=== PATIENT | female | born 1950 | race Caucasian/White ===

== ENCOUNTER 2018-12-07 14:44 | Emergency (ER) | payer OTHER ==
[2018-12-07 15:04] VITALS: BP 106/50; PULSE 74; TEMP 98.4; BMI 28.3
--- NOTE | 2018-12-07 16:08 | PDOC ---
History of Present Illness - General Chief Complaint: Cold Symptoms Stated Complaint: COUGHING Time Seen by Provider: 12/07/18 15:57 - History of Present Illness Initial Comments: 12/07/18 16:04 68-year-old female with past medical history significant for hypertension and diabetes presents for evaluation of cough and fever with associated body aches 5 days. Past History - Past Medical History Allergies/Adverse Reactions: Allergies Allergy/AdvReac Type Severity Reaction Status Date / Time No Known Allergies Allergy Verified 12/07/18 15:02 Home Medications: Ambulatory Orders Guaifenesin Dm [Mucinex Dm -] 1 tab PO BID #14 tab.er.12h 12/07/18 Losartan Potassium [Cozaar -] 50 mg PO DAILY 12/07/18 Metformin HCl [Glucophage] 500 mg PO BID 12/07/18 COPD: No Diabetes: Yes HTN: Yes - Suicide/Smoking/Psychosocial Hx Smoking History: Never smoked Review of Systems - Review of Systems Constitutional: Yes: Chills, Fever, Malaise, Night Sweats Respiratory: Yes: Cough *Physical Exam - Vital Signs Last Vital Signs Temp Pulse Resp BP Pulse Ox 98.4 F 74 18 106/50 L 98 12/07/18 15:03 12/07/18 15:03 12/07/18 15:03 12/07/18 15:03 12/07/18 15:03 - Physical Exam Comments: 12/07/18 16:05 HEAD: NC/AT EYES: Conjuntiva clear Ears: Canals and TM's normal NOSE: No d/c THROAT: Moist mucous membrances, oral pharanx clear, uvula midline NECK: Supple without adenopathy CARDIAC: S1 S2 LUNGS: CTA Full and Equal breath sounds ABDOMEN: Soft NT ND MS: Full ROM in all joints without edema NEUROLOGIC: No gross sensory or motor deficits, NVID SKIN: Normal color and temperature no lesions or rashes Moderate Sedation - Procedure Monitoring Vital Signs: Procedure Monitoring Vital Signs Temperature 98.4 F 12/07/18 15:03 Pulse Rate 74 12/07/18 15:03 Respiratory Rate 18 12/07/18 15:03 Blood Pressure 106/50 L 12/07/18 15:03 O2 Sat by Pulse Oximetry (%) 98 12/07/18 15:03 Medical Decision Making - Medical Decision Making 12/07/18 16:08 benign exam, pt out of range for tamiflu treatment *DC/Admit/Observation/Transfer Diagnosis at time of Disposition: URI, acute - Discharge Dispostion Disposition: HOME Condition at time of disposition: Stable Decision to Admit order: No - Prescriptions Prescriptions: Guaifenesin Dm [Mucinex Dm -] 1 tab PO BID #14 tab.er.12h - Referrals Referrals: Derek Dove MD [Primary Care Provider] - - Patient Instructions Printed Discharge Instructions: DI for Viral Upper Respiratory Infection -- Adult Additional Instructions: Please use the Mucinex as needed for cough and as directed twice a day. Return to the emergency room should symptoms worsen or go unresolved. Please follow-up with your primary care physician in one to 2 days for further evaluation and treatment options. - Post Discharge Activity
== END 2018-12-07 16:18 | disposition home or self-care (01) ==
LOC: JERFT 14:44
DX: J06.9 Acute upper respiratory infection, unspecified (principal); I10 Essential (primary) hypertension; E11.9 Type 2 diabetes mellitus without complications; Z79.84 Long term (current) use of oral hypoglycemic drugs
CPT/HCPCS: 99281-25

== ENCOUNTER 2020-05-16 15:59 | Inpatient (IN) | payer OTHER ==
--- NOTE | 2020-05-16 16:07 | PDOC ---
Rapid Medical Evaluation Chief Complaint: Pain, Acute Time Seen by Provider: 05/16/20 16:04 Medical Evaluation: Allergies Allergy/AdvReac Type Severity Reaction Status Date / Time No Known Allergies Allergy Verified 12/07/18 15:02 Vital Signs Temp Pulse Resp BP Pulse Ox 98.2 F 69 16 102/64 99 05/16/20 16:01 05/16/20 16:01 05/16/20 16:01 05/16/20 16:01 05/16/20 16:01 05/16/20 16:05 CC: abd distention x 1 week, + hepatitis and elevated creatine level, decreased bm, + fatigue and sob with exertion Exam: vss, abd distention and firmness noted Plan: labs, urine and ct Discharge Disposition - Diagnosis Abdominal distention - Discharge Dispostion Condition at time of disposition: Stable - Referrals - Patient Instructions - Post Discharge Activity
[2020-05-16 16:55] LABS: BASO % 0.5 % (0-2.0); EOS % 1.4 % (0-4.5); HEMATOCRIT 36.3 % (32.4-45.2); HEMOGLOBIN 12.3 GM/dL (10.7-15.3); MCH 34.1 pg (25.7-33.7); MCHC 33.9 g/dl (32.0-36.0); MEAN CELL VOLUME 100.6 fl (80-96); MEAN PLT VOLUME 7.7 fl (7.5-11.1); MONO % 22.2 % (3.8-10.2); NEUT % 53.9 % (42.8-82.8); PLATELET COUNT 197 K/MM3 (134-434); RBC 3.61 M/mm3 (3.60-5.2); WHITE BLOOD COUNT 6.8 K/mm3 (4.0-10.0)
--- NOTE | 2020-05-16 17:00 | PDOC ---
History of Present Illness - General Chief Complaint: Pain, Acute Stated Complaint: ABD PAIN Time Seen by Provider: 05/16/20 16:04 History Source: Patient Exam Limitations: No Limitations - History of Present Illness Initial Comments: 05/16/20 17:00 69yF w PMHx HTN DM cirrhosis presenting w 10d worsening ABD distension. Was being worked up with Dr Escalona, last month diagnosed w cirrhosis, elevated creatinine, hepatitis neg, originally planned for CT A/P tmrw. Associated BLE swelling, subjective fevers, SOB and pain around abd distension contours. Denies alcohol use. Denies fever, n/v, cough, chest pain, dysuria, bowel mvmt changes. Past History - Medical History Allergies/Adverse Reactions: Allergies Allergy/AdvReac Type Severity Reaction Status Date / Time No Known Allergies Allergy Verified 05/16/20 17:50 Home Medications: Ambulatory Orders Losartan Potassium [Cozaar -] 50 mg PO DAILY 12/07/18 Glimepiride 2 mg PO BID 05/16/20 Hydrochlorothiazide 12.5 mg PO DAILY 05/16/20 Levothyroxine [Synthroid -] 50 mcg PO DAILY 05/16/20 Omeprazole 40 mg PO DAILY 05/16/20 Propranolol HCl 10 mg PO DAILY 05/16/20 COPD: No Diabetes: Yes HTN: Yes - Surgical History Lung Surgery: No - Immunization History Immunization Up to Date: No - Psycho-Social/Smoking History Smoking History: Never smoked Have you smoked in the past 12 months: No Information on smoking cessation initiated: No - Substance Abuse Hx (Audit-C & DAST Scrn) How often the patient has a drink containing alcohol: Never Score: In Men: 4 or > Positive; In Women: 3 or > Positive: 0 Screen Result (Pos requires Nsg. Audit-10AR): Negative In the last yr the pt used illegal drug/Rx for NonMed reason: No Score: Yes response is considered Positive: 0 Screen Result (Positive result requires Nsg. DAST-10): Negative Review of Systems - Review of Systems Constitutional: No: Chills *Physical Exam - Vital Signs Last Vital Signs Temp Pulse Resp BP Pulse Ox 98.2 F 69 16 102/64 99 05/16/20 16:01 05/16/20 16:01 05/16/20 16:01 05/16/20 16:01 05/16/20 16:01 - Physical Exam General Appearance: Yes: Nourished, Appropriately Dressed, Mild Distress HEENT: positive: EOMI, WILL, Normal Voice, Hearing Grossly Normal. negative: Scleral Icterus (R), Scleral Icterus (L) Respiratory/Chest: positive: Lungs Clear, Normal Breath Sounds. negative: Chest Tender, Respiratory Distress, Crackles, Rales, Rhonchi, Stridor, Wheezing Cardiovascular: positive: Regular Rhythm, Regular Rate, S1, S2. negative: Edema, Murmur Gastrointestinal/Abdominal: positive: Normal Bowel Sounds, Soft, Distended. negative: Tender Musculoskeletal: negative: CVA Tenderness (R), CVA Tenderness (L) Extremity: positive: Pedal Edema (2+ pitting to knees leanna) Integumentary: positive: Normal Color, Warm Neurologic: positive: Fully Oriented, Alert, Normal Response ED Treatment Course - LABORATORY CBC & Chemistry Diagram: 05/16/20 16:24 05/16/20 16:24 Medical Decision Making - Medical Decision Making 05/16/20 17:40 EKG CXR - no acute pathology CT A/P --- 69yF w PMHx HTN DM cirrhosis presenting w 10d worsening ABD distension. Ascites 2/2 liver/kidney. Has SIDNEY Cr 2.2, no evidence of UTI. Mildly elevated ALP, plt wnl. Low concern for SBP (afebrile, not toxic appearing) Diagnostic paracentesis withdrew 20cc yellow fluid, sent to lab for analysis (cell count, protein, culture, LDH) Anticipate admit m/s for ascites - pending CXR, CT A/P, body fluid results Signed out to night team Discharge - Discharge Information Problems reviewed: Yes Clinical Impression/Diagnosis: Ascites Qualifiers: Ascites type: other type Qualified Code(s): R18.8 - Other ascites Condition: Stable - Follow up/Referral Referrals: Derek Dove MD [Primary Care Provider] - - Patient Discharge Instructions - Post Discharge Activity
[2020-05-16 17:11] LABS: ALBUMIN 2.2 g/dl (3.4-5.0); ALK PHOS 139 U/L (45-117); ANION GAP 9 MMOL/L (8-16); BILIRUBIN,TOTAL 1.5 mg/dL (0.2-1); BLOOD UREA NITROGEN 42.4 mg/dL (7-18); CALCIUM 8.3 mg/dL (8.5-10.1); CHLORIDE 104 mmol/L (98-107); CO2 25 mmol/L (21-32); CREATININE 2.2 mg/dL (0.55-1.3); GLUCOSE,RANDOM 204 mg/dL (74-106); LIPASE 194 U/L (73-393); POTASSIUM 4.1 mmol/L (3.5-5.1); SGOT/AST 21 U/L (15-37); SGPT/ALT 16 U/L (13-61); SODIUM 138 mmol/L (136-145); TOT PROT 6.8 g/dl (6.4-8.2)
--- NOTE | 2020-05-16 17:22 | PDOC ---
Attending Attestation - Resident Resident Name: Akshat Jordan - ED Attending Attestation I have performed the following: I have examined & evaluated the patient, The case was reviewed & discussed with the resident, I agree w/resident's findings & plan, Exceptions are as noted - HPI HPI: 05/16/20 18:17 69-year-old female history of hypertension, diabetes presenting with increasing abdominal distention and discomfort. Patient states she She has been followed for evaluation and by GI, thinks she had a negative screening test for hepatitis in the past, she was given referral to GI for further evaluation she had a CT of the abdomen pending for tomorrow however as her creatinine was elevated it was canceled.. And also notes approximately 5 months of increasing lower extremity edema there has been no significant change there is no pain in her calves or hemoptysis. Patient Does endorse feeling subjective fevers she denies any nausea or vomiting, cough, chest pain, Ann, BPR. Patient denies any EtOH abuse, denies any history of blood transfusions or IV drug use - Physicial Exam PE: 05/16/20 18:18 GENERAL: The patient is awake, alert, and fully oriented, Nontoxic - in no acute distress. HEAD: Normocephalic, atraumatic. EYES: extraocular movements intact, sclera anicteric, conjunctiva clear. ENT: Normal voice, Moist mucous membranes. NECK: Normal range of motion, supple LUNGS: Breath sounds equal, clear to auscultation bilaterally. No wheezes, no rhonchi, no rales. HEART: Regular rate and rhythm, normal S1 and S2 without murmur, rub or gallop. ABDOMEN: Distended abdomen, mildly diffusely tender, no rebound or guarding, no CVA tenderness EXTREMITIES: Normal range of motion, Trace edema. NEUROLOGICAL: No facial assymetry, Normal speech, PSYCH: Normal mood, normal affect. SKIN: Warm, Dry, normal turgor, - Medical Decision Making 05/16/20 18:18 Unclear cause of patient's abdominal distention suspect ascites, differential includes possible malignancy, hepatitis, sbp (in light of complaint of chills/subjective fever) - will do diagnostic tap will obtain CT to eval for cause of her acites anticipate amdission as she also has a katie 05/16/20 18:30 diagnostic paracentesis performed under US guidance by Dr. Jordan under my direct supervision. Area was prepped, cleaned throughly with betadine. 18g syringe was inserted and 20cc of yellowish translucent fluid was withdrawn without any complications. sent to lab for analysis Heart Score/ECG Review - ECG Impressions Comment:: 05/16/20 18:33 Twelve-lead EKG was performed and reviewed by me. There is normal sinus rhythm with a normal rate. Rate of 67 The axis is normal. The intervals are normal. There is normal R wave progression There are no ST or T wave abnormalities. Impression: Normal twelve-lead EKG Discharge - Discharge Information Problems reviewed: Yes Clinical Impression/Diagnosis: Ascites Qualifiers: Ascites type: other type Qualified Code(s): R18.8 - Other ascites Condition: Stable - Follow up/Referral - Patient Discharge Instructions - Post Discharge Activity
[2020-05-16 17:51] LABS: URINE APPEARANCE CLEAR; URINE BILIRUBIN 1+ (NEGATIVE); URINE COLOR DK YELLOW; URINE GLUCOSE (UA) NEGATIVE (NEGATIVE); URINE KETONE TRACE (NEGATIVE); URINE LEUK ESTERASE NEGATIVE (NEGATIVE); URINE NITRITE NEGATIVE (NEGATIVE); URINE PROTEIN NEGATIVE (NEGATIVE)
[2020-05-16 17:54] LABS: N-TERMINAL BNP 151.6 pg/ml (5-125)
[2020-05-16 19:36] LABS: BF WBC & OTHER NUCLEATED CELLS 622 /mm3
[2020-05-16 19:39] LABS: ANISOCYTOSIS 0; MACROCYTOSIS 0; PLATELET ESTIMATE NORMAL
[2020-05-16 20:41] LABS: BODY FLUID MACROPHAGES 41 %; BODY FLUID MESOTHELIAL 15 %
--- NOTE | 2020-05-16 22:43 | PN ---
Teaching Attending Note Name of Resident: Shayy Montenegro ATTENDING PHYSICIAN STATEMENT I saw and evaluated the patient. I reviewed the resident's note and discussed the case with the resident. I agree with the resident's findings and plan as documented. SUBJECTIVE: Patient is a 69 year old woman with a PMH of Hypertension, NIDDM and Cirrhosis presenting with increasing abdominal distention and discomfort for ten days. Patient states she has been followed for evaluation and by GI - thinks she had a negative screening test for hepatitis. Scheduled CT of the abdomen for tomorrow was cancelled due to azotemia. Also notes approximately 5 months of increasing lower extremity edema but no calf pain or hemoptysis. Has associated subjective fevers. Denies nausea, vomiting, cough, chest pain, diarrhea, hematochezia, melena, blood transfusions or IV drug use. Denies alcohol, tobacco or illicit drug use. No sick contacts or recent travels. Family history is unremarkable. OBJECTIVE: Alert Vital Signs Period Temp Pulse Resp BP Sys/Ramos Pulse Ox Last 24 Hr 98.2 F 61-69 16-22 98-102/59-64 98-99 HEENT: No Jaundice, eye redness or discharge, PERRLA, EOMI. Normocephalic, atraumatic. External ears are normal and hearing is grossly intact. No nasal discharge. Neck: Supple, nontender. No palpable adenopathy or thyromegaly. No JVD Chest: Good effort. Clear to auscultation and percussion. Heart: Regular. No S3, rub or murmur Abdomen: Aistended, ascites; soft, diffuse tenderness most marked in the RUQ and no HSM. No rebound or guarding. Normal bowel sounds. Ext: Peripheral pulses intact. Leg edema. Skin: Warm and dry. No petechiae, rash or ecchymosis. Neuro: Alert. Oriented x3. CN 2-12 grossly intact. Sensation grossly intact in all four extremities and DTR are symmetric. Psych: Appropriate mood and affect. Good insight. Home Medications Medication Instructions Recorded Losartan Potassium [Cozaar -] 50 mg PO DAILY 12/07/18 Glimepiride 2 mg PO BID 05/16/20 Hydrochlorothiazide 12.5 mg PO DAILY 05/16/20 Levothyroxine [Synthroid -] 50 mcg PO DAILY 05/16/20 Omeprazole 40 mg PO DAILY 05/16/20 Propranolol HCl 10 mg PO DAILY 05/16/20 Abnormal Lab Results 05/16/20 05/16/20 05/16/20 16:24 16:24 17:25 MCV 100.6 H MCH 34.1 H Monocytes % 22.2 H D Monocytes % (Manual) 19 H Basophils % (Manual) 3.1 H BUN 42.4 H Creatinine 2.2 H Random Glucose 204 H Calcium 8.3 L Total Bilirubin 1.5 H Alkaline Phosphatase 139 H B-Natriuretic Peptide 151.6 H Albumin 2.2 L Urine Ketones Trace H Urine Bilirubin 1+ H Current Medications Generic Name Dose Route Start Last Admin Trade Name Freq PRN Reason Stop Dose Admin Acetaminophen 650 mg 05/17/20 00:48 Tylenol - PO Q4H PRN PAIN LEVEL 7 - 10 Ceftriaxone Sodium 1 gm/ 50 mls @ 200 mls/hr 05/18/20 01:00 Dextrose IVPB DAILY CHRIS Protocol Ceftriaxone Sodium 1 gm/ 50 mls @ 200 mls/hr 05/17/20 00:55 05/17/20 01:40 Dextrose IVPB 05/17/20 01:09 200 mls/hr ONCE ONE Administration Protocol Insulin Aspart 0 vial 05/17/20 07:00 Novolog Vial Sliding Scale - SQ ACHS [facility] Protocol ASSESSMENT AND PLAN: 1. Ascites/Rule out SBP - Etiology unclear. CT scan of abdomen/pelvis without contrast shows ascites, ill defined peritoneal densities, possible mesenteric edema, large periaortic lymphnodes and multilevel degenerative disc disease. Diagnostic paracentesis done and analysis fluid pending. Macrocytosis is unexplained. Viral testing for COVID-19 ordered and patient placed on airborne, droplet and contact isolation. EKG shows NSR at 67/minute and QTc [address]-T wave changes. Initial troponin is negative. Will get PT/INR, treat patient empirically with IV Ceftriaxone pending ascitic fluid analysis. If SBP is confirmed, will treat with IV albumin. Consult IR for therapeutic paracentesis, ID and GI. Will continue comprehensive care for all of patients comorbid conditions. 2. Hypoalbuminemia - Possibly due to combined effects of malnutrition and inflammation associated with comorbid conditions. Will ensure adequate dietary protein intake and also consult promotions director. 3. DM For now, we will hold the home diabetes drugs and implement sliding scale insulin regimen. Provide comprehensive diabetes care with patient teaching and counseling about the importance of adherence to prescribed diabetes regimen, euglycemia, eye care and foot care. 4. CKD with SIDNEY Cause unclear. Will hold HCTZ and Lisinopril. Will get kidney sonogram, phosphate, PTH, urine protein/creatinine ratio, hydrate gently, monitor urine output and consult Nephrology. Avoid nephrotoxic agents such as NSAIDS, aminoglycosides, contrast dyes and certain Alternative medicine products. 5. Hypertension Hold antihypertensive drugs. Will restart suitable outpatient antihypertensive drugs when clinically appropriate. Subsequently, will revise regimen to ensure [id number] excellent BP control. Patient counseled on the injurious effects of uncontrolled hypertension. Nonpharmacologic measures to control hypertension like weight loss, salt restriction and exercise stressed. Importance of adherence to treatment regimen and attainment of normotension emphasized. 6. DVT prophylaxis - Heparin 5000u sq tid. 7. Advance directives - Full code
[2020-05-17] MEDS ORDERED: ACETAMINOPHEN 325 MG TABLET (FP) PO PRN (00:48)
[2020-05-17] MEDS ORDERED: CEFTRIAXONE 1 GM in DEXTROSE 5%-WATER - 50 ML IVPB ONE (00:55)
[2020-05-17] MEDS ORDERED: CEFTRIAXONE 1 GM/50 ML BAG ONE ×2 (01:43→09:41)
--- NOTE | 2020-05-17 02:22 | HP ---
CHIEF COMPLAINT: Abdominal distension and pain PCP: Dr. Derek Dove HISTORY OF PRESENT ILLNESS: Pt is a 69 yo F with PMHx of cirrhosis, DM complaining of abdominal distension and pain for the last 4 days. She states this pain is present throughout the abdomen, but is most pronouned in the R subcostal region. Pt states nothing has seemed to make it better or worse. Pt also complains of progressive lower extremity edema for the last 4-5 months, but denies any calf pain, hemoptysis or SOB symptoms. States she has been following outpatient with GI (Dr. Escalona) and was diagnosed with cirrhosis in October. Sstarted on medication which she cannot recall the name of. Pt states she had colonoscopy in October which was unremarkable. Also had EGD which showed ulcers which she's being treated for. Admits to subjective fevers (did not record temps) at home and chills and urinary issues with decreased urine output. Denies nausea, vomiting, CP, SOB, bowel issues, melena, hematochezia. ER course was notable for: (1) Diagnostic paracentesis (2) EKG NSR, no acute changes Recent Travel: [facility] in November PAST MEDICAL HISTORY: Cirrhosis DM HTN PAST SURGICAL HISTORY: Hernia repair Hysterectomy Social History: Smoking: Denies Alcohol: Denies Drugs: Denies Allergies No Known Allergies Allergy (Verified 05/16/20 17:50) HOME MEDICATIONS: Home Medications Medication Instructions Recorded Losartan Potassium [Cozaar -] 50 mg PO DAILY 12/07/18 Glimepiride 2 mg PO BID 05/16/20 Hydrochlorothiazide 12.5 mg PO DAILY 05/16/20 Levothyroxine [Synthroid -] 50 mcg PO DAILY 05/16/20 Omeprazole 40 mg PO DAILY 05/16/20 Propranolol HCl 10 mg PO DAILY 05/16/20 REVIEW OF SYSTEMS CONSTITUTIONAL: Admits to fever, chills Denies diaphoresis, generalized weakness, malaise, loss of appetite, weight change HEENT: Absent: rhinorrhea, nasal congestion, throat pain, throat swelling, difficulty swallowing, mouth swelling, ear pain, eye pain, visual changes CARDIOVASCULAR: Absent: chest pain, syncope, palpitations, irregular heart rate, lightheadedness, peripheral edema RESPIRATORY: Absent: cough, shortness of breath, dyspnea with exertion, orthopnea, wheezing, stridor, hemoptysis GASTROINTESTINAL: Admits to diffuse pain, pronounced in R subcostal region Absent: abdominal pain, abdominal distension, nausea, vomiting, diarrhea, constipation, melena, hematochezia GENITOURINARY: Absent: dysuria, frequency, urgency, hesitancy, hematuria, flank pain, genital pain MUSCULOSKELETAL: Admits to LE edema Absent: myalgia, arthralgia, back pain, neck pain SKIN: Absent: rash, itching, pallor HEMATOLOGIC/IMMUNOLOGIC: Absent: easy bleeding, easy bruising, lymphadenopathy, frequent infections ENDOCRINE: Absent: unexplained weight gain, unexplained weight loss, heat intolerance, cold intolerance NEUROLOGIC: Absent: headache, focal weakness or paresthesias, dizziness, unsteady gait, seizure, mental status changes, bladder or bowel incontinence PSYCHIATRIC: Absent: anxiety, depression, suicidal or homicidal ideation, hallucinations. PHYSICAL EXAMINATION Vital Signs - 24 hr 05/16/20 05/16/20 05/16/20 16:01 17:41 20:44 Temperature 98.2 F Pulse Rate 69 Pulse Rate [ 61 Radial] Respiratory 16 22 H Rate Blood Pressure 102/64 Blood Pressure 98/59 L [Left Arm] O2 Sat by Pulse 99 98 98 Oximetry (%) 05/17/20 02:04 Temperature 97.9 F Pulse Rate Pulse Rate [ 64 Radial] Respiratory 18 Rate Blood Pressure Blood Pressure 103/65 [Left Arm] O2 Sat by Pulse 98 Oximetry (%) GENERAL: Awake, alert, and fully oriented, in no acute distress. HEAD: Normal with no signs of trauma. EYES: Pupils equal, round and reactive to light, extraocular movements intact, sclera anicteric, conjunctiva clear. No lid lag. EARS, NOSE, THROAT: Ears normal, nares patent, oropharynx clear without exudates. Moist mucous membranes. NECK: Normal range of motion, supple without lymphadenopathy, JVD, or masses. LUNGS: Breath sounds equal, clear to auscultation bilaterally. No wheezes, and no crackles. No accessory muscle use. HEART: Regular rate and rhythm, normal S1 and S2 without murmur, rub or gallop. ABDOMEN: Ascitic/distended abdomen. Positive fluid wave. Hepatomegaly present. Tender to palpation. Normoactive bowel sounds, no guarding, no rebound, no masses. No splenomegaly MUSCULOSKELETAL: Normal range of motion at all joints. No bony deformities or tenderness. No CVA tenderness. UPPER EXTREMITIES: 2+ pulses, warm, well-perfused. No cyanosis. No clubbing. No peripheral edema. LOWER EXTREMITIES: 2+ pulses, warm, well-perfused. No calf tenderness. Trace edema bilaterally. NEUROLOGICAL: Cranial nerves II-XII intact. Normal speech. Normal gait. PSYCHIATRIC: Cooperative. Good eye contact. Appropriate mood and affect. SKIN: Warm, dry, normal turgor, no rashes or lesions noted, normal capillary refill. Laboratory Results - last 24 hr 05/16/20 05/16/20 05/16/20 16:24 16:24 17:25 WBC 6.8 RBC 3.61 Hgb 12.3 Hct 36.3 MCV 100.6 H MCH 34.1 H MCHC 33.9 RDW 13.0 Plt Count 197 D MPV 7.7 Absolute Neuts (auto) 3.7 Neutrophils % 53.9 Neutrophils % (Manual) 43.7 Band Neutrophils % 2.1 Lymphocytes % 22.0 Lymphocytes % (Manual) 28.1 Monocytes % 22.2 H D Monocytes % (Manual) 19 H Eosinophils % 1.4 Eosinophils % (Manual) 2.1 Basophils % 0.5 Basophils % (Manual) 3.1 H Myelocytes % (Man) 0 Promyelocytes % (Man) 0 Blast Cells % (Manual) 0 Nucleated RBC % 0 Metamyelocytes 0 Hypochromia 0 Platelet Estimate Normal Polychromasia 0 Poikilocytosis 0 Anisocytosis 0 Microcytosis 0 Macrocytosis 0 Sodium 138 Potassium 4.1 Chloride 104 Carbon Dioxide 25 Anion Gap 9 BUN 42.4 H Creatinine 2.2 H Est GFR (CKD-EPI)AfAm 25.30 Est GFR (CKD-EPI)NonAf 21.83 Random Glucose 204 H Calcium 8.3 L Magnesium 2.0 Total Bilirubin 1.5 H AST 21 ALT 16 Alkaline Phosphatase 139 H Creatine Kinase 77 Troponin I < 0.02 B-Natriuretic Peptide 151.6 H Total Protein 6.8 Albumin 2.2 L Lipase 194 Urine Color Dk yellow Urine Appearance Clear Urine pH 5.0 Ur Specific [place] 1.017 Urine Protein Negative Urine Glucose (UA) Negative Urine Ketones Trace H Urine Blood Negative Urine Nitrite Negative Urine Bilirubin 1+ H Urine Urobilinogen 1.0 Ur Leukocyte Esterase Negative Fluid Source Fluid WBC Fluid RBC Fluid Neutrophils Fluid Lymphocytes Pleural Macrophages Pleural Mesothelial 05/16/20 18:25 WBC RBC Hgb Hct MCV MCH MCHC RDW Plt Count MPV Absolute Neuts (auto) Neutrophils % Neutrophils % (Manual) Band Neutrophils % Lymphocytes % Lymphocytes % (Manual) Monocytes % Monocytes % (Manual) Eosinophils % Eosinophils % (Manual) Basophils % Basophils % (Manual) Myelocytes % (Man) Promyelocytes % (Man) Blast Cells % (Manual) Nucleated RBC % Metamyelocytes Hypochromia Platelet Estimate Polychromasia Poikilocytosis Anisocytosis Microcytosis Macrocytosis Sodium Potassium Chloride Carbon Dioxide Anion Gap BUN Creatinine Est GFR (CKD-EPI)AfAm Est GFR (CKD-EPI)NonAf Random Glucose Calcium Magnesium Total Bilirubin AST ALT Alkaline Phosphatase Creatine Kinase Troponin I B-Natriuretic Peptide Total Protein Albumin Lipase Urine Color Urine Appearance Urine pH Ur Specific [place] Urine Protein Urine Glucose (UA) Urine Ketones Urine Blood Urine Nitrite Urine Bilirubin Urine Urobilinogen Ur Leukocyte Esterase Fluid Source Abdominal Fluid WBC 622 Fluid RBC 2916 Fluid Neutrophils 7 Fluid Lymphocytes 37 Pleural Macrophages 41 Pleural Mesothelial 15 ASSESSMENT/PLAN: Pt is a 69 yo F with PMHx of cirrhosis, DM and HTN presenting with 4 days of abdominal distension of pain. Abdomen/pelvis CT showscirrhotic liver, GB not seen, significant ascites and mildly enlarged para-aortic lymph nodes. No elevated WBC, but BUN and Cr elevated (42, 2.2) from baseline. Admitted for ascites secondary to cirrhosis. #Ascites - Secondary to cirrhosis - Cirrhosis possibly secondary - Hep panel negative 1 month ago at GI outpatient (Dr. Escalona), f/u on obtaining records - Diagnostic paracentesis done in ED - Serum LDH ordered to determine if SBP criteria met - Therapeutic paracentesis; consulted IR - CT abdomen/pelvis scheduled in AM cancelled due to renal issues - Rocephin for SBP prophylaxis - Coags ordered - Consulted GI, IR, ID #DM -Hyperglycemic with blood glucose 204 in ED -Hold home insulin medication -Sliding scale insulin ordered with blood glucose monitoring #HTN -Hold home HCTZ and lisinopril due to BP 103/65 -Restart when clinically appropriate #CKD with SIDNEY -GFR 21.82, Cr 2.2 (baseline 0.6) -Possibly secondary to hepatorenal syndrome -Avoid nephrotoxic agents -Monitor urine output as pt has had decreased output subjectively -Follow up on AM labs -Renal ultrasound ordered -Ordered PTH, PO4 -Consulted nephrology FEN: -NPO -Monitor electrolytes in AM labs DVT prophylaxis: Heparin 5000u SQ TID Dispo: Pt admitted to med/surg. Will receive therapeutic tap from IR, follow up. Follow up on AM labs to determine kidney status. Family Medical History Family History: Unremarkable (unremarkable) Problem List - Problem (1) Portal vein thrombosis Code(s): I81 - PORTAL VEIN THROMBOSIS (2) Lymphadenopathy, abdominal Code(s): R59.0 - LOCALIZED ENLARGED LYMPH NODES (3) HTN (hypertension) Code(s): I10 - ESSENTIAL (PRIMARY) HYPERTENSION (4) Diabetes mellitus Code(s): E11.9 - TYPE 2 DIABETES MELLITUS WITHOUT COMPLICATIONS (5) SIDNEY (acute kidney injury) Code(s): N17.9 - ACUTE KIDNEY FAILURE, UNSPECIFIED (6) Ascites Code(s): R18.8 - OTHER ASCITES Qualifiers: Ascites type: other type Qualified Code(s): R18.8 - Other ascites (7) Cirrhosis Code(s): K74.60 - UNSPECIFIED CIRRHOSIS OF LIVER Visit type - Emergency Visit Emergency Visit: Yes ED Registration Date: 05/16/20 Care time: The patient presented to the Emergency Department on the above date and was hospitalized for further evaluation of their emergent condition. - New Patient This patient is new to me today: Yes Date on this admission: 05/16/20 - Critical Care Critical Care patient: No ATTENDING PHYSICIAN STATEMENT I saw and evaluated the patient. I reviewed the resident's note and discussed the case with the resident. I agree with the resident's findings and plan as documented. SUBJECTIVE: OBJECTIVE: ASSESSMENT AND PLAN:
[2020-05-17] MEDS ORDERED: HEPARIN NA (PORCINE) 5,000 UNITS/ML 1ML VIAL ONE ×2 (06:17→14:55)
[2020-05-17] MEDS: INSULIN SLIDING SCALE (NOVOLOG) 1 VIAL SQ SCH ×4 (06:26→21:55)
[2020-05-17] MEDS: HEPARIN NA (PORCINE) 5,000 UNITS/ML 1ML VIAL SQ SCH ×2 (06:26→14:57)
[2020-05-17 08:04] LABS: HEMATOCRIT 33.6 % (32.4-45.2); HEMOGLOBIN 11.3 GM/dL (10.7-15.3); MCH 33.5 pg (25.7-33.7); MCHC 33.8 g/dl (32.0-36.0); MEAN CELL VOLUME 99.1 fl (80-96); MEAN PLT VOLUME 7.5 fl (7.5-11.1); PLATELET COUNT 173 K/MM3 (134-434); RBC 3.39 M/mm3 (3.60-5.2); RDW 12.6 % (11.6-15.6); WHITE BLOOD COUNT 6.8 K/mm3 (4.0-10.0)
[2020-05-17 08:17] LABS: INR 1.48 (0.83-1.09); PROTHROMBIN TIME (PATIENT) 17.5 SEC (9.7-13.0)
[2020-05-17 08:19] LABS: ACTIVATED PTT 29.1 SECONDS (25.2-36.5)
[2020-05-17 08:36] LABS: BILIRUBIN,DIRECT 0.7 mg/dL (0.0-0.2); BILIRUBIN,TOTAL 1.4 mg/dL (0.2-1); BLOOD UREA NITROGEN 41.4 mg/dL (7-18); CALCIUM 8.3 mg/dL (8.5-10.1); CREATININE 1.7 mg/dL (0.55-1.3); MAGNESIUM 1.9 mg/dL (1.8-2.4); PHOSPHOROUS 3.2 mg/dL (2.5-4.9); POTASSIUM 3.8 mmol/L (3.5-5.1); TOT PROT 6.3 g/dl (6.4-8.2)
[2020-05-17] MEDS: CEFTRIAXONE 1 GM in DEXTROSE 5%-WATER - 50 ML IVPB SCH (09:48)
--- NOTE | 2020-05-17 10:41 | EKG ---
Test Reason : Blood Pressure : / mmHG Vent. Rate : 067 BPM Atrial Rate : 067 BPM P-R Int : 162 ms QRS Dur : 084 ms QT Int : 416 ms P-R-T Axes : 013 013 044 degrees QTc Int : 439 ms NORMAL SINUS RHYTHM NORMAL ECG NO PREVIOUS ECGS AVAILABLE Confirmed by MD Tam, Maikel ([id number]) on 05/17/2020 10:40:56 AM Referred By: Confirmed By:Maikel Turcios MD
[2020-05-17] MEDS ORDERED: ALBUMIN HUMAN 25% 12.5 GM/50 ML VIAL IVPB ONE ×3 (10:51→18:15)
--- NOTE | 2020-05-17 12:55 | CON.ID ---
Consult Consult Specialty:: infectious diseases Referred by:: hospitalist Reason for Consultation:: abd pain,r/o sbp - History of Present Illness Chief Complaint: abd pain History of Present Illness: Scottish speaking 69 yo F with PMHx of cirrhosis, DM complaining of abdominal distension and pain for the last 4 days. She states this pain is present throughout the abdomen, but is most pronouned in the R subcostal region. Pt states nothing has seemed to make it better or worse. Pt also complains of progressive lower extremity edema for the last 4-5 months, but denies any calf pain, hemoptysis or SOB symptoms. patient was recently diagnosed with cirrhosis ,does not know what she is taking Pt states she had colonoscopy in October which was unremarkable. Also had EGD which showed ulcers which she's being treated for. Admits to subjective fevers and chills and urinary issues with decreased urine output. Denies nausea, vomiting, CP, SOB, bowel issues, melena, hematochezia. - History Source History Provided By: Patient, Medical Record Limitations to Obtaining History: Language Barrier - Smoking History Smoking history: Never smoked Have you smoked in the past 12 months: No Home Medications - Allergies Allergies/Adverse Reactions: Allergies Allergy/AdvReac Type Severity Reaction Status Date / Time No Known Allergies Allergy Verified 05/16/20 17:50 - Home Medications Home Medications: Ambulatory Orders Losartan Potassium [Cozaar -] 50 mg PO DAILY 12/07/18 Levothyroxine [Synthroid -] 50 mcg PO DAILY 05/16/20 RX: Glimepiride 2 mg PO BID 05/16/20 RX: Hydrochlorothiazide 12.5 mg PO DAILY 05/16/20 RX: Omeprazole 40 mg PO DAILY 05/16/20 RX: Propranolol HCl 10 mg PO DAILY 05/16/20 Review of Systems - Review of Systems Constitutional: reports: No Symptoms, Other Eyes: reports: No Symptoms HENT: reports: No Symptoms Neck: reports: No Symptoms Cardiovascular: reports: No Symptoms Respiratory: reports: No Symptoms Gastrointestinal: reports: Abdominal Pain, Bloating, Other Genitourinary: reports: No Symptoms Musculoskeletal: reports: No Symptoms Integumentary: reports: No Symptoms Neurological: reports: No Symptoms Endocrine: reports: No Symptoms Hematology/Lymphatic: reports: No Symptoms Psychiatric: reports: No Symptoms Physical Exam Vital Signs: Vital Signs Temperature 98.0 F 05/17/20 07:05 Pulse Rate 64 05/17/20 07:05 Respiratory Rate 16 05/17/20 07:05 Blood Pressure 105/46 L 05/17/20 07:05 O2 Sat by Pulse Oximetry (%) 98 05/17/20 02:04 Constitutional: Yes: Calm, Mild Distress Eyes: Yes: Conjunctiva Clear HENT: Yes: Atraumatic, Normocephalic Neck: Yes: Supple, Trachea Midline Cardiovascular: Yes: Regular Rate and Rhythm Respiratory: Yes: Regular, CTA Bilaterally Gastrointestinal: Yes: Soft, Ascites, Tenderness Musculoskeletal: Yes: WNL Extremities: Yes: WNL Neurological: Yes: Alert, Oriented Psychiatric: Yes: Alert, Oriented Labs: CBC, BMP 05/17/20 07:05 05/17/20 07:05 Imaging - Results Chest X-ray: Report Reviewed, Image Reviewed Cat Scan: Report Reviewed, Image Reviewed Assessment/Plan 69yF w PMHx HTN DM cirrhosis presenting w 10d worsening ABD distension. Ascites 2/2 liver/kidney. SIDNEY . also patient has suspected portal thrombosis all cx still pending patient on anticoagulant plan patient tapped awaiting for results continue current mgmt rest as per the tem
--- NOTE | 2020-05-17 13:15 | CONSULT ---
Consult Consult Specialty:: Nephrology Reason for Consultation:: KATIE - History of Present Illness Chief Complaint: abdominal distension History of Present Illness: Pt is a 69 year old female with pmhx of cirrhosis, htn and dm who presents to the ER with increased abdominal distension. She says that she has felt it for the last 5 days. She denies shortness of breath. She complains of lower ext edema. She denies chest pain. She denies dysuria or hematuria. I was called to evaluate her for KATIE. Her renal function is improving. She She denies history of CKD. She does take diuretics at home. She denies chills but feels warm. - History Source History Provided By: Patient, Medical Record - Past Medical History Cardio/Vascular: Yes: HTN Hepatobiliary: Yes: Cirrhosis Endocrine: Yes: Diabetes Mellitus - Smoking History Smoking history: Never smoked Have you smoked in the past 12 months: No Home Medications - Allergies Allergies/Adverse Reactions: Allergies Allergy/AdvReac Type Severity Reaction Status Date / Time No Known Allergies Allergy Verified 05/16/20 17:50 - Home Medications Home Medications: Ambulatory Orders Losartan Potassium [Cozaar -] 50 mg PO DAILY 12/07/18 Glimepiride 2 mg PO BID 05/16/20 Hydrochlorothiazide 12.5 mg PO DAILY 05/16/20 Levothyroxine [Synthroid -] 50 mcg PO DAILY 05/16/20 Omeprazole 40 mg PO DAILY 05/16/20 Propranolol HCl 10 mg PO DAILY 05/16/20 Family Medical History Family History: Denies Review of Systems - Review of Systems Constitutional: reports: Fever. denies: Chills Eyes: reports: No Symptoms HENT: reports: No Symptoms Neck: reports: No Symptoms Cardiovascular: reports: No Symptoms Respiratory: reports: No Symptoms Gastrointestinal: reports: Other (ascites) Genitourinary: reports: No Symptoms Musculoskeletal: reports: No Symptoms Neurological: reports: No Symptoms Endocrine: reports: No Symptoms Hematology/Lymphatic: reports: No Symptoms Psychiatric: reports: No Symptoms Physical Exam Vital Signs: Vital Signs Temperature 98.0 F 05/17/20 07:05 Pulse Rate 64 05/17/20 07:05 Respiratory Rate 16 05/17/20 07:05 Blood Pressure 105/46 L 05/17/20 07:05 O2 Sat by Pulse Oximetry (%) 98 05/17/20 02:04 Constitutional: Yes: Calm HENT: Yes: Atraumatic Cardiovascular: Yes: S1, S2 Respiratory: Yes: CTA Bilaterally Gastrointestinal: Yes: Ascites Renal/: Yes: WNL Musculoskeletal: Yes: WNL Edema: Yes Edema: LLE: 2+, RLE: 2+ Neurological: Yes: Oriented Psychiatric: Yes: Oriented Labs: CBC, BMP 05/17/20 07:05 05/17/20 07:05 Laboratory Tests 05/16/20 05/16/20 05/16/20 16:24 17:25 17:40 Sodium 138 Potassium 4.1 Creatinine 2.2 H Urine Protein Negative Urine Blood Negative COVID-19 (JARRETT) Pending 05/17/20 07:05 Sodium 141 Potassium 3.8 Creatinine 1.7 H Urine Protein Urine Blood COVID-19 (JARRETT) Imaging - Results Cat Scan: Report Reviewed Problem List - Problems (1) KATIE (acute kidney injury) Code(s): N17.9 - ACUTE KIDNEY FAILURE, UNSPECIFIED (2) Ascites Code(s): R18.8 - OTHER ASCITES Qualifiers: Ascites type: other type Qualified Code(s): R18.8 - Other ascites Assessment/Plan Current Medications Generic Name Dose Route Start Last Admin Trade Name Freq PRN Reason Stop Dose Admin Acetaminophen 650 mg 05/17/20 00:48 Tylenol - PO Q4H PRN PAIN LEVEL 7 - 10 Heparin Sodium (Porcine) 5,000 unit 05/17/20 06:00 05/17/20 06:26 Heparin - SQ 5,000 unit TID CHRIS Administration Ceftriaxone Sodium 1 gm/ 50 mls @ 200 mls/hr 05/17/20 10:00 05/17/20 09:48 Dextrose IVPB 200 mls/hr DAILY CHRIS Administration Protocol Insulin Aspart 1 vial 05/17/20 07:00 05/17/20 06:26 Novolog Vial Sliding Scale - SQ Not Given ACHS CHRIS Protocol Impression 1. katie 2. liver cirrhosis 3. ascites 4. htn 5. dm 6. hypothyroidism Plan - pt for paracentesis today - likley hrs with improving renal function - recommend albumin with paracentesis - resume diuretics tomorrow - pt is grossly fluid overloaded - wound not restart hctz nor losartan (bp is low) - start spironolactone - will need to monitor renal function closely - agree with abx (subjective fevers) - follow cultures - discussed with medical team
--- NOTE | 2020-05-17 13:28 | PN ---
Teaching Attending Note Name of Resident: Jean-Claude Connor ATTENDING PHYSICIAN STATEMENT I saw and evaluated the patient. I reviewed the resident's note and discussed the case with the resident. I agree with the resident's findings and plan as documented. SUBJECTIVE: [employer] phone was used. [phone] She reports abd distention and painin RUQ radiating to her R flank. No diarrhea. reports decreased UOP in past few dayas but then improved this am when she urinated a lot. No N/V. HAs SOB. reports taking a diuretic pill daily . she has no fever but subjective chills at home she denies upper GI bleed before, but reports black stool , and once she saw bright red blood. she takes iron pills. OBJECTIVE: NAD, awake, alert, cooperative MMM, no facial droop CV: RRR, 2/6 Sm at base and LLSB. no radiation Lungs: CTAB Abd: distended, TTP in RUQ, and epigastric area. No guarding. liver and spleen could not be palpated. + fluid wave. no lesion onfabd skin . surgical scar in RUQ. Ext: 2+ edema on legs . no fungal infection among toes. DP 2+ b/l MS: TTP over the muscles in b/ flanks ASSESSMENT AND PLAN: 69 y/o lady with h/o DM , cirrhosis, hypothyroidism, and HTN who presented with increasing abd distention and LE edema. 1- Ascitis: due to liver cirrhosis. not sure if she is compliant with her diuretics or undertreated. ? salt intake. ? portal vein thrombosis - No evidence of SBP per ascitis fluid analysis. ANC 37. - follow fluid cx. ID Recs pending. - will arrange for therapeutic paracentesis. - give Albumin before and after paracentesis as a large volume is expected to be removed - hold of diuretics for now , pending renal function after the procedure - obtain US with doppler to evaluate for portal vein thrombosis. 2- SIDNEY: likely hepatorenal syndrome. BL cr 0.8. - hold losartan and HCTZ. - give albumin - d/w Dr. Kimani Ramírez or Octeriotide gtt. deferred for now - will decide on diuretics tomorrow - give albumin after paracentesis 3- Liver Cirrhosis. follows with GI as out pt . - Not sure of w/u done for that . - not sure if + varices or previous GI bleed. ? propranolol. will confirm meds - GI consult pending 4- Lymphadenopathy in Abd: f/u as out pt 5- calcification in pelvis. ? ovaries. pelvic US as out pt 6- H/o HTN: hold losartana dn HCTZ> 8- Dm : A1c noted. SSI for now 9- Macrocytosis. r/o B12, folate def. ? liver disease. obtain labs HLOC
[2020-05-17 14:47] LABS: BF WBC & OTHER NUCLEATED CELLS 543 /mm3
[2020-05-17 14:48] LABS: BODY FLUID BASOPHIL 1 %; BODY FLUID MACROPHAGES 47 %; BODY FLUID MESOTHELIAL 2 %
--- NOTE | 2020-05-17 16:18 | CON.GI ---
Consult - History of Present Illness History of Present Illness: The patient is a 69 yo female who presented today for increased abdominal pain and size. The patient has a known history of cirrhosis which was diagnosed in [facility] approximately 2 years ago from unknown cause. Last week she was referred to Dr. Coley who saw her in his office and the patient was ordered for an outpatient CT scan. Her abd pain increased and she came to the ER for evaluation. She denies any nausea or emesis and had a regular BM yesterday. Overall appetite hasn't changed. She has had an upper endoscopy in September 2018 and her last colonoscopy was 8 years ago and revealed hemorrhoids. s/p paracentesis today with IR, as per sign out 6 liters of fluid removed. No report available for review. - History Source History Provided By: Family Member - Past Medical History Cardio/Vascular: Yes: HTN Pulmonary: No: Asthma, Bronchitis Hepatobiliary: Yes: Cirrhosis Renal/: No: Hematuria, Renal Calculi, UTI Endocrine: Yes: Diabetes Mellitus - Smoking History Smoking history: Never smoked Have you smoked in the past 12 months: No <Penelope Burt - Last Filed: 05/17/20 18:10> Home Medications <Penelope Burt - Last Filed: 05/17/20 18:10> <Jessica Sanchez - Last Filed: 05/17/20 21:02> - Allergies Allergies/Adverse Reactions: Allergies Allergy/AdvReac Type Severity Reaction Status Date / Time No Known Allergies Allergy Verified 05/16/20 17:50 - Home Medications Home Medications: Ambulatory Orders Losartan Potassium [Cozaar -] 50 mg PO DAILY 12/07/18 Glimepiride 2 mg PO BID 05/16/20 Hydrochlorothiazide 12.5 mg PO DAILY 05/16/20 Levothyroxine [Synthroid -] 50 mcg PO DAILY 05/16/20 Omeprazole 40 mg PO DAILY 05/16/20 Propranolol HCl 10 mg PO DAILY 05/16/20 Review of Systems - Review of Systems Constitutional: reports: Chills, Other (felt chills x 1 several days ago, didn't take her temperature) Cardiovascular: denies: Chest Pain, Palpitations Respiratory: denies: SOB Gastrointestinal: reports: Abdominal Pain. denies: Melena, Vomiting Genitourinary: denies: Burning, Dysuria Integumentary: denies: Blister, Bruising Neurological: denies: Dizziness, Headache Hematology/Lymphatic: denies: Easily Bruised, Excessive Bleeding <Penelope Burt - Last Filed: 05/17/20 18:10> Physical Exam-GI Vital Signs: Vital Signs Temperature 97.9 F 05/17/20 13:52 Pulse Rate 78 05/17/20 13:52 Respiratory Rate 20 05/17/20 13:52 Blood Pressure 103/49 L 05/17/20 13:52 O2 Sat by Pulse Oximetry (%) 99 05/17/20 13:52 Constitutional: Yes: Well Nourished, Calm HENT: Yes: Atraumatic, Normocephalic Cardiovascular: Yes: WNL, Regular Rate and Rhythm Respiratory: Yes: WNL, Regular, CTA Bilaterally Gastrointestinal Inspection: Yes: Ascites ...Palpate: No: Guarding ...Percussion: Yes: Fluid Wave, Other (dry dressing in place RUQ) Edema: No Edema: LLE: 2+, RLE: 2+ Neurological: Yes: WNL, Alert, Oriented Psychiatric: Yes: Alert, Oriented Labs: CBC, [facility] 05/17/20 07:05 05/17/20 07:05 INR, PTT INR 1.48 (0.83-1.09) H 05/17/20 07:05 <Penelope Burt - Last Filed: 05/17/20 18:10> Vital Signs: Vital Signs Temperature 97.6 F 05/17/20 17:45 Pulse Rate 68 05/17/20 17:45 Respiratory Rate 20 05/17/20 17:45 Blood Pressure 106/66 05/17/20 17:45 O2 Sat by Pulse Oximetry (%) 96 05/17/20 18:00 Labs: CBC, [facility] 05/17/20 07:05 05/17/20 07:05 INR, PTT INR 1.48 (0.83-1.09) H 05/17/20 07:05 <Jessica Sanchez - Last Filed: 05/17/20 21:02> Imaging - Results Cat Scan: Other (large amount of free fluid/ascites. small liver) Ultrasound: Report Reviewed (renal ultraound: unremarkable Bladder: no thickening) <Penelope Burt - Last Filed: 05/17/20 18:10> Problem List - Problems (1) Ascites Assessment/Plan: pt with cirrhosis and ascites. s/p paracentesis f/u cultures. R/o SBP. Case D/w Dr. Sanchez and need to r/o hepatorenal syndrome. Urine sodium at this time may not be accurate, she has been taking a diuretic as an outpatient basis and recommend to hold any further diuretics until volume status stabilized and BUN/CRET numbers show improvement. Her values have improved since yesterday. Renal consult noted and agree to monitor kidney function and BP. s/p paracentesis of 6 liters, now receiving albumin. Fevers subjective and no elevations in temperature recorded so far in her hospital admission. No elevation in WBC. Awaiting ID consult for use of antibiotics. Cultures pending to r/o SBP Recommend to send hepatic serologies Pt without no evidence of hepatic encephalopathy but with obvious liver failure. Recommending to start xifaxan 550mg BID Avoid all hepatotoxic agents D/w Dr. Sanchez and the medical team. Problems reviewed: Yes Code(s): R18.8 - OTHER ASCITES Qualifiers: Ascites type: other type Qualified Code(s): R18.8 - Other ascites <Penelope Burt - Last Filed: 05/17/20 18:10> Assessment/Plan PATIENT WAS SEEN AND EXAMINED AGREE WITH ASSESSMENT AND PLAN OUTLINED ABOVE F/U ASCITES FLUID CHEMISTRY AND CULTURE R/O SBP HOLD DIURETICS FOR NOW CONSIDERING 6 LITERS WERE REMOVED AND APPEARS TO HAVE SIDNEY VS. HEPATORENAL SYNDROME. REASSESS VOLUME STATUS AND CREATININE IN THE MORNING PRIOR TO STARTING ANY DIURETICS. ULTRASOUND REVIEWED SUSPECTED PORTAL VEIN THROMBUS - THESE FINDINGS SHOULD BE DISCUSSED WITH RADIOLOGY IN THE MORNING. IF INFACT THERE IS A THROMBUS PT WILL NEED ANTICOAGULATION BUT SHOULD HAVE AN EGD PRIOR TO A/C TO ASSESS FOR VARICES AND RISK OF BLEED. RIFAXIMIN 550 MG PO BID AVOID NSAID / SEDATIVES TWO GRAM SODIUM DIET <Jessica Sanchez - Last Filed: 05/17/20 21:02>
[2020-05-17] MEDS ORDERED: HEPARIN NA (PORCINE) 5,000 UNITS/ML 1ML VIAL IVPUSH PRN ×2 (17:14)
[2020-05-17] MEDS ORDERED: HEPARIN NA (PORCINE) 5,000 UNITS/ML 1ML VIAL IVPUSH ONE ×2 (17:14→20:00)
[2020-05-17] MEDS ORDERED: HEPARIN INFUSION - 25,000 UNITS/500 ML INFUS.BAG IVPB SCH ×2 (17:15→20:18)
--- NOTE | 2020-05-17 17:45 | PN ---
Physical Exam: SUBJECTIVE: Patient seen and examined in the ED. Complaining of mild RUQ abdominal pain and of her acites. 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 Normal bowel sounds, mild tenderness to palpation un RUQ Extremities: no edema, warm and well profused Vital Signs Vital Signs - 8 hr 05/17/20 13:52 Temperature 97.9 F Pulse Rate [ 78 Left Radial] Respiratory 20 Rate Blood Pressure 103/49 L [Left Arm] O2 Sat by Pulse 99 Oximetry (%) Laboratory Results - last 24 hr 05/16/20 05/16/20 05/16/20 16:24 16:24 17:25 WBC RBC Hgb Hct MCV MCH MCHC RDW Plt Count MPV Neutrophils % (Manual) 43.7 Band Neutrophils % 2.1 Lymphocytes % (Manual) 28.1 Monocytes % (Manual) 19 H Eosinophils % (Manual) 2.1 Basophils % (Manual) 3.1 H Myelocytes % (Man) 0 Promyelocytes % (Man) 0 Blast Cells % (Manual) 0 Nucleated RBC % 0 Metamyelocytes 0 Hypochromia 0 Platelet Estimate Normal Polychromasia 0 Poikilocytosis 0 Anisocytosis 0 Microcytosis 0 Macrocytosis 0 PT with INR INR PTT (Actin FS) Sodium 138 Potassium 4.1 Chloride 104 Carbon Dioxide 25 Anion Gap 9 BUN 42.4 H Creatinine 2.2 H Est GFR (CKD-EPI)AfAm 25.30 Est GFR (CKD-EPI)NonAf 21.83 POC Glucometer Random Glucose 204 H Calcium 8.3 L Phosphorus Magnesium 2.0 Total Bilirubin 1.5 H Direct Bilirubin AST 21 ALT 16 Alkaline Phosphatase 139 H LD Total Creatine Kinase 77 Troponin I < 0.02 B-Natriuretic Peptide 151.6 H Total Protein 6.8 Albumin 2.2 L Lipase 194 Vitamin B12 Serum Folate Urine Color Dk yellow Urine Appearance Clear Urine pH 5.0 Ur Specific [place]rell 1.017 Urine Protein Negative Urine Glucose (UA) Negative Urine Ketones Trace H Urine Blood Negative Urine Nitrite Negative Urine Bilirubin 1+ H Urine Urobilinogen 1.0 Ur Leukocyte Esterase Negative Fluid Source Fluid WBC Fluid RBC Fluid Neutrophils Fluid Lymphocytes Pleural Basophils Pleural Macrophages Pleural Mesothelial 05/16/20 05/17/20 05/17/20 18:25 06:22 07:05 WBC 6.8 RBC 3.39 L Hgb 11.3 Hct 33.6 MCV 99.1 H MCH 33.5 MCHC 33.8 RDW 12.6 Plt Count 173 MPV 7.5 Neutrophils % (Manual) Band Neutrophils % Lymphocytes % (Manual) Monocytes % (Manual) Eosinophils % (Manual) Basophils % (Manual) Myelocytes % (Man) Promyelocytes % (Man) Blast Cells % (Manual) Nucleated RBC % Metamyelocytes Hypochromia Platelet Estimate Polychromasia Poikilocytosis Anisocytosis Microcytosis Macrocytosis PT with INR INR PTT (Actin FS) Sodium Potassium Chloride Carbon Dioxide Anion Gap BUN Creatinine Est GFR (CKD-EPI)AfAm Est GFR (CKD-EPI)NonAf POC Glucometer 82 Random Glucose Calcium Phosphorus Magnesium Total Bilirubin Direct Bilirubin AST ALT Alkaline Phosphatase LD Total Creatine Kinase Troponin I B-Natriuretic Peptide Total Protein Albumin Lipase Vitamin B12 Serum Folate Urine Color Urine Appearance Urine pH Ur Specific Pickrell Urine Protein Urine Glucose (UA) Urine Ketones Urine Blood Urine Nitrite Urine Bilirubin Urine Urobilinogen Ur Leukocyte Esterase Fluid Source Abdominal Fluid WBC 622 Fluid RBC 2916 Fluid Neutrophils 7 Fluid Lymphocytes 37 Pleural Basophils Pleural Macrophages 41 Pleural Mesothelial 15 05/17/20 05/17/20 05/17/20 07:05 07:05 12:40 WBC RBC Hgb Hct MCV MCH MCHC RDW Plt Count MPV Neutrophils % (Manual) Band Neutrophils % Lymphocytes % (Manual) Monocytes % (Manual) Eosinophils % (Manual) Basophils % (Manual) Myelocytes % (Man) Promyelocytes % (Man) Blast Cells % (Manual) Nucleated RBC % Metamyelocytes Hypochromia Platelet Estimate Polychromasia Poikilocytosis Anisocytosis Microcytosis Macrocytosis PT with INR 17.50 H INR 1.48 H PTT (Actin FS) 29.1 Sodium 141 Potassium 3.8 Chloride 108 H Carbon Dioxide 26 Anion Gap 7 L BUN 41.4 H Creatinine 1.7 H Est GFR (CKD-EPI)AfAm 34.56 Est GFR (CKD-EPI)NonAf 29.82 POC Glucometer Random Glucose 80 Calcium 8.3 L Phosphorus 3.2 Magnesium 1.9 Total Bilirubin 1.4 H Direct Bilirubin 0.7 H AST 17 ALT 14 Alkaline Phosphatase 121 H LD Total 185 Creatine Kinase Troponin I B-Natriuretic Peptide Total Protein 6.3 L Albumin 2.0 L Lipase Vitamin B12 1152 H Serum Folate 5 Urine Color Urine Appearance Urine pH Ur Specific Pickrell Urine Protein Urine Glucose (UA) Urine Ketones Urine Blood Urine Nitrite Urine Bilirubin Urine Urobilinogen Ur Leukocyte Esterase Fluid Source Peritoneal Fluid WBC 543 Fluid RBC 2311 Fluid Neutrophils 7 Fluid Lymphocytes 43 Pleural Basophils 1 Pleural Macrophages 47 Pleural Mesothelial 2 05/17/20 14:41 WBC RBC Hgb Hct MCV MCH MCHC RDW Plt Count MPV Neutrophils % (Manual) Band Neutrophils % Lymphocytes % (Manual) Monocytes % (Manual) Eosinophils % (Manual) Basophils % (Manual) Myelocytes % (Man) Promyelocytes % (Man) Blast Cells % (Manual) Nucleated RBC % Metamyelocytes Hypochromia Platelet Estimate Polychromasia Poikilocytosis Anisocytosis Microcytosis Macrocytosis PT with INR INR PTT (Actin FS) Sodium Potassium Chloride Carbon Dioxide Anion Gap BUN Creatinine Est GFR (CKD-EPI)AfAm Est GFR (CKD-EPI)NonAf POC Glucometer 90 Random Glucose Calcium Phosphorus Magnesium Total Bilirubin Direct Bilirubin AST ALT Alkaline Phosphatase LD Total Creatine Kinase Troponin I B-Natriuretic Peptide Total Protein Albumin Lipase Vitamin B12 Serum Folate Urine Color Urine Appearance Urine pH Ur Specific Pickrell Urine Protein Urine Glucose (UA) Urine Ketones Urine Blood Urine Nitrite Urine Bilirubin Urine Urobilinogen Ur Leukocyte Esterase Fluid Source Fluid WBC Fluid RBC Fluid Neutrophils Fluid Lymphocytes Pleural Basophils Pleural Macrophages Pleural Mesothelial Active Medications Generic Name Dose Route Start Last Admin Trade Name Freq PRN Reason Stop Dose Admin Acetaminophen 650 mg 05/17/20 00:48 Tylenol - PO Q4H PRN PAIN LEVEL 7 - 10 Heparin Sodium (Porcine) 5,000 unit 05/17/20 06:00 05/17/20 14:57 Heparin - SQ 5,000 unit TID [facility]IS Administration Heparin Sodium (Porcine) 5,000 unit 05/17/20 17:14 Heparin - IVPUSH 05/17/20 17:15 ONCE ONE Heparin Sodium (Porcine) 1,000 unit 05/17/20 17:14 Heparin - IVPUSH PRN PRN Heparin Heparin Sodium (Porcine) 5,000 unit 05/17/20 17:14 Heparin - IVPUSH PRN PRN Heparin Ceftriaxone Sodium 1 gm/ 50 mls @ 200 mls/hr 05/17/20 10:00 05/17/20 09:48 Dextrose IVPB 200 mls/hr DAILY CH[facility]IS Administration Protocol Heparin Sodium/Dextrose 500 mls @ 20 mls/hr 05/17/20 17:15 Heparin Infusion - IV TITR [facility] Protocol 1,000 UNITS/HR Insulin Aspart 1 vial 05/17/20 07:00 05/17/20 14:42 Novolog Vial Sliding Scale - SQ Not Given ACHS [facility] Protocol Rifaximin 550 mg 05/17/20 22:00 Xifaxan - PO BID [facility] ASSESSMENT/PLAN:] PT is a 69 yo F with PMHx of cirrhosis, DM and HTN presenting with 4 days of abdominal distension of pain. Abdomen/pelvis CT shows cirrhotic liver, GB not seen, significant ascites and mildly enlarged para-aortic lymph nodes. No elevated WBC, but BUN and Cr elevated (42, 2.2) from baseline. Admitted for ascites and workup for hepatorenal syndrome PVT: Abdominal doppler showed suspected PVT with minimal flow heparin drip started Ascites - due to PVT v cirrhosis involvement because of rapid onset and severity of ascites - more likely due to PVT also history of cirrhosis Diagnostic paracentesis done in ED - no SBP Therapeutic paracentesis; IR performed and [id number] removed, patient albumin repleated before and after paracentesis follow up cultures Cirrhosis GI consulted (Dr. Sanchez) Recommending to start xifaxan 550mg BID Sees DiGbittinger outpatient, he was given an update via microblog CKD with SIDNEY Cr now 1.7 >> continue to monitor but improving Possibly secondary to hepatorenal syndrome Avoid nephrotoxic agents Patient now urinating without difficulty Follow up on AM labs Consulted nephrology d/c diurects and HTN medicatoin for now, reassess in AM Reassess for possible DM Hyperglycemic with blood glucose 204 in ED Hold home insulin medication Sliding scale insulin ordered with blood glucose monitoring HTN continue to hold home HCTZ and lisinopril due FEN: -NPO -Monitor electrolytes in AM labs DVT prophylaxis: started therapeutic dose heparin for PVT Visit type - Emergency Visit Emergency Visit: Yes ED Registration Date: 05/16/20 Care time: The patient presented to the Emergency Department on the above date and was hospitalized for further evaluation of their emergent condition. - New Patient This patient is new to me today: Yes Date on this admission: 05/18/20 - Critical Care Critical Care patient: No - Discharge Referral Referred to [facility] No ATTENDING PHYSICIAN STATEMENT I saw and evaluated the patient. I reviewed the resident's note and discussed the case with the resident. I agree with the resident's findings and plan as documented. SUBJECTIVE: OBJECTIVE: ASSESSMENT AND PLAN:
[2020-05-17] MEDS ORDERED: HEPARIN NA (PORCINE) 5,000 UNITS/ML 1ML VIAL SQ ONE (19:21)
[2020-05-17] MEDS: RIFAXIMIN 550 MG TABLET (UD) PO SCH (21:56)
[2020-05-18] MEDS: INSULIN SLIDING SCALE (NOVOLOG) 1 VIAL SQ SCH ×4 (06:15→21:47)
[2020-05-18 07:00] LABS: BASO % 0.8 % (0-2.0); HEMATOCRIT 35.6 % (32.4-45.2); LYMPH % 32.2 % (8-40); MCH 33.6 pg (25.7-33.7); MCHC 33.8 g/dl (32.0-36.0); MEAN CELL VOLUME 99.6 fl (80-96); MEAN PLT VOLUME 7.4 fl (7.5-11.1); MONO % 19.6 % (3.8-10.2); NEUT % 43.4 % (42.8-82.8); PLATELET COUNT 179 K/MM3 (134-434); RBC 3.58 M/mm3 (3.60-5.2); RDW 13.1 % (11.6-15.6); WHITE BLOOD COUNT 6.3 K/mm3 (4.0-10.0)
[2020-05-18 07:06] LABS: INR 1.73 (0.83-1.09)
[2020-05-18 07:32] LABS: BILIRUBIN,TOTAL 1.9 mg/dL (0.2-1); BLOOD UREA NITROGEN 30.8 mg/dL (7-18); CALCIUM 8.6 mg/dL (8.5-10.1); CREATININE 1.3 mg/dL (0.55-1.3); MAGNESIUM 1.9 mg/dL (1.8-2.4); PHOSPHOROUS 3.5 mg/dL (2.5-4.9); POTASSIUM 3.5 mmol/L (3.5-5.1); TOT PROT 6.5 g/dl (6.4-8.2)
[2020-05-18 07:45] LABS: ACTIVATED PTT > 400.0 SECONDS (25.2-36.5)
[2020-05-18] MEDS ORDERED: DEXTROSE 5%-WATER - 50 ML IVPB ONE (09:31)
[2020-05-18] MEDS ORDERED: cefTRIAXone SODIUM 1 GM VIAL ONE (09:31)
[2020-05-18] MEDS: RIFAXIMIN 550 MG TABLET (UD) PO SCH ×2 (09:43→21:47)
[2020-05-18] MEDS: CEFTRIAXONE 1 GM in DEXTROSE 5%-WATER - 50 ML IVPB SCH (09:43)
[2020-05-18] MEDS: SPIRONOLACTONE 25 MG TABLET PO SCH ×3 (09:44→22:13)
--- NOTE | 2020-05-18 12:02 | PN ---
Progress Note, Physician History of Present Illness: still c/o of abd pain going to back abd distension - Current Medication List Current Medications: Active Medications Acetaminophen (Tylenol -) 650 mg PO Q4H PRN PRN Reason: PAIN LEVEL 7 - 10 Heparin Sodium (Porcine) (Heparin -) 1,000 unit IVPUSH PRN PRN PRN Reason: Heparin Heparin Sodium (Porcine) (Heparin -) 5,000 unit IVPUSH PRN PRN PRN Reason: Heparin Ceftriaxone Sodium 1 gm/ (Dextrose) 50 mls @ 200 mls/hr IVPB DAILY [facility]; Protocol Last Admin: 05/18/20 09:43 Dose: 200 mls/hr Documented by: Heparin Sodium/Dextrose (Heparin Infusion -) 25,000 units in 500 mls @ 24 mls/hr IVPB TITR [facility]; Protocol Last Admin: 05/17/20 21:41 Dose: 1,200 units/hr, 24 mls/hr Documented by: Insulin Aspart (Novolog Vial Sliding Scale -) 1 vial SQ ACHS [facility]; Protocol Last Admin: 05/18/20 06:15 Dose: Not Given Documented by: Rifaximin (Xifaxan -) 550 mg PO BID [facility] Last Admin: 05/18/20 09:43 Dose: 550 mg Documented by: Spironolactone (Aldactone -) 50 mg PO BID [facility] Last Admin: 05/18/20 09:44 Dose: Not Given Documented by: - Objective Vital Signs: Vital Signs Temperature 98 F 05/18/20 09:30 Pulse Rate 75 05/18/20 09:37 Respiratory Rate 20 05/18/20 09:37 Blood Pressure 103/62 05/18/20 09:37 O2 Sat by Pulse Oximetry (%) 98 05/17/20 21:00 Constitutional: Yes: Calm, Mild Distress Eyes: Yes: Sclera Icterus HENT: Yes: Atraumatic Cardiovascular: Yes: Regular Rate and Rhythm Respiratory: Yes: Poor Air Entry (bases) Gastrointestinal: Yes: Ascites, Tenderness, Other Musculoskeletal: Yes: WNL Extremities: Yes: WNL Neurological: Yes: Alert, Oriented Psychiatric: Yes: Alert, Oriented Labs: CBC, BMP 05/18/20 06:30 05/18/20 06:30 INR, PTT INR 1.73 (0.83-1.09) H 05/18/20 06:30 Assessment/Plan 69yF w PMHx HTN DM cirrhosis presenting w 10d worsening ABD distension. Ascites 2/2 liver/kidney. SIDNEY . also patient has suspected portal thrombosis all cx still pending patient on anticoagulant plan continue current mgmt will d/w the team await for results
[2020-05-18 12:08] LABS: BODY FLUID ALBUMIN 0.6 g/dL (Not Estab.)
--- NOTE | 2020-05-18 14:56 | PN ---
Progress Note, Physician History of Present Illness: Pt seen and examined at bedside. She is awake and alert. She complains of discomfort from the ascites. - Current Medication List Current Medications: Active Medications Acetaminophen (Tylenol -) 650 mg PO Q4H PRN PRN Reason: PAIN LEVEL 7 - 10 Heparin Sodium (Porcine) (Heparin -) 1,000 unit IVPUSH PRN PRN PRN Reason: Heparin Heparin Sodium (Porcine) (Heparin -) 5,000 unit IVPUSH PRN PRN PRN Reason: Heparin Ceftriaxone Sodium 1 gm/ (Dextrose) 50 mls @ 200 mls/hr IVPB DAILY [facility]; Protocol Last Admin: 05/18/20 09:43 Dose: 200 mls/hr Documented by: Heparin Sodium/Dextrose (Heparin Infusion -) 25,000 units in 500 mls @ 24 mls/hr IVPB TITR [facility]; Protocol Last Admin: 05/17/20 21:41 Dose: 1,200 units/hr, 24 mls/hr Documented by: Insulin Aspart (Novolog Vial Sliding Scale -) 1 vial SQ ACHS [facility]; Protocol Last Admin: 05/18/20 12:16 Dose: 4 units Documented by: Rifaximin (Xifaxan -) 550 mg PO BID [facility] Last Admin: 05/18/20 09:43 Dose: 550 mg Documented by: Spironolactone (Aldactone -) 50 mg PO BID [facility] Last Admin: 05/18/20 14:13 Dose: 50 mg Documented by: - Objective Vital Signs: Vital Signs Temperature 97.9 F 05/18/20 13:00 Pulse Rate 78 05/18/20 13:05 Respiratory Rate 20 05/18/20 13:05 Blood Pressure 121/67 05/18/20 13:05 O2 Sat by Pulse Oximetry (%) 98 05/17/20 21:00 Constitutional: Yes: Calm Eyes: Yes: Conjunctiva Clear HENT: Yes: Atraumatic Neck: Yes: Supple Cardiovascular: Yes: S1, S2 Respiratory: Yes: CTA Bilaterally Gastrointestinal: Yes: Soft, Abdomen, Obese, Ascites Genitourinary: Yes: WNL Edema: Yes Edema: LLE: 1+, RLE: 1+ Neurological: Yes: Oriented Psychiatric: Yes: Oriented Labs: CBC, BMP 05/18/20 06:30 05/18/20 06:30 INR, PTT INR 1.73 (0.83-1.09) H 05/18/20 06:30 Problem List - Problems (1) SIDNEY (acute kidney injury) Code(s): N17.9 - ACUTE KIDNEY FAILURE, UNSPECIFIED (2) Ascites Code(s): R18.8 - OTHER ASCITES Qualifiers: Ascites type: other type Qualified Code(s): R18.8 - Other ascites Assessment/Plan Current Medications Generic Name Dose Route Start Last Admin Trade Name Freq PRN Reason Stop Dose Admin Acetaminophen 650 mg 05/17/20 00:48 Tylenol - PO Q4H PRN PAIN LEVEL 7 - 10 Heparin Sodium (Porcine) 5,000 unit 05/17/20 06:00 05/17/20 06:26 Heparin - SQ 5,000 unit TID [facility]RIS Administration Ceftriaxone Sodium 1 gm/ 50 mls @ 200 mls/hr 05/17/20 10:00 05/17/20 09:48 Dextrose IVPB 200 mls/hr DAILY [facility]IS Administration Protocol Insulin Aspart 1 vial 05/17/20 07:00 05/17/20 06:26 Novolog Vial Sliding Scale - SQ Not Given ACHS [facility] Protocol Impression 1. sidney 2. liver cirrhosis 3. ascites 4. htn 5. dm 6. hypothyroidism 7. portal vein thrombosis Plan - pt had 7 liters removed - start aldactone today - monitor lytes - will likely introduce lasix tomorrow - monitor volume status - pt still with ascites - renal function is improving with diuresis
--- NOTE | 2020-05-18 16:26 | PN ---
Progress Note (short form) - Note Progress Note: Vascular surgery Ultrasound reviewed. Pt with portal vein thrombosis . Anticoagulation for life. No need for any intervention. Brandon Barney DO
[2020-05-18] MEDS ORDERED: ACETAMINOPHEN 325 MG TABLET (FP) PO ONE (17:23)
--- NOTE | 2020-05-18 17:38 | PN ---
Teaching Attending Note Name of Resident: Margarita Shipley ATTENDING PHYSICIAN STATEMENT I saw and evaluated the patient. I reviewed the resident's note and discussed the case with the resident. I agree with the resident's findings and plan as documented. 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 she still has pain in upper abd area. No fever or chills. nO N/V. has n no fever or chills. no diarrhea. OBJECTIVE: NAD, awake, alert, cooperative MMM CV: RRR, 2/6 Sm at base and LLSB. no radiation Lungs: CTAB Abd: less distended compared to yesterday, TTP in RUQ, and epigastric area. No guarding. surgical scar in RUQ. Ext: 1+ edema on legs . no fungal infection among toes. DP 2+ b/l MS: TTP over the muscles in b/ l flanks ASSESSMENT AND PLAN: 69 y/o lady with h/o DM , cirrhosis, hypothyroidism, and HTN who presented with increasing abd distention and LE edema. 1- Ascitis: - s/p removal of almost 7 L . s/p Albumin x 2 yesterday - appreciate renal help. start aldactone tomorrow - will d/w IR/GI tomorrow repeat pracentesis Vs a drain catheter. 2- Portal vein thrombosis: case d/w radiologist by team and with Dr. goodwin. thrombus is there. AC is recommended - can't reach GI , Dr. Tafoya to discuss safety of AC before EGD . unknown if she has varices. message left . - AC with heparin was started yesterday, but hold off for now pending GI Recs. - it to resume AC, will discuss Eliquis VS heparin to coumadin . 3- SIDNEY: cr improved . - start diuretics tomorrow and monitor renal function 5- Liver Cirrhosis. follows with GI as out pt . - Not sure of w/u done for that . - not sure if + varices or previous GI bleed. ? propranolol. - hepatitis serology pending 6- Lymphadenopathy in Abd: f/u as out pt 7- calcification in pelvis. ? ovaries. pelvic US as out pt 8- H/o HTN: Bp on lower side. cont to hold losartan and will not resume HCTZ after dc 9- DM: SSI for now HLOC
--- NOTE | 2020-05-18 18:35 | PN.GI ---
GI Progress Note Subjective: s/p paracentesis, doppler ultrasound noted to have portal vein thrombosis, patient mild luq pain - Objective Vital Signs: Vital Signs Temperature 97.9 F 05/18/20 13:00 Pulse Rate 78 05/18/20 13:05 Respiratory Rate 20 05/18/20 13:05 Blood Pressure 121/67 05/18/20 13:05 O2 Sat by Pulse Oximetry (%) 98 05/17/20 21:00 Constitutional: No Distress Eyes: Yes: Conjunctiva Clear HENT: Yes: Atraumatic Neck: Yes: Supple Cardiovascular: Yes: Regular Rate and Rhythm Respiratory: Yes: CTA Bilaterally ...Palpate: Yes: Soft, Tenderness (mild). 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
--- NOTE | 2020-05-18 19:24 | PN ---
Physical Exam: SUBJECTIVE: Patient seen and examined bedside. Complaining still of upper abdominal pain. In no acute distres, no events overnight. OBJECTIVE: Vital Signs Period Temp Pulse Resp BP Sys/Ramos Pulse Ox Last 24 Hr 97.9 F-98.7 F 68-89 18-20 87-121/44-67 98 OBJECTIVE: General: Patient awake and alert, [place] speaking ENT: moist mucous membranes, conjunctiva clear Heart: RRR Lungs: CTA BL Abdomen: very large distended abdomen slightly decreased since yesterday, + fluid wave, hepatosplenomegaly not appreciated. Normal bowel sounds, tender to palpation over gastric region Extremities: no edema, warm and well profused Laboratory Results - last 24 hr 05/16/20 05/16/20 05/17/20 17:40 18:25 07:05 WBC RBC Hgb Hct MCV MCH MCHC RDW Plt Count MPV Absolute Neuts (auto) Neutrophils % Lymphocytes % Monocytes % Eosinophils % Basophils % Nucleated RBC % PT with INR INR PTT (Actin FS) Sodium Potassium Chloride Carbon Dioxide Anion Gap BUN Creatinine Est GFR (CKD-EPI)AfAm Est GFR (CKD-EPI)NonAf POC Glucometer Random Glucose Calcium Phosphorus Magnesium Total Bilirubin AST ALT Alkaline Phosphatase Total Protein Albumin PTH Intact 37 Ur Random Sodium Ur Random Potassium Ur Random Chloride POC Fluid pH 7.8 Fluid Glucose 179 Fluid Total Protein 1.4 Fluid Albumin 0.6 Body Fluid LDH Source 144 Fluid Amylase 13 Fluid Triglycerides 87 Fluid Uric Acid 9.0 COVID-19 (JARRETT) Not detected 05/17/20 05/17/20 05/17/20 12:40 18:40 18:40 WBC RBC Hgb Hct MCV MCH MCHC RDW Plt Count MPV Absolute Neuts (auto) Neutrophils % Lymphocytes % Monocytes % Eosinophils % Basophils % Nucleated RBC % PT with INR INR PTT (Actin FS) Sodium Potassium Chloride Carbon Dioxide Anion Gap BUN Creatinine Est GFR (CKD-EPI)AfAm Est GFR (CKD-EPI)NonAf POC Glucometer Random Glucose Calcium Phosphorus Magnesium Total Bilirubin AST ALT Alkaline Phosphatase Total Protein Albumin PTH Intact Ur Random Sodium Cancelled 27 L Ur Random Potassium 15.0 L Ur Random Chloride 16 L POC Fluid pH 7.8 Fluid Glucose Fluid Total Protein Fluid Albumin Body Fluid LDH Source Fluid Amylase Fluid Triglycerides Fluid Uric Acid COVID-19 (JARRETT) 05/17/20 05/18/20 05/18/20 21:19 05:58 06:30 WBC 6.3 RBC 3.58 L Hgb 12.0 Hct 35.6 MCV 99.6 H MCH 33.6 MCHC 33.8 RDW 13.1 Plt Count 179 MPV 7.4 L Absolute Neuts (auto) 2.7 Neutrophils % 43.4 Lymphocytes % 32.2 D Monocytes % 19.6 H Eosinophils % 4.0 D Basophils % 0.8 Nucleated RBC % 0 PT with INR INR PTT (Actin FS) Sodium Potassium Chloride Carbon Dioxide Anion Gap BUN Creatinine Est GFR (CKD-EPI)AfAm Est GFR (CKD-EPI)NonAf POC Glucometer 72 65 Random Glucose Calcium Phosphorus Magnesium Total Bilirubin AST ALT Alkaline Phosphatase Total Protein Albumin PTH Intact Ur Random Sodium Ur Random Potassium Ur Random Chloride POC Fluid pH Fluid Glucose Fluid Total Protein Fluid Albumin Body Fluid LDH Source Fluid Amylase Fluid Triglycerides Fluid Uric Acid COVID-19 (JARRETT) 05/18/20 05/18/20 05/18/20 06:30 06:30 06:51 WBC RBC Hgb Hct MCV MCH MCHC RDW Plt Count MPV Absolute Neuts (auto) Neutrophils % Lymphocytes % Monocytes % Eosinophils % Basophils % Nucleated RBC % PT with INR 20.50 H INR 1.73 H PTT (Actin FS) > 400.0 H Sodium 143 Potassium 3.5 Chloride 109 H Carbon Dioxide 26 Anion Gap 8 BUN 30.8 H Creatinine 1.3 Est GFR (CKD-EPI)AfAm 47.80 Est GFR (CKD-EPI)NonAf 41.24 POC Glucometer 82 Random Glucose 69 L Calcium 8.6 Phosphorus 3.5 Magnesium 1.9 Total Bilirubin 1.9 H AST 20 ALT 14 Alkaline Phosphatase 109 Total Protein 6.5 Albumin 3.0 L PTH Intact Ur Random Sodium Ur Random Potassium Ur Random Chloride POC Fluid pH Fluid Glucose Fluid Total Protein Fluid Albumin Body Fluid LDH Source Fluid Amylase Fluid Triglycerides Fluid Uric Acid COVID-19 (JARRETT) 05/18/20 05/18/20 05/18/20 12:15 14:50 17:08 WBC RBC Hgb Hct MCV MCH MCHC RDW Plt Count MPV Absolute Neuts (auto) Neutrophils % Lymphocytes % Monocytes % Eosinophils % Basophils % Nucleated RBC % PT with INR INR PTT (Actin FS) 34.1 Sodium Potassium Chloride Carbon Dioxide Anion Gap BUN Creatinine Est GFR (CKD-EPI)AfAm Est GFR (CKD-EPI)NonAf POC Glucometer 212 197 Random Glucose Calcium Phosphorus Magnesium Total Bilirubin AST ALT Alkaline Phosphatase Total Protein Albumin PTH Intact Ur Random Sodium Ur Random Potassium Ur Random Chloride POC Fluid pH Fluid Glucose Fluid Total Protein Fluid Albumin Body Fluid LDH Source Fluid Amylase Fluid Triglycerides Fluid Uric Acid COVID-19 (JARRETT) Active Medications Generic Name Dose Route Start Last Admin Trade Name Freq PRN Reason Stop Dose Admin Acetaminophen 650 mg 05/17/20 00:48 Tylenol - PO Q4H PRN PAIN LEVEL 7 - 10 Heparin Sodium (Porcine) 5,000 unit 05/18/20 22:00 Heparin - SQ TID CHRIS Ceftriaxone Sodium 1 gm/ 50 mls @ 200 mls/hr 05/17/20 10:00 05/18/20 09:43 Dextrose IVPB 200 mls/hr DAILY CHRIS Administration Protocol Insulin Aspart 1 vial 05/17/20 07:00 05/18/20 17:10 Novolog Vial Sliding Scale - SQ 2 units ACHS CHRIS Administration Protocol Rifaximin 550 mg 05/17/20 22:00 05/18/20 09:43 Xifaxan - PO 550 mg BID CHRIS Administration Spironolactone 50 mg 05/18/20 10:00 05/18/20 14:13 Aldactone - PO 50 mg BID CHRIS Administration ASSESSMENT/PLAN: PT is a 69 yo F with PMHx of cirrhosis, DM and HTN presenting with 4 days of abdominal distension of pain. Abdomen/pelvis CT shows cirrhotic liver, GB not seen, significant ascites and mildly enlarged para-aortic lymph nodes. No elevated WBC, but BUN and Cr elevated (42, 2.2) from baseline. Admitted for ascites and workup for hepatorenal syndrome PVT: Abdominal doppler showed suspected PVT with minimal flow heparin drip started - PTT > 400 drip stopped. Not restarted on therapeutic dose due to possible EGD tomorrow. Kept on prophylaxis dose for now. Final radiology report read (Dr. Feliz) is positive for PVT Dr. Galindo consulted for GI - hold heparin drip for possible EGD, not convinced PVT is acute, could be chronic. Prefers to rule out varices before continuing therapeutic heparin drip Ascites - due to PVT v cirrhosis involvement Diagnostic paracentesis done in ED - no SBP Therapeutic paracentesis; IR performed and 6900cc removed, patient albumin repleated before and after paracentesis follow up cultures Nephro (Dr. Harman) consulted started aldactone today, if tolerates lasix tomorrow If BP drops too much start midodrine Further therapeutic paracentesis most likely needed Cirrhosis GI consulted (Dr. Sanchez) Recommending to start xifaxan 550mg BID Sees [facility] outpatient, he was given an update via microblog SIDNEY Cr now 1.7 >> today 1.3 (resolved) Possibly secondary to hepatorenal syndrome Avoid nephrotoxic agents Patient now urinating without difficulty Follow up on AM labs Consulted nephrology d/c diurects and HTN medicatoin for now, reassess in AM Reassess for possible DM Hyperglycemic with blood glucose 204 in ED Hold home insulin medication Sliding scale insulin ordered with blood glucose monitoring HTN continue to hold home HCTZ and lisinopril FEN: -NPO -Monitor electrolytes in AM labs Visit type - Emergency Visit Emergency Visit: Yes ED Registration Date: 05/16/20 Care time: The patient presented to the Emergency Department on the above date and was hospitalized for further evaluation of their emergent condition. - New Patient This patient is new to me today: No - Critical Care Critical Care patient: No - Discharge Referral Referred to [facility] Med P.C.: Yes ATTENDING PHYSICIAN STATEMENT I saw and evaluated the patient. I reviewed the resident's note and discussed the case with the resident. I agree with the resident's findings and plan as documented. SUBJECTIVE: OBJECTIVE: ASSESSMENT AND PLAN:
[2020-05-18] MEDS: HEPARIN NA (PORCINE) 5,000 UNITS/ML 1ML VIAL SQ SCH (21:46)
[2020-05-19] MEDS: HEPARIN NA (PORCINE) 5,000 UNITS/ML 1ML VIAL SQ SCH (06:37)
[2020-05-19] MEDS: INSULIN SLIDING SCALE (NOVOLOG) 1 VIAL SQ SCH ×4 (06:38→21:31)
[2020-05-19 09:31] LABS: BASO % 0.4 % (0-2.0); EOS % 2.5 % (0-4.5); HEMATOCRIT 37.9 % (32.4-45.2); HEMOGLOBIN 12.8 GM/dL (10.7-15.3); LYMPH % 33.7 % (8-40); MCH 34.2 pg (25.7-33.7); MCHC 33.9 g/dl (32.0-36.0); MEAN CELL VOLUME 100.8 fl (80-96); MEAN PLT VOLUME 7.8 fl (7.5-11.1); NEUT % 44.4 % (42.8-82.8); PLATELET COUNT 192 K/MM3 (134-434); RBC 3.76 M/mm3 (3.60-5.2); RDW 13.3 % (11.6-15.6)
[2020-05-19 09:40] LABS: ACTIVATED PTT 54.1 SECONDS (25.2-36.5)
[2020-05-19 10:09] LABS: POTASSIUM 4.1 mmol/L (3.5-5.1)
[2020-05-19 10:14] LABS: BILIRUBIN,TOTAL 1.7 mg/dL (0.2-1); BLOOD UREA NITROGEN 22.2 mg/dL (7-18); CREATININE 1.2 mg/dL (0.55-1.3); INR 1.6 (0.83-1.09); MAGNESIUM 1.9 mg/dL (1.8-2.4); PHOSPHOROUS 2.7 mg/dL (2.5-4.9)
[2020-05-19] MEDS ORDERED: cefTRIAXone SODIUM 1 GM VIAL ONE (11:03)
[2020-05-19] MEDS ORDERED: DEXTROSE 5%-WATER - 50 ML IVPB ONE (11:03)
[2020-05-19] MEDS: CEFTRIAXONE 1 GM in DEXTROSE 5%-WATER - 50 ML IVPB SCH (11:04)
[2020-05-19] MEDS: RIFAXIMIN 550 MG TABLET (UD) PO SCH ×2 (11:04→21:32)
[2020-05-19] MEDS: SPIRONOLACTONE 25 MG TABLET PO SCH ×2 (11:04→21:32)
[2020-05-19] MEDS: POLYETHYLENE GLYCOL 3350 119 GM BTL PO SCH (11:08)
--- NOTE | 2020-05-19 11:09 | PATH ---
Cytology Non-Gynecological Report Patient Name: ISABELLE FORTE Med. Rec. #: [id number] /Age/Gender: 1950 (Age: 69) / F Account: [id number] Location: [address] [place] [address]/[facility] Taken: 05/17/2020 Received: 05/17/2020 Reported: 05/19/2020 Physicians: Greg Lindquist M.D. Specimen(s) Received A: PERITONEAL FLUID RECEIVED IN 50% ALCOHOL B: PERITONEAL FLUID RECEIVED FRESH Clinical History Ascites Final Diagnosis A & B: ABDOMINAL FLUID, PARACENTESIS: SATISFACTORY FOR EVALUATION. NEGATIVE FOR MALIGNANT CELLS. MESOTHELIAL CELLS, MACROPHAGES AND RARE LYMPHOCYTES PRESENT. Electronically Signed Minnie Huynh M.D. Gross Description A. Approximately 50cc of yellow fluid received fixed in 50% alcohol. One cytospin and one cellblock prepared. B. Approximately 5700cc of yellow fluid received fresh. One cytospin and one cellblock prepared.
--- NOTE | 2020-05-19 11:45 | CONSULT ---
Consultation: REQUESTING PROVIDER: Dr. Smith CONSULT REQUEST: We have been asked to medically evaluate this patient for anticoagulation. HISTORY OF PRESENT ILLNESS: Pt. is a 69 y.o. [place]ene[place] speaking F w/ PMHx. of HTN, DMs, cirrhosis (told b/c has no gallbladder, diagnosed 2 years ago), Asthma, GERD, Hypothyroidism and Arthritis presented to the hospital for increased abdominal distention. We were called to assess for the indication of anticoagulation in this Pt. who has newly diagnosed Portal Vein Thrombosis. Per chart review Pt. had EGD in 2018 and colonoscopy 8 years ago significant for hemorrhoids. Per discussion with Pt. She has had 2 EGDs in the past year and on her last in [facility] she was noted to have varices with "punctate" bleeding. She was started on Propanolol at this time. Pt. denies ever having Hepatitis. Pt.'s son is a physician in [place] and referred her to a GI specialist. Pt. denies any cancer, or coagulapothy history in herself or her family. Pt. denies currently taking Iron pills but did take them in the past. Pt. denies ever having blood in the stool or vomiting blood. Noted in the chart that Pt. reported having bright red blood in stool once. Pt. endorses weight gain from 154 lbs. to 185 lbs. over several months. Pt. reports abdominal fullness. Pt. reports decreasing appetite over the last few weeks. Pt. denies any nausea or vomiting. Hospital Course reviewed. Images reviewed. Labs reviewed. Pt. noted to have Large amount of ascites and underwent Paracentesis. Used [employer] #[id number] REVIEW OF SYSTEMS: As above PHYSICAL EXAMINATION Vital Signs - 24 hr 05/18/20 05/18/20 05/18/20 13:00 13:05 18:00 Temperature 97.9 F 98.7 F Pulse Rate 79 78 89 Respiratory 20 20 20 Rate Blood Pressure 101/59 L 121/67 113/63 O2 Sat by Pulse Oximetry (%) 05/18/20 05/18/20 05/19/20 21:00 22:10 02:00 Temperature 99.0 F 98.6 F Pulse Rate 88 86 Respiratory 18 18 Rate Blood Pressure 96/48 L 104/62 O2 Sat by Pulse 97 Oximetry (%) 05/19/20 06:00 Temperature 98.1 F Pulse Rate 82 Respiratory 18 Rate Blood Pressure 111/49 L O2 Sat by Pulse Oximetry (%) GENERAL: Awake, alert, and fully oriented, in no acute distress. HEAD: Normal with no signs of trauma. EYES: Pupils equal, round and reactive to light, extraocular movements intact, sclera anicteric, conjunctiva clear. No lid lag. EARS, NOSE, THROAT: Ears normal, nares patent, oropharynx clear without exudates. Moist mucous membranes. NECK: Normal range of motion, supple without lymphadenopathy, JVD, or masses. LUNGS: Breath sounds equal, clear to auscultation bilaterally. No wheezes, and no crackles. No accessory muscle use. HEART: Regular rate and rhythm, normal S1 and S2 without murmur, rub or gallop. ABDOMEN: Soft, nontender, not distended, normoactive bowel sounds, no guarding, no rebound, no masses. No hepatomegaly or splenomegaly. MUSCULOSKELETAL: Normal range of motion at all joints. No bony deformities or tenderness. No CVA tenderness. UPPER EXTREMITIES: 2+ pulses, warm, well-perfused. No cyanosis. No clubbing. Cap refill <2 seconds. No peripheral edema. LOWER EXTREMITIES: 2+ pulses, warm, well-perfused. No calf tenderness. No peripheral edema. NEUROLOGICAL: Cranial nerves II-XII intact. Normal speech. Normal gait. PSYCHIATRIC: Cooperative. Good eye contact. Appropriate mood and affect. SKIN: Warm, dry, normal turgor, no rashes or lesions noted. Laboratory Results - last 24 hr 05/16/20 05/16/20 05/17/20 17:40 18:25 12:40 WBC RBC Hgb Hct MCV MCH MCHC RDW Plt Count MPV Absolute Neuts (auto) Neutrophils % Lymphocytes % Monocytes % Eosinophils % Basophils % Nucleated RBC % PT with INR INR PTT (Actin FS) Sodium Potassium Chloride Carbon Dioxide Anion Gap BUN Creatinine Est GFR (CKD-EPI)AfAm Est GFR (CKD-EPI)NonAf POC Glucometer Random Glucose Calcium Phosphorus Magnesium Total Bilirubin AST ALT Alkaline Phosphatase Total Protein Albumin POC Fluid pH 7.8 7.8 Fluid Glucose 179 Fluid Total Protein 1.4 Fluid Albumin 0.6 Body Fluid LDH Source 144 Fluid Amylase 13 Fluid Triglycerides 87 Fluid Uric Acid 9.0 COVID-19 (JARRETT) Not detected 05/18/20 05/18/20 05/18/20 12:15 14:50 17:08 WBC RBC Hgb Hct MCV MCH MCHC RDW Plt Count MPV Absolute Neuts (auto) Neutrophils % Lymphocytes % Monocytes % Eosinophils % Basophils % Nucleated RBC % PT with INR INR PTT (Actin FS) 34.1 Sodium Potassium Chloride Carbon Dioxide Anion Gap BUN Creatinine Est GFR (CKD-EPI)AfAm Est GFR (CKD-EPI)NonAf POC Glucometer 212 197 Random Glucose Calcium Phosphorus Magnesium Total Bilirubin AST ALT Alkaline Phosphatase Total Protein Albumin POC Fluid pH Fluid Glucose Fluid Total Protein Fluid Albumin Body Fluid LDH Source Fluid Amylase Fluid Triglycerides Fluid Uric Acid COVID-19 (JARRETT) 05/18/20 05/19/20 05/19/20 21:45 06:21 08:10 WBC RBC Hgb Hct MCV MCH MCHC RDW Plt Count MPV Absolute Neuts (auto) Neutrophils % Lymphocytes % Monocytes % Eosinophils % Basophils % Nucleated RBC % PT with INR 19.00 H INR 1.60 H PTT (Actin FS) 54.1 H Sodium Potassium Chloride Carbon Dioxide Anion Gap BUN Creatinine Est GFR (CKD-EPI)AfAm Est GFR (CKD-EPI)NonAf POC Glucometer 149 113 Random Glucose Calcium Phosphorus Magnesium Total Bilirubin AST ALT Alkaline Phosphatase Total Protein Albumin POC Fluid pH Fluid Glucose Fluid Total Protein Fluid Albumin Body Fluid LDH Source Fluid Amylase Fluid Triglycerides Fluid Uric Acid COVID-19 (JARRETT) 05/19/20 05/19/20 05/19/20 08:10 08:10 11:22 WBC 7.0 RBC 3.76 Hgb 12.8 Hct 37.9 MCV 100.8 H MCH 34.2 H MCHC 33.9 RDW 13.3 Plt Count 192 MPV 7.8 Absolute Neuts (auto) 3.1 Neutrophils % 44.4 Lymphocytes % 33.7 Monocytes % 19.0 H Eosinophils % 2.5 Basophils % 0.4 Nucleated RBC % 0 PT with INR INR PTT (Actin FS) Sodium 140 Potassium 4.1 Chloride 106 Carbon Dioxide 25 Anion Gap 9 BUN 22.2 H Creatinine 1.2 Est GFR (CKD-EPI)AfAm 52.66 Est GFR (CKD-EPI)NonAf 45.43 POC Glucometer 151 Random Glucose 107 H Calcium 9.0 Phosphorus 2.7 Magnesium 1.9 Total Bilirubin 1.7 H AST 19 ALT 17 Alkaline Phosphatase 135 H Total Protein 7.0 Albumin 3.0 L POC Fluid pH Fluid Glucose Fluid Total Protein Fluid Albumin Body Fluid LDH Source Fluid Amylase Fluid Triglycerides Fluid Uric Acid COVID-19 (JARRETT) Active Medications Generic Name Dose Route Start Last Admin Trade Name Haseeb PRN Reason Stop Dose Admin Acetaminophen 650 mg 05/17/20 00:48 Tylenol - PO Q4H PRN PAIN LEVEL 7 - 10 Heparin Sodium (Porcine) 5,000 unit 05/18/20 22:00 05/19/20 06:37 Heparin - SQ 5,000 unit TID CHRIS Administration Ceftriaxone Sodium 1 gm/ 50 mls @ 200 mls/hr 05/17/20 10:00 05/19/20 11:04 Dextrose IVPB 200 mls/hr DAILY CHRIS Administration Protocol Insulin Aspart 1 vial 05/17/20 07:00 05/19/20 11:23 Novolog Vial Sliding Scale - SQ 2 units ACHS CHRIS Administration Protocol Polyethylene Glycol 17 gm 05/19/20 10:00 05/19/20 11:08 Miralax (For Daily Use) - PO 17 grams DAILY CHRIS Administration Rifaximin 550 mg 05/17/20 22:00 05/19/20 11:04 Xifaxan - PO 550 mg BID CHRIS Administration Spironolactone 50 mg 05/18/20 10:00 05/19/20 11:04 Aldactone - PO 50 mg BID CHRIS Administration ASSESSMENT/PLAN: Pt. is a 69 y.o. [place]ene[place] speaking F w/ PMHx. of HTN, DMs, cirrhosis (told b/c has no gallbladder, diagnosed 2 years ago), Asthma, GERD, Hypothyroidism and Arthritis presented to the hospital for increased abdominal distention. #Portal Vein Thrombosis s/p paracentesis non-diagnostic for malignancy Pt. has significant bleeding risk with [place] score of 4 indicating high bleeding risk. It would be reasonable to perform EGD to assess severity of varices prior to consideration of starting AC. Given the high bleeding risk, if AC is started would not recommend NOAC. Pt. would need an agent that can be readily reversed, however we cannot recommend AC at this time. Pt. does not have any clinical signs of intestinal infarction, continue to monitor Recommend MRI, blood flow around thrombus indicative of chronicity. Dispo: We will continue to follow the patient. Thank you for this consultative opportunity. Visit type - Emergency Visit Emergency Visit: Yes ED Registration Date: 05/16/20 Care time: The patient presented to the Emergency Department on the above date and was hospitalized for further evaluation of their emergent condition. - New Patient This patient is new to me today: Yes Date on this admission: 05/19/20 - Critical Care Critical Care patient: No ATTENDING PHYSICIAN STATEMENT I saw and evaluated the patient. I reviewed the resident's note and discussed the case with the resident. I agree with the resident's findings and plan as documented. SUBJECTIVE: OBJECTIVE: ASSESSMENT AND PLAN:
--- NOTE | 2020-05-19 12:00 | PN ---
Progress Note, Physician History of Present Illness: continues to c/o of abd pain distension has increased - Current Medication List Current Medications: Active Medications Acetaminophen (Tylenol -) 650 mg PO Q4H PRN PRN Reason: PAIN LEVEL 7 - 10 Heparin Sodium (Porcine) (Heparin -) 5,000 unit SQ TID [facility] Last Admin: 05/19/20 06:37 Dose: 5,000 unit Documented by: Ceftriaxone Sodium 1 gm/ (Dextrose) 50 mls @ 200 mls/hr IVPB DAILY [facility]; Protocol Last Admin: 05/19/20 11:04 Dose: 200 mls/hr Documented by: Insulin Aspart (Novolog Vial Sliding Scale -) 1 vial SQ ACHS [facility]; Protocol Last Admin: 05/19/20 11:23 Dose: 2 units Documented by: Polyethylene Glycol (Miralax (For Daily Use) -) 17 gm PO DAILY [facility] Last Admin: 05/19/20 11:08 Dose: 17 grams Documented by: Rifaximin (Xifaxan -) 550 mg PO BID [facility] Last Admin: 05/19/20 11:04 Dose: 550 mg Documented by: Spironolactone (Aldactone -) 50 mg PO BID [facility] Last Admin: 05/19/20 11:04 Dose: 50 mg Documented by: - Objective Vital Signs: Vital Signs Temperature 98.1 F 05/19/20 06:00 Pulse Rate 82 05/19/20 06:00 Respiratory Rate 18 05/19/20 06:00 Blood Pressure 111/49 L 05/19/20 06:00 O2 Sat by Pulse Oximetry (%) 97 05/18/20 21:00 Constitutional: Yes: Calm, Mild Distress Neck: Yes: Supple, Trachea Midline Cardiovascular: Yes: S1, S2 Respiratory: Yes: Regular, Poor Air Entry (at the bases) Gastrointestinal: Yes: Soft, Ascites, Tenderness Musculoskeletal: Yes: WNL Extremities: Yes: WNL Neurological: Yes: Alert, Oriented Psychiatric: Yes: Alert, Oriented Labs: CBC, BMP 05/19/20 08:10 05/19/20 08:10 INR, PTT INR 1.60 (0.83-1.09) H 05/19/20 08:10 Assessment/Plan 69yF w PMHx HTN DM cirrhosis presenting w 10d worsening ABD distension. Ascites 2/2 liver/kidney. SIDNEY . also patient has suspected portal thrombosis all cx still pending patient on anticoagulant plan for tapping today continue current mgmt close monitoring rest as per the team
[2020-05-19] MEDS: FUROSEMIDE 40 MG TABLET (FP) PO SCH (13:15)
--- NOTE | 2020-05-19 13:33 | PN ---
Progress Note, Physician History of Present Illness: Pt seen and examined at bedside. She is awake and alert. She complains of abdominal discomfort. - Current Medication List Current Medications: Active Medications Acetaminophen (Tylenol -) 650 mg PO Q4H PRN PRN Reason: PAIN LEVEL 7 - 10 Furosemide (Lasix -) 40 mg PO DAILY [facility] Last Admin: 05/19/20 13:15 Dose: 40 mg Documented by: Heparin Sodium (Porcine) (Heparin -) 5,000 unit SQ TID [facility] Last Admin: 05/19/20 06:37 Dose: 5,000 unit Documented by: Ceftriaxone Sodium 1 gm/ (Dextrose) 50 mls @ 200 mls/hr IVPB DAILY [facility]; Protocol Last Admin: 05/19/20 11:04 Dose: 200 mls/hr Documented by: Insulin Aspart (Novolog Vial Sliding Scale -) 1 vial SQ ACHS [facility]; Protocol Last Admin: 05/19/20 11:23 Dose: 2 units Documented by: Polyethylene Glycol (Miralax (For Daily Use) -) 17 gm PO DAILY [facility] Last Admin: 05/19/20 11:08 Dose: 17 grams Documented by: Rifaximin (Xifaxan -) 550 mg PO BID [facility] Last Admin: 05/19/20 11:04 Dose: 550 mg Documented by: Spironolactone (Aldactone -) 50 mg PO BID [facility] Last Admin: 05/19/20 11:04 Dose: 50 mg Documented by: - Objective Vital Signs: Vital Signs Temperature 98 F 05/19/20 13:11 Pulse Rate 100 H 05/19/20 13:11 Respiratory Rate 20 05/19/20 13:11 Blood Pressure 115/75 05/19/20 13:11 O2 Sat by Pulse Oximetry (%) 97 05/18/20 21:00 Constitutional: Yes: Calm Eyes: Yes: Conjunctiva Clear HENT: Yes: Atraumatic Neck: Yes: Supple Cardiovascular: Yes: S1, S2 Respiratory: Yes: CTA Bilaterally Gastrointestinal: Yes: Normal Bowel Sounds, Abdomen, Obese, Ascites Genitourinary: Yes: WNL Musculoskeletal: Yes: WNL Edema: Yes Neurological: Yes: Oriented Psychiatric: Yes: Oriented Labs: CBC, BMP 05/19/20 08:10 05/19/20 08:10 INR, PTT INR 1.60 (0.83-1.09) H 05/19/20 08:10 Problem List - Problems (1) SIDNEY (acute kidney injury) Code(s): N17.9 - ACUTE KIDNEY FAILURE, UNSPECIFIED (2) Ascites Code(s): R18.8 - OTHER ASCITES Qualifiers: Ascites type: other type Qualified Code(s): R18.8 - Other ascites Assessment/Plan Current Medications Generic Name Dose Route Start Last Admin Trade Name Freq PRN Reason Stop Dose Admin Acetaminophen 650 mg 05/17/20 00:48 Tylenol - PO Q4H PRN PAIN LEVEL 7 - 10 Furosemide 40 mg 05/19/20 12:45 05/19/20 13:15 Lasix - PO 40 mg DAILY CHRIS Administration Heparin Sodium (Porcine) 5,000 unit 05/18/20 22:00 05/19/20 06:37 Heparin - SQ 5,000 unit TID CHRIS Administration Ceftriaxone Sodium 1 gm/ 50 mls @ 200 mls/hr 05/17/20 10:00 05/19/20 11:04 Dextrose IVPB 200 mls/hr DAILY CHRIS Administration Protocol Insulin Aspart 1 vial 05/17/20 07:00 05/19/20 11:23 Novolog Vial Sliding Scale - SQ 2 units ACHS CHRIS Administration Protocol Polyethylene Glycol 17 gm 05/19/20 10:00 05/19/20 11:08 Miralax (For Daily Use) - PO 17 grams DAILY CHRIS Administration Rifaximin 550 mg 05/17/20 22:00 05/19/20 11:04 Xifaxan - PO 550 mg BID CHRIS Administration Spironolactone 50 mg 05/18/20 10:00 05/19/20 11:04 Aldactone - PO 50 mg BID CHRIS Administration Impression 1. sidney 2. liver cirrhosis 3. ascites 4. htn 5. dm 6. hypothyroidism 7. portal vein thrombosis Plan - cont aldacone - add lasix at 40 mg daily and titrate up as tolerated - monitor lytes - animal [facility] clerk is improving - monitor volume status - pt still with ascites - renal function is improving with diuresis
--- NOTE | 2020-05-19 17:45 | PN.GI ---
GI Progress Note Subjective: GI Note ( Covering Dr Escalona); Had large volume paracentesis today and feels relief. Her son served intrepreter. Renal function much improved. - Objective Vital Signs: Vital Signs Temperature 98.7 F 05/19/20 15:44 Pulse Rate 90 05/19/20 15:44 Respiratory Rate 20 05/19/20 15:44 Blood Pressure 100/49 L 05/19/20 15:44 O2 Sat by Pulse Oximetry (%) 100 05/19/20 15:44 Laboratory Tests 05/16/20 05/18/20 05/19/20 16:24 06:30 08:10 BUN 42.4 H 30.8 H 22.2 H Creatinine 2.2 H 1.3 1.2 Laboratory Tests 05/16/20 05/18/20 05/19/20 17:40 06:30 08:10 COVID-19 (JARRETT) Not detected Hep A IgM Ab Confirm Pending Hepatitis A Ab Total Pending Hep Bs Antigen Pending Hep Bs Antibody Pending Hep B Core Total Ab Pending Hep B Core IgM Ab Pending Hepatitis Be Antibody Pending Hepatitis Be Antigen Pending Hep C Ab Diagnostic Pending Constitutional: No Distress ...Auscultate: Yes: Normoactive Bowel Sounds ...Palpate: Yes: Soft, Other (nontender) Labs: CBC, BMP 05/19/20 08:10 05/19/20 08:10 INR, PTT INR 1.60 (0.83-1.09) H 05/19/20 08:10 Assessment/Plan Impression: - Cirrhosis with ascites.NO malignant cells on initial tap Plan: - Continue Aldactone an Lasix- Will need adjustments Dr Schulz is covering this weekens Problem List - Problems (1) Cirrhosis Code(s): K74.60 - UNSPECIFIED CIRRHOSIS OF LIVER (2) SIDNEY (acute kidney injury) Code(s): N17.9 - ACUTE KIDNEY FAILURE, UNSPECIFIED (3) Ascites Code(s): R18.8 - OTHER ASCITES Qualifiers: Ascites type: other type Qualified Code(s): R18.8 - Other ascites (4) Portal vein thrombosis of transplanted liver Code(s): T86.49 - OTHER COMPLICATIONS OF LIVER TRANSPLANT; I81 - PORTAL VEIN THROMBOSIS
[2020-05-19] MEDS ORDERED: ALBUMIN HUMAN 25% 12.5 GM/50 ML VIAL IVPB SCH (18:00)
[2020-05-19] MEDS ORDERED: ALBUMIN HUMAN 25% 100 ML VIAL IVPB SCH (18:03)
[2020-05-19] MEDS ORDERED: INSULIN (NOVOLOG) ASPART 100 UNITS/ML 10ML VIAL ONE ×2 (18:07→21:12)
--- NOTE | 2020-05-19 18:13 | PN ---
Teaching Attending Note Name of Resident: Margarita Shipley ATTENDING PHYSICIAN STATEMENT I saw and evaluated the patient. I reviewed the resident's note and discussed the case with the resident. I agree with the resident's findings and plan as documented. SUBJECTIVE: No fever or chills. No MEYER, cont to have pain in L upper abd. no diarrhea , no V/D. OBJECTIVE: NAD, awake, alert, cooperative MMM CV: RRR, 2/6 SM at base and LLSB. no radiation Lungs: CTAB Abd: more distended compared to yesterday, TTP in RUQ, and epigastric area. No guarding. surgical scar in RUQ. Ext: 1+ edema on legs. ASSESSMENT AND PLAN: 69 y/o lady with h/o DM, cirrhosis, hypothyroidism, and HTN who presented with increasing abd distention and LE edema. 1- Ascitis: - s/p removal of almost 7 L 05/17/20 - arranged for paracentesis today, 5.5 liters removed. - give albumin 6g/L removed - cont aldactone and lasix 2- Portal vein thrombosis: spoke to dr. Encarnacion and discussed case. - will arrange for EGD on Friday or Friday before decision on AC - if varices are large, then will be at increased risk for bleed and AC will be contraindicated. 3- SIDNEY : improved 4- Liver Cirrhosis. follows with GI as out pt . - hepatitis serology pending - possible varices 5- Lymphadenopathy in Abd: f/u as out pt 6- calcification in pelvis. ? ovaries. pelvic US as out pt 7- H/o HTN: Bp on lower side. cont to hold losartan and will not resume HCTZ after dc 8- DM: SSI for now heparin sq HLOC
[2020-05-19] MEDS: ALBUMIN HUMAN 25% 100 ML VIAL IVPB SCH ×2 (18:30→19:50)
--- NOTE | 2020-05-19 20:20 | PN ---
Physical Exam: SUBJECTIVE: Patient seen and examined bedside. Complaining of pain pointing to epigastric region and on her right side below her belly. In no acute distress, no events overnight. OBJECTIVE: Vital Signs Period Temp Pulse Resp BP Sys/Ramos Pulse Ox Last 24 Hr 98 F-99.0 F 82-102 18-20 93-115/43-75 97-100 General: Patient awake and alert, Sami speaking ENT: moist mucous membranes, conjunctiva clear Heart: RRR Lungs: CTA BL Abdomen: very large distended abdomen slightly decreased since yesterday, + fluid wave, hepatosplenomegaly not appreciated. Tender to palpation over eoigastric region and right lower quadrant. Extremities: no edema, warm and well profused Laboratory Results - last 24 hr 05/18/20 05/19/20 05/19/20 21:45 06:21 08:10 WBC RBC Hgb Hct MCV MCH MCHC RDW Plt Count MPV Absolute Neuts (auto) Neutrophils % Lymphocytes % Monocytes % Eosinophils % Basophils % Nucleated RBC % PT with INR 19.00 H INR 1.60 H PTT (Actin FS) 54.1 H Sodium Potassium Chloride Carbon Dioxide Anion Gap BUN Creatinine Est GFR (CKD-EPI)AfAm Est GFR (CKD-EPI)NonAf POC Glucometer 149 113 Random Glucose Calcium Phosphorus Magnesium Total Bilirubin AST ALT Alkaline Phosphatase Total Protein Albumin 05/19/20 05/19/20 05/19/20 08:10 08:10 11:22 WBC 7.0 RBC 3.76 Hgb 12.8 Hct 37.9 MCV 100.8 H MCH 34.2 H MCHC 33.9 RDW 13.3 Plt Count 192 MPV 7.8 Absolute Neuts (auto) 3.1 Neutrophils % 44.4 Lymphocytes % 33.7 Monocytes % 19.0 H Eosinophils % 2.5 Basophils % 0.4 Nucleated RBC % 0 PT with INR INR PTT (Actin FS) Sodium 140 Potassium 4.1 Chloride 106 Carbon Dioxide 25 Anion Gap 9 BUN 22.2 H Creatinine 1.2 Est GFR (CKD-EPI)AfAm 52.66 Est GFR (CKD-EPI)NonAf 45.43 POC Glucometer 151 Random Glucose 107 H Calcium 9.0 Phosphorus 2.7 Magnesium 1.9 Total Bilirubin 1.7 H AST 19 ALT 17 Alkaline Phosphatase 135 H Total Protein 7.0 Albumin 3.0 L 05/19/20 17:43 WBC RBC Hgb Hct MCV MCH MCHC RDW Plt Count MPV Absolute Neuts (auto) Neutrophils % Lymphocytes % Monocytes % Eosinophils % Basophils % Nucleated RBC % PT with INR INR PTT (Actin FS) Sodium Potassium Chloride Carbon Dioxide Anion Gap BUN Creatinine Est GFR (CKD-EPI)AfAm Est GFR (CKD-EPI)NonAf POC Glucometer 189 Random Glucose Calcium Phosphorus Magnesium Total Bilirubin AST ALT Alkaline Phosphatase Total Protein Albumin Active Medications Generic Name Dose Route Start Last Admin Trade Name Freq PRN Reason Stop Dose Admin Acetaminophen 650 mg 05/17/20 00:48 Tylenol - PO Q4H PRN PAIN LEVEL 7 - 10 Furosemide 40 mg 05/19/20 12:45 05/19/20 13:15 Lasix - PO 40 mg DAILY CHRIS Administration Heparin Sodium (Porcine) 5,000 unit 05/18/20 22:00 05/19/20 06:37 Heparin - SQ 5,000 unit TID CHRIS Administration Ceftriaxone Sodium 1 gm/ 50 mls @ 200 mls/hr 05/17/20 10:00 05/19/20 11:04 Dextrose IVPB 200 mls/hr DAILY CHRIS Administration Protocol Insulin Aspart 1 vial 05/17/20 07:00 05/19/20 17:44 Novolog Vial Sliding Scale - SQ 2 units ACHS CHRIS Administration Protocol Polyethylene Glycol 17 gm 05/19/20 10:00 05/19/20 11:08 Miralax (For Daily Use) - PO 17 grams DAILY CHRIS Administration Rifaximin 550 mg 05/17/20 22:00 05/19/20 11:04 Xifaxan - PO 550 mg BID CHRIS Administration Spironolactone 50 mg 05/18/20 10:00 05/19/20 11:04 Aldactone - PO 50 mg BID CHRIS Administration ASSESSMENT/PLAN: PT is a 69 yo F with PMHx of cirrhosis, DM and HTN presenting with 4 days of abdominal distension of pain. Abdomen/pelvis CT shows cirrhotic liver, GB not seen, significant ascites and mildly enlarged para-aortic lymph nodes. No elevated WBC, but BUN and Cr elevated (42, 2.2) from baseline. Admitted for ascites and workup for hepatorenal syndrome PVT: Abdominal doppler showed suspected PVT with minimal flow. Final radiology report read (Dr. Feliz) is positive for PVT Dr. Galindo consulted for GI - not convinced PVT is acute, could be chronic. Dr. Galindo spoke to Dr. Lepe who said patient had confirmed varices from EGD in [facility]. Dr. Encarnacion is covering and saw the patient. Plan is to do EGD early next week before starting AC therapy. Ascites - due to PVT v cirrhosis involvement Diagnostic paracentesis done in ED - no SBP Therapeutic paracentesis; 6900cc removed 05/17, another 5500 cc on 05/19 - albumin replenished each time Nephro (Dr. Harman) consulted started aldactone patient is tolerating added lasix 40mg po 05/19 If BP drops too much start midodrine Cirrhosis GI consulted (Dr. Sanchez) Recommending to start xifaxan 550mg BID Sees Sherley outpatient, he was given an update via [employer] and by Dr. Galindo SIDNEY Presented with elevated Cr - Cr continues to be WNL Avoid nephrotoxic agents Patient now urinating without difficulty DM Hyperglycemic with blood glucose 204 in ED Hold home insulin medication Sliding scale insulin ordered with blood glucose monitoring HTN continue to hold home losartan hold hctz and d/c upon discharge FEN: - sodium controlled diet -Monitor electrolytes in AM labs Visit type - Emergency Visit Emergency Visit: Yes ED Registration Date: 05/16/20 Care time: The patient presented to the Emergency Department on the above date and was hospitalized for further evaluation of their emergent condition. - New Patient This patient is new to me today: No - Critical Care Critical Care patient: No - Discharge Referral Referred to [facility] Med P.C.: Yes ATTENDING PHYSICIAN STATEMENT I saw and evaluated the patient. I reviewed the resident's note and discussed the case with the resident. I agree with the resident's findings and plan as documented. SUBJECTIVE: OBJECTIVE: ASSESSMENT AND PLAN:
[2020-05-19 22:10] LABS: HEP B CORE AB, TOT Negative (Negative)
[2020-05-20 05:07] LABS: HEP B CORE AB, TOT Negative (Negative)
[2020-05-20] MEDS: INSULIN SLIDING SCALE (NOVOLOG) 1 VIAL SQ SCH ×3 (06:05→16:48)
[2020-05-20] MEDS: HEPARIN NA (PORCINE) 5,000 UNITS/ML 1ML VIAL SQ SCH ×3 (06:08→21:30)
[2020-05-20 07:58] LABS: BASO % 0.6 % (0-2.0); EOS % 2.4 % (0-4.5); HEMATOCRIT 34.3 % (32.4-45.2); HEMOGLOBIN 11.7 GM/dL (10.7-15.3); LYMPH % 30.5 % (8-40); MCH 34.2 pg (25.7-33.7); MEAN CELL VOLUME 100.5 fl (80-96); MEAN PLT VOLUME 7.8 fl (7.5-11.1); MONO % 19.2 % (3.8-10.2); NEUT % 47.3 % (42.8-82.8); PLATELET COUNT 173 K/MM3 (134-434); RBC 3.41 M/mm3 (3.60-5.2); RDW 13.3 % (11.6-15.6); RETICULOCYTES 2.28 % (0.5-1.5); WHITE BLOOD COUNT 5.8 K/mm3 (4.0-10.0)
--- NOTE | 2020-05-20 08:18 | PN ---
Teaching Attending Note Name of Resident: Alton Farah ATTENDING PHYSICIAN STATEMENT I saw and evaluated the patient. I reviewed the resident's note and discussed the case with the resident. I agree with the resident's findings and plan as documented. ASSESSMENT AND PLAN:
[2020-05-20 08:20] LABS: ALBUMIN 3.2 g/dl (3.4-5.0); BILIRUBIN,TOTAL 1.4 mg/dL (0.2-1); BLOOD UREA NITROGEN 20.6 mg/dL (7-18); CALCIUM 8.7 mg/dL (8.5-10.1); CREATININE 1.1 mg/dL (0.55-1.3); MAGNESIUM 1.7 mg/dL (1.8-2.4); PHOSPHOROUS 2.8 mg/dL (2.5-4.9); POTASSIUM 3.8 mmol/L (3.5-5.1); TOT PROT 6.3 g/dl (6.4-8.2)
[2020-05-20 08:25] LABS: INR 1.64 (0.83-1.09); PROTHROMBIN TIME (PATIENT) 19.4 SEC (9.7-13.0)
[2020-05-20 08:28] LABS: ACTIVATED PTT 41.7 SECONDS (25.2-36.5)
--- NOTE | 2020-05-20 09:15 | PN ---
Physical Exam: SUBJECTIVE: Patient seen and examined using motor vehicle parts interpreter [id number]. In no acute distress, still complaining of pain that comes and goes in her epigastric region that is worse when she lies down. However she gets pain in her right side if she sits up too long. No events overnight. OBJECTIVE: Vital Signs Period Temp Pulse Resp BP Sys/Ramos Pulse Ox Last 24 Hr 98 F-99.0 F 76-102 20-20 93-115/43-75 97-100 General: Patient awake and alert, Taiwanese speaking ENT: moist mucous membranes, conjunctiva clear Heart: RRR Lungs: CTA BL Abdomen: very large distended abdomen, + fluid wave, hepatosplenomegaly not appreciated. Tender to palpation over eoigastric region and right lower quadrant. Extremities: no edema, warm and well profused Laboratory Results - last 24 hr 05/18/20 05/19/20 05/19/20 06:30 08:10 08:10 WBC RBC Hgb Hct MCV MCH MCHC RDW Plt Count MPV Absolute Neuts (auto) Neutrophils % Lymphocytes % Monocytes % Eosinophils % Basophils % Nucleated RBC % Retic Count PT with INR 19.00 H INR 1.60 H PTT (Actin FS) 54.1 H Sodium Potassium Chloride Carbon Dioxide Anion Gap BUN Creatinine Est GFR (CKD-EPI)AfAm Est GFR (CKD-EPI)NonAf POC Glucometer Random Glucose Calcium Phosphorus Magnesium Total Bilirubin AST ALT Alkaline Phosphatase Total Protein Albumin Hep A IgM Ab Confirm Negative Hepatitis A Ab Total Positive H Hep Bs Antigen Negative Hep Bs Antibody Non reactive Hep B Core Total Ab Negative Negative Hep B Core IgM Ab Negative Negative Hepatitis Be Antibody Negative Hepatitis Be Antigen Negative Negative Hep C Ab Diagnostic 0.2 05/19/20 05/19/20 05/19/20 08:10 08:10 11:22 WBC 7.0 RBC 3.76 Hgb 12.8 Hct 37.9 MCV 100.8 H MCH 34.2 H MCHC 33.9 RDW 13.3 Plt Count 192 MPV 7.8 Absolute Neuts (auto) 3.1 Neutrophils % 44.4 Lymphocytes % 33.7 Monocytes % 19.0 H Eosinophils % 2.5 Basophils % 0.4 Nucleated RBC % 0 Retic Count PT with INR INR PTT (Actin FS) Sodium 140 Potassium 4.1 Chloride 106 Carbon Dioxide 25 Anion Gap 9 BUN 22.2 H Creatinine 1.2 Est GFR (CKD-EPI)AfAm 52.66 Est GFR (CKD-EPI)NonAf 45.43 POC Glucometer 151 Random Glucose 107 H Calcium 9.0 Phosphorus 2.7 Magnesium 1.9 Total Bilirubin 1.7 H AST 19 ALT 17 Alkaline Phosphatase 135 H Total Protein 7.0 Albumin 3.0 L Hep A IgM Ab Confirm Hepatitis A Ab Total Hep Bs Antigen Hep Bs Antibody Hep B Core Total Ab Hep B Core IgM Ab Hepatitis Be Antibody Hepatitis Be Antigen Hep C Ab Diagnostic 05/19/20 05/19/20 05/20/20 17:43 21:02 05:54 WBC RBC Hgb Hct MCV MCH MCHC RDW Plt Count MPV Absolute Neuts (auto) Neutrophils % Lymphocytes % Monocytes % Eosinophils % Basophils % Nucleated RBC % Retic Count PT with INR INR PTT (Actin FS) Sodium Potassium Chloride Carbon Dioxide Anion Gap BUN Creatinine Est GFR (CKD-EPI)AfAm Est GFR (CKD-EPI)NonAf POC Glucometer 189 226 68 Random Glucose Calcium Phosphorus Magnesium Total Bilirubin AST ALT Alkaline Phosphatase Total Protein Albumin Hep A IgM Ab Confirm Hepatitis A Ab Total Hep Bs Antigen Hep Bs Antibody Hep B Core Total Ab Hep B Core IgM Ab Hepatitis Be Antibody Hepatitis Be Antigen Hep C Ab Diagnostic 05/20/20 05/20/20 05/20/20 07:15 07:15 07:15 WBC 5.8 RBC 3.41 L Hgb 11.7 Hct 34.3 MCV 100.5 H MCH 34.2 H MCHC 34.0 RDW 13.3 Plt Count 173 MPV 7.8 Absolute Neuts (auto) 2.7 Neutrophils % 47.3 Lymphocytes % 30.5 Monocytes % 19.2 H Eosinophils % 2.4 Basophils % 0.6 Nucleated RBC % 0 Retic Count 2.28 H PT with INR 19.40 H INR 1.64 H PTT (Actin FS) 41.7 H Sodium 140 Potassium 3.8 Chloride 106 Carbon Dioxide 26 Anion Gap 8 BUN 20.6 H Creatinine 1.1 Est GFR (CKD-EPI)AfAm 58.50 Est GFR (CKD-EPI)NonAf 50.47 POC Glucometer Random Glucose 141 H Calcium 8.7 Phosphorus 2.8 Magnesium 1.7 L Total Bilirubin 1.4 H AST 17 ALT 13 Alkaline Phosphatase 110 Total Protein 6.3 L Albumin 3.2 L Hep A IgM Ab Confirm Hepatitis A Ab Total Hep Bs Antigen Hep Bs Antibody Hep B Core Total Ab Hep B Core IgM Ab Hepatitis Be Antibody Hepatitis Be Antigen Hep C Ab Diagnostic Active Medications Generic Name Dose Route Start Last Admin Trade Name Freq PRN Reason Stop Dose Admin Acetaminophen 650 mg 05/17/20 00:48 Tylenol - PO Q4H PRN PAIN LEVEL 7 - 10 Furosemide 40 mg 05/19/20 12:45 05/19/20 13:15 Lasix - PO 40 mg DAILY CHRIS Administration Heparin Sodium (Porcine) 5,000 unit 05/18/20 22:00 05/20/20 06:08 Heparin - SQ 5,000 unit TID CHRIS Administration Insulin Aspart 1 vial 05/17/20 07:00 05/20/20 06:05 Novolog Vial Sliding Scale - SQ Not Given ACHS [facility] Protocol Polyethylene Glycol 17 gm 05/19/20 10:00 05/19/20 11:08 Miralax (For Daily Use) - PO 17 grams DAILY CHRIS Administration Rifaximin 550 mg 05/17/20 22:00 05/19/20 21:32 Xifaxan - PO 550 mg BID CHRIS Administration Spironolactone 50 mg 05/18/20 10:00 05/19/20 21:32 Aldactone - PO 50 mg BID CHRIS Administration ASSESSMENT/PLAN: PT is a 69 yo F with PMHx of cirrhosis, DM and HTN presenting with 4 days of abdominal distension of pain. Abdomen/pelvis CT shows cirrhotic liver, GB not seen, significant ascites and mildly enlarged para-aortic lymph nodes. No elevated WBC, but BUN and Cr elevated (42, 2.2) from baseline. Admitted for a scites and workup for hepatorenal syndrome PVT: Abdominal doppler showed suspected PVT with minimal flow. Final radiology report read (Dr. Feliz) is positive for PVT Dr. Galindo consulted for GI - not convinced PVT is acute, could be chronic. Dr. Galindo spoke to Dr. Lepe who said patient had confirmed varices from EGD in [facility]. Dr. Encarnacion is covering and saw the patient. Plan is to do EGD early next week before starting AC therapy. Dr. Wild also consulted and after EGD believes patient should be on AC therapy. Ascites - due to PVT v cirrhosis involvement Diagnostic paracentesis done in ED - no SBP Therapeutic paracentesis; 6900cc removed 05/17, another 5500 cc on 05/19 - albumin replenished each time Nephro (Dr. Harman) consulted started aldactone patient is tolerating added lasix 40mg po 05/19 If BP drops too much start midodrine Patient BP today paged by nurse 88/55 - we help lasix this afternoon and giving 25mg albumin Ascities fluid reaccumulating quickly/will discuss with IR the possibility of a draining catheter Cirrhosis GI consulted (Dr. Sanchez) Recommending to start xifaxan 550mg BID - spoke with Dr. Schulz 05/20 said we can discontinue xifaxan Sees Sherley outpatient, he was given an update via [employer] and updated by Dr. Galindo SIDNEY Presented with elevated Cr - Cr continues to be WNL Avoid nephrotoxic agents Patient now urinating without difficulty DM Hyperglycemic with blood glucose 204 in ED Hold home insulin medication Sliding scale insulin ordered with blood glucose monitoring HTN continue to hold home losartan hold hctz and d/c upon discharge FEN: - sodium controlled diet -Monitor electrolytes in AM labs Visit type - Emergency Visit Emergency Visit: Yes ED Registration Date: 05/16/20 Care time: The patient presented to the Emergency Department on the above date and was hospitalized for further evaluation of their emergent condition. - New Patient This patient is new to me today: No - Critical Care Critical Care patient: No - Discharge Referral Referred to [facility] Med P.C.: Yes Physician Referral: Abram Escalona DO (GI) ATTENDING PHYSICIAN STATEMENT I saw and evaluated the patient. I reviewed the resident's note and discussed the case with the resident. I agree with the resident's findings and plan as documented. SUBJECTIVE: OBJECTIVE: ASSESSMENT AND PLAN:
--- NOTE | 2020-05-20 09:25 | PN ---
Teaching Attending Note Name of Resident: Alton Farah ATTENDING PHYSICIAN STATEMENT I saw and evaluated the patient. I reviewed the resident's note and discussed the case with the resident. I agree with the resident's findings and plan as documented. ASSESSMENT AND PLAN: Pt. is a 69 y.o. Belizean speaking F w/ PMHx. of HTN, DMs, cirrhosis (diagnosed 2 years ago), Asthma, GERD, Hypothyroidism and Arthritis presented to the hospital for increased abdominal distention. Diagnosed with portal vein thrombosis /ascites s/p paracentesis mild coagulopathy related to liver disease Gi evaluation for varices before considering a/c for portal vein thrombosis /. Imaging shows some flow around thrpmbus ? chronic no need for hypercoagulable w/u for portal vein thrombosis in th setting of advanced cirrhosis
[2020-05-20] MEDS: RIFAXIMIN 550 MG TABLET (UD) PO SCH (10:13)
[2020-05-20] MEDS: SPIRONOLACTONE 25 MG TABLET PO SCH (10:13)
[2020-05-20] MEDS: POLYETHYLENE GLYCOL 3350 119 GM BTL PO SCH (10:13)
--- NOTE | 2020-05-20 10:19 | PN ---
Progress Note (short form) - Note Progress Note: Pt still with large volume ascites. Creatinine has come down; she is on a minimal dose of spironolactone. Given the concern about a portal vein thrombosis, we have been asked to arrange EGD to exclude varices before consideration of anticoagulation. I have spoken with Ms Zora Palma and obtained consent for EGD for Friday.
[2020-05-20] MEDS ORDERED: MAGNESIUM OXIDE 400 MG TABLET (FP) PO ONE (10:48)
[2020-05-20] MEDS ORDERED: ALBUMIN HUMAN 25% 12.5 GM/50 ML VIAL IVPB SCH (13:45)
[2020-05-20] MEDS ORDERED: ALBUMIN HUMAN 25% 12.5 GM/50 ML VIAL IVPB ONE (13:46)
[2020-05-20] MEDS: FUROSEMIDE 40 MG TABLET (FP) PO SCH (13:51)
--- NOTE | 2020-05-20 14:21 | PN ---
Progress Note, Physician Chief Complaint: Ascities History of Present Illness: Seen and examined at the bedside awake and alert no acute complaints no sob, cp, fever, chills has abd discomfort making urine appetite is poor - Current Medication List Current Medications: Active Medications Acetaminophen (Tylenol -) 650 mg PO Q4H PRN PRN Reason: PAIN LEVEL 7 - 10 Furosemide (Lasix -) 40 mg PO DAILY [facility] Last Admin: 05/20/20 13:51 Dose: Not Given Documented by: Heparin Sodium (Porcine) (Heparin -) 5,000 unit SQ TID [facility] Last Admin: 05/20/20 06:08 Dose: 5,000 unit Documented by: Insulin Aspart (Novolog Vial Sliding Scale -) 1 vial SQ ACHS [facility]; Protocol Last Admin: 05/20/20 11:23 Dose: 4 units Documented by: Polyethylene Glycol (Miralax (For Daily Use) -) 17 gm PO DAILY [facility] Last Admin: 05/20/20 10:13 Dose: 17 grams Documented by: Spironolactone (Aldactone -) 50 mg PO BID [facility] Last Admin: 05/20/20 10:13 Dose: 50 mg Documented by: - Objective Vital Signs: Vital Signs Temperature 98 F 05/20/20 10:00 Pulse Rate 91 H 05/20/20 10:00 Respiratory Rate 18 05/20/20 10:00 Blood Pressure 101/59 L 05/20/20 10:00 O2 Sat by Pulse Oximetry (%) 100 05/20/20 09:00 Constitutional: Yes: No Distress Neck: Yes: Supple Cardiovascular: Yes: Regular Rate and Rhythm Respiratory: Yes: Regular Gastrointestinal: Yes: Ascites, Tenderness Extremities: No: Cyanosis Edema: Yes Labs: CBC, BMP 05/20/20 07:15 05/20/20 07:15 INR, PTT INR 1.64 (0.83-1.09) H 05/20/20 07:15 Assessment/Plan Impression 1. katie 2. liver cirrhosis 3. ascites 4. htn 5. dm 6. hypothyroidism 7. portal vein thrombosis Plan Renal function is stable Continue lasix and aldactone for management of ascities can consider BID Lasix if asciteis remains unchanged Trend renal function and electrolytes Irving Soriano DO
--- NOTE | 2020-05-20 15:59 | PN ---
Progress Note, Physician History of Present Illness: continues to c/o of abd pain distension has increased - Current Medication List Current Medications: Active Medications Acetaminophen (Tylenol -) 650 mg PO Q4H PRN PRN Reason: PAIN LEVEL 7 - 10 Furosemide (Lasix -) 40 mg PO DAILY [facility] Last Admin: 05/20/20 13:51 Dose: Not Given Documented by: Heparin Sodium (Porcine) (Heparin -) 5,000 unit SQ TID [facility] Last Admin: 05/20/20 14:39 Dose: 5,000 unit Documented by: Insulin Aspart (Novolog Vial Sliding Scale -) 1 vial SQ ACHS [facility]; Protocol Last Admin: 05/20/20 11:23 Dose: 4 units Documented by: Polyethylene Glycol (Miralax (For Daily Use) -) 17 gm PO DAILY [facility] Last Admin: 05/20/20 10:13 Dose: 17 grams Documented by: Spironolactone (Aldactone -) 50 mg PO BID [facility] Last Admin: 05/20/20 10:13 Dose: 50 mg Documented by: - Objective Vital Signs: Vital Signs Temperature 98.1 F 05/20/20 14:00 Pulse Rate 95 H 05/20/20 14:00 Respiratory Rate 17 05/20/20 14:00 Blood Pressure 96/58 L 05/20/20 14:00 O2 Sat by Pulse Oximetry (%) 100 05/20/20 09:00 Constitutional: Yes: Calm, Mild Distress Cardiovascular: Yes: S1, S2 Respiratory: Yes: Regular, Poor Air Entry Gastrointestinal: Yes: Soft, Ascites, Tenderness, Other (distended) Musculoskeletal: Yes: WNL Extremities: Yes: WNL Neurological: Yes: Alert, Oriented Psychiatric: Yes: Alert, Oriented Labs: CBC, BMP 05/20/20 07:15 05/20/20 07:15 INR, PTT INR 1.64 (0.83-1.09) H 05/20/20 07:15 Assessment/Plan 69yF w PMHx HTN DM cirrhosis presenting w 10d worsening ABD distension. Ascites 2/2 liver/kidney. SIDNEY . also patient has suspected portal thrombosis all cx still pending patient on anticoagulant plan plan for drainage continue current mgmt close monitoring rest as per the team
--- NOTE | 2020-05-20 17:37 | PN ---
Teaching Attending Note Name of Resident: Margarita Shipley ATTENDING PHYSICIAN STATEMENT I saw and evaluated the patient. I reviewed the resident's note and discussed the case with the resident. I agree with the resident's findings and plan as documented. SUBJECTIVE: [employer] educational interpreter phone [phone] was used . cont to have epigastric pain. no N/v . no diarrhea OBJECTIVE: NAD, awake, alert, cooperative MMM CV: RRR, 2/6 SM at base and LLSB. no radiation Lungs: CTAB Abd: distended, slightly better than yesterday, TTP in RUQ, and epigastric area. No guarding. surgical scar in RUQ. Ext: 1+ edema on legs. ASSESSMENT AND PLAN: 69 y/o lady with h/o DM, cirrhosis, hypothyroidism, and HTN who presented with increasing abd distention and LE edema. 1- Ascitis: - s/p removal of almost 13 L of fluid - fluid is re-accumulating quickly - cont lasix and spironolactone - will discuss with IR the possibility of a draining catheter 2- Portal vein thrombosis: EGD on Friday 3- SIDNEY : improved . gave albumin today due to BP in 80s 4- Liver Cirrhosis. - hepatitis serology pending - possible varices - d/w/ GI . dc rifaximine 5- Lymphadenopathy in Abd: f/u as out pt 6- calcification in pelvis. ? ovaries. pelvic US as out pt 7- H/o HTN: Bp on lower side. cont to hold losartan and will not resume HCTZ after dc 8- DM: SSI for now dc HS coverage of SSi. hypoglycemic in am heparin sq HLOC
[2020-05-20] MEDS ORDERED: PT OWN MED DRAWER 7, Y5N ONE (21:07)
[2020-05-21] MEDS: INSULIN SLIDING SCALE (NOVOLOG) 1 VIAL SQ SCH ×3 (06:32→17:22)
[2020-05-21] MEDS: HEPARIN NA (PORCINE) 5,000 UNITS/ML 1ML VIAL SQ SCH ×3 (06:32→21:29)
[2020-05-21 08:43] LABS: HEMATOCRIT 37.2 % (32.4-45.2); HEMOGLOBIN 12.5 GM/dL (10.7-15.3); MCH 33.4 pg (25.7-33.7); MCHC 33.7 g/dl (32.0-36.0); MEAN PLT VOLUME 7.3 fl (7.5-11.1); PLATELET COUNT 191 K/MM3 (134-434); RBC 3.76 M/mm3 (3.60-5.2); RDW 13.5 % (11.6-15.6)
[2020-05-21 09:12] LABS: BLOOD UREA NITROGEN 17.8 mg/dL (7-18); CALCIUM 9.1 mg/dL (8.5-10.1); CREATININE 1.1 mg/dL (0.55-1.3); MAGNESIUM 1.6 mg/dL (1.8-2.4); PHOSPHOROUS 2.5 mg/dL (2.5-4.9); POTASSIUM 3.8 mmol/L (3.5-5.1)
[2020-05-21] MEDS: FUROSEMIDE 40 MG TABLET (FP) PO SCH (09:26)
[2020-05-21] MEDS: SPIRONOLACTONE 25 MG TABLET PO SCH ×3 (09:26→21:29)
[2020-05-21] MEDS: POLYETHYLENE GLYCOL 3350 119 GM BTL PO SCH (09:27)
--- NOTE | 2020-05-21 12:25 | PN ---
Progress Note, Physician History of Present Illness: abd distension pain plan for endoscopy - Current Medication List Current Medications: Active Medications Acetaminophen (Tylenol -) 650 mg PO Q4H PRN PRN Reason: PAIN LEVEL 7 - 10 Furosemide (Lasix -) 40 mg PO DAILY [facility] Last Admin: 05/21/20 09:26 Dose: Not Given Documented by: Heparin Sodium (Porcine) (Heparin -) 5,000 unit SQ TID [facility] Last Admin: 05/21/20 06:32 Dose: 5,000 unit Documented by: Insulin Aspart (Novolog Vial Sliding Scale -) 1 vial SQ TIDAC [facility]; Protocol Last Admin: 05/21/20 11:27 Dose: 2 units Documented by: Polyethylene Glycol (Miralax (For Daily Use) -) 17 gm PO DAILY [facility] Last Admin: 05/21/20 09:27 Dose: 17 grams Documented by: Spironolactone (Aldactone -) 50 mg PO BID [facility] Last Admin: 05/21/20 11:01 Dose: 50 mg Documented by: - Objective Vital Signs: Vital Signs Temperature 98.3 F 05/21/20 09:00 Pulse Rate 85 05/21/20 11:10 Respiratory Rate 18 05/21/20 09:00 Blood Pressure 93/51 L 05/21/20 11:10 O2 Sat by Pulse Oximetry (%) 98 05/21/20 09:00 Constitutional: Yes: No Distress, Calm Cardiovascular: Yes: S1, S2 Respiratory: Yes: Regular, CTA Bilaterally Gastrointestinal: Yes: Soft, Ascites, Tenderness Musculoskeletal: Yes: WNL Extremities: Yes: WNL Neurological: Yes: Alert, Oriented Psychiatric: Yes: Alert Labs: CBC, BMP 05/21/20 08:15 05/21/20 08:15 INR, PTT INR 1.64 (0.83-1.09) H 05/20/20 07:15 Assessment/Plan 69yF w PMHx HTN DM cirrhosis presenting w 10d worsening ABD distension. Ascites 2/2 liver/kidney. SIDNEY . also patient has suspected portal thrombosis all cx still pending patient on anticoagulant plan plan for drainage continue current mgmt close monitoring rest as per the team
--- NOTE | 2020-05-21 14:56 | PN ---
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 , cont to have pain in egiastric area and RUQ. No diarrhea , no SOB. no fever or chills Vital Signs: Last Vital Signs Temp Pulse Resp BP Pulse Ox 98.6 F 93 H 18 109/62 98 05/21/20 14:16 05/21/20 14:16 05/21/20 14:16 05/21/20 14:16 05/21/20 09:00 Laboratory Results - last 24 hr 05/19/20 05/19/20 05/20/20 08:10 08:10 16:46 WBC RBC Hgb Hct MCV MCH MCHC RDW Plt Count MPV Sodium Potassium Chloride Carbon Dioxide Anion Gap BUN Creatinine Est GFR (CKD-EPI)AfAm Est GFR (CKD-EPI)NonAf POC Glucometer 244 Random Glucose Calcium Phosphorus Magnesium Tumor Marker AFP 2.1 Stool Occult Blood Hepatitis Be Antibody Negative 05/20/20 05/20/20 05/21/20 17:35 21:19 06:04 WBC RBC Hgb Hct MCV MCH MCHC RDW Plt Count MPV Sodium Potassium Chloride Carbon Dioxide Anion Gap BUN Creatinine Est GFR (CKD-EPI)AfAm Est GFR (CKD-EPI)NonAf POC Glucometer 237 121 Random Glucose Calcium Phosphorus Magnesium Tumor Marker AFP Stool Occult Blood Negative Hepatitis Be Antibody 05/21/20 05/21/20 05/21/20 08:15 08:15 11:25 WBC 7.0 RBC 3.76 Hgb 12.5 Hct 37.2 MCV 99.0 H MCH 33.4 MCHC 33.7 RDW 13.5 Plt Count 191 MPV 7.3 L Sodium 139 Potassium 3.8 Chloride 105 Carbon Dioxide 26 Anion Gap 8 BUN 17.8 Creatinine 1.1 Est GFR (CKD-EPI)AfAm 58.50 Est GFR (CKD-EPI)NonAf 50.47 POC Glucometer 185 Random Glucose 132 H Calcium 9.1 Phosphorus 2.5 Magnesium 1.6 L Tumor Marker AFP Stool Occult Blood Hepatitis Be Antibody 05/21/20 13:01 WBC RBC Hgb Hct MCV MCH MCHC RDW Plt Count MPV Sodium Potassium Chloride Carbon Dioxide Anion Gap BUN Creatinine Est GFR (CKD-EPI)AfAm Est GFR (CKD-EPI)NonAf POC Glucometer Random Glucose Calcium Phosphorus Magnesium Tumor Marker AFP Stool Occult Blood Negative Hepatitis Be Antibody OBJECTIVE: NAD, awake, alert, cooperative MMM CV: RRR, 2/6 SM at base and LLSB. no radiation Lungs: CTAB Abd: distended bigger than yesterday. TTP in epigastric area. No guarding. surgical scar in RUQ. Ext: trace edema on legs. ASSESSMENT AND PLAN: 69 y/o lady with h/o DM, cirrhosis, hypothyroidism, and HTN who presented with increasing abd distention and LE edema. 1- Ascitis: - s/p removal of almost 13 L of fluid - fluid is re-accumulating quickly - cont lasix and spironolactone - will discuss with IR the possibility of a draining catheter 2- Portal vein thrombosis: EGD on Friday to decide if AC is safe 3- SIDNEY : improved . 4- Liver Cirrhosis. - hepatitis serology pending - possible varices 5- Lymphadenopathy in Abd: f/u as out pt 6- calcification in pelvis. ? ovaries. pelvic US as out pt 7- H/o HTN: Bp on lower side. cont to hold losartan and will not resume HCTZ after dc 8- DM: SSI for now heparin sq HLOC Visit type - Emergency Visit Emergency Visit: Yes ED Registration Date: 05/16/20 Care time: The patient presented to the Emergency Department on the above date and was hospitalized for further evaluation of their emergent condition. - New Patient This patient is new to me today: No - Critical Care Critical Care patient: No
[2020-05-21] MEDS ORDERED: MAGNESIUM SULF 50% (8.12 MEQ/2 ML-1 GM VIAL) IVPB ONE (14:57)
[2020-05-22] MEDS: INSULIN SLIDING SCALE (NOVOLOG) 1 VIAL SQ SCH ×3 (06:17→17:46)
--- NOTE | 2020-05-22 07:30 | PN.GI ---
GI Progress Note Subjective: NO NEW COMPLAINTS - FAMILY AT THE BEDSIDE - Objective Vital Signs: Vital Signs Temperature 98.5 F 05/22/20 05:00 Pulse Rate 81 05/22/20 05:00 Respiratory Rate 19 05/22/20 05:00 Blood Pressure 97/47 L 05/22/20 05:00 O2 Sat by Pulse Oximetry (%) 99 05/21/20 21:00 Constitutional: Well Nourished, No Distress Eyes: Yes: WNL HENT: Yes: WNL Neck: Yes: WNL Respiratory: Yes: WNL, Regular, CTA Bilaterally Gastrointestinal Inspection: Yes: WNL ...Auscultate: Yes: Normoactive Bowel Sounds, Other (NONTENDER ; FLANK DULLNESS NML BS) Musculoskeletal: Yes: WNL Extremities: Yes: WNL Edema: No Labs: CBC, BMP 05/21/20 08:15 05/21/20 08:15 INR, PTT INR 1.64 (0.83-1.09) H 05/20/20 07:15 Assessment/Plan EGD CANCELLED FOR TODAY SECONDARY TO COVID TEST OVER 5 DAYS OLD AND OR PROTOCOL. C/W PRESENT MEDICAL THERAPY IF COVID TEST RESULTED - PLAN FOR EGD FRIDAY - TENTATIVELY NPO MIDNIGHT HOLD OFF ON A/C UNTIL VARICES ASSESSED. APPARENTLY, SHE HAD AN EGD IN SEPTEMBER IN [facility] AND WAS TOLD SHE HAD VARICES. C/W RIFAXIMIN 550 MG PO BID AVOID NSAID / SEDATIVES
[2020-05-22 08:56] LABS: INR 1.46 (0.83-1.09); PROTHROMBIN TIME (PATIENT) 17.3 SEC (9.7-13.0)
[2020-05-22 09:14] LABS: ALBUMIN 3.2 g/dl (3.4-5.0); BILIRUBIN,DIRECT 0.6 mg/dL (0.0-0.2); BILIRUBIN,TOTAL 1.6 mg/dL (0.2-1); BLOOD UREA NITROGEN 17.6 mg/dL (7-18); CALCIUM 9.2 mg/dL (8.5-10.1); CREATININE 1.1 mg/dL (0.55-1.3); POTASSIUM 4.8 mmol/L (3.5-5.1); TOT PROT 6.5 g/dl (6.4-8.2)
[2020-05-22] MEDS: POLYETHYLENE GLYCOL 3350 119 GM BTL PO SCH (10:43)
[2020-05-22] MEDS: FUROSEMIDE 40 MG TABLET (FP) PO SCH ×2 (10:44→17:48)
[2020-05-22] MEDS: SPIRONOLACTONE 25 MG TABLET PO SCH ×2 (10:44→21:22)
--- NOTE | 2020-05-22 12:31 | PN ---
Progress Note, Physician History of Present Illness: stable no new issues - Current Medication List Current Medications: Active Medications Acetaminophen (Tylenol -) 650 mg PO Q4H PRN PRN Reason: PAIN LEVEL 7 - 10 Furosemide (Lasix -) 40 mg PO DAILY [facility] Last Admin: 05/22/20 10:44 Dose: 40 mg Documented by: Heparin Sodium (Porcine) (Heparin -) 5,000 unit SQ TID [facility] Last Admin: 05/21/20 21:29 Dose: 5,000 unit Documented by: Insulin Aspart (Novolog Vial Sliding Scale -) 1 vial SQ TIDAC [facility]; Protocol Last Admin: 05/22/20 06:17 Dose: Not Given Documented by: Polyethylene Glycol (Miralax (For Daily Use) -) 17 gm PO DAILY [facility] Last Admin: 05/22/20 10:43 Dose: 17 grams Documented by: Spironolactone (Aldactone -) 50 mg PO BID [facility] Last Admin: 05/22/20 10:44 Dose: 50 mg Documented by: - Objective Vital Signs: Vital Signs Temperature 98 F 05/22/20 10:55 Pulse Rate 92 H 05/22/20 10:55 Respiratory Rate 18 05/22/20 10:55 Blood Pressure 127/88 05/22/20 10:55 O2 Sat by Pulse Oximetry (%) 99 05/21/20 21:00 Constitutional: Yes: No Distress, Calm Cardiovascular: Yes: S1, S2 Respiratory: Yes: Regular, Other Gastrointestinal: Yes: Soft, Ascites, Other (distension) Musculoskeletal: Yes: WNL Extremities: Yes: WNL Neurological: Yes: Alert, Oriented Psychiatric: Yes: Alert, Oriented Labs: CBC, BMP 05/21/20 08:15 05/22/20 08:00 INR, PTT INR 1.46 (0.83-1.09) H 05/22/20 08:00 Assessment/Plan 69yF w PMHx HTN DM cirrhosis presenting w 10d worsening ABD distension. Ascites 2/2 liver/kidney. SIDNEY . also patient has suspected portal thrombosis all cx still pending patient on anticoagulant plan for endoscopy on wed rest as per the team
--- NOTE | 2020-05-22 13:03 | PN ---
Progress Note, Physician History of Present Illness: Pt seen and examined at bedside. She is awake and alert. She feels ascites is improved. - Current Medication List Current Medications: Active Medications Acetaminophen (Tylenol -) 650 mg PO Q4H PRN PRN Reason: PAIN LEVEL 7 - 10 Furosemide (Lasix -) 40 mg PO DAILY [facility] Last Admin: 05/22/20 10:44 Dose: 40 mg Documented by: Heparin Sodium (Porcine) (Heparin -) 5,000 unit SQ TID [facility] Last Admin: 05/21/20 21:29 Dose: 5,000 unit Documented by: Insulin Aspart (Novolog Vial Sliding Scale -) 1 vial SQ TIDAC [facility]; Protocol Last Admin: 05/22/20 06:17 Dose: Not Given Documented by: Polyethylene Glycol (Miralax (For Daily Use) -) 17 gm PO DAILY [facility] Last Admin: 05/22/20 10:43 Dose: 17 grams Documented by: Spironolactone (Aldactone -) 50 mg PO BID [facility] Last Admin: 05/22/20 10:44 Dose: 50 mg Documented by: - Objective Vital Signs: Vital Signs Temperature 98 F 05/22/20 10:55 Pulse Rate 92 H 05/22/20 10:55 Respiratory Rate 18 05/22/20 10:55 Blood Pressure 127/88 05/22/20 10:55 O2 Sat by Pulse Oximetry (%) 99 05/21/20 21:00 Constitutional: Yes: Calm Eyes: Yes: Conjunctiva Clear HENT: Yes: Atraumatic Neck: Yes: Supple Cardiovascular: Yes: S1, S2 Respiratory: Yes: CTA Bilaterally Gastrointestinal: Yes: Normal Bowel Sounds, Soft, Ascites Genitourinary: Yes: WNL Extremities: Yes: WNL Edema: Yes Edema: LLE: Trace, RLE: Trace Neurological: Yes: Oriented Psychiatric: Yes: Oriented Labs: CBC, BMP 05/21/20 08:15 05/22/20 08:00 INR, PTT INR 1.46 (0.83-1.09) H 05/22/20 08:00 Problem List - Problems (1) KATIE (acute kidney injury) Code(s): N17.9 - ACUTE KIDNEY FAILURE, UNSPECIFIED (2) Ascites Code(s): R18.8 - OTHER ASCITES Qualifiers: Ascites type: other type Qualified Code(s): R18.8 - Other ascites Assessment/Plan Current Medications Generic Name Dose Route Start Last Admin Trade Name Haseeb PRN Reason Stop Dose Admin Acetaminophen 650 mg 05/17/20 00:48 Tylenol - PO Q4H PRN PAIN LEVEL 7 - 10 Furosemide 40 mg 05/19/20 12:45 05/22/20 10:44 Lasix - PO 40 mg DAILY [facility] Administration Heparin Sodium (Porcine) 5,000 unit 05/18/20 22:00 05/21/20 21:29 Heparin - SQ 5,000 unit TID [facility] Administration Insulin Aspart 1 vial 05/21/20 07:00 05/22/20 06:17 Novolog Vial Sliding Scale - SQ Not Given TIDAC [facility] Protocol Polyethylene Glycol 17 gm 05/19/20 10:00 05/22/20 10:43 Miralax (For Daily Use) - PO 17 grams DAILY [facility] Administration Spironolactone 50 mg 05/18/20 10:00 05/22/20 10:44 Aldactone - PO 50 mg BID [facility] Administration Impression 1. katie 2. liver cirrhosis 3. ascites 4. htn 5. dm 6. hypothyroidism 7. 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
[2020-05-22] MEDS ORDERED: FUROSEMIDE 40 MG TABLET (FP) PO SCH (14:00)
--- NOTE | 2020-05-22 18:43 | PN ---
Teaching Attending Note Name of Resident: Margarita Shipley ATTENDING PHYSICIAN STATEMENT I saw and evaluated the patient. I reviewed the resident's note and discussed the case with the resident. I agree with the resident's findings and plan as documented. SUBJECTIVE: no fever or chills . pain in epigastric area. No N/v. no diarrhea OBJECTIVE: NAD, awake, alert, cooperative MMM CV: RRR, 2/6 SM at base and LLSB. no radiation Lungs: CTAB Abd: distended same size as yesterday. TTP in epigastric area. No guarding. surgical scar in RUQ. Ext: trace edema on legs. ASSESSMENT AND PLAN: 69 y/o lady with h/o DM, cirrhosis, hypothyroidism, and HTN who presented with increasing abd distention and LE edema. 1- Ascitis: - s/p removal of almost 13 L of fluid - cont lasix ( dose increased ) and spironolactone - IR did not suggest a drainage catheter placement 2- Portal vein thrombosis: EGD after COVID testing . and then decide on safety of AC 3- SIDNEY : improved . 4- Liver Cirrhosis. -Not immune to Hep B. will need vaccine series ( out pt ) - possible varices 5- Lymphadenopathy in Abd: f/u as out pt 6- calcification in pelvis. ? ovaries. pelvic US as out pt 7- H/o HTN: cont to hold meds 8- DM: SSI for now heparin sq HLOC
[2020-05-22] MEDS: HEPARIN NA (PORCINE) 5,000 UNITS/ML 1ML VIAL SQ SCH ×2 (18:46→21:23)
--- NOTE | 2020-05-22 21:01 | PN ---
Physical Exam: SUBJECTIVE: Patient seen and examined bedside. In no acute distress. No events overnight. OBJECTIVE General: Patient awake and alert. ENT: moist mucous membranes, conjunctiva clear Heart: Regular rate with SM Lungs: CTA BL Abdomen: very large distended abdomen, + fluid wave, hepatosplenomegaly not appreciated. Tender to palpation over eoigastric region and right lower quadrant. Extremities: no edema, warm and well profused Vital Signs Period Temp Pulse Resp BP Sys/Ramos Pulse Ox Last 24 Hr 97.9 F-99.6 F 81-101 18-19 97-127/47-88 99-99 Laboratory Results - last 24 hr 05/16/20 05/22/20 05/22/20 18:25 06:12 08:00 PT with INR INR Sodium 139 Potassium 4.8 Chloride 104 Carbon Dioxide 26 Anion Gap 8 BUN 17.6 Creatinine 1.1 Est GFR (CKD-EPI)AfAm 58.50 Est GFR (CKD-EPI)NonAf 50.47 POC Glucometer 121 Random Glucose 128 H Calcium 9.2 Total Bilirubin 1.6 H Direct Bilirubin 0.6 H AST 26 ALT 19 Alkaline Phosphatase 130 H Total Protein 6.5 Albumin 3.2 L Fluid Osmolality 298 05/22/20 05/22/20 08:00 16:50 PT with INR 17.30 H INR 1.46 H Sodium Potassium Chloride Carbon Dioxide Anion Gap BUN Creatinine Est GFR (CKD-EPI)AfAm Est GFR (CKD-EPI)NonAf POC Glucometer 243 Random Glucose Calcium Total Bilirubin Direct Bilirubin AST ALT Alkaline Phosphatase Total Protein Albumin Fluid Osmolality Active Medications Generic Name Dose Route Start Last Admin Trade Name Freq PRN Reason Stop Dose Admin Acetaminophen 650 mg 05/17/20 00:48 Tylenol - PO Q4H PRN PAIN LEVEL 7 - 10 Furosemide 40 mg 05/22/20 18:00 05/22/20 17:48 Lasix - PO 40 mg BID@0600,1800 [facility] Administration Heparin Sodium (Porcine) 5,000 unit 05/18/20 22:00 05/22/20 18:46 Heparin - SQ Not Given TID [facility] Insulin Aspart 1 vial 05/21/20 07:00 05/22/20 17:46 Novolog Vial Sliding Scale - SQ 4 units TIDAC [facility] Administration Protocol Polyethylene Glycol 17 gm 05/19/20 10:00 05/22/20 10:43 Miralax (For Daily Use) - PO 17 grams DAILY [facility] Administration Spironolactone 50 mg 05/18/20 10:00 05/22/20 10:44 Aldactone - PO 50 mg BID [facility] Administration ASSESSMENT/PLAN: PT is a 69 yo F with PMHx of cirrhosis, DM and HTN presenting with 4 days of abdominal distension of pain. Abdomen/pelvis CT shows cirrhotic liver, GB not seen, significant ascites and mildly enlarged para-aortic lymph nodes. No elevated WBC, but BUN and Cr elevated (42, 2.2) from baseline. Admitted for ascites and workup for hepatorenal syndrome PVT: Abdominal doppler showed suspected PVT with minimal flow. Final radiology report read (Dr. Feliz) is positive for PVT Dr. Galindo consulted for GI - not convinced PVT is acute, could be chronic. Dr. Galindo spoke to Dr. 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 Dr. Wild also consulted and pending EGD results neg for varices, believes patient should be on AC therapy. Patient unable to go to EGD today because covid-19 test was not within 3 days. Repeat Covid pending, EGD planned for Friday - must be NPO after midnight Ascites - due to PVT v cirrhosis involvement Diagnostic paracentesis done in ED - no SBP Therapeutic paracentesis; 6900cc removed 05/17, another 5500 cc on 05/19 - albumin replenished each time Nephro (Dr. Harman) consulted started aldactone patient is tolerating added lasix 40mg po 05/19 >> increased to BID 05/22 If BP drops too much start midodrine Ascities fluid reaccumulating quickly/ IR recommended GOC discussion with patient including consult with transplant team and senior nurse manager before further paracentesis or placing indwelling drainage cath Cirrhosis GI consulted (Dr. Sanchez) Recommending to start xifaxan 550mg BID - spoke with Dr. Schulz 05/20 said we can discontinue xifaxan Sees [facility] outpatient, he was given an update via [facility] and updated by Dr. Galindo SIDNEY - resolved Presented with elevated Cr - Cr continues to be WNL Avoid nephrotoxic agents Patient now urinating without difficulty DM Hold home insulin medication Sliding scale insulin ordered with blood glucose monitoring HTN continue to hold home losartan hold hctz and d/c upon discharge FEN: - sodium controlled diet - Monitor electrolytes in AM labs Visit type - Emergency Visit Emergency Visit: Yes ED Registration Date: 05/16/20 Care time: The patient presented to the Emergency Department on the above date and was hospitalized for further evaluation of their emergent condition. - New Patient This patient is new to me today: No - Critical Care Critical Care patient: No - Discharge Referral Referred to [facility] Med P.C.: No ATTENDING PHYSICIAN STATEMENT I saw and evaluated the patient. I reviewed the resident's note and discussed the case with the resident. I agree with the resident's findings and plan as documented. SUBJECTIVE: OBJECTIVE: ASSESSMENT AND PLAN:
[2020-05-23] MEDS: FUROSEMIDE 40 MG TABLET (FP) PO SCH ×2 (05:43→17:47)
[2020-05-23] MEDS: HEPARIN NA (PORCINE) 5,000 UNITS/ML 1ML VIAL SQ SCH ×2 (05:43→13:11)
[2020-05-23] MEDS: INSULIN SLIDING SCALE (NOVOLOG) 1 VIAL SQ SCH ×3 (06:21→16:57)
[2020-05-23 07:41] LABS: HEMATOCRIT 39.2 % (32.4-45.2); HEMOGLOBIN 13.2 GM/dL (10.7-15.3); MCH 33.7 pg (25.7-33.7); MCHC 33.6 g/dl (32.0-36.0); MEAN CELL VOLUME 100.3 fl (80-96); MEAN PLT VOLUME 7.3 fl (7.5-11.1); PLATELET COUNT 200 K/MM3 (134-434); RBC 3.91 M/mm3 (3.60-5.2); RDW 13.8 % (11.6-15.6); WHITE BLOOD COUNT 8.7 K/mm3 (4.0-10.0)
[2020-05-23 08:01] LABS: BLOOD UREA NITROGEN 17.9 mg/dL (7-18); CALCIUM 9.6 mg/dL (8.5-10.1); CREATININE 1.2 mg/dL (0.55-1.3); MAGNESIUM 1.6 mg/dL (1.8-2.4); PHOSPHOROUS 3.3 mg/dL (2.5-4.9); POTASSIUM 4.2 mmol/L (3.5-5.1)
[2020-05-23] MEDS: LIDOCAINE 5% TOPICAL PATCH TP SCH ×2 (09:20→09:24)
[2020-05-23] MEDS: POLYETHYLENE GLYCOL 3350 119 GM BTL PO SCH (09:22)
[2020-05-23] MEDS: SPIRONOLACTONE 25 MG TABLET PO SCH ×2 (09:22→21:15)
--- NOTE | 2020-05-23 10:14 | PN ---
Teaching Attending Note Name of Resident: Margarita Shipley ATTENDING PHYSICIAN STATEMENT I saw and evaluated the patient. I reviewed the resident's note and discussed the case with the resident. I agree with the resident's findings and plan as documented. SUBJECTIVE: Patient has no pain, comfortable with no acute distress. OBJECTIVE: Vital Signs Temperature 98.0 F 05/23/20 08:51 Pulse Rate 95 H 05/23/20 08:51 Respiratory Rate 18 05/23/20 08:51 Blood Pressure 128/68 05/23/20 08:51 O2 Sat by Pulse Oximetry (%) 98 05/22/20 21:00 PE: per resident's note Abdomen: large abdomen,, distended, NT. +BS CBCD WBC 8.7 K/mm3 (4.0-10.0) 05/23/20 07:13 RBC 3.91 M/mm3 (3.60-5.2) 05/23/20 07:13 Hgb 13.2 GM/dL (10.7-15.3) 05/23/20 07:13 Hct 39.2 % (32.4-45.2) 05/23/20 07:13 MCV 100.3 fl (80-96) H 05/23/20 07:13 MCHC 33.6 g/dl (32.0-36.0) 05/23/20 07:13 RDW 13.8 % (11.6-15.6) 05/23/20 07:13 Plt Count 200 K/MM3 (134-434) 05/23/20 07:13 MPV 7.3 fl (7.5-11.1) L 05/23/20 07:13 CMP Sodium 139 mmol/L (136-145) 05/23/20 07:13 Potassium 4.2 mmol/L (3.5-5.1) 05/23/20 07:13 Chloride 103 mmol/L (98-107) 05/23/20 07:13 Carbon Dioxide 27 mmol/L (21-32) 05/23/20 07:13 Anion Gap 9 MMOL/L (8-16) 05/23/20 07:13 BUN 17.9 mg/dL (7-18) 05/23/20 07:13 Creatinine 1.2 mg/dL (0.55-1.3) 07/14/20 07:13 Random Glucose 138 mg/dL (74-106) H 05/23/20 07:13 Calcium 9.6 mg/dL (8.5-10.1) 05/23/20 07:13 Total Bilirubin 1.6 mg/dL (0.2-1) H 05/22/20 08:00 AST 26 U/L (15-37) 05/22/20 08:00 ALT 19 U/L (13-61) 05/22/20 08:00 Alkaline Phosphatase 130 U/L (45-117) H 05/22/20 08:00 Total Protein 6.5 g/dl (6.4-8.2) 05/22/20 08:00 Albumin 3.2 g/dl (3.4-5.0) L 05/22/20 08:00 CARDIAC ENZYMES Creatine Kinase 77 U/L (26-192) 05/16/20 16:24 Troponin I < 0.02 ng/ml (0.00-0.05) 05/16/20 16:24 Current Medications Generic Name Dose Route Start Last Admin Trade Name Haseeb PRN Reason Stop Dose Admin Acetaminophen 650 mg 05/17/20 00:48 Tylenol - PO Q4H PRN PAIN LEVEL 7 - 10 Furosemide 40 mg 05/22/20 18:00 05/23/20 05:43 Lasix - PO 40 mg BID@0600,1800 [facility] Administration Heparin Sodium (Porcine) 5,000 unit 05/18/20 22:00 05/23/20 05:43 Heparin - SQ 5,000 unit TID [facility] Administration Insulin Aspart 1 vial 05/21/20 07:00 05/23/20 06:21 Novolog Vial Sliding Scale - SQ Not Given TIDAC [facility] Protocol Lidocaine 1 patch 05/23/20 08:43 05/23/20 09:24 Lidoderm Patch - TP Not Given DAILY [facility] Miscellaneous 1 each 05/23/20 22:00 Lidoderm Patch Removal MC DAILY@2200 [facility] Polyethylene Glycol 17 gm 05/19/20 10:00 05/23/20 09:22 Miralax (For Daily Use) - PO 17 grams DAILY [facility] Administration Spironolactone 50 mg 05/18/20 10:00 05/23/20 09:22 Aldactone - PO 50 mg BID [facility] Administration Home Medications Medication Instructions Recorded Losartan Potassium [Cozaar -] 50 mg PO DAILY 12/07/18 Glimepiride 2 mg PO BID 05/16/20 Hydrochlorothiazide 12.5 mg PO DAILY 05/16/20 Levothyroxine [Synthroid -] 50 mcg PO DAILY 05/16/20 Omeprazole 40 mg PO DAILY 05/16/20 Propranolol HCl 10 mg PO DAILY 05/16/20 Microbiology 05/19/20 13:57 Abdomen AFB Smear Concentration - Preliminary 05/19/20 13:57 Abdomen Mycobacterial Culture - Preliminary 05/19/20 13:57 Abdomen Gram Stain - Final 05/19/20 13:57 Abdomen Body Fluid Culture - Final NO GROWTH OF AEROBIC ORGANISMS AFTER 48 HOURS INCUBATION 05/19/20 13:57 Abdomen Anaerobic Culture - Final NO ANAEROBES WERE ISOLATED 05/19/20 13:57 Abdomen DENIS Preparation - Preliminary 05/19/20 13:57 Abdomen Fungal Culture - Preliminary 05/17/20 12:40 Ascites AFB Smear Concentration - Final 05/16/20 18:25 Abdomen Gram Stain - Final 05/16/20 18:25 Abdomen Body Fluid Culture - Final NO GROWTH OF AEROBIC ORGANISMS AFTER 48 HOURS INCUBATION 05/16/20 18:25 Abdomen Anaerobic Culture - Final NO ANAEROBES WERE ISOLATED 05/17/20 12:40 Ascites Gram Stain - Final 05/17/20 12:40 Ascites Body Fluid Culture - Final NO GROWTH OF AEROBIC ORGANISMS AFTER 48 HOURS INCUBATION 05/17/20 12:40 Ascites Anaerobic Culture - Final NO ANAEROBES WERE ISOLATED 05/17/20 12:40 Ascites DENIS Preparation - Preliminary 05/16/20 17:25 Urine - Urine Clean Catch Urine Culture - Final Lactose Fermenting Neg Bacilli Non Lactose Fermenting Gnb Normal Urogenital Lupe CXR: unremarkable Abdominal US: portal vein thrombosis with minimal flow identified. CT Abdomen and pelvis: liver cirrhosis, normal size spleen, nonvisualized gallbladder,large amount of free fluid/ascites in the abdomen and pelvis. mesenteric edema in the anterior abdomen and less likely representing omental kinking. oval shaped density in the right and left pelvis, that may represent the ovaries with calcifications. multilevel DDD in the lower thoracic and lumbar spine. no lytic lesions are noted. renal and urinary bladder: kidneys appear normal. US of pelvis: amount of free fluid ascites in the pelvis, including both quadrants. right ovary are not seen. ASSESSMENT AND PLAN: This patient is a 69yof with Pmhx of T2DM, cirrhosis, hypothyroidism, and HTN who presented with increasing abdominal distention and LE edema. # Ascitis: s/p paracentesis of 13 L of fluid , on IV lasix ( dose increased ) and spironolactone - IR did not suggest a drainage catheter placement # Portal vein thrombosis: EGD after COVID testing . Oncology on the case and GI on the case for AC recommnedations # calcification in pelvis/ovaries. vaginal US to r/o Meig's syndrome or neoplasm # Acute UTI: will start IV antibiotics # SIDNEY : improved . # Liver Cirrhosis. Not immune to Hep B. will need vaccine series ( out pt ) # Lymphadenopathy in Abd: f/u as out pt # H/x of HTN: cont to hold meds # DM: SSI for now heparin sq going for EGD in am
[2020-05-23] MEDS ORDERED: INSULIN (NOVOLOG) ASPART 100 UNITS/ML 10ML VIAL ONE (10:42)
[2020-05-23 13:24] VITALS: BMI 33.0
--- NOTE | 2020-05-23 13:53 | PN ---
Progress Note, Physician - Current Medication List Current Medications: Active Medications Acetaminophen (Tylenol -) 650 mg PO Q4H PRN PRN Reason: PAIN LEVEL 7 - 10 Furosemide (Lasix -) 40 mg PO BID@0600,1800 [facility] Last Admin: 05/23/20 05:43 Dose: 40 mg Documented by: Heparin Sodium (Porcine) (Heparin -) 5,000 unit SQ TID [facility] Last Admin: 05/23/20 13:11 Dose: 5,000 unit Documented by: Insulin Aspart (Novolog Vial Sliding Scale -) 1 vial SQ TIDAC [facility]; Protocol Last Admin: 05/23/20 10:44 Dose: 2 units Documented by: Lidocaine (Lidoderm Patch -) 1 patch TP DAILY [facility] Last Admin: 05/23/20 09:24 Dose: Not Given Documented by: Miscellaneous (Lidoderm Patch Removal) 1 each MC DAILY@2200 [facility] Polyethylene Glycol (Miralax (For Daily Use) -) 17 gm PO DAILY [facility] Last Admin: 05/23/20 09:22 Dose: 17 grams Documented by: Spironolactone (Aldactone -) 50 mg PO BID [facility] Last Admin: 05/23/20 09:22 Dose: 50 mg Documented by: - Objective Vital Signs: Vital Signs Temperature 98.1 F 05/23/20 12:48 Pulse Rate 92 H 05/23/20 12:48 Respiratory Rate 18 05/23/20 12:48 Blood Pressure 112/66 05/23/20 12:48 O2 Sat by Pulse Oximetry (%) 99 05/23/20 12:48 Labs: CBC, BMP 05/23/20 07:13 05/23/20 07:13 INR, PTT INR 1.46 (0.83-1.09) H 05/22/20 08:00
--- NOTE | 2020-05-23 15:20 | PN ---
Physical Exam: SUBJECTIVE: Patient seen and examined bedside. environmental lawyer [id number]. Patient still complaining of epigastric pain and left sided back pain. OBJECTIVE: Vital Signs Period Temp Pulse Resp BP Sys/Ramos Pulse Ox Last 24 Hr 98.0 F-99.0 F 86-98 18-18 87-128/50-68 98-99 General: Patient awake and alert. ENT: moist mucous membranes, conjunctiva clear Heart: Regular rate with SM Lungs: CTA BL Abdomen: very large distended abdomen, + fluid wave, hepatosplenomegaly not a ppreciated. Tender to palpation over eoigastric region and right lower quadrant. Extremities: no edema, warm and well profused.Tender L lower back and flank. Laboratory Results - last 24 hr 05/17/20 05/22/20 05/22/20 12:40 08:00 16:50 WBC RBC Hgb Hct MCV MCH MCHC RDW Plt Count MPV Sodium Potassium Chloride Carbon Dioxide Anion Gap BUN Creatinine Est GFR (CKD-EPI)AfAm Est GFR (CKD-EPI)NonAf POC Glucometer 243 Random Glucose Calcium Phosphorus Magnesium Fluid Cholesterol 16 COVID-19 (JARRETT) Not detected 05/22/20 05/23/20 05/23/20 21:05 06:17 07:13 WBC 8.7 RBC 3.91 Hgb 13.2 Hct 39.2 MCV 100.3 H MCH 33.7 MCHC 33.6 RDW 13.8 Plt Count 200 MPV 7.3 L Sodium Potassium Chloride Carbon Dioxide Anion Gap BUN Creatinine Est GFR (CKD-EPI)AfAm Est GFR (CKD-EPI)NonAf POC Glucometer 246 132 Random Glucose Calcium Phosphorus Magnesium Fluid Cholesterol COVID-19 (JARRETT) 05/23/20 05/23/20 07:13 10:32 WBC RBC Hgb Hct MCV MCH MCHC RDW Plt Count MPV Sodium 139 Potassium 4.2 Chloride 103 Carbon Dioxide 27 Anion Gap 9 BUN 17.9 Creatinine 1.2 Est GFR (CKD-EPI)AfAm 52.66 Est GFR (CKD-EPI)NonAf 45.43 POC Glucometer 192 Random Glucose 138 H Calcium 9.6 Phosphorus 3.3 Magnesium 1.6 L Fluid Cholesterol COVID-19 (JARRETT) Active Medications Home Medication List Medication Instructions Recorded Confirmed Type Losartan Potassium [Cozaar -] 50 mg PO DAILY 12/07/18 05/17/20 History Glimepiride 2 mg PO BID 05/16/20 05/17/20 History Hydrochlorothiazide 12.5 mg PO DAILY 05/16/20 05/17/20 History Levothyroxine [Synthroid -] 50 mcg PO DAILY 05/16/20 05/17/20 History Omeprazole 40 mg PO DAILY 05/16/20 05/17/20 History Propranolol HCl 10 mg PO DAILY 05/16/20 05/17/20 History Active Medications Generic Name Dose Route Start Last Admin Trade Name Freq PRN Reason Stop Dose Admin Acetaminophen 650 mg 05/17/20 00:48 Tylenol - PO Q4H PRN PAIN LEVEL 7 - 10 Furosemide 40 mg 05/22/20 18:00 05/23/20 05:43 Lasix - PO 40 mg BID@0600,1800 [facility] Administration Heparin Sodium (Porcine) 5,000 unit 05/18/20 22:00 05/23/20 13:11 Heparin - SQ 5,000 unit TID [facility] Administration Insulin Aspart 1 vial 05/21/20 07:00 05/23/20 10:44 Novolog Vial Sliding Scale - SQ 2 units TIDAC [facility] Administration Protocol Levothyroxine Sodium 50 mcg 05/24/20 07:00 Synthroid - PO DAILY@0700 [facility] Lidocaine 1 patch 05/23/20 08:43 05/23/20 09:24 Lidoderm Patch - TP Not Given DAILY [facility] Miscellaneous 1 each 05/23/20 22:00 Lidoderm Patch Removal MC DAILY@2200 [facility] Polyethylene Glycol 17 gm 05/19/20 10:00 05/23/20 09:22 Miralax (For Daily Use) - PO 17 grams DAILY [facility] Administration Spironolactone 50 mg 05/18/20 10:00 05/23/20 09:22 Aldactone - PO 50 mg BID [facility] Administration ASSESSMENT/PLAN: PT is a 69 yo F with PMHx of cirrhosis, DM and HTN presenting with 4 days of abdominal distension of pain. Abdomen/pelvis CT shows cirrhotic liver, GB not seen, significant ascites and mildly enlarged para-aortic lymph nodes. No elevated WBC, but BUN and Cr elevated (42, 2.2) from baseline. Admitted for ascites and workup for hepatorenal syndrome PVT: Abdominal doppler showed suspected PVT with minimal flow. Final radiology report read (Dr. Feliz) is positive for PVT Dr. Galindo consulted for GI - not convinced PVT is acute, could be chronic. Dr. Galindo spoke to Dr. Lepe who said patient had confirmed varices from EGD in [facility]. Dr. Wild also consulted and pending EGD results neg for varices, believes patient should be on AC therapy. Patient unable to go to EGD because covid-19 test was not within 3 days. COVID NEGATIVE - EGD today Cirrhosis GI consulted (Dr. Sanchez) Recommending to start xifaxan 550mg BID - spoke with Dr. Schulz 05/20 said we can discontinue xifaxan Sees Sherley outpatient, he was given an update via [facility] and updated by Dr. Galindo Previous A/P CT showed L oval shaped densities in pelvis, most likely ovary with calcification - ordered Pelvic US to compare & ordered C-125 for Ovarian cancer due do association with cirrhosis. Ascites - due to PVT v cirrhosis involvement Diagnostic paracentesis done in ED - no SBP Therapeutic paracentesis; 6900cc removed 05/17, another 5500 cc on 05/19 - albumin replenished each time Nephro (Dr. Harman) consulted started aldactone patient is tolerating added lasix 40mg po 05/19 >> increased to BID 05/22 If BP drops too much start midodrine Ascities fluid reaccumulating quickly/ IR recommended GOC discussion with patient including consult with transplant team and building maintenance technician before further paracentesis or placing indwelling drainage cath Started lidocaine patch for back pain associated with pressure from her ascities SIDNEY - resolved Presented with elevated Cr - Cr continues to be WNL Avoid nephrotoxic agents Patient now urinating without difficulty DM -Hold home insulin medication -Sliding scale insulin ordered with blood glucose monitoring HTN -continue to hold home losartan -hold hctz and d/c upon discharge FEN: - sodium controlled diet - Monitor electrolytes in AM labs ATTENDING PHYSICIAN STATEMENT I saw and evaluated the patient. I reviewed the resident's note and discussed the case with the resident. I agree with the resident's findings and plan as documented. Visit type - Emergency Visit Emergency Visit: Yes ED Registration Date: 05/16/20 Care time: The patient presented to the Emergency Department on the above date and was hospitalized for further evaluation of their emergent condition. - New Patient This patient is new to me today: No - Critical Care Critical Care patient: No - Discharge Referral Referred to [facility] Med P.C[facility] Yes Physician Referral: Abram Escalona DO (GI) ATTENDING PHYSICIAN STATEMENT I saw and evaluated the patient. I reviewed the resident's note and discussed the case with the resident. I agree with the resident's findings and plan as documented. SUBJECTIVE: OBJECTIVE: ASSESSMENT AND PLAN:
--- NOTE | 2020-05-23 16:17 | PN ---
Progress Note, Physician History of Present Illness: Pt seen and examined at bedside. She feels ascites is worse. She feels edema is better. - Current Medication List Current Medications: Active Medications Acetaminophen (Tylenol -) 650 mg PO Q4H PRN PRN Reason: PAIN LEVEL 7 - 10 Furosemide (Lasix -) 40 mg PO BID@0600,1800 [facility] Last Admin: 05/23/20 05:43 Dose: 40 mg Documented by: Heparin Sodium (Porcine) (Heparin -) 5,000 unit SQ TID [facility] Last Admin: 05/23/20 13:11 Dose: 5,000 unit Documented by: Insulin Aspart (Novolog Vial Sliding Scale -) 1 vial SQ TIDAC [facility]; Protocol Last Admin: 05/23/20 10:44 Dose: 2 units Documented by: Lidocaine (Lidoderm Patch -) 1 patch TP DAILY [facility] Last Admin: 05/23/20 09:24 Dose: Not Given Documented by: Miscellaneous (Lidoderm Patch Removal) 1 each MC DAILY@2200 [facility] Polyethylene Glycol (Miralax (For Daily Use) -) 17 gm PO DAILY [facility] Last Admin: 05/23/20 09:22 Dose: 17 grams Documented by: Spironolactone (Aldactone -) 50 mg PO BID [facility] Last Admin: 05/23/20 09:22 Dose: 50 mg Documented by: - Objective Vital Signs: Vital Signs Temperature 98.1 F 05/23/20 12:48 Pulse Rate 92 H 05/23/20 12:48 Respiratory Rate 18 05/23/20 12:48 Blood Pressure 112/66 05/23/20 12:48 O2 Sat by Pulse Oximetry (%) 99 05/23/20 12:48 Constitutional: Yes: Calm Eyes: Yes: Conjunctiva Clear HENT: Yes: Atraumatic Neck: Yes: Supple Cardiovascular: Yes: S1, S2 Respiratory: Yes: CTA Bilaterally Gastrointestinal: Yes: Soft, Abdomen, Obese, Ascites Genitourinary: Yes: WNL Musculoskeletal: Yes: WNL Extremities: Yes: WNL Edema: No Neurological: Yes: Oriented Psychiatric: Yes: Oriented Labs: CBC, BMP 05/23/20 07:13 05/23/20 07:13 INR, PTT INR 1.46 (0.83-1.09) H 05/22/20 08:00 Problem List - Problems (1) SIDNEY (acute kidney injury) Code(s): N17.9 - ACUTE KIDNEY FAILURE, UNSPECIFIED (2) Ascites Code(s): R18.8 - OTHER ASCITES Qualifiers: Ascites type: other type Qualified Code(s): R18.8 - Other ascites Assessment/Plan Current Medications Generic Name Dose Route Start Last Admin Trade Name Freq PRN Reason Stop Dose Admin Acetaminophen 650 mg 05/17/20 00:48 Tylenol - PO Q4H PRN PAIN LEVEL 7 - 10 Furosemide 40 mg 05/22/20 18:00 05/23/20 05:43 Lasix - PO 40 mg BID@0600,1800 [facility] Administration Heparin Sodium (Porcine) 5,000 unit 05/18/20 22:00 05/23/20 13:11 Heparin - SQ 5,000 unit TID [facility] Administration Insulin Aspart 1 vial 05/21/20 07:00 05/23/20 10:44 Novolog Vial Sliding Scale - SQ 2 units TIDAC [facility] Administration Protocol Lidocaine 1 patch 05/23/20 08:43 05/23/20 09:24 Lidoderm Patch - TP Not Given DAILY [facility] Miscellaneous 1 each 05/23/20 22:00 Lidoderm Patch Removal MC DAILY@2200 [facility] Polyethylene Glycol 17 gm 05/19/20 10:00 05/23/20 09:22 Miralax (For Daily Use) - PO 17 grams DAILY [facility] Administration Spironolactone 50 mg 05/18/20 10:00 05/23/20 09:22 Aldactone - PO 50 mg BID [facility] Administration Impression 1. sidney 2. liver cirrhosis 3. ascites 4. htn 5. dm 6. hypothyroidism 7. portal vein thrombosis Plan - cont lasix bid - cont aldactone bid - repeat lab in am - replace mag - Gi follow up - ascites worsening
[2020-05-23] MEDS ORDERED: MAGNESIUM SULF 50% (8.12 MEQ/2 ML-1 GM VIAL) IVPB ONE (16:18)
--- NOTE | 2020-05-23 16:20 | PN ---
Teaching Attending Note Name of Resident: Alton Farah ATTENDING PHYSICIAN STATEMENT I saw and evaluated the patient. I reviewed the resident's note and discussed the case with the resident. I agree with the resident's findings and plan as documented. Pt seen and examined ASSESSMENT AND PLAN: 69 y/o lady w/ PMHx. of HTN, DMs, cirrhosis (diagnosed 2 years ago), Asthma, GERD, Hypothyroidism and Arthritis presented to the hospital for increased abdominal distention. Diagnosed with portal vein thrombosis /ascites s/p paracentesis mild coagulopathy related to liver disease Gi evaluation for varices before considering a/c for portal vein thrombosis /. Imaging shows some flow around thrombus ? chronic no need for hypercoagulable w/u for portal vein thrombosis in the setting of advanced cirrhosis Endoscopy planned
[2020-05-23] MEDS: LIDOCAINE PATCH REMOVAL MC SCH (21:20)
[2020-05-24] MEDS: FUROSEMIDE 40 MG TABLET (FP) PO SCH ×2 (06:16→17:22)
[2020-05-24] MEDS: INSULIN SLIDING SCALE (NOVOLOG) 1 VIAL SQ SCH ×3 (06:16→17:17)
[2020-05-24] MEDS: LEVOTHYROXINE NA 50 MCG TABLET (FP) PO SCH (06:17)
[2020-05-24 08:14] LABS: HEMATOCRIT 35.1 % (32.4-45.2); HEMOGLOBIN 11.9 GM/dL (10.7-15.3); MCH 33.7 pg (25.7-33.7); MCHC 33.9 g/dl (32.0-36.0); MEAN CELL VOLUME 99.6 fl (80-96); MEAN PLT VOLUME 7.4 fl (7.5-11.1); PLATELET COUNT 187 K/MM3 (134-434); RBC 3.52 M/mm3 (3.60-5.2); RDW 13.8 % (11.6-15.6); WHITE BLOOD COUNT 7.6 K/mm3 (4.0-10.0)
[2020-05-24 08:39] LABS: BILIRUBIN,TOTAL 1.9 mg/dL (0.2-1); CALCIUM 9.1 mg/dL (8.5-10.1); CREATININE 1.2 mg/dL (0.55-1.3); MAGNESIUM 1.8 mg/dL (1.8-2.4); PHOSPHOROUS 3.6 mg/dL (2.5-4.9); POTASSIUM 4.2 mmol/L (3.5-5.1); TOT PROT 6.8 g/dl (6.4-8.2)
[2020-05-24] MEDS ORDERED: CEFAZOLIN 1 GM/D5W 1 GM/50 ML BAG ONE (08:59)
--- NOTE | 2020-05-24 09:39 | PN ---
Progress Note (short form) - Note Progress Note: GI Procedure NOte( covering Dr Escalona): Please see EGD report. 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 Kefzol given IV before the banding and will continue for 48 hours as well as PPI BID. Followup for repeat EGD with Dr Escalona was explained via a wrapper caser who also assisted in procuring the consent. Problem List - Problems (1) Cirrhosis Code(s): K74.60 - UNSPECIFIED CIRRHOSIS OF LIVER (2) SIDNEY (acute kidney injury) Code(s): N17.9 - ACUTE KIDNEY FAILURE, UNSPECIFIED (3) Ascites Code(s): R18.8 - OTHER ASCITES Qualifiers: Qualified Code(s): R18.8 - Other ascites (4) Portal vein thrombosis of transplanted liver Code(s): T86.49 - OTHER COMPLICATIONS OF LIVER TRANSPLANT; I81 - PORTAL VEIN THROMBOSIS
[2020-05-24] MEDS ORDERED: CEFAZOLIN 1 GM in DEXTROSE 5%-WATER - 50 ML IVPB SCH (10:00)
--- NOTE | 2020-05-24 10:11 | PN ---
Teaching Attending Note Name of Resident: Margarita Shipley ATTENDING PHYSICIAN STATEMENT I saw and evaluated the patient. I reviewed the resident's note and discussed the case with the resident. I agree with the resident's findings and plan as documented. SUBJECTIVE: Patient is going for EGD, no new complains. OBJECTIVE: Vital Signs Temperature 98.4 F 05/24/20 09:12 Pulse Rate 83 05/24/20 09:57 Respiratory Rate 17 05/24/20 09:57 Blood Pressure 119/62 05/24/20 09:57 O2 Sat by Pulse Oximetry (%) 98 05/24/20 09:57 PE: per resident's note Distended abdomen CBCD WBC 7.6 K/mm3 (4.0-10.0) 05/24/20 07:40 RBC 3.52 M/mm3 (3.60-5.2) L 05/24/20 07:40 Hgb 11.9 GM/dL (10.7-15.3) 05/24/20 07:40 Hct 35.1 % (32.4-45.2) 05/24/20 07:40 MCV 99.6 fl (80-96) H 05/24/20 07:40 MCHC 33.9 g/dl (32.0-36.0) 05/24/20 07:40 RDW 13.8 % (11.6-15.6) 05/24/20 07:40 Plt Count 187 K/MM3 (134-434) 05/24/20 07:40 MPV 7.4 fl (7.5-11.1) L 05/24/20 07:40 CMP Sodium 135 mmol/L (136-145) L 05/24/20 07:40 Potassium 4.2 mmol/L (3.5-5.1) 05/24/20 07:40 Chloride 100 mmol/L (98-107) 05/24/20 07:40 Carbon Dioxide 29 mmol/L (21-32) 05/24/20 07:40 Anion Gap 6 MMOL/L (8-16) L 05/24/20 07:40 BUN 20.0 mg/dL (7-18) H 05/24/20 07:40 Creatinine 1.2 mg/dL (0.55-1.3) 05/24/20 07:40 Random Glucose 135 mg/dL (74-106) H 05/24/20 07:40 Calcium 9.1 mg/dL (8.5-10.1) 05/24/20 07:40 Total Bilirubin 1.9 mg/dL (0.2-1) H 05/24/20 07:40 AST 28 U/L (15-37) 05/24/20 07:40 ALT 23 U/L (13-61) 05/24/20 07:40 Alkaline Phosphatase 142 U/L (45-117) H 05/24/20 07:40 Total Protein 6.8 g/dl (6.4-8.2) 05/24/20 07:40 Albumin 3.0 g/dl (3.4-5.0) L 05/24/20 07:40 CARDIAC ENZYMES Creatine Kinase 77 U/L (26-192) 05/16/20 16:24 Troponin I < 0.02 ng/ml (0.00-0.05) 05/16/20 16:24 Current Medications Generic Name Dose Route Start Last Admin Trade Name Haseeb PRN Reason Stop Dose Admin Acetaminophen 650 mg 05/17/20 00:48 Tylenol - PO Q4H PRN PAIN LEVEL 7 - 10 Carvedilol 3.125 mg 05/24/20 10:00 Coreg - PO BID [facility] Furosemide 40 mg 05/22/20 18:00 05/24/20 06:16 Lasix - PO Not Given BID@0600,1800 [facility] Cefazolin Sodium 1 gm/ 50 mls @ 100 mls/hr 05/24/20 10:00 Dextrose IVPB 05/26/20 09:59 BID [facility] Insulin Aspart 1 vial 05/21/20 07:00 05/24/20 06:16 Novolog Vial Sliding Scale - SQ Not Given TIDAC [facility] Protocol Levothyroxine Sodium 50 mcg 05/24/20 07:00 05/24/20 06:17 Synthroid - PO Not Given DAILY@0700 [facility] Lidocaine 1 patch 05/23/20 08:43 05/23/20 09:24 Lidoderm Patch - TP Not Given DAILY [facility] Miscellaneous 1 each 05/23/20 22:00 05/23/20 21:20 Lidoderm Patch Removal MC 1 each DAILY@2200 [facility] Administration Pantoprazole Sodium 40 mg 05/24/20 10:00 Protonix - PO BID [facility] Polyethylene Glycol 17 gm 05/19/20 10:00 05/23/20 09:22 Miralax (For Daily Use) - PO 17 grams DAILY [facility] Administration Spironolactone 50 mg 05/18/20 10:00 05/23/20 21:15 Aldactone - PO 50 mg BID [facility] Administration Home Medications Medication Instructions Recorded Losartan Potassium [Cozaar -] 50 mg PO DAILY 12/07/18 Glimepiride 2 mg PO BID 05/16/20 Hydrochlorothiazide 12.5 mg PO DAILY 05/16/20 Levothyroxine [Synthroid -] 50 mcg PO DAILY 05/16/20 Omeprazole 40 mg PO DAILY 05/16/20 Propranolol HCl 10 mg PO DAILY 05/16/20 CXR: unremarkable Abdominal US: portal vein thrombosis with minimal flow identified. CT Abdomen and pelvis: liver cirrhosis, normal size spleen, nonvisualized ga llbladder,large amount of free fluid/ascites in the abdomen and pelvis. mesenteric edema in the anterior abdomen and less likely representing omental kinking. oval shaped density in the right and left pelvis, that may represent the ovaries with calcifications. multilevel DDD in the lower thoracic and lumbar spine. no lytic lesions are noted. renal and urinary bladder: kidneys appear normal. US of pelvis: amount of free fluid ascites in the pelvis, including both quadrants. right ovary are not seen. ASSESSMENT AND PLAN: This patient is a 69yof with Pmhx of T2DM, cirrhosis, hypothyroidism, and HTN who presented with increasing abdominal distention and LE edema. # Ascitis: s/p paracentesis of 13 L of fluid , on IV lasix ( dose increased ) and spironolactone , going for EGD today to r/o varicees # Portal vein thrombosis: EGD after COVID testing . Oncology on the case and GI on the case for AC recommnedations # calcification in pelvis/ovaries. ordered vaginal US to r/o Meig's syndrome or neoplasm # Acute UTI: will start IV antibiotics # SIDNEY : improved . # Liver Cirrhosis. Not immune to Hep B. will need vaccine series ( out pt ) # Lymphadenopathy in Abd: f/u as out pt # H/x of HTN: cont to hold meds # DM: SSI for now
[2020-05-24] MEDS: SPIRONOLACTONE 25 MG TABLET PO SCH ×2 (12:03→21:32)
[2020-05-24] MEDS: LIDOCAINE 5% TOPICAL PATCH TP SCH (12:03)
[2020-05-24] MEDS: PANTOPRAZOLE 40 MG TABLET PO SCH ×2 (12:03→21:32)
[2020-05-24] MEDS: CARVEDILOL 3.125 MG TABLET (FP) PO SCH ×2 (12:03→21:32)
[2020-05-24] MEDS: POLYETHYLENE GLYCOL 3350 119 GM BTL PO SCH (12:04)
--- NOTE | 2020-05-24 12:15 | PN ---
Progress Note, Physician History of Present Illness: Pt seen and examined at bedside. SHe denies dysuria or hematuria. - Current Medication List Current Medications: Active Medications Acetaminophen (Tylenol -) 650 mg PO Q4H PRN PRN Reason: PAIN LEVEL 7 - 10 Carvedilol (Coreg -) 3.125 mg PO BID [facility] Last Admin: 05/24/20 12:03 Dose: 3.125 mg Documented by: Furosemide (Lasix -) 40 mg PO BID@0600,1800 [facility] Last Admin: 05/24/20 06:16 Dose: Not Given Documented by: Cefazolin Sodium 1 gm/ (Dextrose) 50 mls @ 100 mls/hr IVPB BID [facility] Stop: 05/26/20 21:59 Insulin Aspart (Novolog Vial Sliding Scale -) 1 vial SQ TIDAC [facility]; Protocol Last Admin: 05/24/20 12:04 Dose: Not Given Documented by: Levothyroxine Sodium (Synthroid -) 50 mcg PO DAILY@0700 [facility] Last Admin: 05/24/20 06:17 Dose: Not Given Documented by: Lidocaine (Lidoderm Patch -) 1 patch TP DAILY [facility] Last Admin: 05/24/20 12:03 Dose: 1 patch Documented by: Miscellaneous (Lidoderm Patch Removal) 1 each MC DAILY@2200 [facility] Last Admin: 05/23/20 21:20 Dose: 1 each Documented by: Pantoprazole Sodium (Protonix -) 40 mg PO BID [facility] Last Admin: 05/24/20 12:03 Dose: 40 mg Documented by: Polyethylene Glycol (Miralax (For Daily Use) -) 17 gm PO DAILY [facility] Last Admin: 05/24/20 12:04 Dose: 17 grams Documented by: Spironolactone (Aldactone -) 50 mg PO BID [facility] Last Admin: 05/24/20 12:03 Dose: 50 mg Documented by: - Objective Vital Signs: Vital Signs Temperature 97.9 F 05/24/20 10:45 Pulse Rate 82 05/24/20 10:45 Respiratory Rate 18 05/24/20 10:45 Blood Pressure 108/74 05/24/20 10:45 O2 Sat by Pulse Oximetry (%) 99 05/24/20 10:45 Constitutional: Yes: Calm Eyes: Yes: Conjunctiva Clear HENT: Yes: Atraumatic Neck: Yes: Supple Cardiovascular: Yes: S1, S2 Respiratory: Yes: CTA Bilaterally Gastrointestinal: Yes: Normal Bowel Sounds, Soft, Abdomen, Obese, Ascites Genitourinary: Yes: WNL Musculoskeletal: Yes: WNL Edema: No Neurological: Yes: Oriented Psychiatric: Yes: Oriented Labs: CBC, BMP 05/24/20 07:40 05/24/20 07:40 INR, PTT INR 1.46 (0.83-1.09) H 05/22/20 08:00 Problem List - Problems (1) SIDNEY (acute kidney injury) Code(s): N17.9 - ACUTE KIDNEY FAILURE, UNSPECIFIED (2) Ascites Code(s): R18.8 - OTHER ASCITES Qualifiers: Ascites type: other type Qualified Code(s): R18.8 - Other ascites Assessment/Plan Current Medications Generic Name Dose Route Start Last Admin Trade Name Freq PRN Reason Stop Dose Admin Acetaminophen 650 mg 05/17/20 00:48 Tylenol - PO Q4H PRN PAIN LEVEL 7 - 10 Carvedilol 3.125 mg 05/24/20 10:00 05/24/20 12:03 Coreg - PO 3.125 mg BID [facility] Administration Furosemide 40 mg 05/22/20 18:00 05/24/20 06:16 Lasix - PO Not Given BID@0600,1800 [facility] Cefazolin Sodium 1 gm/ 50 mls @ 100 mls/hr 05/24/20 22:00 Dextrose IVPB 05/26/20 21:59 BID [facility] Insulin Aspart 1 vial 05/21/20 07:00 05/24/20 12:04 Novolog Vial Sliding Scale - SQ Not Given TIDAC [facility] Protocol Levothyroxine Sodium 50 mcg 05/24/20 07:00 05/24/20 06:17 Synthroid - PO Not Given DAILY@0700 [facility] Lidocaine 1 patch 05/23/20 08:43 05/24/20 12:03 Lidoderm Patch - TP 1 patch DAILY [facility] Administration Miscellaneous 1 each 05/23/20 22:00 05/23/20 21:20 Lidoderm Patch Removal MC 1 each DAILY@2200 [facility] Administration Pantoprazole Sodium 40 mg 05/24/20 10:00 05/24/20 12:03 Protonix - PO 40 mg BID [facility] Administration Polyethylene Glycol 17 gm 05/19/20 10:00 05/24/20 12:04 Miralax (For Daily Use) - PO 17 grams DAILY [facility] Administration Spironolactone 50 mg 05/18/20 10:00 05/24/20 12:03 Aldactone - PO 50 mg BID [facility] Administration Impression 1. sidney 2. liver cirrhosis 3. ascites 4. htn 5. dm 6. hypothyroidism 7. 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
--- NOTE | 2020-05-24 14:55 | PN ---
Physical Exam: SUBJECTIVE: Patient seen and examined. Pt. states she had EGD today and has some throat pain and some abdominal tenderness. Discussed at bedside with [id number] and on phone with son in [place] who is a physician that Pt. should go to [facility] to be followed and evaluated for possible Liver transplant. All parties were in agreement with the plan. OBJECTIVE: Vital Signs Period Temp Pulse Resp BP Sys/Ramos Pulse Ox Last 24 Hr 97.9 F-99 F 81-96 17-19 84-124/51-84 95-100 GENERAL: Awake, alert, and fully oriented, in no acute distress. HEAD: Normal with no signs of trauma. EYES: Pupils equal, round and reactive to light, extraocular movements intact, sclera anicteric, conjunctiva clear. EARS, NOSE, THROAT: Moist mucous membranes. NECK: Normal range of motion, supple without lymphadenopathy, JVD, or masses. LUNGS: Breath sounds equal, clear to auscultation bilaterally. No wheezes, and no crackles. No accessory muscle use. HEART: Regular rate and rhythm, normal S1 and S2 without murmur, rub or gallop. ABDOMEN: Soft, mild epigastric and portia-umbilical tenderness, distended, normoactive bowel sounds LOWER EXTREMITIES: 2+ radial pulses, warm, well-perfused NEUROLOGICAL: Normal Speech. PSYCHIATRIC: Cooperative. Good eye contact. Appropriate mood and affect. SKIN: Warm, dry, normal turgor Laboratory Results - last 24 hr 05/23/20 05/23/20 05/24/20 16:51 21:05 06:07 WBC RBC Hgb Hct MCV MCH MCHC RDW Plt Count MPV Sodium Potassium Chloride Carbon Dioxide Anion Gap BUN Creatinine Est GFR (CKD-EPI)AfAm Est GFR (CKD-EPI)NonAf POC Glucometer 190 219 130 Random Glucose Calcium Phosphorus Magnesium Total Bilirubin AST ALT Alkaline Phosphatase Total Protein Albumin 05/24/20 05/24/20 05/24/20 07:40 07:40 12:01 WBC 7.6 RBC 3.52 L Hgb 11.9 Hct 35.1 MCV 99.6 H MCH 33.7 MCHC 33.9 RDW 13.8 Plt Count 187 MPV 7.4 L Sodium 135 L Potassium 4.2 Chloride 100 Carbon Dioxide 29 Anion Gap 6 L BUN 20.0 H Creatinine 1.2 Est GFR (CKD-EPI)AfAm 52.66 Est GFR (CKD-EPI)NonAf 45.43 POC Glucometer 126 Random Glucose 135 H Calcium 9.1 Phosphorus 3.6 Magnesium 1.8 Total Bilirubin 1.9 H AST 28 ALT 23 Alkaline Phosphatase 142 H Total Protein 6.8 Albumin 3.0 L Active Medications Generic Name Dose Route Start Last Admin Trade Name Freq PRN Reason Stop Dose Admin Acetaminophen 650 mg 05/17/20 00:48 Tylenol - PO Q4H PRN PAIN LEVEL 7 - 10 Carvedilol 3.125 mg 05/24/20 10:00 05/24/20 12:03 Coreg - PO 3.125 mg BID CHRIS Administration Furosemide 40 mg 05/22/20 18:00 05/24/20 06:16 Lasix - PO Not Given BID@0600,1800 [facility] Cefazolin Sodium 1 gm/ 50 mls @ 100 mls/hr 05/24/20 22:00 Dextrose IVPB 05/26/20 21:59 BID [facility] Insulin Aspart 1 vial 05/21/20 07:00 05/24/20 12:04 Novolog Vial Sliding Scale - SQ Not Given TIDAC [facility] Protocol Levothyroxine Sodium 50 mcg 05/24/20 07:00 05/24/20 06:17 Synthroid - PO Not Given DAILY@0700 [facility] Lidocaine 1 patch 05/23/20 08:43 05/24/20 12:03 Lidoderm Patch - TP 1 patch DAILY [facility]IS Administration Miscellaneous 1 each 05/23/20 22:00 05/23/20 21:20 Lidoderm Patch Removal MC 1 each DAILY@2200 [facility] Administration Pantoprazole Sodium 40 mg 05/24/20 10:00 05/24/20 12:03 Protonix - PO 40 mg BID [facility]RIS Administration Polyethylene Glycol 17 gm 05/19/20 10:00 05/24/20 12:04 Miralax (For Daily Use) - PO 17 grams DAILY [facility]IS Administration Spironolactone 50 mg 05/18/20 10:00 05/24/20 12:03 Aldactone - PO 50 mg BID CHRIS Administration ASSESSMENT/PLAN: Pt. is a 69 y.o. Pashto speaking F w/ PMHx. of HTN, DMs, cirrhosis (told b/c has no gallbladder, diagnosed 2 years ago), Asthma, GERD, Hypothyroidism and Arthritis presented to the hospital for increased abdominal distention. #Portal Vein Thrombosis s/p paracentesis non-diagnostic for malignancy Pt. has significant bleeding risk with Palmer-Blatchford score of 4 indicating high bleeding risk. It would be reasonable to perform EGD to assess severity of varices prior to consideration of starting AC. Given the high bleeding risk, if AC is started would not recommend NOAC. Pt. would need an agent that can be readily reversed, however we cannot recommend AC at this time. Pt. does not have any clinical signs of intestinal infarction, continue to monitor Recommend MRI, blood flow around thrombus indicative of chronicity. f/u TVUS to r/o malignancy Visit type - Emergency Visit Emergency Visit: Yes ED Registration Date: 05/16/20 Care time: The patient presented to the Emergency Department on the above date and was hospitalized for further evaluation of their emergent condition. - New Patient This patient is new to me today: No - Critical Care Critical Care patient: No - Discharge Referral Referred to [facility] Med P.C.: No ATTENDING PHYSICIAN STATEMENT I saw and evaluated the patient. I reviewed the resident's note and discussed the case with the resident. I agree with the resident's findings and plan as documented. SUBJECTIVE: OBJECTIVE: ASSESSMENT AND PLAN:
--- NOTE | 2020-05-24 18:53 | PN ---
Physical Exam: SUBJECTIVE: Patient seen and examined, in no acute distress. Reports less back pain with lidocaine patch. 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 ENT: moist mucous membranes, conjunctiva clear Heart: Regular rate with SM Lungs: CTA BL Abdomen: very large distended abdomen. Extremities: no edema, warm and well profused. Laboratory Results - last 24 hr 05/23/20 05/24/20 05/24/20 21:05 06:07 07:40 WBC 7.6 RBC 3.52 L Hgb 11.9 Hct 35.1 MCV 99.6 H MCH 33.7 MCHC 33.9 RDW 13.8 Plt Count 187 MPV 7.4 L Sodium Potassium Chloride Carbon Dioxide Anion Gap BUN Creatinine Est GFR (CKD-EPI)AfAm Est GFR (CKD-EPI)NonAf POC Glucometer 219 130 Random Glucose Calcium Phosphorus Magnesium Total Bilirubin AST ALT Alkaline Phosphatase Total Protein Albumin 05/24/20 05/24/20 05/24/20 07:40 12:01 16:21 WBC RBC Hgb Hct MCV MCH MCHC RDW Plt Count MPV Sodium 135 L Potassium 4.2 Chloride 100 Carbon Dioxide 29 Anion Gap 6 L BUN 20.0 H Creatinine 1.2 Est GFR (CKD-EPI)AfAm 52.66 Est GFR (CKD-EPI)NonAf 45.43 POC Glucometer 126 221 Random Glucose 135 H Calcium 9.1 Phosphorus 3.6 Magnesium 1.8 Total Bilirubin 1.9 H AST 28 ALT 23 Alkaline Phosphatase 142 H Total Protein 6.8 Albumin 3.0 L Active Medications Generic Name Dose Route Start Last Admin Trade Name Freq PRN Reason Stop Dose Admin Acetaminophen 650 mg 05/17/20 00:48 Tylenol - PO Q4H PRN PAIN LEVEL 7 - 10 Carvedilol 3.125 mg 05/24/20 10:00 05/24/20 12:03 Coreg - PO 3.125 mg BID CHRIS Administration Furosemide 40 mg 05/22/20 18:00 05/24/20 17:22 Lasix - PO 40 mg BID@0600,1800 [facility] Administration Cefazolin Sodium 1 gm/ 50 mls @ 100 mls/hr 05/24/20 22:00 Dextrose IVPB 05/26/20 21:59 BID [facility] Insulin Aspart 1 vial 05/21/20 07:00 05/24/20 17:17 Novolog Vial Sliding Scale - SQ 4 units TIDAC [facility]IS Administration Protocol Levothyroxine Sodium 50 mcg 05/24/20 07:00 05/24/20 06:17 Synthroid - PO Not Given DAILY@0700 [facility] Lidocaine 1 patch 05/23/20 08:43 05/24/20 12:03 Lidoderm Patch - TP 1 patch DAILY [facility] Administration Miscellaneous 1 each 05/23/20 22:00 05/23/20 21:20 Lidoderm Patch Removal MC 1 each DAILY@2200 [facility] Administration Pantoprazole Sodium 40 mg 05/24/20 10:00 05/24/20 12:03 Protonix - PO 40 mg BID [facility]IS Administration Polyethylene Glycol 17 gm 05/19/20 10:00 05/24/20 12:04 Miralax (For Daily Use) - PO 17 grams DAILY [facility]IS Administration Spironolactone 50 mg 05/18/20 10:00 05/24/20 12:03 Aldactone - PO 50 mg BID CHRIS Administration ASSESSMENT/PLAN: PT is a 69 yo F with PMHx of cirrhosis, DM and HTN presenting with 4 days of abdominal distension of pain. Abdomen/pelvis CT shows cirrhotic liver, GB not seen, significant ascites and mildly enlarged para-aortic lymph nodes. No elevated WBC, but BUN and Cr elevated (42, 2.2) from baseline. Admitted for ascites and workup for hepatorenal syndrome PVT: Abdominal doppler showed suspected PVT with minimal flow. Final radiology report read (Dr. Feliz) is positive for PVT Dr. Galindo consulted for GI - not convinced PVT is acute, could be chronic. Dr. Galindo spoke to Dr. 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 Dr. Wild also consulted and pending EGD results neg for varices, believes patient should be on AC therapy. Patient unable to go to EGD today because covid-19 test was not within 3 days. 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 Sanchez) Recommending to start xifaxan 550mg BID - spoke with Dr. Schulz 05/20 said we can discontinue xifaxan Sees [facility] outpatient, he was given an update via [employer] and updated by Dr. Galindo Previous A/P CT showed L oval shaped densities in pelvis, most likely ovary with calcification Pelvic US showed normal L ovary but R ovary not appreciated C-125 for Ovarian cancer due do association with cirrhosis. Transvaginal US not able to be performed due to size of patient's abdomen. Will reassess with IR tomorrow about drainage and if US would be possible after paracentesis. Will reach out to GI about liver transplant specialist, when patient's options are reviewed IR will discuss possibility of pleurx cath depending on GOC Ascites - due to PVT v cirrhosis involvement Diagnostic paracentesis done in ED - no SBP Therapeutic paracentesis; 6900cc removed 05/17, another 5500 cc on 05/19 - albumin replenished each time Nephro (Dr. Harman) consulted started aldactone patient is tolerating added lasix 40mg po 05/19 >> increased to BID 05/22 If BP drops too much start midodrine Ascities fluid reaccumulating quickly Started lidocaine patch for back pain associated with pressure from her ascities SIDNEY - resolved Presented with elevated Cr - Cr continues to be WNL Avoid nephrotoxic agents Patient now urinating without difficulty DM -Hold home insulin medication -Sliding scale insulin ordered with blood glucose monitoring HTN -continue to hold home losartan -hold hctz and d/c upon discharge FEN: - sodium controlled diet - Monitor electrolytes in AM labs Visit type - Emergency Visit Emergency Visit: Yes ED Registration Date: 05/16/20 Care time: The patient presented to the Emergency Department on the above date and was hospitalized for further evaluation of their emergent condition. - New Patient This patient is new to me today: No - Critical Care Critical Care patient: No - Discharge Referral Referred to [facility] Med P.C.: Yes Physician Referral: Abram Escalona DO (GI) ATTENDING PHYSICIAN STATEMENT I saw and evaluated the patient. I reviewed the resident's note and discussed the case with the resident. I agree with the resident's findings and plan as documented. SUBJECTIVE: OBJECTIVE: ASSESSMENT AND PLAN:
--- NOTE | 2020-05-24 19:49 | PN ---
Progress Note, Physician History of Present Illness: Events noted. Pt with persistent abd distension. No distress at this time. EGD with esophageal varices banded, +gastric varices. - Current Medication List Current Medications: Active Medications Acetaminophen (Tylenol -) 650 mg PO Q4H PRN PRN Reason: PAIN LEVEL 7 - 10 Carvedilol (Coreg -) 3.125 mg PO BID [facility] Last Admin: 05/24/20 12:03 Dose: 3.125 mg Documented by: Furosemide (Lasix -) 40 mg PO BID@0600,1800 [facility] Last Admin: 05/24/20 17:22 Dose: 40 mg Documented by: Cefazolin Sodium 1 gm/ (Dextrose) 50 mls @ 100 mls/hr IVPB BID [facility] Stop: 05/26/20 21:59 Insulin Aspart (Novolog Vial Sliding Scale -) 1 vial SQ TIDAC [facility]; Protocol Last Admin: 05/24/20 17:17 Dose: 4 units Documented by: Levothyroxine Sodium (Synthroid -) 50 mcg PO DAILY@0700 [facility] Last Admin: 05/24/20 06:17 Dose: Not Given Documented by: Lidocaine (Lidoderm Patch -) 1 patch TP DAILY [facility] Last Admin: 05/24/20 12:03 Dose: 1 patch Documented by: Miscellaneous (Lidoderm Patch Removal) 1 each MC DAILY@2200 [facility] Last Admin: 05/23/20 21:20 Dose: 1 each Documented by: Pantoprazole Sodium (Protonix -) 40 mg PO BID [facility] Last Admin: 05/24/20 12:03 Dose: 40 mg Documented by: Polyethylene Glycol (Miralax (For Daily Use) -) 17 gm PO DAILY [facility] Last Admin: 05/24/20 12:04 Dose: 17 grams Documented by: Spironolactone (Aldactone -) 50 mg PO BID [facility] Last Admin: 05/24/20 12:03 Dose: 50 mg Documented by: - Objective Vital Signs: Vital Signs Temperature 97.6 F 05/24/20 17:00 Pulse Rate 71 05/24/20 17:00 Respiratory Rate 18 05/24/20 17:00 Blood Pressure 127/76 05/24/20 17:00 O2 Sat by Pulse Oximetry (%) 99 05/24/20 13:00 Constitutional: Yes: No Distress, Calm Cardiovascular: Yes: Regular Rate and Rhythm Gastrointestinal: Yes: Soft, Distention Genitourinary: Yes: WNL Integumentary: Yes: WNL Neurological: Yes: Alert, Oriented Labs: CBC, BMP 05/24/20 07:40 05/24/20 07:40 INR, PTT INR 1.46 (0.83-1.09) H 05/22/20 08:00 Microbiology 05/19/20 13:57 Abdomen AFB Smear Concentration - Preliminary 05/19/20 13:57 Abdomen Mycobacterial Culture - Preliminary 05/19/20 13:57 Abdomen Gram Stain - Final 05/19/20 13:57 Abdomen Body Fluid Culture - Final NO GROWTH OF AEROBIC ORGANISMS AFTER 48 HOURS INCUBATION 05/19/20 13:57 Abdomen Anaerobic Culture - Final NO ANAEROBES WERE ISOLATED 05/19/20 13:57 Abdomen DENIS Preparation - Preliminary 05/19/20 13:57 Abdomen Fungal Culture - Preliminary 05/17/20 12:40 Ascites AFB Smear Concentration - Final 05/16/20 18:25 Abdomen Gram Stain - Final 05/16/20 18:25 Abdomen Body Fluid Culture - Final NO GROWTH OF AEROBIC ORGANISMS AFTER 48 HOURS INCUBATION 05/16/20 18:25 Abdomen Anaerobic Culture - Final NO ANAEROBES WERE ISOLATED 05/17/20 12:40 Ascites Gram Stain - Final 05/17/20 12:40 Ascites Body Fluid Culture - Final NO GROWTH OF AEROBIC ORGANISMS AFTER 48 HOURS INCUBATION 05/17/20 12:40 Ascites Anaerobic Culture - Final NO ANAEROBES WERE ISOLATED 05/17/20 12:40 Ascites DENIS Preparation - Preliminary 05/16/20 17:25 Urine - Urine Clean Catch Urine Culture - Final Lactose Fermenting Neg Bacilli Non Lactose Fermenting Gnb Normal Urogenital Lupe Problem List - Problems (1) Ascites Code(s): R18.8 - OTHER ASCITES Qualifiers: Ascites type: other type Qualified Code(s): R18.8 - Other ascites (2) Cirrhosis Code(s): K74.60 - UNSPECIFIED CIRRHOSIS OF LIVER (3) Portal vein thrombosis Code(s): I81 - PORTAL VEIN THROMBOSIS (4) Diabetes mellitus Code(s): E11.9 - TYPE 2 DIABETES MELLITUS WITHOUT COMPLICATIONS (5) HTN (hypertension) Code(s): I10 - ESSENTIAL (PRIMARY) HYPERTENSION Assessment/Plan Abd remains distended Afebrile, without distress GI follow up
[2020-05-24] MEDS ORDERED: ceFAZolin SODIUM 1 GM VIAL ONE (21:01)
[2020-05-24] MEDS ORDERED: DEXTROSE 5%-WATER - 50 ML IVPB ONE (21:01)
[2020-05-24 21:19] LABS: BODY FLUID ALBUMIN 0.5
[2020-05-24] MEDS: CEFAZOLIN 1 GM in DEXTROSE 5%-WATER - 50 ML IVPB SCH (21:31)
[2020-05-24] MEDS: LIDOCAINE PATCH REMOVAL MC SCH (21:32)
[2020-05-25] MEDS: FUROSEMIDE 40 MG TABLET (FP) PO SCH ×2 (06:27→17:41)
[2020-05-25] MEDS: INSULIN SLIDING SCALE (NOVOLOG) 1 VIAL SQ SCH ×3 (06:28→17:42)
[2020-05-25] MEDS: LEVOTHYROXINE NA 50 MCG TABLET (FP) PO SCH (06:30)
[2020-05-25 08:55] LABS: BASO % 0.4 % (0-2.0); EOS % 3.9 % (0-4.5); HEMATOCRIT 32.7 % (32.4-45.2); HEMOGLOBIN 11.2 GM/dL (10.7-15.3); MCH 33.9 pg (25.7-33.7); MCHC 34.2 g/dl (32.0-36.0); MEAN CELL VOLUME 99.4 fl (80-96); MEAN PLT VOLUME 7.5 fl (7.5-11.1); MONO % 21.2 % (3.8-10.2); NEUT % 49.5 % (42.8-82.8); PLATELET COUNT 161 K/MM3 (134-434); RBC 3.29 M/mm3 (3.60-5.2); RDW 13.7 % (11.6-15.6); WHITE BLOOD COUNT 7.5 K/mm3 (4.0-10.0)
[2020-05-25 08:57] LABS: INR 1.51 (0.83-1.09); PROTHROMBIN TIME (PATIENT) 17.9 SEC (9.7-13.0)
[2020-05-25 09:28] LABS: ALBUMIN 2.5 g/dl (3.4-5.0); BILIRUBIN,TOTAL 2.1 mg/dL (0.2-1); BLOOD UREA NITROGEN 18.2 mg/dL (7-18); CALCIUM 8.6 mg/dL (8.5-10.1); CREATININE 1.1 mg/dL (0.55-1.3); MAGNESIUM 1.4 mg/dL (1.8-2.4); PHOSPHOROUS 2.8 mg/dL (2.5-4.9); POTASSIUM 4.4 mmol/L (3.5-5.1)
[2020-05-25] MEDS ORDERED: ceFAZolin SODIUM 1 GM VIAL ONE ×2 (09:44→21:29)
[2020-05-25] MEDS ORDERED: DEXTROSE 5%-WATER - 50 ML IVPB ONE ×2 (09:44→21:29)
[2020-05-25] MEDS: LIDOCAINE 5% TOPICAL PATCH TP SCH (09:47)
[2020-05-25] MEDS: PANTOPRAZOLE 40 MG TABLET PO SCH ×2 (09:47→21:38)
[2020-05-25] MEDS: SPIRONOLACTONE 25 MG TABLET PO SCH ×2 (09:47→21:37)
[2020-05-25] MEDS: CARVEDILOL 3.125 MG TABLET (FP) PO SCH ×2 (09:47→21:38)
[2020-05-25] MEDS: CEFAZOLIN 1 GM in DEXTROSE 5%-WATER - 50 ML IVPB SCH ×2 (09:47→21:38)
[2020-05-25 09:53] LABS: ANISOCYTOSIS 1+; MACROCYTOSIS 0; PLATELET ESTIMATE NORMAL
[2020-05-25] MEDS ORDERED: MAGNESIUM SULF 50% (8.12 MEQ/2 ML-1 GM VIAL) IVPB ONE (10:46)
--- NOTE | 2020-05-25 14:02 | PN ---
Progress Note, Physician History of Present Illness: Pt seen and examined at bedside. SHe feels edema is improved. She still complains of ascites. - Current Medication List Current Medications: Active Medications Acetaminophen (Tylenol -) 650 mg PO Q4H PRN PRN Reason: PAIN LEVEL 7 - 10 Carvedilol (Coreg -) 3.125 mg PO BID [facility] Last Admin: 05/25/20 09:47 Dose: 3.125 mg Documented by: Furosemide (Lasix -) 40 mg PO BID@0600,1800 [facility] Last Admin: 05/25/20 06:27 Dose: Not Given Documented by: Cefazolin Sodium 1 gm/ (Dextrose) 50 mls @ 100 mls/hr IVPB BID [facility] Stop: 05/26/20 21:59 Last Admin: 05/25/20 09:47 Dose: 100 mls/hr Documented by: Insulin Aspart (Novolog Vial Sliding Scale -) 1 vial SQ TIDAC [facility]; Protocol Last Admin: 05/25/20 11:48 Dose: Not Given Documented by: Levothyroxine Sodium (Synthroid -) 50 mcg PO DAILY@0700 [facility] Last Admin: 05/25/20 06:30 Dose: 50 mcg Documented by: Lidocaine (Lidoderm Patch -) 1 patch TP DAILY [facility] Last Admin: 05/25/20 09:47 Dose: 1 patch Documented by: Miscellaneous (Lidoderm Patch Removal) 1 each MC DAILY@2200 [facility] Last Admin: 05/24/20 21:32 Dose: 1 each Documented by: Pantoprazole Sodium (Protonix -) 40 mg PO BID [facility] Last Admin: 05/25/20 09:47 Dose: 40 mg Documented by: Polyethylene Glycol (Miralax (For Daily Use) -) 17 gm PO DAILY [facility] Last Admin: 05/24/20 12:04 Dose: 17 grams Documented by: Spironolactone (Aldactone -) 50 mg PO BID [facility] Last Admin: 05/25/20 09:47 Dose: 50 mg Documented by: - Objective Vital Signs: Vital Signs Temperature 98.4 F 05/25/20 06:00 Pulse Rate 80 05/25/20 09:00 Respiratory Rate 18 05/25/20 09:00 Blood Pressure 108/50 L 05/25/20 09:00 O2 Sat by Pulse Oximetry (%) 98 05/25/20 09:00 Constitutional: Yes: Calm Eyes: Yes: Conjunctiva Clear HENT: Yes: Atraumatic Neck: Yes: Supple Cardiovascular: Yes: S1, S2 Respiratory: Yes: CTA Bilaterally Gastrointestinal: Yes: Soft, Abdomen, Obese, Ascites Genitourinary: Yes: WNL Musculoskeletal: Yes: WNL Edema: No Neurological: Yes: Oriented Psychiatric: Yes: Oriented Labs: CBC, BMP 05/25/20 08:23 05/25/20 08:23 INR, PTT INR 1.51 (0.83-1.09) H 05/25/20 08:23 Problem List - Problems (1) SIDNEY (acute kidney injury) Code(s): N17.9 - ACUTE KIDNEY FAILURE, UNSPECIFIED (2) Ascites Code(s): R18.8 - OTHER ASCITES Qualifiers: Ascites type: other type Qualified Code(s): R18.8 - Other ascites Assessment/Plan Current Medications Generic Name Dose Route Start Last Admin Trade Name Freq PRN Reason Stop Dose Admin Acetaminophen 650 mg 05/17/20 00:48 Tylenol - PO Q4H PRN PAIN LEVEL 7 - 10 Carvedilol 3.125 mg 05/24/20 10:00 05/25/20 09:47 Coreg - PO 3.125 mg BID [facility]IS Administration Furosemide 40 mg 05/22/20 18:00 05/25/20 06:27 Lasix - PO Not Given BID@0600,1800 [facility] Cefazolin Sodium 1 gm/ 50 mls @ 100 mls/hr 05/24/20 22:00 05/25/20 09:47 Dextrose IVPB 05/26/20 21:59 100 mls/hr BID [facility] Administration Insulin Aspart 1 vial 05/21/20 07:00 05/25/20 11:48 Novolog Vial Sliding Scale - SQ Not Given TIDAC [facility] Protocol Levothyroxine Sodium 50 mcg 05/24/20 07:00 05/25/20 06:30 Synthroid - PO 50 mcg DAILY@0700 [facility] Administration Lidocaine 1 patch 05/23/20 08:43 05/25/20 09:47 Lidoderm Patch - TP 1 patch DAILY [facility] Administration Miscellaneous 1 each 05/23/20 22:00 05/24/20 21:32 Lidoderm Patch Removal MC 1 each DAILY@2200 [facility] Administration Pantoprazole Sodium 40 mg 05/24/20 10:00 05/25/20 09:47 Protonix - PO 40 mg BID [facility] Administration Polyethylene Glycol 17 gm 05/19/20 10:00 05/24/20 12:04 Miralax (For Daily Use) - PO 17 grams DAILY [facility] Administration Spironolactone 50 mg 05/18/20 10:00 05/25/20 09:47 Aldactone - PO 50 mg BID [facility]RIS Administration Impression 1. sidney 2. liver cirrhosis 3. ascites 4. htn 5. dm 6. hypothyroidism 7. 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
[2020-05-25] MEDS: POLYETHYLENE GLYCOL 3350 119 GM BTL PO SCH (14:56)
--- NOTE | 2020-05-25 15:45 | PN ---
Teaching Attending Note Name of Resident: Margarita Shipley ATTENDING PHYSICIAN STATEMENT I saw and evaluated the patient. I reviewed the resident's note and discussed the case with the resident. I agree with the resident's findings and plan as documented. SUBJECTIVE: Patient is sittong on the chair with no acute distress. no shortness of breath, no fever or chills. OBJECTIVE: Vital Signs Temperature 98.4 F 05/25/20 06:00 Pulse Rate 80 05/25/20 09:00 Respiratory Rate 18 05/25/20 09:00 Blood Pressure 108/50 L 05/25/20 09:00 O2 Sat by Pulse Oximetry (%) 98 05/25/20 09:00 PE: per resident's note abdomen: distended, soft , + ascites CBCD WBC 7.5 K/mm3 (4.0-10.0) 05/25/20 08:23 RBC 3.29 M/mm3 (3.60-5.2) L 05/25/20 08:23 Hgb 11.2 GM/dL (10.7-15.3) 05/25/20 08:23 Hct 32.7 % (32.4-45.2) 05/25/20 08:23 MCV 99.4 fl (80-96) H 05/25/20 08:23 MCHC 34.2 g/dl (32.0-36.0) 05/25/20 08:23 RDW 13.7 % (11.6-15.6) 05/25/20 08:23 Plt Count 161 K/MM3 (134-434) 05/25/20 08:23 MPV 7.5 fl (7.5-11.1) 05/25/20 08:23 CMP Sodium 136 mmol/L (136-145) 05/25/20 08:23 Potassium 4.4 mmol/L (3.5-5.1) 05/25/20 08:23 Chloride 104 mmol/L (98-107) 05/25/20 08:23 Carbon Dioxide 28 mmol/L (21-32) 05/25/20 08:23 Anion Gap 5 MMOL/L (8-16) L 05/25/20 08:23 BUN 18.2 mg/dL (7-18) H 05/25/20 08:23 Creatinine 1.1 mg/dL (0.55-1.3) 05/25/20 08:23 Random Glucose 116 mg/dL (74-106) H 05/25/20 08:23 Calcium 8.6 mg/dL (8.5-10.1) 05/25/20 08:23 Total Bilirubin 2.1 mg/dL (0.2-1) H 05/25/20 08:23 AST 26 U/L (15-37) 05/25/20 08:23 ALT 18 U/L (13-61) 05/25/20 08:23 Alkaline Phosphatase 121 U/L (45-117) H 05/25/20 08:23 Total Protein 6.0 g/dl (6.4-8.2) L 05/25/20 08:23 Albumin 2.5 g/dl (3.4-5.0) L 05/25/20 08:23 CARDIAC ENZYMES Creatine Kinase 77 U/L (26-192) 05/16/20 16:24 Troponin I < 0.02 ng/ml (0.00-0.05) 05/16/20 16:24 Current Medications Generic Name Dose Route Start Last Admin Trade Name Freq PRN Reason Stop Dose Admin Acetaminophen 650 mg 05/17/20 00:48 Tylenol - PO Q4H PRN PAIN LEVEL 7 - 10 Carvedilol 3.125 mg 05/24/20 10:00 05/25/20 09:47 Coreg - PO 3.125 mg BID CHRIS Administration Furosemide 40 mg 05/22/20 18:00 05/25/20 06:27 Lasix - PO Not Given BID@0600,1800 [facility] Cefazolin Sodium 1 gm/ 50 mls @ 100 mls/hr 05/24/20 22:00 05/25/20 09:47 Dextrose IVPB 05/26/20 21:59 100 mls/hr BID CHRIS Administration Insulin Aspart 1 vial 05/21/20 07:00 05/25/20 11:48 Novolog Vial Sliding Scale - SQ Not Given TIDAC [facility] Protocol Levothyroxine Sodium 50 mcg 05/24/20 07:00 05/25/20 06:30 Synthroid - PO 50 mcg DAILY@0700 CHRIS Administration Lidocaine 1 patch 05/23/20 08:43 05/25/20 09:47 Lidoderm Patch - TP 1 patch DAILY CHRIS Administration Miscellaneous 1 each 05/23/20 22:00 05/24/20 21:32 Lidoderm Patch Removal MC 1 each DAILY@2200 CHRIS Administration Pantoprazole Sodium 40 mg 05/24/20 10:00 05/25/20 09:47 Protonix - PO 40 mg BID CHRIS Administration Polyethylene Glycol 17 gm 05/19/20 10:00 05/25/20 14:56 Miralax (For Daily Use) - PO 17 grams DAILY CHRIS Administration Spironolactone 50 mg 05/18/20 10:00 05/25/20 09:47 Aldactone - PO 50 mg BID CHRIS Administration Home Medications Medication Instructions Recorded Levothyroxine [Synthroid -] 50 mcg PO DAILY 05/16/20 Carvedilol [Coreg -] 3.125 mg PO BID tablet 05/25/20 Cefazolin [Ancef -] 1 gm IVPB BID vial 05/25/20 Furosemide [Lasix -] 40 mg PO BID@0600,1800 tablet 05/25/20 Heparin - 5,000 unit SQ TID vial 05/25/20 Insulin Sliding Scale [Novolog 1 vial SQ TIDAC units 05/25/20 Vial Sliding Scale -] Lidocaine 5% Patch [Lidoderm -] 1 patch TP DAILY patch 05/25/20 Lidocaine Patch Removal [Lidoderm 1 each MC DAILY@0 each 05/25/20 Patch Removal] Pantoprazole Sodium [Protonix -] 40 mg PO BID tablet.ec 05/25/20 Polyethylene Glycol 3350 [Miralax 17 gm PO DAILY bottle 05/25/20 119 gm Btl -] Spironolactone [Aldactone -] 50 mg PO BID tablet 05/25/20 CXR: unremarkable Abdominal US: portal vein thrombosis with minimal flow identified. CT Abdomen and pelvis: liver cirrhosis, normal size spleen, nonvisualized gallbladder,large amount of free fluid/ascites in the abdomen and pelvis. mesenteric edema in the anterior abdomen and less likely representing omental kinking. oval shaped density in the right and left pelvis, that may represent the ovaries with calcifications. multilevel DDD in the lower thoracic and lumbar spine. no lytic lesions are noted. renal and urinary bladder: kidneys appear normal. US of pelvis: amount of free fluid ascites in the pelvis, including both quadrants. right ovary are not seen. ASSESSMENT AND PLAN: This patient is a 69yof with Pmhx of T2DM, cirrhosis, hypothyroidism, and HTN who presented with increasing abdominal distention and LE edema. # Ascitis: s/p paracentesis of 13 L of fluid , on lasix po bid, and spironolactone ,s/p EGD As per GI Procedure NOte:s/p Esophageal varices banding , patient has gastric varices, portal gastropathy and a duodenal ulcer so would avoid anticoagulants. Kefzol given IV before the banding and will continue for 48 hours as well as PPI BID. Followup for repeat EGD with Dr Escalona was explained via a hospice clinical marketer who also assisted in procuring the consent. # Portal vein thrombosis: EGD after COVID testing . Oncology on the case and GI on the case for AC recommnedations # calcification in pelvis/ovaries. ordered vaginal US to r/o Meig's syndrome or neoplasm, as per radiology unable to do vaginal Us due to increased abdominal size again, patient has intractable ascites, likely will need TIPS procedure, will transfer the patient to [facility] under Dr trevizo for further care and evaluation. discussed with the center. patient is a # Acute UTI: will start IV antibiotics # SIDNEY : improved . # Liver Cirrhosis: Not immune to Hep B. will need vaccine series ( out pt ) # Lymphadenopathy in Abd: f/u as out pt # H/x of HTN: cont to hold meds # DM: SSI for now DVT Px: SCds , as per GI and EGD not no AC at this time, high risk for bleed will the patient to [facility], accepting MD dr trevizo
--- NOTE | 2020-05-25 16:28 | DS ---
Physical Exam: SUBJECTIVE: Patient seen and examined beside. In no acute distress. OBJECTIVE: Vital Signs Period Temp Pulse Resp BP Sys/Ramos Pulse Ox Last 24 Hr 97.6 F-98.5 F 71-80 18-18 92-127/49-76 98-98 PHYSICAL EXAM General: Patient awake and alert. ENT: moist mucous membranes, conjunctiva clear Heart: Regular rate with SM Lungs: CTA BL Abdomen: very large distended abdomen, + fluid wave, hepatosplenomegaly not appreciated. Extremities: no edema, warm and well profused.Tender L lower back and flank. LABS Laboratory Tests 05/16/20 05/16/20 05/16/20 16:24 16:24 17:25 WBC 6.8 RBC 3.61 Hgb 12.3 Hct 36.3 MCV 100.6 H MCH 34.1 H MCHC 33.9 RDW 13.0 Plt Count 197 D MPV 7.7 Absolute Neuts (auto) 3.7 Neutrophils % 53.9 Neutrophils % (Manual) 43.7 Band Neutrophils % 2.1 Lymphocytes % 22.0 Lymphocytes % (Manual) 28.1 Monocytes % 22.2 H D Monocytes % (Manual) 19 H Eosinophils % 1.4 Eosinophils % (Manual) 2.1 Basophils % 0.5 Basophils % (Manual) 3.1 H Myelocytes % (Man) 0 Promyelocytes % (Man) 0 Blast Cells % (Manual) 0 Nucleated RBC % 0 Metamyelocytes 0 Hypochromia 0 Platelet Estimate Normal Polychromasia 0 Poikilocytosis 0 Anisocytosis 0 Microcytosis 0 Macrocytosis 0 Retic Count PT with INR INR PTT (Actin FS) Sodium 138 Potassium 4.1 Chloride 104 Carbon Dioxide 25 Anion Gap 9 BUN 42.4 H Creatinine 2.2 H Est GFR (CKD-EPI)AfAm 25.30 Est GFR (CKD-EPI)NonAf 21.83 POC Glucometer Random Glucose 204 H Calcium 8.3 L Phosphorus Magnesium 2.0 Total Bilirubin 1.5 H Direct Bilirubin AST 21 ALT 16 Alkaline Phosphatase 139 H LD Total Creatine Kinase 77 Troponin I < 0.02 B-Natriuretic Peptide 151.6 H Total Protein 6.8 Albumin 2.2 L Lipase 194 Tumor Marker AFP CA 125 Antigen Vitamin B12 Serum Folate PTH Intact Urine Color Dk yellow Urine Appearance Clear Urine pH 5.0 Ur Specific [place] 1.017 Urine Protein Negative Urine Glucose (UA) Negative Urine Ketones Trace H Urine Blood Negative Urine Nitrite Negative Urine Bilirubin 1+ H Urine Urobilinogen 1.0 Ur Leukocyte Esterase Negative Ur Random Sodium Ur Random Potassium Ur Random Chloride Fluid Source Fluid Osmolality POC Fluid pH Fluid WBC Fluid RBC Fluid Neutrophils Fluid Lymphocytes Fluid Glucose Fluid Total Protein Fluid Albumin Body Fluid LDH Source Fluid Amylase Fluid Cholesterol Fluid Triglycerides Fluid Uric Acid Pleural Basophils Pleural Macrophages Pleural Mesothelial Stool Occult Blood COVID-19 (JARRETT) Hep A IgM Ab Confirm Hepatitis A Ab Total Hep Bs Antigen Hep Bs Antibody Hep B Core Total Ab Hep B Core IgM Ab Hepatitis Be Antibody Hepatitis Be Antigen Hep C Ab Diagnostic 05/16/20 05/16/20 05/16/20 17:40 18:25 18:25 WBC RBC Hgb Hct MCV MCH MCHC RDW Plt Count MPV Absolute Neuts (auto) Neutrophils % Neutrophils % (Manual) Band Neutrophils % Lymphocytes % Lymphocytes % (Manual) Monocytes % Monocytes % (Manual) Eosinophils % Eosinophils % (Manual) Basophils % Basophils % (Manual) Myelocytes % (Man) Promyelocytes % (Man) Blast Cells % (Manual) Nucleated RBC % Metamyelocytes Hypochromia Platelet Estimate Polychromasia Poikilocytosis Anisocytosis Microcytosis Macrocytosis Retic Count PT with INR INR PTT (Actin FS) Sodium Potassium Chloride Carbon Dioxide Anion Gap BUN Creatinine Est GFR (CKD-EPI)AfAm Est GFR (CKD-EPI)NonAf POC Glucometer Random Glucose Calcium Phosphorus Magnesium Total Bilirubin Direct Bilirubin AST ALT Alkaline Phosphatase LD Total Creatine Kinase Troponin I B-Natriuretic Peptide Total Protein Albumin Lipase Tumor Marker AFP CA 125 Antigen Vitamin B12 Serum Folate PTH Intact Urine Color Urine Appearance Urine pH Ur Specific [place] Urine Protein Urine Glucose (UA) Urine Ketones Urine Blood Urine Nitrite Urine Bilirubin Urine Urobilinogen Ur Leukocyte Esterase Ur Random Sodium Ur Random Potassium Ur Random Chloride Fluid Source Abdominal Fluid Osmolality 298 POC Fluid pH 7.8 Fluid WBC 622 Fluid RBC 2916 Fluid Neutrophils 7 Fluid Lymphocytes 37 Fluid Glucose 179 Fluid Total Protein 1.4 Fluid Albumin 0.6 Body Fluid LDH Source 144 Fluid Amylase 13 Fluid Cholesterol Fluid Triglycerides 87 Fluid Uric Acid 9.0 Pleural Basophils Pleural Macrophages 41 Pleural Mesothelial 15 Stool Occult Blood COVID-19 (JARRETT) Not detected Hep A IgM Ab Confirm Hepatitis A Ab Total Hep Bs Antigen Hep Bs Antibody Hep B Core Total Ab Hep B Core IgM Ab Hepatitis Be Antibody Hepatitis Be Antigen Hep C Ab Diagnostic 05/17/20 05/17/20 05/17/20 06:22 07:05 07:05 WBC 6.8 RBC 3.39 L Hgb 11.3 Hct 33.6 MCV 99.1 H MCH 33.5 MCHC 33.8 RDW 12.6 Plt Count 173 MPV 7.5 Absolute Neuts (auto) Neutrophils % Neutrophils % (Manual) Band Neutrophils % Lymphocytes % Lymphocytes % (Manual) Monocytes % Monocytes % (Manual) Eosinophils % Eosinophils % (Manual) Basophils % Basophils % (Manual) Myelocytes % (Man) Promyelocytes % (Man) Blast Cells % (Manual) Nucleated RBC % Metamyelocytes Hypochromia Platelet Estimate Polychromasia Poikilocytosis Anisocytosis Microcytosis Macrocytosis Retic Count PT with INR 17.50 H INR 1.48 H PTT (Actin FS) 29.1 Sodium Potassium Chloride Carbon Dioxide Anion Gap BUN Creatinine Est GFR (CKD-EPI)AfAm Est GFR (CKD-EPI)NonAf POC Glucometer 82 Random Glucose Calcium Phosphorus Magnesium Total Bilirubin Direct Bilirubin AST ALT Alkaline Phosphatase LD Total Creatine Kinase Troponin I B-Natriuretic Peptide Total Protein Albumin Lipase Tumor Marker AFP CA 125 Antigen Vitamin B12 Serum Folate PTH Intact Urine Color Urine Appearance Urine pH Ur Specific [place] Urine Protein Urine Glucose (UA) Urine Ketones Urine Blood Urine Nitrite Urine Bilirubin Urine Urobilinogen Ur Leukocyte Esterase Ur Random Sodium Ur Random Potassium Ur Random Chloride Fluid Source Fluid Osmolality POC Fluid pH Fluid WBC Fluid RBC Fluid Neutrophils Fluid Lymphocytes Fluid Glucose Fluid Total Protein Fluid Albumin Body Fluid LDH Source Fluid Amylase Fluid Cholesterol Fluid Triglycerides Fluid Uric Acid Pleural Basophils Pleural Macrophages Pleural Mesothelial Stool Occult Blood COVID-19 (JARRETT) Hep A IgM Ab Confirm Hepatitis A Ab Total Hep Bs Antigen Hep Bs Antibody Hep B Core Total Ab Hep B Core IgM Ab Hepatitis Be Antibody Hepatitis Be Antigen Hep C Ab Diagnostic 05/17/20 05/17/20 05/17/20 07:05 07:05 12:40 WBC RBC Hgb Hct MCV MCH MCHC RDW Plt Count MPV Absolute Neuts (auto) Neutrophils % Neutrophils % (Manual) Band Neutrophils % Lymphocytes % Lymphocytes % (Manual) Monocytes % Monocytes % (Manual) Eosinophils % Eosinophils % (Manual) Basophils % Basophils % (Manual) Myelocytes % (Man) Promyelocytes % (Man) Blast Cells % (Manual) Nucleated RBC % Metamyelocytes Hypochromia Platelet Estimate Polychromasia Poikilocytosis Anisocytosis Microcytosis Macrocytosis Retic Count PT with INR INR PTT (Actin FS) Sodium 141 Potassium 3.8 Chloride 108 H Carbon Dioxide 26 Anion Gap 7 L BUN 41.4 H Creatinine 1.7 H Est GFR (CKD-EPI)AfAm 34.56 Est GFR (CKD-EPI)NonAf 29.82 POC Glucometer Random Glucose 80 Calcium 8.3 L Phosphorus 3.2 Magnesium 1.9 Total Bilirubin 1.4 H Direct Bilirubin 0.7 H AST 17 ALT 14 Alkaline Phosphatase 121 H LD Total 185 Creatine Kinase Troponin I B-Natriuretic Peptide Total Protein 6.3 L Albumin 2.0 L Lipase Tumor Marker AFP CA 125 Antigen Vitamin B12 1152 H Serum Folate 5 PTH Intact 37 Urine Color Urine Appearance Urine pH Ur Specific [place] Urine Protein Urine Glucose (UA) Urine Ketones Urine Blood Urine Nitrite Urine Bilirubin Urine Urobilinogen Ur Leukocyte Esterase Ur Random Sodium Ur Random Potassium Ur Random Chloride Fluid Source Fluid Osmolality POC Fluid pH 7.8 Fluid WBC Fluid RBC Fluid Neutrophils Fluid Lymphocytes Fluid Glucose 98 Fluid Total Protein 1.3 Fluid Albumin 0.5 Body Fluid LDH Source 130 Fluid Amylase 13 Fluid Cholesterol 16 Fluid Triglycerides 82 Fluid Uric Acid Pleural Basophils Pleural Macrophages Pleural Mesothelial Stool Occult Blood COVID-19 (JARRETT) Hep A IgM Ab Confirm Hepatitis A Ab Total Hep Bs Antigen Hep Bs Antibody Hep B Core Total Ab Hep B Core IgM Ab Hepatitis Be Antibody Hepatitis Be Antigen Hep C Ab Diagnostic 05/17/20 05/17/20 05/17/20 12:40 14:41 18:18 WBC RBC Hgb Hct MCV MCH MCHC RDW Plt Count MPV Absolute Neuts (auto) Neutrophils % Neutrophils % (Manual) Band Neutrophils % Lymphocytes % Lymphocytes % (Manual) Monocytes % Monocytes % (Manual) Eosinophils % Eosinophils % (Manual) Basophils % Basophils % (Manual) Myelocytes % (Man) Promyelocytes % (Man) Blast Cells % (Manual) Nucleated RBC % Metamyelocytes Hypochromia Platelet Estimate Polychromasia Poikilocytosis Anisocytosis Microcytosis Macrocytosis Retic Count PT with INR INR PTT (Actin FS) Sodium Potassium Chloride Carbon Dioxide Anion Gap BUN Creatinine Est GFR (CKD-EPI)AfAm Est GFR (CKD-EPI)NonAf POC Glucometer 90 71 Random Glucose Calcium Phosphorus Magnesium Total Bilirubin Direct Bilirubin AST ALT Alkaline Phosphatase LD Total Creatine Kinase Troponin I B-Natriuretic Peptide Total Protein Albumin Lipase Tumor Marker AFP CA 125 Antigen Vitamin B12 Serum Folate PTH Intact Urine Color Urine Appearance Urine pH Ur Specific [place] Urine Protein Urine Glucose (UA) Urine Ketones Urine Blood Urine Nitrite Urine Bilirubin Urine Urobilinogen Ur Leukocyte Esterase Ur Random Sodium Ur Random Potassium Ur Random Chloride Fluid Source Peritoneal Fluid Osmolality POC Fluid pH Fluid WBC 543 Fluid RBC 2311 Fluid Neutrophils 7 Fluid Lymphocytes 43 Fluid Glucose Fluid Total Protein Fluid Albumin Body Fluid LDH Source Fluid Amylase Fluid Cholesterol Fluid Triglycerides Fluid Uric Acid Pleural Basophils 1 Pleural Macrophages 47 Pleural Mesothelial 2 Stool Occult Blood COVID-19 (JARRETT) Hep A IgM Ab Confirm Hepatitis A Ab Total Hep Bs Antigen Hep Bs Antibody Hep B Core Total Ab Hep B Core IgM Ab Hepatitis Be Antibody Hepatitis Be Antigen Hep C Ab Diagnostic 05/17/20 05/17/20 05/17/20 18:40 18:40 21:19 WBC RBC Hgb Hct MCV MCH MCHC RDW Plt Count MPV Absolute Neuts (auto) Neutrophils % Neutrophils % (Manual) Band Neutrophils % Lymphocytes % Lymphocytes % (Manual) Monocytes % Monocytes % (Manual) Eosinophils % Eosinophils % (Manual) Basophils % Basophils % (Manual) Myelocytes % (Man) Promyelocytes % (Man) Blast Cells % (Manual) Nucleated RBC % Metamyelocytes Hypochromia Platelet Estimate Polychromasia Poikilocytosis Anisocytosis Microcytosis Macrocytosis Retic Count PT with INR INR PTT (Actin FS) Sodium Potassium Chloride Carbon Dioxide Anion Gap BUN Creatinine Est GFR (CKD-EPI)AfAm Est GFR (CKD-EPI)NonAf POC Glucometer 72 Random Glucose Calcium Phosphorus Magnesium Total Bilirubin Direct Bilirubin AST ALT Alkaline Phosphatase LD Total Creatine Kinase Troponin I B-Natriuretic Peptide Total Protein Albumin Lipase Tumor Marker AFP CA 125 Antigen Vitamin B12 Serum Folate PTH Intact Urine Color Urine Appearance Urine pH Ur Specific [place] Urine Protein Urine Glucose (UA) Urine Ketones Urine Blood Urine Nitrite Urine Bilirubin Urine Urobilinogen Ur Leukocyte Esterase Ur Random Sodium Cancelled 27 L Ur Random Potassium 15.0 L Ur Random Chloride 16 L Fluid Source Fluid Osmolality POC Fluid pH Fluid WBC Fluid RBC Fluid Neutrophils Fluid Lymphocytes Fluid Glucose Fluid Total Protein Fluid Albumin Body Fluid LDH Source Fluid Amylase Fluid Cholesterol Fluid Triglycerides Fluid Uric Acid Pleural Basophils Pleural Macrophages Pleural Mesothelial Stool Occult Blood COVID-19 (JARRETT) Hep A IgM Ab Confirm Hepatitis A Ab Total Hep Bs Antigen Hep Bs Antibody Hep B Core Total Ab Hep B Core IgM Ab Hepatitis Be Antibody Hepatitis Be Antigen Hep C Ab Diagnostic 05/18/20 05/18/20 05/18/20 05:58 06:30 06:30 WBC 6.3 RBC 3.58 L Hgb 12.0 Hct 35.6 MCV 99.6 H MCH 33.6 MCHC 33.8 RDW 13.1 Plt Count 179 MPV 7.4 L Absolute Neuts (auto) 2.7 Neutrophils % 43.4 Neutrophils % (Manual) Band Neutrophils % Lymphocytes % 32.2 D Lymphocytes % (Manual) Monocytes % 19.6 H Monocytes % (Manual) Eosinophils % 4.0 D Eosinophils % (Manual) Basophils % 0.8 Basophils % (Manual) Myelocytes % (Man) Promyelocytes % (Man) Blast Cells % (Manual) Nucleated RBC % 0 Metamyelocytes Hypochromia Platelet Estimate Polychromasia Poikilocytosis Anisocytosis Microcytosis Macrocytosis Retic Count PT with INR INR PTT (Actin FS) Sodium 143 Potassium 3.5 Chloride 109 H Carbon Dioxide 26 Anion Gap 8 BUN 30.8 H Creatinine 1.3 Est GFR (CKD-EPI)AfAm 47.80 Est GFR (CKD-EPI)NonAf 41.24 POC Glucometer 65 Random Glucose 69 L Calcium 8.6 Phosphorus 3.5 Magnesium 1.9 Total Bilirubin 1.9 H Direct Bilirubin AST 20 ALT 14 Alkaline Phosphatase 109 LD Total Creatine Kinase Troponin I B-Natriuretic Peptide Total Protein 6.5 Albumin 3.0 L Lipase Tumor Marker AFP CA 125 Antigen Vitamin B12 Serum Folate PTH Intact Urine Color Urine Appearance Urine pH Ur Specific [place] Urine Protein Urine Glucose (UA) Urine Ketones Urine Blood Urine Nitrite Urine Bilirubin Urine Urobilinogen Ur Leukocyte Esterase Ur Random Sodium Ur Random Potassium Ur Random Chloride Fluid Source Fluid Osmolality POC Fluid pH Fluid WBC Fluid RBC Fluid Neutrophils Fluid Lymphocytes Fluid Glucose Fluid Total Protein Fluid Albumin Body Fluid LDH Source Fluid Amylase Fluid Cholesterol Fluid Triglycerides Fluid Uric Acid Pleural Basophils Pleural Macrophages Pleural Mesothelial Stool Occult Blood COVID-19 (JARRETT) Hep A IgM Ab Confirm Hepatitis A Ab Total Hep Bs Antigen Hep Bs Antibody Hep B Core Total Ab Hep B Core IgM Ab Hepatitis Be Antibody Hepatitis Be Antigen Hep C Ab Diagnostic 05/18/20 05/18/20 05/18/20 06:30 06:30 06:51 WBC RBC Hgb Hct MCV MCH MCHC RDW Plt Count MPV Absolute Neuts (auto) Neutrophils % Neutrophils % (Manual) Band Neutrophils % Lymphocytes % Lymphocytes % (Manual) Monocytes % Monocytes % (Manual) Eosinophils % Eosinophils % (Manual) Basophils % Basophils % (Manual) Myelocytes % (Man) Promyelocytes % (Man) Blast Cells % (Manual) Nucleated RBC % Metamyelocytes Hypochromia Platelet Estimate Polychromasia Poikilocytosis Anisocytosis Microcytosis Macrocytosis Retic Count PT with INR 20.50 H INR 1.73 H PTT (Actin FS) > 400.0 H Sodium Potassium Chloride Carbon Dioxide Anion Gap BUN Creatinine Est GFR (CKD-EPI)AfAm Est GFR (CKD-EPI)NonAf POC Glucometer 82 Random Glucose Calcium Phosphorus Magnesium Total Bilirubin Direct Bilirubin AST ALT Alkaline Phosphatase LD Total Creatine Kinase Troponin I B-Natriuretic Peptide Total Protein Albumin Lipase Tumor Marker AFP CA 125 Antigen Vitamin B12 Serum Folate PTH Intact Urine Color Urine Appearance Urine pH Ur Specific [place] Urine Protein Urine Glucose (UA) Urine Ketones Urine Blood Urine Nitrite Urine Bilirubin Urine Urobilinogen Ur Leukocyte Esterase Ur Random Sodium Ur Random Potassium Ur Random Chloride Fluid Source Fluid Osmolality POC Fluid pH Fluid WBC Fluid RBC Fluid Neutrophils Fluid Lymphocytes Fluid Glucose Fluid Total Protein Fluid Albumin Body Fluid LDH Source Fluid Amylase Fluid Cholesterol Fluid Triglycerides Fluid Uric Acid Pleural Basophils Pleural Macrophages Pleural Mesothelial Stool Occult Blood COVID-19 (JARRETT) Hep A IgM Ab Confirm Negative Hepatitis A Ab Total Positive H Hep Bs Antigen Negative Hep Bs Antibody Non reactive Hep B Core Total Ab Negative Hep B Core IgM Ab Negative Hepatitis Be Antibody Negative Hepatitis Be Antigen Negative Hep C Ab Diagnostic 05/18/20 05/18/20 05/18/20 12:15 14:50 17:08 WBC RBC Hgb Hct MCV MCH MCHC RDW Plt Count MPV Absolute Neuts (auto) Neutrophils % Neutrophils % (Manual) Band Neutrophils % Lymphocytes % Lymphocytes % (Manual) Monocytes % Monocytes % (Manual) Eosinophils % Eosinophils % (Manual) Basophils % Basophils % (Manual) Myelocytes % (Man) Promyelocytes % (Man) Blast Cells % (Manual) Nucleated RBC % Metamyelocytes Hypochromia Platelet Estimate Polychromasia Poikilocytosis Anisocytosis Microcytosis Macrocytosis Retic Count PT with INR INR PTT (Actin FS) 34.1 Sodium Potassium Chloride Carbon Dioxide Anion Gap BUN Creatinine Est GFR (CKD-EPI)AfAm Est GFR (CKD-EPI)NonAf POC Glucometer 212 197 Random Glucose Calcium Phosphorus Magnesium Total Bilirubin Direct Bilirubin AST ALT Alkaline Phosphatase LD Total Creatine Kinase Troponin I B-Natriuretic Peptide Total Protein Albumin Lipase Tumor Marker AFP CA 125 Antigen Vitamin B12 Serum Folate PTH Intact Urine Color Urine Appearance Urine pH Ur Specific [place] Urine Protein Urine Glucose (UA) Urine Ketones Urine Blood Urine Nitrite Urine Bilirubin Urine Urobilinogen Ur Leukocyte Esterase Ur Random Sodium Ur Random Potassium Ur Random Chloride Fluid Source Fluid Osmolality POC Fluid pH Fluid WBC Fluid RBC Fluid Neutrophils Fluid Lymphocytes Fluid Glucose Fluid Total Protein Fluid Albumin Body Fluid LDH Source Fluid Amylase Fluid Cholesterol Fluid Triglycerides Fluid Uric Acid Pleural Basophils Pleural Macrophages Pleural Mesothelial Stool Occult Blood COVID-19 (JARRETT) Hep A IgM Ab Confirm Hepatitis A Ab Total Hep Bs Antigen Hep Bs Antibody Hep B Core Total Ab Hep B Core IgM Ab Hepatitis Be Antibody Hepatitis Be Antigen Hep C Ab Diagnostic 05/18/20 05/19/20 05/19/20 21:45 06:21 08:10 WBC RBC Hgb Hct MCV MCH MCHC RDW Plt Count MPV Absolute Neuts (auto) Neutrophils % Neutrophils % (Manual) Band Neutrophils % Lymphocytes % Lymphocytes % (Manual) Monocytes % Monocytes % (Manual) Eosinophils % Eosinophils % (Manual) Basophils % Basophils % (Manual) Myelocytes % (Man) Promyelocytes % (Man) Blast Cells % (Manual) Nucleated RBC % Metamyelocytes Hypochromia Platelet Estimate Polychromasia Poikilocytosis Anisocytosis Microcytosis Macrocytosis Retic Count PT with INR 19.00 H INR 1.60 H PTT (Actin FS) 54.1 H Sodium Potassium Chloride Carbon Dioxide Anion Gap BUN Creatinine Est GFR (CKD-EPI)AfAm Est GFR (CKD-EPI)NonAf POC Glucometer 149 113 Random Glucose Calcium Phosphorus Magnesium Total Bilirubin Direct Bilirubin AST ALT Alkaline Phosphatase LD Total Creatine Kinase Troponin I B-Natriuretic Peptide Total Protein Albumin Lipase Tumor Marker AFP CA 125 Antigen Vitamin B12 Serum Folate PTH Intact Urine Color Urine Appearance Urine pH Ur Specific [place] Urine Protein Urine Glucose (UA) Urine Ketones Urine Blood Urine Nitrite Urine Bilirubin Urine Urobilinogen Ur Leukocyte Esterase Ur Random Sodium Ur Random Potassium Ur Random Chloride Fluid Source Fluid Osmolality POC Fluid pH Fluid WBC Fluid RBC Fluid Neutrophils Fluid Lymphocytes Fluid Glucose Fluid Total Protein Fluid Albumin Body Fluid LDH Source Fluid Amylase Fluid Cholesterol Fluid Triglycerides Fluid Uric Acid Pleural Basophils Pleural Macrophages Pleural Mesothelial Stool Occult Blood COVID-19 (JARRETT) Hep A IgM Ab Confirm Hepatitis A Ab Total Hep Bs Antigen Hep Bs Antibody Hep B Core Total Ab Hep B Core IgM Ab Hepatitis Be Antibody Hepatitis Be Antigen Hep C Ab Diagnostic 07/10/20 07/10/20 07/10/20 08:10 08:10 08:10 WBC 7.0 RBC 3.76 Hgb 12.8 Hct 37.9 MCV 100.8 H MCH 34.2 H MCHC 33.9 RDW 13.3 Plt Count 192 MPV 7.8 Absolute Neuts (auto) 3.1 Neutrophils % 44.4 Neutrophils % (Manual) Band Neutrophils % Lymphocytes % 33.7 Lymphocytes % (Manual) Monocytes % 19.0 H Monocytes % (Manual) Eosinophils % 2.5 Eosinophils % (Manual) Basophils % 0.4 Basophils % (Manual) Myelocytes % (Man) Promyelocytes % (Man) Blast Cells % (Manual) Nucleated RBC % 0 Metamyelocytes Hypochromia Platelet Estimate Polychromasia Poikilocytosis Anisocytosis Microcytosis Macrocytosis Retic Count PT with INR INR PTT (Actin FS) Sodium 140 Potassium 4.1 Chloride 106 Carbon Dioxide 25 Anion Gap 9 BUN 22.2 H Creatinine 1.2 Est GFR (CKD-EPI)AfAm 52.66 Est GFR (CKD-EPI)NonAf 45.43 POC Glucometer Random Glucose 107 H Calcium 9.0 Phosphorus 2.7 Magnesium 1.9 Total Bilirubin 1.7 H Direct Bilirubin AST 19 ALT 17 Alkaline Phosphatase 135 H LD Total Creatine Kinase Troponin I B-Natriuretic Peptide Total Protein 7.0 Albumin 3.0 L Lipase Tumor Marker AFP CA 125 Antigen Vitamin B12 Serum Folate PTH Intact Urine Color Urine Appearance Urine pH Ur Specific [place] Urine Protein Urine Glucose (UA) Urine Ketones Urine Blood Urine Nitrite Urine Bilirubin Urine Urobilinogen Ur Leukocyte Esterase Ur Random Sodium Ur Random Potassium Ur Random Chloride Fluid Source Fluid Osmolality POC Fluid pH Fluid WBC Fluid RBC Fluid Neutrophils Fluid Lymphocytes Fluid Glucose Fluid Total Protein Fluid Albumin Body Fluid LDH Source Fluid Amylase Fluid Cholesterol Fluid Triglycerides Fluid Uric Acid Pleural Basophils Pleural Macrophages Pleural Mesothelial Stool Occult Blood COVID-19 (JARRETT) Hep A IgM Ab Confirm Hepatitis A Ab Total Hep Bs Antigen Hep Bs Antibody Hep B Core Total Ab Negative Hep B Core IgM Ab Negative Hepatitis Be Antibody Negative Hepatitis Be Antigen Negative Hep C Ab Diagnostic 0.2 05/19/20 05/19/20 05/19/20 08:10 11:22 17:43 WBC RBC Hgb Hct MCV MCH MCHC RDW Plt Count MPV Absolute Neuts (auto) Neutrophils % Neutrophils % (Manual) Band Neutrophils % Lymphocytes % Lymphocytes % (Manual) Monocytes % Monocytes % (Manual) Eosinophils % Eosinophils % (Manual) Basophils % Basophils % (Manual) Myelocytes % (Man) Promyelocytes % (Man) Blast Cells % (Manual) Nucleated RBC % Metamyelocytes Hypochromia Platelet Estimate Polychromasia Poikilocytosis Anisocytosis Microcytosis Macrocytosis Retic Count PT with INR INR PTT (Actin FS) Sodium Potassium Chloride Carbon Dioxide Anion Gap BUN Creatinine Est GFR (CKD-EPI)AfAm Est GFR (CKD-EPI)NonAf POC Glucometer 151 189 Random Glucose Calcium Phosphorus Magnesium Total Bilirubin Direct Bilirubin AST ALT Alkaline Phosphatase LD Total Creatine Kinase Troponin I B-Natriuretic Peptide Total Protein Albumin Lipase Tumor Marker AFP 2.1 CA 125 Antigen Vitamin B12 Serum Folate PTH Intact Urine Color Urine Appearance Urine pH Ur Specific [place] Urine Protein Urine Glucose (UA) Urine Ketones Urine Blood Urine Nitrite Urine Bilirubin Urine Urobilinogen Ur Leukocyte Esterase Ur Random Sodium Ur Random Potassium Ur Random Chloride Fluid Source Fluid Osmolality POC Fluid pH Fluid WBC Fluid RBC Fluid Neutrophils Fluid Lymphocytes Fluid Glucose Fluid Total Protein Fluid Albumin Body Fluid LDH Source Fluid Amylase Fluid Cholesterol Fluid Triglycerides Fluid Uric Acid Pleural Basophils Pleural Macrophages Pleural Mesothelial Stool Occult Blood COVID-19 (JARRETT) Hep A IgM Ab Confirm Hepatitis A Ab Total Hep Bs Antigen Hep Bs Antibody Hep B Core Total Ab Hep B Core IgM Ab Hepatitis Be Antibody Hepatitis Be Antigen Hep C Ab Diagnostic 05/19/20 05/20/20 05/20/20 21:02 05:54 07:15 WBC RBC Hgb Hct MCV MCH MCHC RDW Plt Count MPV Absolute Neuts (auto) Neutrophils % Neutrophils % (Manual) Band Neutrophils % Lymphocytes % Lymphocytes % (Manual) Monocytes % Monocytes % (Manual) Eosinophils % Eosinophils % (Manual) Basophils % Basophils % (Manual) Myelocytes % (Man) Promyelocytes % (Man) Blast Cells % (Manual) Nucleated RBC % Metamyelocytes Hypochromia Platelet Estimate Polychromasia Poikilocytosis Anisocytosis Microcytosis Macrocytosis Retic Count PT with INR 19.40 H INR 1.64 H PTT (Actin FS) 41.7 H Sodium Potassium Chloride Carbon Dioxide Anion Gap BUN Creatinine Est GFR (CKD-EPI)AfAm Est GFR (CKD-EPI)NonAf POC Glucometer 226 68 Random Glucose Calcium Phosphorus Magnesium Total Bilirubin Direct Bilirubin AST ALT Alkaline Phosphatase LD Total Creatine Kinase Troponin I B-Natriuretic Peptide Total Protein Albumin Lipase Tumor Marker AFP CA 125 Antigen Vitamin B12 Serum Folate PTH Intact Urine Color Urine Appearance Urine pH Ur Specific [place] Urine Protein Urine Glucose (UA) Urine Ketones Urine Blood Urine Nitrite Urine Bilirubin Urine Urobilinogen Ur Leukocyte Esterase Ur Random Sodium Ur Random Potassium Ur Random Chloride Fluid Source Fluid Osmolality POC Fluid pH Fluid WBC Fluid RBC Fluid Neutrophils Fluid Lymphocytes Fluid Glucose Fluid Total Protein Fluid Albumin Body Fluid LDH Source Fluid Amylase Fluid Cholesterol Fluid Triglycerides Fluid Uric Acid Pleural Basophils Pleural Macrophages Pleural Mesothelial Stool Occult Blood COVID-19 (JARRETT) Hep A IgM Ab Confirm Hepatitis A Ab Total Hep Bs Antigen Hep Bs Antibody Hep B Core Total Ab Hep B Core IgM Ab Hepatitis Be Antibody Hepatitis Be Antigen Hep C Ab Diagnostic 05/20/20 05/20/20 05/20/20 07:15 07:15 11:22 WBC 5.8 RBC 3.41 L Hgb 11.7 Hct 34.3 MCV 100.5 H MCH 34.2 H MCHC 34.0 RDW 13.3 Plt Count 173 MPV 7.8 Absolute Neuts (auto) 2.7 Neutrophils % 47.3 Neutrophils % (Manual) Band Neutrophils % Lymphocytes % 30.5 Lymphocytes % (Manual) Monocytes % 19.2 H Monocytes % (Manual) Eosinophils % 2.4 Eosinophils % (Manual) Basophils % 0.6 Basophils % (Manual) Myelocytes % (Man) Promyelocytes % (Man) Blast Cells % (Manual) Nucleated RBC % 0 Metamyelocytes Hypochromia Platelet Estimate Polychromasia Poikilocytosis Anisocytosis Microcytosis Macrocytosis Retic Count 2.28 H PT with INR INR PTT (Actin FS) Sodium 140 Potassium 3.8 Chloride 106 Carbon Dioxide 26 Anion Gap 8 BUN 20.6 H Creatinine 1.1 Est GFR (CKD-EPI)AfAm 58.50 Est GFR (CKD-EPI)NonAf 50.47 POC Glucometer 232 Random Glucose 141 H Calcium 8.7 Phosphorus 2.8 Magnesium 1.7 L Total Bilirubin 1.4 H Direct Bilirubin AST 17 ALT 13 Alkaline Phosphatase 110 LD Total Creatine Kinase Troponin I B-Natriuretic Peptide Total Protein 6.3 L Albumin 3.2 L Lipase Tumor Marker AFP CA 125 Antigen Vitamin B12 Serum Folate PTH Intact Urine Color Urine Appearance Urine pH Ur Specific [place] Urine Protein Urine Glucose (UA) Urine Ketones Urine Blood Urine Nitrite Urine Bilirubin Urine Urobilinogen Ur Leukocyte Esterase Ur Random Sodium Ur Random Potassium Ur Random Chloride Fluid Source Fluid Osmolality POC Fluid pH Fluid WBC Fluid RBC Fluid Neutrophils Fluid Lymphocytes Fluid Glucose Fluid Total Protein Fluid Albumin Body Fluid LDH Source Fluid Amylase Fluid Cholesterol Fluid Triglycerides Fluid Uric Acid Pleural Basophils Pleural Macrophages Pleural Mesothelial Stool Occult Blood COVID-19 (JARRETT) Hep A IgM Ab Confirm Hepatitis A Ab Total Hep Bs Antigen Hep Bs Antibody Hep B Core Total Ab Hep B Core IgM Ab Hepatitis Be Antibody Hepatitis Be Antigen Hep C Ab Diagnostic 05/20/20 05/20/20 05/20/20 16:46 17:35 21:19 WBC RBC Hgb Hct MCV MCH MCHC RDW Plt Count MPV Absolute Neuts (auto) Neutrophils % Neutrophils % (Manual) Band Neutrophils % Lymphocytes % Lymphocytes % (Manual) Monocytes % Monocytes % (Manual) Eosinophils % Eosinophils % (Manual) Basophils % Basophils % (Manual) Myelocytes % (Man) Promyelocytes % (Man) Blast Cells % (Manual) Nucleated RBC % Metamyelocytes Hypochromia Platelet Estimate Polychromasia Poikilocytosis Anisocytosis Microcytosis Macrocytosis Retic Count PT with INR INR PTT (Actin FS) Sodium Potassium Chloride Carbon Dioxide Anion Gap BUN Creatinine Est GFR (CKD-EPI)AfAm Est GFR (CKD-EPI)NonAf POC Glucometer 244 237 Random Glucose Calcium Phosphorus Magnesium Total Bilirubin Direct Bilirubin AST ALT Alkaline Phosphatase LD Total Creatine Kinase Troponin I B-Natriuretic Peptide Total Protein Albumin Lipase Tumor Marker AFP CA 125 Antigen Vitamin B12 Serum Folate PTH Intact Urine Color Urine Appearance Urine pH Ur Specific [place] Urine Protein Urine Glucose (UA) Urine Ketones Urine Blood Urine Nitrite Urine Bilirubin Urine Urobilinogen Ur Leukocyte Esterase Ur Random Sodium Ur Random Potassium Ur Random Chloride Fluid Source Fluid Osmolality POC Fluid pH Fluid WBC Fluid RBC Fluid Neutrophils Fluid Lymphocytes Fluid Glucose Fluid Total Protein Fluid Albumin Body Fluid LDH Source Fluid Amylase Fluid Cholesterol Fluid Triglycerides Fluid Uric Acid Pleural Basophils Pleural Macrophages Pleural Mesothelial Stool Occult Blood Negative COVID-19 (JARRETT) Hep A IgM Ab Confirm Hepatitis A Ab Total Hep Bs Antigen Hep Bs Antibody Hep B Core Total Ab Hep B Core IgM Ab Hepatitis Be Antibody Hepatitis Be Antigen Hep C Ab Diagnostic 05/21/20 05/21/20 05/21/20 06:04 08:15 08:15 WBC 7.0 RBC 3.76 Hgb 12.5 Hct 37.2 MCV 99.0 H MCH 33.4 MCHC 33.7 RDW 13.5 Plt Count 191 MPV 7.3 L Absolute Neuts (auto) Neutrophils % Neutrophils % (Manual) Band Neutrophils % Lymphocytes % Lymphocytes % (Manual) Monocytes % Monocytes % (Manual) Eosinophils % Eosinophils % (Manual) Basophils % Basophils % (Manual) Myelocytes % (Man) Promyelocytes % (Man) Blast Cells % (Manual) Nucleated RBC % Metamyelocytes Hypochromia Platelet Estimate Polychromasia Poikilocytosis Anisocytosis Microcytosis Macrocytosis Retic Count PT with INR INR PTT (Actin FS) Sodium 139 Potassium 3.8 Chloride 105 Carbon Dioxide 26 Anion Gap 8 BUN 17.8 Creatinine 1.1 Est GFR (CKD-EPI)AfAm 58.50 Est GFR (CKD-EPI)NonAf 50.47 POC Glucometer 121 Random Glucose 132 H Calcium 9.1 Phosphorus 2.5 Magnesium 1.6 L Total Bilirubin Direct Bilirubin AST ALT Alkaline Phosphatase LD Total Creatine Kinase Troponin I B-Natriuretic Peptide Total Protein Albumin Lipase Tumor Marker AFP CA 125 Antigen Vitamin B12 Serum Folate PTH Intact Urine Color Urine Appearance Urine pH Ur Specific [place] Urine Protein Urine Glucose (UA) Urine Ketones Urine Blood Urine Nitrite Urine Bilirubin Urine Urobilinogen Ur Leukocyte Esterase Ur Random Sodium Ur Random Potassium Ur Random Chloride Fluid Source Fluid Osmolality POC Fluid pH Fluid WBC Fluid RBC Fluid Neutrophils Fluid Lymphocytes Fluid Glucose Fluid Total Protein Fluid Albumin Body Fluid LDH Source Fluid Amylase Fluid Cholesterol Fluid Triglycerides Fluid Uric Acid Pleural Basophils Pleural Macrophages Pleural Mesothelial Stool Occult Blood COVID-19 (JARRETT) Hep A IgM Ab Confirm Hepatitis A Ab Total Hep Bs Antigen Hep Bs Antibody Hep B Core Total Ab Hep B Core IgM Ab Hepatitis Be Antibody Hepatitis Be Antigen Hep C Ab Diagnostic 05/21/20 05/21/20 05/21/20 11:25 13:01 17:20 WBC RBC Hgb Hct MCV MCH MCHC RDW Plt Count MPV Absolute Neuts (auto) Neutrophils % Neutrophils % (Manual) Band Neutrophils % Lymphocytes % Lymphocytes % (Manual) Monocytes % Monocytes % (Manual) Eosinophils % Eosinophils % (Manual) Basophils % Basophils % (Manual) Myelocytes % (Man) Promyelocytes % (Man) Blast Cells % (Manual) Nucleated RBC % Metamyelocytes Hypochromia Platelet Estimate Polychromasia Poikilocytosis Anisocytosis Microcytosis Macrocytosis Retic Count PT with INR INR PTT (Actin FS) Sodium Potassium Chloride Carbon Dioxide Anion Gap BUN Creatinine Est GFR (CKD-EPI)AfAm Est GFR (CKD-EPI)NonAf POC Glucometer 185 189 Random Glucose Calcium Phosphorus Magnesium Total Bilirubin Direct Bilirubin AST ALT Alkaline Phosphatase LD Total Creatine Kinase Troponin I B-Natriuretic Peptide Total Protein Albumin Lipase Tumor Marker AFP CA 125 Antigen Vitamin B12 Serum Folate PTH Intact Urine Color Urine Appearance Urine pH Ur Specific [place] Urine Protein Urine Glucose (UA) Urine Ketones Urine Blood Urine Nitrite Urine Bilirubin Urine Urobilinogen Ur Leukocyte Esterase Ur Random Sodium Ur Random Potassium Ur Random Chloride Fluid Source Fluid Osmolality POC Fluid pH Fluid WBC Fluid RBC Fluid Neutrophils Fluid Lymphocytes Fluid Glucose Fluid Total Protein Fluid Albumin Body Fluid LDH Source Fluid Amylase Fluid Cholesterol Fluid Triglycerides Fluid Uric Acid Pleural Basophils Pleural Macrophages Pleural Mesothelial Stool Occult Blood Negative COVID-19 (JARRETT) Hep A IgM Ab Confirm Hepatitis A Ab Total Hep Bs Antigen Hep Bs Antibody Hep B Core Total Ab Hep B Core IgM Ab Hepatitis Be Antibody Hepatitis Be Antigen Hep C Ab Diagnostic 05/22/20 05/22/20 05/22/20 06:12 08:00 08:00 WBC RBC Hgb Hct MCV MCH MCHC RDW Plt Count MPV Absolute Neuts (auto) Neutrophils % Neutrophils % (Manual) Band Neutrophils % Lymphocytes % Lymphocytes % (Manual) Monocytes % Monocytes % (Manual) Eosinophils % Eosinophils % (Manual) Basophils % Basophils % (Manual) Myelocytes % (Man) Promyelocytes % (Man) Blast Cells % (Manual) Nucleated RBC % Metamyelocytes Hypochromia Platelet Estimate Polychromasia Poikilocytosis Anisocytosis Microcytosis Macrocytosis Retic Count PT with INR 17.30 H INR 1.46 H PTT (Actin FS) Sodium 139 Potassium 4.8 Chloride 104 Carbon Dioxide 26 Anion Gap 8 BUN 17.6 Creatinine 1.1 Est GFR (CKD-EPI)AfAm 58.50 Est GFR (CKD-EPI)NonAf 50.47 POC Glucometer 121 Random Glucose 128 H Calcium 9.2 Phosphorus Magnesium Total Bilirubin 1.6 H Direct Bilirubin 0.6 H AST 26 ALT 19 Alkaline Phosphatase 130 H LD Total Creatine Kinase Troponin I B-Natriuretic Peptide Total Protein 6.5 Albumin 3.2 L Lipase Tumor Marker AFP CA 125 Antigen Vitamin B12 Serum Folate PTH Intact Urine Color Urine Appearance Urine pH Ur Specific [place] Urine Protein Urine Glucose (UA) Urine Ketones Urine Blood Urine Nitrite Urine Bilirubin Urine Urobilinogen Ur Leukocyte Esterase Ur Random Sodium Ur Random Potassium Ur Random Chloride Fluid Source Fluid Osmolality POC Fluid pH Fluid WBC Fluid RBC Fluid Neutrophils Fluid Lymphocytes Fluid Glucose Fluid Total Protein Fluid Albumin Body Fluid LDH Source Fluid Amylase Fluid Cholesterol Fluid Triglycerides Fluid Uric Acid Pleural Basophils Pleural Macrophages Pleural Mesothelial Stool Occult Blood COVID-19 (JARRETT) Hep A IgM Ab Confirm Hepatitis A Ab Total Hep Bs Antigen Hep Bs Antibody Hep B Core Total Ab Hep B Core IgM Ab Hepatitis Be Antibody Hepatitis Be Antigen Hep C Ab Diagnostic 05/22/20 05/22/20 05/22/20 08:00 16:50 21:05 WBC RBC Hgb Hct MCV MCH MCHC RDW Plt Count MPV Absolute Neuts (auto) Neutrophils % Neutrophils % (Manual) Band Neutrophils % Lymphocytes % Lymphocytes % (Manual) Monocytes % Monocytes % (Manual) Eosinophils % Eosinophils % (Manual) Basophils % Basophils % (Manual) Myelocytes % (Man) Promyelocytes % (Man) Blast Cells % (Manual) Nucleated RBC % Metamyelocytes Hypochromia Platelet Estimate Polychromasia Poikilocytosis Anisocytosis Microcytosis Macrocytosis Retic Count PT with INR INR PTT (Actin FS) Sodium Potassium Chloride Carbon Dioxide Anion Gap BUN Creatinine Est GFR (CKD-EPI)AfAm Est GFR (CKD-EPI)NonAf POC Glucometer 243 246 Random Glucose Calcium Phosphorus Magnesium Total Bilirubin Direct Bilirubin AST ALT Alkaline Phosphatase LD Total Creatine Kinase Troponin I B-Natriuretic Peptide Total Protein Albumin Lipase Tumor Marker AFP CA 125 Antigen Vitamin B12 Serum Folate PTH Intact Urine Color Urine Appearance Urine pH Ur Specific [place] Urine Protein Urine Glucose (UA) Urine Ketones Urine Blood Urine Nitrite Urine Bilirubin Urine Urobilinogen Ur Leukocyte Esterase Ur Random Sodium Ur Random Potassium Ur Random Chloride Fluid Source Fluid Osmolality POC Fluid pH Fluid WBC Fluid RBC Fluid Neutrophils Fluid Lymphocytes Fluid Glucose Fluid Total Protein Fluid Albumin Body Fluid LDH Source Fluid Amylase Fluid Cholesterol Fluid Triglycerides Fluid Uric Acid Pleural Basophils Pleural Macrophages Pleural Mesothelial Stool Occult Blood COVID-19 (JARRETT) Not detected Hep A IgM Ab Confirm Hepatitis A Ab Total Hep Bs Antigen Hep Bs Antibody Hep B Core Total Ab Hep B Core IgM Ab Hepatitis Be Antibody Hepatitis Be Antigen Hep C Ab Diagnostic 05/23/20 05/23/20 05/23/20 06:17 07:13 07:13 WBC 8.7 RBC 3.91 Hgb 13.2 Hct 39.2 MCV 100.3 H MCH 33.7 MCHC 33.6 RDW 13.8 Plt Count 200 MPV 7.3 L Absolute Neuts (auto) Neutrophils % Neutrophils % (Manual) Band Neutrophils % Lymphocytes % Lymphocytes % (Manual) Monocytes % Monocytes % (Manual) Eosinophils % Eosinophils % (Manual) Basophils % Basophils % (Manual) Myelocytes % (Man) Promyelocytes % (Man) Blast Cells % (Manual) Nucleated RBC % Metamyelocytes Hypochromia Platelet Estimate Polychromasia Poikilocytosis Anisocytosis Microcytosis Macrocytosis Retic Count PT with INR INR PTT (Actin FS) Sodium 139 Potassium 4.2 Chloride 103 Carbon Dioxide 27 Anion Gap 9 BUN 17.9 Creatinine 1.2 Est GFR (CKD-EPI)AfAm 52.66 Est GFR (CKD-EPI)NonAf 45.43 POC Glucometer 132 Random Glucose 138 H Calcium 9.6 Phosphorus 3.3 Magnesium 1.6 L Total Bilirubin Direct Bilirubin AST ALT Alkaline Phosphatase LD Total Creatine Kinase Troponin I B-Natriuretic Peptide Total Protein Albumin Lipase Tumor Marker AFP CA 125 Antigen Vitamin B12 Serum Folate PTH Intact Urine Color Urine Appearance Urine pH Ur Specific [place] Urine Protein Urine Glucose (UA) Urine Ketones Urine Blood Urine Nitrite Urine Bilirubin Urine Urobilinogen Ur Leukocyte Esterase Ur Random Sodium Ur Random Potassium Ur Random Chloride Fluid Source Fluid Osmolality POC Fluid pH Fluid WBC Fluid RBC Fluid Neutrophils Fluid Lymphocytes Fluid Glucose Fluid Total Protein Fluid Albumin Body Fluid LDH Source Fluid Amylase Fluid Cholesterol Fluid Triglycerides Fluid Uric Acid Pleural Basophils Pleural Macrophages Pleural Mesothelial Stool Occult Blood COVID-19 (JARRETT) Hep A IgM Ab Confirm Hepatitis A Ab Total Hep Bs Antigen Hep Bs Antibody Hep B Core Total Ab Hep B Core IgM Ab Hepatitis Be Antibody Hepatitis Be Antigen Hep C Ab Diagnostic 05/23/20 05/23/20 05/23/20 10:32 16:51 21:05 WBC RBC Hgb Hct MCV MCH MCHC RDW Plt Count MPV Absolute Neuts (auto) Neutrophils % Neutrophils % (Manual) Band Neutrophils % Lymphocytes % Lymphocytes % (Manual) Monocytes % Monocytes % (Manual) Eosinophils % Eosinophils % (Manual) Basophils % Basophils % (Manual) Myelocytes % (Man) Promyelocytes % (Man) Blast Cells % (Manual) Nucleated RBC % Metamyelocytes Hypochromia Platelet Estimate Polychromasia Poikilocytosis Anisocytosis Microcytosis Macrocytosis Retic Count PT with INR INR PTT (Actin FS) Sodium Potassium Chloride Carbon Dioxide Anion Gap BUN Creatinine Est GFR (CKD-EPI)AfAm Est GFR (CKD-EPI)NonAf POC Glucometer 192 190 219 Random Glucose Calcium Phosphorus Magnesium Total Bilirubin Direct Bilirubin AST ALT Alkaline Phosphatase LD Total Creatine Kinase Troponin I B-Natriuretic Peptide Total Protein Albumin Lipase Tumor Marker AFP CA 125 Antigen Vitamin B12 Serum Folate PTH Intact Urine Color Urine Appearance Urine pH Ur Specific [place] Urine Protein Urine Glucose (UA) Urine Ketones Urine Blood Urine Nitrite Urine Bilirubin Urine Urobilinogen Ur Leukocyte Esterase Ur Random Sodium Ur Random Potassium Ur Random Chloride Fluid Source Fluid Osmolality POC Fluid pH Fluid WBC Fluid RBC Fluid Neutrophils Fluid Lymphocytes Fluid Glucose Fluid Total Protein Fluid Albumin Body Fluid LDH Source Fluid Amylase Fluid Cholesterol Fluid Triglycerides Fluid Uric Acid Pleural Basophils Pleural Macrophages Pleural Mesothelial Stool Occult Blood COVID-19 (JARRETT) Hep A IgM Ab Confirm Hepatitis A Ab Total Hep Bs Antigen Hep Bs Antibody Hep B Core Total Ab Hep B Core IgM Ab Hepatitis Be Antibody Hepatitis Be Antigen Hep C Ab Diagnostic 05/24/20 05/24/20 05/24/20 06:07 07:40 07:40 WBC 7.6 RBC 3.52 L Hgb 11.9 Hct 35.1 MCV 99.6 H MCH 33.7 MCHC 33.9 RDW 13.8 Plt Count 187 MPV 7.4 L Absolute Neuts (auto) Neutrophils % Neutrophils % (Manual) Band Neutrophils % Lymphocytes % Lymphocytes % (Manual) Monocytes % Monocytes % (Manual) Eosinophils % Eosinophils % (Manual) Basophils % Basophils % (Manual) Myelocytes % (Man) Promyelocytes % (Man) Blast Cells % (Manual) Nucleated RBC % Metamyelocytes Hypochromia Platelet Estimate Polychromasia Poikilocytosis Anisocytosis Microcytosis Macrocytosis Retic Count PT with INR INR PTT (Actin FS) Sodium 135 L Potassium 4.2 Chloride 100 Carbon Dioxide 29 Anion Gap 6 L BUN 20.0 H Creatinine 1.2 Est GFR (CKD-EPI)AfAm 52.66 Est GFR (CKD-EPI)NonAf 45.43 POC Glucometer 130 Random Glucose 135 H Calcium 9.1 Phosphorus 3.6 Magnesium 1.8 Total Bilirubin 1.9 H Direct Bilirubin AST 28 ALT 23 Alkaline Phosphatase 142 H LD Total Creatine Kinase Troponin I B-Natriuretic Peptide Total Protein 6.8 Albumin 3.0 L Lipase Tumor Marker AFP CA 125 Antigen Vitamin B12 Serum Folate PTH Intact Urine Color Urine Appearance Urine pH Ur Specific [place] Urine Protein Urine Glucose (UA) Urine Ketones Urine Blood Urine Nitrite Urine Bilirubin Urine Urobilinogen Ur Leukocyte Esterase Ur Random Sodium Ur Random Potassium Ur Random Chloride Fluid Source Fluid Osmolality POC Fluid pH Fluid WBC Fluid RBC Fluid Neutrophils Fluid Lymphocytes Fluid Glucose Fluid Total Protein Fluid Albumin Body Fluid LDH Source Fluid Amylase Fluid Cholesterol Fluid Triglycerides Fluid Uric Acid Pleural Basophils Pleural Macrophages Pleural Mesothelial Stool Occult Blood COVID-19 (JARRETT) Hep A IgM Ab Confirm Hepatitis A Ab Total Hep Bs Antigen Hep Bs Antibody Hep B Core Total Ab Hep B Core IgM Ab Hepatitis Be Antibody Hepatitis Be Antigen Hep C Ab Diagnostic 05/24/20 05/24/20 05/24/20 07:40 12:01 16:21 WBC RBC Hgb Hct MCV MCH MCHC RDW Plt Count MPV Absolute Neuts (auto) Neutrophils % Neutrophils % (Manual) Band Neutrophils % Lymphocytes % Lymphocytes % (Manual) Monocytes % Monocytes % (Manual) Eosinophils % Eosinophils % (Manual) Basophils % Basophils % (Manual) Myelocytes % (Man) Promyelocytes % (Man) Blast Cells % (Manual) Nucleated RBC % Metamyelocytes Hypochromia Platelet Estimate Polychromasia Poikilocytosis Anisocytosis Microcytosis Macrocytosis Retic Count PT with INR INR PTT (Actin FS) Sodium Potassium Chloride Carbon Dioxide Anion Gap BUN Creatinine Est GFR (CKD-EPI)AfAm Est GFR (CKD-EPI)NonAf POC Glucometer 126 221 Random Glucose Calcium Phosphorus Magnesium Total Bilirubin Direct Bilirubin AST ALT Alkaline Phosphatase LD Total Creatine Kinase Troponin I B-Natriuretic Peptide Total Protein Albumin Lipase Tumor Marker AFP CA 125 Antigen 737.0 H Vitamin B12 Serum Folate PTH Intact Urine Color Urine Appearance Urine pH Ur Specific [place] Urine Protein Urine Glucose (UA) Urine Ketones Urine Blood Urine Nitrite Urine Bilirubin Urine Urobilinogen Ur Leukocyte Esterase Ur Random Sodium Ur Random Potassium Ur Random Chloride Fluid Source Fluid Osmolality POC Fluid pH Fluid WBC Fluid RBC Fluid Neutrophils Fluid Lymphocytes Fluid Glucose Fluid Total Protein Fluid Albumin Body Fluid LDH Source Fluid Amylase Fluid Cholesterol Fluid Triglycerides Fluid Uric Acid Pleural Basophils Pleural Macrophages Pleural Mesothelial Stool Occult Blood COVID-19 (JARRETT) Hep A IgM Ab Confirm Hepatitis A Ab Total Hep Bs Antigen Hep Bs Antibody Hep B Core Total Ab Hep B Core IgM Ab Hepatitis Be Antibody Hepatitis Be Antigen Hep C Ab Diagnostic 05/24/20 05/25/20 05/25/20 21:30 05:59 08:23 WBC RBC Hgb Hct MCV MCH MCHC RDW Plt Count MPV Absolute Neuts (auto) Neutrophils % Neutrophils % (Manual) Band Neutrophils % Lymphocytes % Lymphocytes % (Manual) Monocytes % Monocytes % (Manual) Eosinophils % Eosinophils % (Manual) Basophils % Basophils % (Manual) Myelocytes % (Man) Promyelocytes % (Man) Blast Cells % (Manual) Nucleated RBC % Metamyelocytes Hypochromia Platelet Estimate Polychromasia Poikilocytosis Anisocytosis Microcytosis Macrocytosis Retic Count PT with INR INR PTT (Actin FS) Sodium 136 Potassium 4.4 Chloride 104 Carbon Dioxide 28 Anion Gap 5 L BUN 18.2 H Creatinine 1.1 Est GFR (CKD-EPI)AfAm 58.50 Est GFR (CKD-EPI)NonAf 50.47 POC Glucometer 196 120 Random Glucose 116 H Calcium 8.6 Phosphorus 2.8 Magnesium 1.4 L Total Bilirubin 2.1 H Direct Bilirubin AST 26 ALT 18 Alkaline Phosphatase 121 H LD Total Creatine Kinase Troponin I B-Natriuretic Peptide Total Protein 6.0 L Albumin 2.5 L Lipase Tumor Marker AFP CA 125 Antigen Vitamin B12 Serum Folate PTH Intact Urine Color Urine Appearance Urine pH Ur Specific [place] Urine Protein Urine Glucose (UA) Urine Ketones Urine Blood Urine Nitrite Urine Bilirubin Urine Urobilinogen Ur Leukocyte Esterase Ur Random Sodium Ur Random Potassium Ur Random Chloride Fluid Source Fluid Osmolality POC Fluid pH Fluid WBC Fluid RBC Fluid Neutrophils Fluid Lymphocytes Fluid Glucose Fluid Total Protein Fluid Albumin Body Fluid LDH Source Fluid Amylase Fluid Cholesterol Fluid Triglycerides Fluid Uric Acid Pleural Basophils Pleural Macrophages Pleural Mesothelial Stool Occult Blood COVID-19 (JARRETT) Hep A IgM Ab Confirm Hepatitis A Ab Total Hep Bs Antigen Hep Bs Antibody Hep B Core Total Ab Hep B Core IgM Ab Hepatitis Be Antibody Hepatitis Be Antigen Hep C Ab Diagnostic 05/25/20 05/25/20 05/25/20 08:23 08:23 11:47 WBC 7.5 RBC 3.29 L Hgb 11.2 Hct 32.7 MCV 99.4 H MCH 33.9 H MCHC 34.2 RDW 13.7 Plt Count 161 MPV 7.5 Absolute Neuts (auto) 3.7 Neutrophils % 49.5 Neutrophils % (Manual) 50.0 Band Neutrophils % 0.0 Lymphocytes % 25.0 Lymphocytes % (Manual) 29.4 Monocytes % 21.2 H Monocytes % (Manual) 16 H Eosinophils % 3.9 Eosinophils % (Manual) 3.9 D Basophils % 0.4 Basophils % (Manual) 0.0 Myelocytes % (Man) 0 Promyelocytes % (Man) 0 Blast Cells % (Manual) 0 Nucleated RBC % 0 Metamyelocytes 0 Hypochromia 0 Platelet Estimate Normal Polychromasia 0 Poikilocytosis 0 Anisocytosis 1+ Microcytosis 1+ Macrocytosis 0 Retic Count PT with INR 17.90 H INR 1.51 H PTT (Actin FS) Sodium Potassium Chloride Carbon Dioxide Anion Gap BUN Creatinine Est GFR (CKD-EPI)AfAm Est GFR (CKD-EPI)NonAf POC Glucometer 118 Random Glucose Calcium Phosphorus Magnesium Total Bilirubin Direct Bilirubin AST ALT Alkaline Phosphatase LD Total Creatine Kinase Troponin I B-Natriuretic Peptide Total Protein Albumin Lipase Tumor Marker AFP CA 125 Antigen Vitamin B12 Serum Folate PTH Intact Urine Color Urine Appearance Urine pH Ur Specific [place] Urine Protein Urine Glucose (UA) Urine Ketones Urine Blood Urine Nitrite Urine Bilirubin Urine Urobilinogen Ur Leukocyte Esterase Ur Random Sodium Ur Random Potassium Ur Random Chloride Fluid Source Fluid Osmolality POC Fluid pH Fluid WBC Fluid RBC Fluid Neutrophils Fluid Lymphocytes Fluid Glucose Fluid Total Protein Fluid Albumin Body Fluid LDH Source Fluid Amylase Fluid Cholesterol Fluid Triglycerides Fluid Uric Acid Pleural Basophils Pleural Macrophages Pleural Mesothelial Stool Occult Blood COVID-19 (JARRETT) Hep A IgM Ab Confirm Hepatitis A Ab Total Hep Bs Antigen Hep Bs Antibody Hep B Core Total Ab Hep B Core IgM Ab Hepatitis Be Antibody Hepatitis Be Antigen Hep C Ab Diagnostic 05/25/20 17:13 WBC RBC Hgb Hct MCV MCH MCHC RDW Plt Count MPV Absolute Neuts (auto) Neutrophils % Neutrophils % (Manual) Band Neutrophils % Lymphocytes % Lymphocytes % (Manual) Monocytes % Monocytes % (Manual) Eosinophils % Eosinophils % (Manual) Basophils % Basophils % (Manual) Myelocytes % (Man) Promyelocytes % (Man) Blast Cells % (Manual) Nucleated RBC % Metamyelocytes Hypochromia Platelet Estimate Polychromasia Poikilocytosis Anisocytosis Microcytosis Macrocytosis Retic Count PT with INR INR PTT (Actin FS) Sodium Potassium Chloride Carbon Dioxide Anion Gap BUN Creatinine Est GFR (CKD-EPI)AfAm Est GFR (CKD-EPI)NonAf POC Glucometer 186 Random Glucose Calcium Phosphorus Magnesium Total Bilirubin Direct Bilirubin AST ALT Alkaline Phosphatase LD Total Creatine Kinase Troponin I B-Natriuretic Peptide Total Protein Albumin Lipase Tumor Marker AFP CA 125 Antigen Vitamin B12 Serum Folate PTH Intact Urine Color Urine Appearance Urine pH Ur Specific [place] Urine Protein Urine Glucose (UA) Urine Ketones Urine Blood Urine Nitrite Urine Bilirubin Urine Urobilinogen Ur Leukocyte Esterase Ur Random Sodium Ur Random Potassium Ur Random Chloride Fluid Source Fluid Osmolality POC Fluid pH Fluid WBC Fluid RBC Fluid Neutrophils Fluid Lymphocytes Fluid Glucose Fluid Total Protein Fluid Albumin Body Fluid LDH Source Fluid Amylase Fluid Cholesterol Fluid Triglycerides Fluid Uric Acid Pleural Basophils Pleural Macrophages Pleural Mesothelial Stool Occult Blood COVID-19 (JARRETT) Hep A IgM Ab Confirm Hepatitis A Ab Total Hep Bs Antigen Hep Bs Antibody Hep B Core Total Ab Hep B Core IgM Ab Hepatitis Be Antibody Hepatitis Be Antigen Hep C Ab Diagnostic HOSPITAL COURSE: Pt came to the ED due to pain from abdominal pain 2/2 increased ascites from her liver cirrhosis. Abdomen/pelvis CT shows cirrhotic liver with significant ascites and mildly enlarged para-aortic lymph nodes. She was admitted workup of hepatorenal syndrome. She had 2 paracenteses in which they removed 6.9 and 5.5 L. Fluid would re-accumulate within a day. 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 EGD was performed and showed showed varices banded in esophagus and gastric varices. So anticoagulant therapy was not recommended. Transfer was recommend for further work up with a liver transplant specialist Dr. Gloria and possible TIPS procedure. Minutes to complete discharge: 38 Discharge Summary Problems reviewed: Yes Reason For Visit: ABDOMINAL ASCITES Current Active Problems SIDNEY (acute kidney injury) (Acute) Ascites (Acute) Cirrhosis (Acute) Portal vein thrombosis (Acute) Condition: Stable - Instructions Diet, Activity, Other Instructions: Visit: You came to the emergency room with abdominal pain and increase abdominal distention. We drained fluid from your abdomen twice. We also tested the fluid for infection and that was negative. You had an endoscopy which showed you had esophageal varices and some erosion of your stomach. Because the fluid in your abdomen continues to re-accumulate, we are going to transfer you to [place] [facility] that can further evaluate your condition and offer other treatment options. Please follow up with GI: Dr. Escalona [address] [facility] [address] [place] [address] Hematology/Oncology: Dr. Wild [address] [facility] [address] [place] [address] Referrals: Derek Dove MD [Primary Care Provider] - Disposition: TRANSFER ACUTE CARE/OTHER HOSP - Home Medications Comprehensive Discharge Medication List: Ambulatory Orders Levothyroxine [Synthroid -] 50 mcg PO DAILY 05/16/20 Carvedilol [Coreg -] 3.125 mg PO BID tablet 05/25/20 Cefazolin [Ancef -] 1 gm IVPB BID vial 05/25/20 Furosemide [Lasix -] 40 mg PO BID@0600,1800 tablet 05/25/20 Insulin Sliding Scale [Novolog Vial Sliding Scale -] 1 vial SQ TIDAC units 05/25/20 Lidocaine 5% Patch [Lidoderm -] 1 patch TP DAILY patch 05/25/20 Lidocaine Patch Removal [Lidoderm Patch Removal] 1 each MC DAILY@2200 each 05/25/20 Pantoprazole Sodium [Protonix -] 40 mg PO BID tablet.ec 05/25/20 Polyethylene Glycol 3350 [Miralax 119 gm Btl -] 17 gm PO DAILY bottle 05/25/20 Spironolactone [Aldactone -] 50 mg PO BID tablet 05/25/20 This patient is new to me today: No Emergency Visit: Yes ED Registration Date: 05/16/20 Care time: The patient presented to the Emergency Department on the above date and was hospitalized for further evaluation of their emergent condition. Critical Care patient: No - Discharge Referral Referred to [facility] Med P.C.: Yes Physician Referral: Abram Escalona DO (GI) ATTENDING PHYSICIAN STATEMENT I saw and evaluated the patient. I reviewed the resident's note and discussed the case with the resident. I agree with the resident's findings and plan as documented. SUBJECTIVE: OBJECTIVE: ASSESSMENT AND PLAN:
--- NOTE | 2020-05-25 17:31 | PATH ---
Surgical Pathology Report Patient Name: ISABELLE FORTE [facility]. Rec. #: [id number] /Age/Gender: 1950 (Age: 69) / F Account: [id number] Location: [address] [place] [address]/[facility] Taken: 05/24/2020 Received: 05/24/2020 Reported: 05/25/2020 Physicians: Greg Stephenson M.D. Specimen(s) Received ANTRUM Clinical History Anemia, cirrhosis, portal vein thrombosis, rule out varices Postoperative diagnosis: Distal esophageal varices, gastric ulcer Final Diagnosis ANTRUM BIOPSY: GASTRIC MUCOSA WITH ACTIVE CHRONIC GASTRITIS. IMMUNOSTAIN FOR H. PYLORI IS POSITIVE. NEGATIVE FOR INTESTINAL METAPLASIA. Electronically Signed Minnie Huynh M.D. Gross Description Received in formalin, labeled "biopsy antrum" is a lloyd, irregular portion of soft tissue measuring 0.3 cm. in greatest dimension. The specimen is submitted in toto in one cassette. /05/24/2020 [facility]/05/24/2020
[2020-05-25] MEDS ORDERED: INSULIN (NOVOLOG) ASPART 100 UNITS/ML 10ML VIAL ONE (17:36)
--- NOTE | 2020-05-25 18:44 | PN.GI ---
GI Progress Note Subjective: still with abdominal distention secondary to ascitis - Objective Vital Signs: Vital Signs Temperature 98.2 F 05/25/20 14:00 Pulse Rate 72 05/25/20 14:00 Respiratory Rate 18 05/25/20 14:00 Blood Pressure 126/64 05/25/20 14:00 O2 Sat by Pulse Oximetry (%) 98 05/25/20 09:00 Constitutional: Well Nourished Eyes: Yes: Conjunctiva Clear HENT: Yes: Atraumatic Neck: Yes: Supple Cardiovascular: Yes: Regular Rate and Rhythm Respiratory: Yes: CTA Bilaterally ...Palpate: Yes: Soft. No: Firm/Rigid, Guarding, Hepatomegaly, Mass, Pulsatile Mass, Splenomegaly, Tenderness Labs: CBC, BMP 05/25/20 08:23 05/25/20 08:23 INR, PTT INR 1.51 (0.83-1.09) H 05/25/20 08:23 Problem List - Problems (1) Cirrhosis Assessment/Plan: associated with intractable ascitis R> will need to transfer for possible TIPS discussed with resident Code(s): K74.60 - UNSPECIFIED CIRRHOSIS OF LIVER
[2020-05-25] MEDS: LIDOCAINE PATCH REMOVAL MC SCH (21:38)
[2020-05-26] MEDS: INSULIN SLIDING SCALE (NOVOLOG) 1 VIAL SQ SCH ×3 (06:28→17:41)
[2020-05-26] MEDS: FUROSEMIDE 40 MG TABLET (FP) PO SCH ×2 (06:44→17:45)
[2020-05-26] MEDS: LEVOTHYROXINE NA 50 MCG TABLET (FP) PO SCH (06:44)
[2020-05-26] MEDS: SPIRONOLACTONE 25 MG TABLET PO SCH (09:34)
[2020-05-26] MEDS: PANTOPRAZOLE 40 MG TABLET PO SCH (09:34)
[2020-05-26] MEDS: LIDOCAINE 5% TOPICAL PATCH TP SCH (09:35)
[2020-05-26] MEDS: CARVEDILOL 3.125 MG TABLET (FP) PO SCH (09:35)
[2020-05-26] MEDS: POLYETHYLENE GLYCOL 3350 119 GM BTL PO SCH (09:35)
--- NOTE | 2020-05-26 12:33 | PN ---
Progress Note, Physician History of Present Illness: Pt seen and examined at bedside. SHe is awake and alert. She denies shortness of breath. - Current Medication List Current Medications: Active Medications Acetaminophen (Tylenol -) 650 mg PO Q4H PRN PRN Reason: PAIN LEVEL 7 - 10 Carvedilol (Coreg -) 3.125 mg PO BID [facility] Last Admin: 05/26/20 09:35 Dose: 3.125 mg Documented by: Furosemide (Lasix -) 40 mg PO BID@0600,1800 [facility] Last Admin: 05/26/20 06:44 Dose: 40 mg Documented by: Insulin Aspart (Novolog Vial Sliding Scale -) 1 vial SQ TIDAC [facility]; Protocol Last Admin: 05/26/20 11:43 Dose: Not Given Documented by: Levothyroxine Sodium (Synthroid -) 50 mcg PO DAILY@0700 [facility] Last Admin: 05/26/20 06:44 Dose: 50 mcg Documented by: Lidocaine (Lidoderm Patch -) 1 patch TP DAILY [facility] Last Admin: 05/26/20 09:35 Dose: 1 patch Documented by: Miscellaneous (Lidoderm Patch Removal) 1 each MC DAILY@2200 [facility] Last Admin: 05/25/20 21:38 Dose: 1 each Documented by: Pantoprazole Sodium (Protonix -) 40 mg PO BID [facility] Last Admin: 05/26/20 09:34 Dose: 40 mg Documented by: Polyethylene Glycol (Miralax (For Daily Use) -) 17 gm PO DAILY [facility] Last Admin: 05/26/20 09:35 Dose: 17 grams Documented by: Spironolactone (Aldactone -) 50 mg PO BID [facility] Last Admin: 05/26/20 09:34 Dose: 50 mg Documented by: - Objective Vital Signs: Vital Signs Temperature 99.2 F 05/26/20 05:00 Pulse Rate 76 05/26/20 09:00 Respiratory Rate 18 05/26/20 09:00 Blood Pressure 108/66 05/26/20 09:00 O2 Sat by Pulse Oximetry (%) 95 05/26/20 09:00 Constitutional: Yes: Calm Eyes: Yes: Conjunctiva Clear HENT: Yes: Atraumatic Neck: Yes: Supple Cardiovascular: Yes: S1, S2 Respiratory: Yes: CTA Bilaterally Gastrointestinal: Yes: Soft, Abdomen, Obese, Ascites Genitourinary: Yes: WNL Musculoskeletal: Yes: WNL Edema: No Neurological: Yes: Oriented Psychiatric: Yes: Oriented Labs: CBC, BMP 05/25/20 08:23 05/25/20 08:23 INR, PTT INR 1.51 (0.83-1.09) H 05/25/20 08:23 Problem List - Problems (1) SIDNEY (acute kidney injury) Code(s): N17.9 - ACUTE KIDNEY FAILURE, UNSPECIFIED (2) Ascites Code(s): R18.8 - OTHER ASCITES Qualifiers: Ascites type: other type Qualified Code(s): R18.8 - Other ascites Assessment/Plan Current Medications Generic Name Dose Route Start Last Admin Trade Name Freq PRN Reason Stop Dose Admin Acetaminophen 650 mg 05/17/20 00:48 Tylenol - PO Q4H PRN PAIN LEVEL 7 - 10 Carvedilol 3.125 mg 05/24/20 10:00 05/26/20 09:35 Coreg - PO 3.125 mg BID CHRIS Administration Furosemide 40 mg 05/22/20 18:00 05/26/20 06:44 Lasix - PO 40 mg BID@0600,1800 CHRIS Administration Insulin Aspart 1 vial 05/21/20 07:00 05/26/20 11:43 Novolog Vial Sliding Scale - SQ Not Given TIDAC [facility] Protocol Levothyroxine Sodium 50 mcg 05/24/20 07:00 05/26/20 06:44 Synthroid - PO 50 mcg DAILY@0700 CHRIS Administration Lidocaine 1 patch 05/23/20 08:43 05/26/20 09:35 Lidoderm Patch - TP 1 patch DAILY CHRIS Administration Miscellaneous 1 each 05/23/20 22:00 05/25/20 21:38 Lidoderm Patch Removal MC 1 each DAILY@2200 CHRIS Administration Pantoprazole Sodium 40 mg 05/24/20 10:00 05/26/20 09:34 Protonix - PO 40 mg BID CHRIS Administration Polyethylene Glycol 17 gm 05/19/20 10:00 05/26/20 09:35 Miralax (For Daily Use) - PO 17 grams DAILY CHRIS Administration Spironolactone 50 mg 05/18/20 10:00 05/26/20 09:34 Aldactone - PO 50 mg BID CHRIS Administration Impression 1. sidney 2. liver cirrhosis 3. ascites 4. htn 5. dm 6. hypothyroidism 7. portal vein thrombosis Plan - renal function had stabilized - check bmp - GI input appreciated, possible transfer for tips - cont lasix - cont aldactone - cont to monitor volume status
--- NOTE | 2020-05-26 17:22 | PN ---
Teaching Attending Note Name of Resident: Margarita Shipley ATTENDING PHYSICIAN STATEMENT I saw and evaluated the patient. I reviewed the resident's note and discussed the case with the resident. I agree with the resident's findings and plan as documented. SUBJECTIVE: Patient is sitting on the chair with no acute distress. No shortness of breath, no new changes. OBJECTIVE: Vital Signs Temperature 98.5 F 05/26/20 15:30 Pulse Rate 80 05/26/20 15:30 Respiratory Rate 18 05/26/20 15:30 Blood Pressure 97/52 L 05/26/20 15:30 O2 Sat by Pulse Oximetry (%) 99 05/26/20 15:30 PE: per resident's note CBCD WBC 7.5 K/mm3 (4.0-10.0) 05/25/20 08:23 RBC 3.29 M/mm3 (3.60-5.2) L 05/25/20 08:23 Hgb 11.2 GM/dL (10.7-15.3) 05/25/20 08:23 Hct 32.7 % (32.4-45.2) 05/25/20 08:23 MCV 99.4 fl (80-96) H 05/25/20 08:23 MCHC 34.2 g/dl (32.0-36.0) 05/25/20 08:23 RDW 13.7 % (11.6-15.6) 05/25/20 08:23 Plt Count 161 K/MM3 (134-434) 05/25/20 08:23 MPV 7.5 fl (7.5-11.1) 05/25/20 08:23 CMP Sodium 136 mmol/L (136-145) 05/25/20 08:23 Potassium 4.4 mmol/L (3.5-5.1) 05/25/20 08:23 Chloride 104 mmol/L (98-107) 05/25/20 08:23 Carbon Dioxide 28 mmol/L (21-32) 05/25/20 08:23 Anion Gap 5 MMOL/L (8-16) L 05/25/20 08:23 BUN 18.2 mg/dL (7-18) H 05/25/20 08:23 Creatinine 1.1 mg/dL (0.55-1.3) 05/25/20 08:23 Random Glucose 116 mg/dL (74-106) H 05/25/20 08:23 Calcium 8.6 mg/dL (8.5-10.1) 05/25/20 08:23 Total Bilirubin 2.1 mg/dL (0.2-1) H 05/25/20 08:23 AST 26 U/L (15-37) 05/25/20 08:23 ALT 18 U/L (13-61) 05/25/20 08:23 Alkaline Phosphatase 121 U/L (45-117) H 05/25/20 08:23 Total Protein 6.0 g/dl (6.4-8.2) L 05/25/20 08:23 Albumin 2.5 g/dl (3.4-5.0) L 05/25/20 08:23 CARDIAC ENZYMES Creatine Kinase 77 U/L (26-192) 05/16/20 16:24 Troponin I < 0.02 ng/ml (0.00-0.05) 05/16/20 16:24 Current Medications Generic Name Dose Route Start Last Admin Trade Name Freq PRN Reason Stop Dose Admin Acetaminophen 650 mg 05/17/20 00:48 Tylenol - PO Q4H PRN PAIN LEVEL 7 - 10 Carvedilol 3.125 mg 05/24/20 10:00 05/26/20 09:35 Coreg - PO 3.125 mg BID CHRIS Administration Furosemide 40 mg 05/22/20 18:00 05/26/20 06:44 Lasix - PO 40 mg BID@0600,1800 CHRIS Administration Insulin Aspart 1 vial 05/21/20 07:00 05/26/20 11:43 Novolog Vial Sliding Scale - SQ Not Given TIDAC [facility] Protocol Levothyroxine Sodium 50 mcg 05/24/20 07:00 05/26/20 06:44 Synthroid - PO 50 mcg DAILY@0700 CHRIS Administration Lidocaine 1 patch 05/23/20 08:43 05/26/20 09:35 Lidoderm Patch - TP 1 patch DAILY [facility]RIS Administration Miscellaneous 1 each 05/23/20 22:00 05/25/20 21:38 Lidoderm Patch Removal MC 1 each DAILY@2200 CHRIS Administration Pantoprazole Sodium 40 mg 05/24/20 10:00 05/26/20 09:34 Protonix - PO 40 mg BID CHRIS Administration Polyethylene Glycol 17 gm 05/19/20 10:00 05/26/20 09:35 Miralax (For Daily Use) - PO 17 grams DAILY [facility]IS Administration Spironolactone 50 mg 05/18/20 10:00 05/26/20 09:34 Aldactone - PO 50 mg BID CHRIS Administration Home Medications Medication Instructions Recorded Levothyroxine [Synthroid -] 50 mcg PO DAILY 05/16/20 Carvedilol [Coreg -] 3.125 mg PO BID tablet 05/25/20 Cefazolin [Ancef -] 1 gm IVPB BID vial 05/25/20 Furosemide [Lasix -] 40 mg PO BID@0600,1800 tablet 05/25/20 Insulin Sliding Scale [Novolog 1 vial SQ TIDAC units 05/25/20 Vial Sliding Scale -] Lidocaine 5% Patch [Lidoderm -] 1 patch TP DAILY patch 05/25/20 Lidocaine Patch Removal [Lidoderm 1 each MC DAILY@2200 each 05/25/20 Patch Removal] Pantoprazole Sodium [Protonix -] 40 mg PO BID tablet.ec 05/25/20 Polyethylene Glycol 3350 [Miralax 17 gm PO DAILY bottle 05/25/20 119 gm Btl -] Spironolactone [Aldactone -] 50 mg PO BID tablet 05/25/20 Microbiology 05/19/20 13:57 Abdomen AFB Smear Concentration - Final 05/19/20 13:57 Abdomen Mycobacterial Culture - Preliminary 05/19/20 13:57 Abdomen Gram Stain - Final 05/19/20 13:57 Abdomen Body Fluid Culture - Final NO GROWTH OF AEROBIC ORGANISMS AFTER 48 HOURS INCUBATION 05/19/20 13:57 Abdomen Anaerobic Culture - Final NO ANAEROBES WERE ISOLATED 05/19/20 13:57 Abdomen DENIS Preparation - Preliminary 05/19/20 13:57 Abdomen Fungal Culture - Preliminary 05/17/20 12:40 Ascites AFB Smear Concentration - Final 05/16/20 18:25 Abdomen Gram Stain - Final 05/16/20 18:25 Abdomen Body Fluid Culture - Final NO GROWTH OF AEROBIC ORGANISMS AFTER 48 HOURS INCUBATION 05/16/20 18:25 Abdomen Anaerobic Culture - Final NO ANAEROBES WERE ISOLATED 05/17/20 12:40 Ascites Gram Stain - Final 05/17/20 12:40 Ascites Body Fluid Culture - Final NO GROWTH OF AEROBIC ORGANISMS AFTER 48 HOURS INCUBATION 05/17/20 12:40 Ascites Anaerobic Culture - Final NO ANAEROBES WERE ISOLATED 05/17/20 12:40 Ascites DENIS Preparation - Preliminary 05/16/20 17:25 Urine - Urine Clean Catch Urine Culture - Final Lactose Fermenting Neg Bacilli Non Lactose Fermenting Gnb Normal Urogenital Lupe CXR: unremarkable Abdominal US: portal vein thrombosis with minimal flow identified. CT Abdomen and pelvis: liver cirrhosis, normal size spleen, nonvisualized gallbladder,large amount of free fluid/ascites in the abdomen and pelvis. mesenteric edema in the anterior abdomen and less likely representing omental kinking. oval shaped density in the right and left pelvis, that may represent the ovaries with calcifications. multilevel DDD in the lower thoracic and lumbar spine. no lytic lesions are noted. renal and urinary bladder: kidneys appear normal. US of pelvis: amount of free fluid ascites in the pelvis, including both quadrants. right ovary are not seen. ASSESSMENT AND PLAN: This patient is a 69yof with Pmhx of T2DM, cirrhosis, hypothyroidism, and HTN who presented with increasing abdominal distention and LE edema. # Intractable Ascitis: s/p paracentesis of 13 L of fluid , on lasix po bid, and spironolactone ,s/p EGD , patient needs to be transferred to [facility] for TIPs procedure. As per GI Procedure NOte:s/p Esophageal varices banding , patient has gastric varices, portal gastropathy and a duodenal ulcer so would avoid anticoagulants. Kefzol given IV before the banding and will continue for 48 hours as well as PPI BID. Followup for repeat EGD with Dr Escalona was explained via a insurance sales producer who also assisted in procuring the consent. # Portal vein thrombosis: EGD after COVID testing . Oncology on the case and GI on the case for AC recommnedations # calcification in pelvis/ovaries. ordered vaginal US to r/o Meig's syndrome or neoplasm, as per radiology unable to do vaginal Us due to increased abdominal size again, patient has intractable ascites, likely will need TIPS procedure, will transfer the patient to [facility] under Dr trevizo for further care and evaluation. discussed with the center. patient is a # Acute UTI: will start IV antibiotics # ISDNEY : improved . # Liver Cirrhosis: Not immune to Hep B. will need vaccine series ( out pt ) # Lymphadenopathy in Abd: f/u as out pt # H/x of HTN: cont to hold meds # DM: SSI for now DVT Px: SCds , as per GI and EGD not no AC at this time, high risk for bleed will tx the patient to [facility], accepting MD dr trevizo
[2020-05-26 18:32] VITALS: BP 102/57; PULSE 84; TEMP 98.7
--- NOTE | 2020-05-31 08:45 | PATH ---
Cytology Non-Gynecological Report Patient Name: ISABELLE FORTE [facility]. Rec. #: [id number] /Age/Gender: 1950 (Age: 69) / F Account: [id number] Location: [address] [place] [address]/[facility] Taken: 05/19/2020 Received: 05/26/2020 Reported: 05/31/2020 Physicians: Greg Lindquist M.D. Garine Kalaydjian, M.D. Specimen(s) Received ABDOMINAL FLUID Clinical History Ascites Final Diagnosis ABDOMINAL FLUID, PARACENTESIS: SATISFACTORY FOR EVALUATION. NEGATIVE FOR MALIGNANCY. MESOTHELIAL CELLS AND LYMPHOCYTES PRESENT. Electronically Signed Jessica Reyes M.D. Gross Description Approximately 5700 cc of cloudy yellow fluid received fresh. One cytofunnel prepared and Pap stained. One cellblock prepared.
== END 2020-05-26 18:04 | disposition short-term general hospital (02) | DRG 264 ==
LOC: JER 15:59 → JERBED 17:38 → J5S 05-17 16:56
PROVIDERS: ADMIT Internal Medicine; ATTEND Internal Medicine
PROC: 0W9G3ZX Drainage of Peritoneal Cavity, Percutaneous Approach, Diagnostic (ICD-10-PCS; principal; 2020-05-17)
PROC: 0W9G3ZX Drainage of Peritoneal Cavity, Percutaneous Approach, Diagnostic (ICD-10-PCS; 2020-05-19)
PROC: 0DB78ZX Excision of Stomach, Pylorus, Via Natural or Artificial Opening Endoscopic, Diagnostic (ICD-10-PCS; 2020-05-24)
PROC: 06L38CZ Occlusion of Esophageal Vein with Extraluminal Device, Via Natural or Artificial Opening Endoscopic (ICD-10-PCS; 2020-05-24)
PROC: 06L28CZ Occlusion of Gastric Vein with Extraluminal Device, Via Natural or Artificial Opening Endoscopic (ICD-10-PCS; 2020-05-24)
DX: K74.69 Other cirrhosis of liver (principal); I86.4 Gastric varices; E11.65 Type 2 diabetes mellitus with hyperglycemia; N39.0 Urinary tract infection, site not specified; K76.6 Portal hypertension; R18.8 Other ascites; N17.9 Acute kidney failure, unspecified; I81 Portal vein thrombosis; K26.9 Duodenal ulcer, unspecified as acute or chronic, without hemorrhage or perforation; D68.9 Coagulation defect, unspecified; I85.00 Esophageal varices without bleeding; E46 Unspecified protein-calorie malnutrition; Z68.33 Body mass index [BMI] 33.0-33.9, adult; I12.9 Hypertensive chronic kidney disease with stage 1 through stage 4 chronic kidney disease, or unspecified chronic kidney disease; E11.22 Type 2 diabetes mellitus with diabetic chronic kidney disease; N18.9 Chronic kidney disease, unspecified; E03.9 Hypothyroidism, unspecified; R59.0 Localized enlarged lymph nodes; D75.89 Other specified diseases of blood and blood-forming organs; T86.49 Other complications of liver transplant; M51.34 Other intervertebral disc degeneration, thoracic region; M51.36 Other intervertebral disc degeneration, lumbar region; K31.89 Other diseases of stomach and duodenum
CPT/HCPCS: 36415; 71045-TC-FY; 74176-TC; 76775-TC; 76856-TC; 76942-TC; 80048; 80053; 80076; 81003; 82042; 82105; 82150; 82248; 82272; 82436; 82465; 82550; 82607; 82746; 82945; 82962; 83615; 83690; 83735; 83880; 83970; 83986; 84100; 84133; 84157; 84300; 84478; 84484; 84560; 85025; 85027; 85044; 85610; 85730; 86304; 86704; 86705; 86706; 86707; 86708; 86709; 86803; 87070; 87075; 87086; 87102; 87116; 87205; 87206; 87210; 87340; 87350; 88108; 88305-TC; 93005; 93010; 93976; 97116-GP; 97162-GP; 99285-25; J1644; P9047; U0003

== ENCOUNTER 2020-06-19 10:33 | Inpatient (IN) | payer OTHER ==
--- NOTE | 2020-06-19 11:07 | PDOC ---
History of Present Illness - General Chief Complaint: Weakness Stated Complaint: WEAKNESS Time Seen by Provider: 06/19/20 11:07 - History of Present Illness Initial Comments: 69 YOF h/o CKD, portal hypertension, ascites presents for weakness, dizziness, and fatigue since this AM. Per patients daughter in law, this AM she complained of nausea, dizziness and fatigue around 6 am, which persisted for 3 hours until 9 am when she had an episode of altered consciouness where her eyes were closed and she was making abnormal, uncontrolled movements with her arms. The daughter mentions that she seemed more profoundly confused than prior for about 15 minutes following this episode. She did not bite her tongue nor was she incontinent during this episode. She also mentions that as of late she has experienced increased urinary frequency but denies burning or discomfort. Constitutional: No Weight Change, No Fever, No Chills, No Night Sweats, No Fatigue, No Malaise ENT/Mouth: No Hearing Changes, No Ear Pain, No Nasal Congestion, No Sinus Pain, No Hoarseness, No sore throat, No Rhinorrhea, No Swallowing Difficulty Eyes: No Eye Pain, No Swelling, No Redness, No Foreign Body, No Discharge, No Vision Changes Cardiovascular: No Chest Pain, No SOB, No PND, No Dyspnea on Exertion, No Orthopnea, No Claudication, No Edema, No Palpitations Respiratory: No Cough, No Sputum, No Wheezing, No Smoke Exposure, No Dyspnea Gastrointestinal: No Nausea, No Vomiting, No Diarrhea, No Constipation, No Pain, No Heartburn, No Anorexia, No Dysphagia, No Hematochezia, No Melena, No Flatulence, No Jaundice Genitourinary: No Dysmenorrhea, No DUB, No Dyspareunia, No Dysuria, No Urinary Frequency, No Hematuria, No Urinary Incontinence, No Urgency, No Flank Pain, No Urinary Flow Changes, No Hesitancy Musculoskeletal: No Arthralgias, No Myalgias, No Joint Swelling, No Joint Stiffness, No Back Pain, No Neck Pain, No Injury History Skin: No Skin Lesions, No Pruritis, No Hair Changes, No Breast/Skin Changes, No Nipple Discharge Neuro: No Weakness, No Numbness, No Paresthesias, No Headache, No Coordination Changes, No Recent Falls Psych: No Anxiety/Panic, No Depression, No Insomnia, No Personality Changes, No Delusions, No Rumination, No SI/HI/AH/VH, No Social Issues, No Memory Changes, No Violence/Abuse Hx., No Eating Concerns Heme/Lymph: No Bruising, No Bleeding, No Transfusions History, No Lymphadenopathy Endocrine: No Polyuria, No Polydipsia, No Temperature Intolerance 06/19/20 15:59 06/19/20 17:52 Past History - Medical History Allergies/Adverse Reactions: Allergies Allergy/AdvReac Type Severity Reaction Status Date / Time No Known Allergies Allergy Verified 06/19/20 10:58 Home Medications: Ambulatory Orders Levothyroxine [Synthroid -] 50 mcg PO DAILY 05/16/20 Furosemide [Lasix -] 20 mg PO 1600 06/19/20 Furosemide [Lasix -] 40 mg PO 0800 06/19/20 Gabapentin [Neurontin] 100 mg PO TID 06/19/20 Glimepiride [Amaryl -] 2 mg PO BID 06/19/20 Hydrochlorothiazide [Hctz -] 12.5 mg PO DAILY 06/19/20 Losartan Potassium 50 mg PO DAILY 06/19/20 Pantoprazole Sodium [Protonix -] 40 mg PO DAILY 06/19/20 Propranolol HCl 10 mg PO DAILY 06/19/20 Spironolactone [Aldactone -] 50 mg PO DAILY 06/19/20 Anemia: No Asthma: No Cancer: No Cardiac Disorders: No CVA: No COPD: No CHF: No Dementia: No Diabetes: Yes GI Disorders: No Disorders: No HTN: Yes Hypercholesterolemia: No Liver Disease: No Seizures: No Thyroid Disease: No - Surgical History Abdominal Surgery: No Appendectomy: No Cardiac Surgery: No Cholecystectomy: No Lung Surgery: No Neurologic Surgery: No Orthopedic Surgery: No - Reproductive History Is Patient Now?: No - Immunization History Immunization Up to Date: No - Psycho-Social/Smoking History Smoking History: Never smoked Have you smoked in the past 12 months: No - Substance Abuse Hx (Audit-C & DAST Scrn) How often the patient has a drink containing alcohol: Never Score: In Men: 4 or > Positive; In Women: 3 or > Positive: 0 Screen Result (Pos requires Nsg. Audit-10AR): Negative In the last yr the pt used illegal drug/Rx for NonMed reason: No Score: Yes response is considered Positive: 0 Screen Result (Positive result requires Nsg. DAST-10): Negative *Physical Exam - Vital Signs Last Vital Signs Temp Pulse Resp BP Pulse Ox 98.2 F 60 16 120/65 99 06/19/20 10:55 06/19/20 10:55 06/19/20 10:55 06/19/20 10:55 06/19/20 10:55 - Physical Exam General Appearance: Yes: Nourished, Appropriately Dressed HEENT: positive: EOMI, WILL, Normal ENT Inspection Neck: positive: Trachea midline, Normal Thyroid Respiratory/Chest: positive: Lungs Clear, Normal Breath Sounds Cardiovascular: positive: Regular Rhythm, Regular Rate, S1, S2 Gastrointestinal/Abdominal: positive: Normal Bowel Sounds, Flat, Soft Musculoskeletal: positive: Normal Inspection Extremity: positive: Normal Capillary Refill Integumentary: positive: Normal Color, Dry, Warm Neurologic: positive: supervisor claims II-XII NML intact, Fully Oriented, Alert, Normal Mood/Affect, Normal Response, Motor Strength 03/14 ED Treatment Course - LABORATORY CBC & Chemistry Diagram: 06/19/20 12:00 06/19/20 15:30 Medical Decision Making - Medical Decision Making 69 YOF h/o CKD, portal hypertension, ascites presents for weakness, dizziness, and fatigue since this AM. Per patients daughter in law, this AM she complained of nausea, dizziness and fatigue around 6 am, which persisted for 3 hours until 9 am when she had an episode of altered consciousness where her eyes were closed and she was making abnormal, uncontrolled movements with her arms. The daughter mentions that she seemed more profoundly confused than prior for about 15 minutes following this episode. She did not bite her tongue nor was she incontinent during this episode. She also mentions that as of late she has experienced increased urinary frequency but denies burning or discomfort. Vitals stable on arrival, Exam wnl. ddx includes but is not limited to: syncope, seizure, hepatic encephalopathy, meigs syndrome, intracranial neoplasm. plan: will get CT head, EKG, CXR, CBC, CMP, troponin, ammonia, lactic acid, coags. reassess: Patient has elevated ammonia, positive for flapping tremor on exam, will give patient lactulose. Elevated Alk Enedelia, AST, and bili of 2.1 consistent with established hepatic disease. Labs otherwise wnl. CXR, Head CT and EKG with no acute changes. GI consulted. Will admit patient for syncope. Dispo: admit to med/surg for syncope. 06/19/20 17:50 Discharge - Discharge Information Problems reviewed: Yes Clinical Impression/Diagnosis: Dizziness Cirrhosis Qualifiers: Hepatic cirrhosis type: unspecified hepatic cirrhosis Ascites presence: unspecified Qualified Code(s): K74.60 - Unspecified cirrhosis of liver - Follow up/Referral Referrals: Derek Dove MD [Primary Care Provider] - - Patient Discharge Instructions - Post Discharge Activity
[2020-06-19 12:14] LABS: BASO % 0.9 % (0-2.0); EOS % 3.2 % (0-4.5); HEMOGLOBIN 10.5 GM/dL (10.7-15.3); LYMPH % 38.9 % (8-40); MCH 33.6 pg (25.7-33.7); MCHC 33.9 g/dl (32.0-36.0); MEAN CELL VOLUME 99.2 fl (80-96); MEAN PLT VOLUME 8.7 fl (7.5-11.1); MONO % 18.3 % (3.8-10.2); NEUT % 38.7 % (42.8-82.8); PLATELET COUNT 159 K/MM3 (134-434); RBC 3.12 M/mm3 (3.60-5.2); RDW 14.8 % (11.6-15.6); WHITE BLOOD COUNT 5.1 K/mm3 (4.0-10.0)
[2020-06-19 12:22] LABS: INR 1.39 (0.83-1.09); PROTHROMBIN TIME (PATIENT) 16.4 SEC (9.7-13.0)
[2020-06-19 12:24] LABS: ACTIVATED PTT 31.6 SECONDS (25.2-36.5)
[2020-06-19 12:56] LABS: ALBUMIN 4.2 g/dl (3.4-5.0); ALK PHOS 147 U/L (45-117); ANION GAP 12 MMOL/L (8-16); BILIRUBIN,TOTAL 2.1 mg/dL (0.2-1); BLOOD UREA NITROGEN 24.5 mg/dL (7-18); CALCIUM 9.9 mg/dL (8.5-10.1); CHLORIDE 106 mmol/L (98-107); CO2 23 mmol/L (21-32); CREATININE 1.3 mg/dL (0.55-1.3); GLUCOSE,RANDOM 108 mg/dL (74-106); POTASSIUM 5.4 mmol/L (3.5-5.1); SGOT/AST 50 U/L (15-37); SGPT/ALT 26 U/L (13-61); SODIUM 141 mmol/L (136-145); TOT PROT 7.8 g/dl (6.4-8.2)
--- NOTE | 2020-06-19 13:03 | PDOC ---
Attending Attestation - Resident Resident Name: Deandre Wilkerson - ED Attending Attestation I have performed the following: I have examined & evaluated the patient, The case was reviewed & discussed with the resident, I agree w/resident's findings & plan - HPI HPI: 06/19/20 12:58 69-year-old female with history of ovarian CA, cirrhosis, diabetes recently admitted and transferred for high-volume paracentesis presents now with episode of lightheadedness/dizziness this morning. Patient has not been feeling well for several days, culminated this morning and episode of tremors, patient felt as though she was very lightheaded and going to pass out. Denies headache/chest pain, no focal deficit, remained conscious throughout per witnesses at bedside. - Physicial Exam PE: 06/19/20 13:00 Afebrile here, vital signs stable Alert lying comfortably in stretcher, dry mucosa, slight jaundice Heart is regular, lungs are clear Abdomen is soft/nondistended/nontender. + ascites, no guarding/rebound neuro nonfocal - Medical Decision Making 06/19/20 13:02 69-year-old female with history of ovarian CA, cirrhosis presents with episode of lightheadedness/dizziness this morning, now resolved. Differential is broad, possibly metabolic/infectious more likely than orthostatic/hypovolemic. h/o elevated NH3 Labs, urinalysis, NH3 EKG, chest x-ray IV fluids Reassess 06/19/20 13:54 labs notable for baseline mild anemia, progressive but stable Acute on chronic RI, elevated NH3 without known baseline. trop negative. proceed with admit Heart Score/ECG Review #1 ECG reviewed & interpreted by me at: 11:55 General ECG Interpretation: Sinus Rhythm, Normal Rate (59), Normal Intervals (qtc 447), No acute ischemic changes Discharge - Discharge Information Problems reviewed: Yes Clinical Impression/Diagnosis: Dizziness Cirrhosis Qualifiers: Hepatic cirrhosis type: unspecified hepatic cirrhosis Ascites presence: unspecified Qualified Code(s): K74.60 - Unspecified cirrhosis of liver - Follow up/Referral Referrals: Derek Dove MD [Primary Care Provider] - - Patient Discharge Instructions - Post Discharge Activity
[2020-06-19 14:05] LABS: PH,URINE >= 9.0 (5.0-8.0); URINE APPEARANCE CLEAR; URINE BILIRUBIN NEGATIVE (NEGATIVE); URINE COLOR YELLOW; URINE GLUCOSE (UA) NEGATIVE (NEGATIVE); URINE KETONE NEGATIVE (NEGATIVE); URINE LEUK ESTERASE NEGATIVE (NEGATIVE); URINE NITRITE NEGATIVE (NEGATIVE); URINE PROTEIN NEGATIVE (NEGATIVE)
[2020-06-19] MEDS ORDERED: LACTULOSE 20 GM/30 ML UDC (FOR ORAL USE ONLY) PO ONE (17:02)
[2020-06-19] MEDS ORDERED: LACTULOSE 20 GM/30 ML UDC (FOR ORAL USE ONLY) PO PRN (17:24)
--- NOTE | 2020-06-19 17:32 | HP ---
CHIEF COMPLAINT: AMS PCP: Petty HISTORY OF PRESENT ILLNESS: Pt is a 69y/o female with liver cirrhosis and ascites (recent paracentesis in the last 10 days) who presents with AMS. Daughter in law states this morning she was weak, shaking, closed her eyes, and was not responding for about 5 minutes. She recovered about 5 minutes later. No fall occurred. Pt continues to have shaking in hands, but she is otherwise improved. Allergies No Known Allergies Allergy (Verified 06/19/20 10:58) HOME MEDICATIONS: Home Medications Medication Instructions Recorded Levothyroxine [Synthroid -] 50 mcg PO DAILY 05/16/20 Furosemide [Lasix -] 40 mg PO BID@0600,1800 tablet 05/25/20 Insulin Sliding Scale [Novolog 1 vial SQ TIDAC units 05/25/20 Vial Sliding Scale -] Ciprofloxacin HCl [Cipro] 250 mg PO DAILY 06/19/20 Glimepiride [Amaryl -] 2 mg PO BID 06/19/20 Pantoprazole Sodium [Protonix -] 40 mg PO DAILY 06/19/20 Spironolactone [Aldactone -] 50 mg PO DAILY 06/19/20 PHYSICAL EXAMINATION Vital Signs - 24 hr 06/19/20 10:55 Temperature 98.2 F Pulse Rate 60 Respiratory 16 Rate Blood Pressure 120/65 O2 Sat by Pulse 99 Oximetry (%) GENERAL: Awake, alert, and fully oriented, in no acute distress. EYES: Pupils equal, round and reactive to light, extraocular movements intact, sclera anicteric. EARS, NOSE, THROAT: icteric frenulum. ABDOMEN: Distended, non-tender, fluid wave present. NEUROLOGICAL: Asterixis. PSYCHIATRIC: Cooperative. Good eye contact. Appropriate mood and affect. SKIN: Warm, dry, normal turgor. Laboratory Results - last 24 hr 06/19/20 06/19/20 06/19/20 12:00 12:00 12:00 WBC 5.1 RBC 3.12 L Hgb 10.5 L Hct 31.0 L MCV 99.2 H MCH 33.6 MCHC 33.9 RDW 14.8 Plt Count 159 MPV 8.7 D Absolute Neuts (auto) 2.0 Neutrophils % 38.7 L D Lymphocytes % 38.9 D Monocytes % 18.3 H Eosinophils % 3.2 Basophils % 0.9 Nucleated RBC % 0 PT with INR 16.40 H INR 1.39 H PTT (Actin FS) 31.6 Sodium 141 Potassium 5.4 H Chloride 106 Carbon Dioxide 23 Anion Gap 12 BUN 24.5 H Creatinine 1.3 Est GFR (CKD-EPI)AfAm 47.80 Est GFR (CKD-EPI)NonAf 41.24 Random Glucose 108 H Lactic Acid Calcium 9.9 Total Bilirubin 2.1 H AST 50 H ALT 26 Alkaline Phosphatase 147 H Ammonia Creatine Kinase 69 Troponin I < 0.02 Total Protein 7.8 Albumin 4.2 Urine Color Urine Appearance Urine pH Ur Specific [place] Urine Protein Urine Glucose (UA) Urine Ketones Urine Blood Urine Nitrite Urine Bilirubin Urine Urobilinogen Ur Leukocyte Esterase 06/19/20 06/19/20 06/19/20 12:00 12:00 13:10 WBC RBC Hgb Hct MCV MCH MCHC RDW Plt Count MPV Absolute Neuts (auto) Neutrophils % Lymphocytes % Monocytes % Eosinophils % Basophils % Nucleated RBC % PT with INR INR PTT (Actin FS) Sodium Potassium Chloride Carbon Dioxide Anion Gap BUN Creatinine Est GFR (CKD-EPI)AfAm Est GFR (CKD-EPI)NonAf Random Glucose Lactic Acid 1.9 Calcium Total Bilirubin AST ALT Alkaline Phosphatase Ammonia 84.40 H Creatine Kinase Troponin I Total Protein Albumin Urine Color Yellow Urine Appearance Clear Urine pH >= 9.0 H D Ur Specific [place] 1.007 L Urine Protein Negative Urine Glucose (UA) Negative Urine Ketones Negative Urine Blood Negative Urine Nitrite Negative Urine Bilirubin Negative Urine Urobilinogen 1.0 Ur Leukocyte Esterase Negative 06/19/20 15:30 WBC RBC Hgb Hct MCV MCH MCHC RDW Plt Count MPV Absolute Neuts (auto) Neutrophils % Lymphocytes % Monocytes % Eosinophils % Basophils % Nucleated RBC % PT with INR INR PTT (Actin FS) Sodium Potassium 4.3 Chloride Carbon Dioxide Anion Gap BUN Creatinine Est GFR (CKD-EPI)AfAm Est GFR (CKD-EPI)NonAf Random Glucose Lactic Acid Calcium Total Bilirubin AST ALT Alkaline Phosphatase Ammonia Creatine Kinase Troponin I Total Protein Albumin Urine Color Urine Appearance Urine pH Ur Specific [place] Urine Protein Urine Glucose (UA) Urine Ketones Urine Blood Urine Nitrite Urine Bilirubin Urine Urobilinogen Ur Leukocyte Esterase ASSESSMENT/PLAN: Pt is a 69y/o female with liver cirrhosis and ascites (recent paracentesis in the last 10 days) who presents with AMS. Symptoms improved within 10 minutes of onset. 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 Escalona) -avoid AC dispo med/surg FULL CODE Visit type - Medication Review Med list reviewed for High Risk Meds patients 65 and older: Yes - Emergency Visit Emergency Visit: Yes ED Registration Date: 06/19/20 Care time: The patient presented to the Emergency Department on the above date and was hospitalized for further evaluation of their emergent condition. - New Patient This patient is new to me today: Yes Date on this admission: 06/20/20 - Critical Care Critical Care patient: No ATTENDING PHYSICIAN STATEMENT I saw and evaluated the patient. I reviewed the resident's note and discussed the case with the resident. I agree with the resident's findings and plan as documented. SUBJECTIVE: OBJECTIVE: ASSESSMENT AND PLAN:
--- NOTE | 2020-06-19 17:40 | HP ---
CHIEF COMPLAINT: Confusion PCP: Dr. Belcher HISTORY OF PRESENT ILLNESS: Patient is a armenian speaking 69F accompanied by her daughter for translation. Patient has a past medical history of recent admission for cirrhosis of unknown etiology 1 month ago, abdominal ascites drainage, malignant ovarian neoplasm, and diabetes. The patients daughter in law lives with her and aiding in her activities of daily living. After waking in the morning, the patient was reported to have sat down in a chair and suddenly lose consciousness for a period of 5-10 min. The patient was reported to have maintained muscle tonicity and did not collapse in the chair as well as involuntary repetitive movements in bilateral arms. According to the daughter the patients eyes were shut and did not react to her name nor was she witnessed to have struck her head or any physical trauma during the event. After waking, the patient was in a supposed post ictal state of confusion. The patient did not recognize the mother in law and paramedics were called. On arrival to the emergency department the patient was found to be neurologically intact, with full awareness. The patient does not endorse any complaints, abdominal pain, headaches, dizziness, vomiting, nausea, diarrhea, blurry vision, or bowel issues. Recent Travel: DENIES PAST SURGICAL HISTORY: TIPS procedure done at [facility] Social History: DENIES ALL Smoking:DENIES Alcohol:DENIES Drugs: DENIES Allergies No Known Allergies Allergy (Verified 06/19/20 10:58) HOME MEDICATIONS: Home Medications Medication Instructions Recorded Levothyroxine [Synthroid -] 50 mcg PO DAILY 05/16/20 Furosemide [Lasix -] 40 mg PO BID@0600,1800 tablet 05/25/20 Insulin Sliding Scale [Novolog 1 vial SQ TIDAC units 05/25/20 Vial Sliding Scale -] Ciprofloxacin HCl [Cipro] 250 mg PO DAILY 06/19/20 Glimepiride [Amaryl -] 2 mg PO BID 06/19/20 Pantoprazole Sodium [Protonix -] 40 mg PO DAILY 06/19/20 Spironolactone [Aldactone -] 50 mg PO DAILY 06/19/20 REVIEW OF SYSTEMS CONSTITUTIONAL: Absent: fever, chills, diaphoresis, generalized weakness, malaise, loss of appetite, weight change CARDIOVASCULAR: Absent: chest pain, syncope, palpitations, irregular heart rate, lightheadedness, peripheral edema RESPIRATORY: Absent: cough, shortness of breath, dyspnea with exertion, orthopnea, wheezing, stridor, hemoptysis GASTROINTESTINAL: Absent: abdominal pain, abdominal distension, nausea, vomiting, diarrhea, constipation, melena, hematochezia GENITOURINARY: Absent: dysuria, frequency, urgency, hesitancy, hematuria, flank pain, genital pain PHYSICAL EXAMINATION Vital Signs - 24 hr 06/19/20 10:55 Temperature 98.2 F Pulse Rate 60 Respiratory 16 Rate Blood Pressure 120/65 O2 Sat by Pulse 99 Oximetry (%) GENERAL: Awake, alert, and fully oriented, in no acute distress. HEAD: Normal with no signs of trauma. EYES: Pupils equal, round and reactive to light, extraocular movements intact, sclera anicteric, conjunctiva clear. No lid lag. EARS, NOSE, THROAT: MILD JAUNDICE ON THE VENTRAL PORTION OF THE TONGUE. NECK: Normal range of motion, supple without lymphadenopathy, JVD, or masses. LUNGS: Breath sounds equal, clear to auscultation bilaterally. No wheezes, and no crackles. No accessory muscle use. HEART: Regular rate and rhythm, normal S1 and S2 without murmur, rub or gallop. ABDOMEN: CENTRAL OBESITY, + FLUID WAVE, +SHIFTING DULLNESS UPPER EXTREMITIES: 2+ pulses, warm, well-perfused. No cyanosis. No clubbing. No peripheral edema. LOWER EXTREMITIES: 2+ pulses, warm, well-perfused. No calf tenderness. No peripheral edema. PSYCHIATRIC: Cooperative. Good eye contact. Appropriate mood and affect. Laboratory Results - last 24 hr 06/19/20 06/19/20 06/19/20 12:00 12:00 12:00 WBC 5.1 RBC 3.12 L Hgb 10.5 L Hct 31.0 L MCV 99.2 H MCH 33.6 MCHC 33.9 RDW 14.8 Plt Count 159 MPV 8.7 D Absolute Neuts (auto) 2.0 Neutrophils % 38.7 L D Lymphocytes % 38.9 D Monocytes % 18.3 H Eosinophils % 3.2 Basophils % 0.9 Nucleated RBC % 0 PT with INR 16.40 H INR 1.39 H PTT (Actin FS) 31.6 Sodium 141 Potassium 5.4 H Chloride 106 Carbon Dioxide 23 Anion Gap 12 BUN 24.5 H Creatinine 1.3 Est GFR (CKD-EPI)AfAm 47.80 Est GFR (CKD-EPI)NonAf 41.24 Random Glucose 108 H Lactic Acid Calcium 9.9 Total Bilirubin 2.1 H AST 50 H ALT 26 Alkaline Phosphatase 147 H Ammonia Creatine Kinase 69 Troponin I < 0.02 Total Protein 7.8 Albumin 4.2 Urine Color Urine Appearance Urine pH Ur Specific [place] Urine Protein Urine Glucose (UA) Urine Ketones Urine Blood Urine Nitrite Urine Bilirubin Urine Urobilinogen Ur Leukocyte Esterase 06/19/20 06/19/20 06/19/20 12:00 12:00 13:10 WBC RBC Hgb Hct MCV MCH MCHC RDW Plt Count MPV Absolute Neuts (auto) Neutrophils % Lymphocytes % Monocytes % Eosinophils % Basophils % Nucleated RBC % PT with INR INR PTT (Actin FS) Sodium Potassium Chloride Carbon Dioxide Anion Gap BUN Creatinine Est GFR (CKD-EPI)AfAm Est GFR (CKD-EPI)NonAf Random Glucose Lactic Acid 1.9 Calcium Total Bilirubin AST ALT Alkaline Phosphatase Ammonia 84.40 H Creatine Kinase Troponin I Total Protein Albumin Urine Color Yellow Urine Appearance Clear Urine pH >= 9.0 H D Ur Specific [place] 1.007 L Urine Protein Negative Urine Glucose (UA) Negative Urine Ketones Negative Urine Blood Negative Urine Nitrite Negative Urine Bilirubin Negative Urine Urobilinogen 1.0 Ur Leukocyte Esterase Negative 06/19/20 15:30 WBC RBC Hgb Hct MCV MCH MCHC RDW Plt Count MPV Absolute Neuts (auto) Neutrophils % Lymphocytes % Monocytes % Eosinophils % Basophils % Nucleated RBC % PT with INR INR PTT (Actin FS) Sodium Potassium 4.3 Chloride Carbon Dioxide Anion Gap BUN Creatinine Est GFR (CKD-EPI)AfAm Est GFR (CKD-EPI)NonAf Random Glucose Lactic Acid Calcium Total Bilirubin AST ALT Alkaline Phosphatase Ammonia Creatine Kinase Troponin I Total Protein Albumin Urine Color Urine Appearance Urine pH Ur Specific [place] Urine Protein Urine Glucose (UA) Urine Ketones Urine Blood Urine Nitrite Urine Bilirubin Urine Urobilinogen Ur Leukocyte Esterase ASSESSMENT/PLAN: Patient is a armenian speaking 69F accompanied by her daughter for translation. Patient has a past medical history of recent admission for cirrhosis of unknown etiology 1 month ago, abdominal ascites drainage, malignant ovarian neoplasm, diabetes and hypothyroidism. The patient arrived to the ED for a cc of loss of consciousness and confusion. #Hepatic Encephalopathy - Post ictal state - Patient reports significant history of cirrhosis and liver failure. - Lactulose 20mg QID for possible hyperammonemia - Consult placed for Dr. Escalona (GI) - KARISSA negative for occult blood or masses - Will speak with liver transplant specialist Dr. Gloria who we previously transferred to #Hypothyroidism - Levothyroxine 75mcg QD #DM II - Insulin sliding scale #HTN -continue to hold home losartan -hold hctz and d/c upon discharge #FEN: - sodium controlled diet - Monitor electrolytes in AM labs #DVT ppx - SCD, avoid AC in the setting of liver damage and increased INR (1.3) Visit type - Medication Review Med list reviewed for High Risk Meds patients 65 and older: Yes - Emergency Visit Emergency Visit: Yes Care time: The patient presented to the Emergency Department on the above date and was hospitalized for further evaluation of their emergent condition. - New Patient This patient is new to me today: Yes Date on this admission: 06/19/20 - Critical Care Critical Care patient: No ATTENDING PHYSICIAN STATEMENT I saw and evaluated the patient. I reviewed the resident's note and discussed the case with the resident. I agree with the resident's findings and plan as documented. SUBJECTIVE: OBJECTIVE: ASSESSMENT AND PLAN:
[2020-06-19] MEDS ORDERED: LACTULOSE 20 GM/30 ML UDC (FOR ORAL USE ONLY) ONE ×2 (17:45→22:17)
--- NOTE | 2020-06-19 17:46 | PN ---
Teaching Attending Note Name of Resident: Karina Grider ATTENDING PHYSICIAN STATEMENT I saw and evaluated the patient. I reviewed the resident's note and discussed the case with the resident. I agree with the resident's findings and plan as documented. SUBJECTIVE: OBJECTIVE: ASSESSMENT AND PLAN: 69-year-old female with a history of ovarian Cancer, cirrhosis, & Diabetes Mellitus II recently admitted and transferred for high-volume paracentesis presents now with episode of lightheadedness/dizziness this morning. Now resolved Differential is broad, possibly metabolic/infectious more likely than orthostatic/hypovolemic. h/o elevated NH3 Follow-up culture data, agree with lactulose CT head : negative
[2020-06-19] MEDS ORDERED: FUROSEMIDE 40 MG TABLET (FP) PO SCH (18:00)
--- NOTE | 2020-06-19 18:29 | CON.GI ---
Consult Consult Specialty:: GI Referred by:: Hospitalist Service Reason for Consultation:: Cirrhosis, altered mental status - History of Present Illness Chief Complaint: daughter in law present at bedside: confusion History of Present Illness: 69F admitted for evaluation of weakness. Daughter in law wittnessed her shaking, eyes rolling to the back of her head as if she was going to pass out. called 911. Has h/o decompensated cirrhosis. 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 per her [id number], she may have had paracentesis performed t here too. She follows with Dr. Alton Butt, sales rep at [facility] and saw him in the office this past friday. She has an upcoming appointment with him, possibly next week. Daughter in law states that Marisela does not drink lot of water, has not been outdoors much. She felt nauseous last night but there was no vomiting. No rectal beeding or melena reported. No fevers/chills, cough. Has been more somnolent of late. No urinary F/U D. - Past Medical History Cardio/Vascular: Yes: HTN Hepatobiliary: Yes: Cirrhosis ...LMP: 06/19/20 ...: No Endocrine: Yes: Diabetes Mellitus, Hypothyroidism - Past Surgical History Past Surgical History: Yes: Cataract Removal (right eye along with laser therapy of the right eye) - Smoking History Smoking history: Never smoked Have you smoked in the past 12 months: No - Social History Usual Living Arrangement: With Child ADL: Independent Home Medications - Allergies Allergies/Adverse Reactions: Allergies Allergy/AdvReac Type Severity Reaction Status Date / Time No Known Allergies Allergy Verified 06/19/20 10:58 - Home Medications Home Medications: Ambulatory Orders Levothyroxine [Synthroid -] 50 mcg PO DAILY 05/16/20 Furosemide [Lasix -] 20 mg PO 1600 06/19/20 Furosemide [Lasix -] 40 mg PO 0806/19/20 Gabapentin [Neurontin] 100 mg PO TID 06/19/20 Glimepiride [Amaryl -] 2 mg PO BID 06/19/20 Hydrochlorothiazide [Hctz -] 12.5 mg PO DAILY 06/19/20 Losartan Potassium 50 mg PO DAILY 06/19/20 Pantoprazole Sodium [Protonix -] 40 mg PO DAILY 06/19/20 Propranolol HCl 10 mg PO DAILY 06/19/20 Spironolactone [Aldactone -] 50 mg PO DAILY 06/19/20 Family Medical History Other Family History: No family hisory of colorectal cancer or liver disease Review of Systems - Review of Systems Constitutional: reports: Weakness. denies: Chills, Fever Cardiovascular: denies: Chest Pain Respiratory: denies: Cough, SOB, SOB on Exertion Gastrointestinal: denies: Abdominal Pain, Constipation, Diarrhea, Dysphagia, Melena, Nausea, Rectal Bleeding, Vomiting, Vomiting Blood Physical Exam-GI Vital Signs: Vital Signs Temperature 98.2 F 06/19/20 10:55 Pulse Rate 60 06/19/20 10:55 Respiratory Rate 16 06/19/20 10:55 Blood Pressure 120/65 06/19/20 10:55 O2 Sat by Pulse Oximetry (%) 99 06/19/20 10:55 Constitutional: Yes: Calm Eyes: Yes: Other (Deformed right iris, cataract left eye). No: Sclera Icterus Cardiovascular: Yes: Regular Rate and Rhythm. No: Murmur Respiratory: Yes: CTA Bilaterally Gastrointestinal Inspection: Yes: Other (softly protuberant) ...Auscultate: Yes: Normoactive Bowel Sounds ...Palpate: Yes: Soft. No: Hepatomegaly, Splenomegaly, Tenderness ...Percussion: No: Tympanitic Edema: No (No LE edema) Neurological: Yes: Alert, Oriented (x 3), Asterixis, Other (Somnolent at times) Labs: CBC, BMP 06/19/20 12:00 06/19/20 15:30 INR, PTT INR 1.39 (0.83-1.09) H 06/19/20 12:00 Problem List - Problems (1) Altered mental state Assessment/Plan: Currently alert and oriented. Somnolent and with Asterixis and elevated ammonia level. Hepatic encephalopathy likely playing a role and primary team with be excluding other etiologies. Advise: Lactulose 20g QID. I changed the order from PRN constipation to standing. Titrate for 4-5 loose BM's per day Gentle hydration for 1 L. ? if dehydration may be playing role Obtain information from sales rep Dr. Alton Butt regarding Latha's recent admission and office visit. Assure follow-up with Dr. Butt when acute issues are resolved. Continue propraolol given history of esophageal varices that were banded along with gastric varices. Confirm her current outpatient dosage as it is usually started at 10mg PO TID for portal HTN. Hold for SBP <90 Pulse <55 or if patient symptomatic Code(s): R41.82 - ALTERED MENTAL STATUS, UNSPECIFIED
[2020-06-19] MEDS: LACTULOSE 20 GM/30 ML UDC (FOR ORAL USE ONLY) PO SCH (22:23)
[2020-06-19 23:57] VITALS: BMI 28.5
[2020-06-20] MEDS ORDERED: ONDANSETRON 4 MG/2 ML VIAL IVPUSH PRN (00:22)
[2020-06-20] MEDS: INSULIN SLIDING SCALE (NOVOLOG) 1 VIAL SQ SCH ×3 (06:09→16:36)
[2020-06-20] MEDS: FUROSEMIDE 40 MG TABLET (FP) PO SCH ×2 (06:16→13:03)
[2020-06-20] MEDS: LEVOTHYROXINE NA 50 MCG TABLET (FP) PO SCH (06:16)
[2020-06-20] MEDS: GLIMEPIRIDE 2 MG TABLET PO SCH ×2 (06:43→16:33)
[2020-06-20] MEDS ORDERED: INSULIN SLIDING SCALE (NOVOLOG) 1 VIAL SQ SCH (07:00)
[2020-06-20 08:44] LABS: BASO % 0.9 % (0-2.0); EOS % 1.7 % (0-4.5); HEMATOCRIT 32.3 % (32.4-45.2); HEMOGLOBIN 10.8 GM/dL (10.7-15.3); LYMPH % 39.5 % (8-40); MCHC 33.6 g/dl (32.0-36.0); MEAN PLT VOLUME 8.8 fl (7.5-11.1); MONO % 17.6 % (3.8-10.2); NEUT % 40.3 % (42.8-82.8); PLATELET COUNT 145 K/MM3 (134-434); RBC 3.19 M/mm3 (3.60-5.2); RDW 14.7 % (11.6-15.6); WHITE BLOOD COUNT 5.6 K/mm3 (4.0-10.0)
[2020-06-20 09:18] LABS: ALBUMIN 4.2 g/dl (3.4-5.0); BILIRUBIN,TOTAL 1.8 mg/dL (0.2-1); BLOOD UREA NITROGEN 27.5 mg/dL (7-18); CALCIUM 10.4 mg/dL (8.5-10.1); CREATININE 1.2 mg/dL (0.55-1.3); MAGNESIUM 2.1 mg/dL (1.8-2.4); PHOSPHOROUS 4.3 mg/dL (2.5-4.9); POTASSIUM 3.6 mmol/L (3.5-5.1); TOT PROT 7.9 g/dl (6.4-8.2)
[2020-06-20 09:19] LABS: BILIRUBIN,DIRECT 0.6 mg/dL (0.0-0.2)
[2020-06-20] MEDS: PANTOPRAZOLE 40 MG TABLET PO SCH (09:25)
[2020-06-20] MEDS: SPIRONOLACTONE 25 MG TABLET PO SCH (09:25)
[2020-06-20] MEDS: LACTULOSE 20 GM/30 ML UDC (FOR ORAL USE ONLY) PO SCH ×4 (09:25→21:25)
--- NOTE | 2020-06-20 10:29 | EKG ---
Test Reason : Blood Pressure : / mmHG Vent. Rate : 059 BPM Atrial Rate : 059 BPM P-R Int : 190 ms QRS Dur : 094 ms QT Int : 452 ms P-R-T Axes : 061 007 048 degrees QTc Int : 447 ms SINUS BRADYCARDIA OTHERWISE NORMAL ECG WHEN COMPARED WITH ECG OF 16-MAY-2020 17:43, NO SIGNIFICANT CHANGE WAS FOUND Confirmed by MD Smith Edward ([id number]) on 06/20/2020 10:29:12 AM Referred By: Confirmed By:Deshaun Smith MD
--- NOTE | 2020-06-20 13:17 | PN.GI ---
GI Progress Note Subjective: No acute events No abdominal pain 2-3 BM's today States feeling well - Objective Vital Signs: Vital Signs Temperature 98 F 06/20/20 09:44 Pulse Rate 82 06/20/20 09:44 Respiratory Rate 18 06/20/20 09:44 Blood Pressure 122/67 06/20/20 09:44 O2 Sat by Pulse Oximetry (%) 98 06/20/20 09:44 Constitutional: Calm Eyes: No: Sclera Icterus Cardiovascular: Yes: Regular Rate and Rhythm Respiratory: Yes: CTA Bilaterally Gastrointestinal Inspection: Yes: Distention (softly protuberant) ...Auscultate: Yes: Normoactive Bowel Sounds ...Palpate: Yes: Soft. No: Hepatomegaly, Splenomegaly, Tenderness ...Percussion: No: Tympanitic Edema: No (No LE edema) Neurological: Yes: Alert, Oriented (x 3, no asterixis) Labs: CBC, BMP 06/20/20 07:32 06/20/20 07:32 INR, PTT INR 1.39 (0.83-1.09) H 06/19/20 12:00 Problem List - Problems (1) Altered mental state Assessment/Plan: Clinically improved Advise: Decrease lactulose to 20g TID. Goal of 4-5 loose BM's per day Will need follow-up with her bobbin disker Dr. Alton Butt @ [facility] Code(s): R41.82 - ALTERED MENTAL STATUS, UNSPECIFIED
--- NOTE | 2020-06-20 14:04 | PN ---
Teaching Attending Note Name of Resident: Chad Denton ATTENDING PHYSICIAN STATEMENT I saw and evaluated the patient. I reviewed the resident's note and discussed the case with the resident. I agree with the resident's findings and plan as documented. SUBJECTIVE:SUBJECTIVE: Patient seen and examined at bedside without any acute overnight events. Patient denies abdominal pain or confusion. Patient reports one watery stool in am. Patient is able to identify the year, location, and president. and doing well. OBJECTIVE: Vital Signs Period Temp Pulse Resp BP Sys/Ramos Pulse Ox Last 24 Hr 97.9 F-99.1 F 58-87 18-20 118-128/52-77 98-101 GENERAL: The patient is awake, alert, and fully oriented, in no acute distress. LUNGS: Breath sounds equal, clear to auscultation bilaterally, no wheezes, no crackles, no accessory muscle use. HEART: Regular rate and rhythm, S1, S2 without murmur, rub or gallop. ABDOMEN: Soft, nontender, nondistended, normoactive bowel sounds, no guarding, no rebound, no hepatosplenomegaly, no masses. EXTREMITIES: 2+ pulses, warm, well-perfused, no edema. SKIN: Warm, dry, normal turgor, no rashes or lesions noted CBC, BMP 06/20/20 07:32 06/20/20 07:32 Active Medications Generic Name Dose Route Start Last Admin Trade Name Freq PRN Reason Stop Dose Admin Furosemide 40 mg 06/19/20 18:00 06/20/20 13:03 Lasix - PO 40 mg BIDLASIX CHRIS Administration Glimepiride 2 mg 06/20/20 07:00 06/20/20 06:43 Amaryl - PO Not Given BIDAC CHRIS Insulin Aspart 1 vial 06/20/20 07:00 06/20/20 10:28 Novolog Vial Sliding Scale - SQ Not Given TIDAC [facility] Protocol Lactulose 20 gm 06/20/20 14:00 06/20/20 13:27 Cephulac (Oral Use) PO Not Given TID CHRIS Levothyroxine Sodium 50 mcg 06/20/20 07:00 06/20/20 06:16 Synthroid - PO 50 mcg ACBK CHRIS Administration Ondansetron HCl 4 mg 06/20/20 00:22 Zofran Injection IVPUSH ONCE PRN NAUSEA AND/OR VOMITING Pantoprazole Sodium 40 mg 06/20/20 10:00 06/20/20 09:25 Protonix - PO 40 mg DAILY CHRIS Administration Spironolactone 50 mg 06/20/20 10:00 06/20/20 09:25 Aldactone - PO 50 mg DAILY CHRIS Administration ASSESSMENT/PLAN: Patient is a croatian speaking 69F accompanied by her daughter for translation. Patient has a past medical history of recent admission for cirrhosis of unknown etiology 1 month ago, abdominal ascites drainage, malignant ovarian neoplasm, diabetes and hypothyroidism. The patient arrived to the ED for a cc of loss of consciousness and confusion. Hepatic Encephalopathy resolving, and on lactulose Patient information gathered from Dr. 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 Gloria recommended delay in consideration for patients liver transplant candidacy and should be monitored ammonia level 33.8 Lactulose (GI) followup #Hypothyroidism #DM II #HTN -,monitor SCD, avoid AC in the setting of liver damage and increased INR (1.3)
--- NOTE | 2020-06-20 16:25 | PN ---
Physical Exam: SUBJECTIVE: Patient seen and examined at bedside without any acute overnight events. Patient denies abdominal pain or confusion. Patient reports sleeping well and having 1 bowel movement in the AM. Patient reports the stool to be watery. Patient is able to identify the year, location, and president. OBJECTIVE: Vital Signs Period Temp Pulse Resp BP Sys/Ramos Pulse Ox Last 24 Hr 97.9 F-99.1 F 58-87 18-20 118-128/52-77 98-101 GENERAL: The patient is awake, alert, and fully oriented, in no acute distress. LUNGS: Breath sounds equal, clear to auscultation bilaterally, no wheezes, no crackles, no accessory muscle use. HEART: Regular rate and rhythm, S1, S2 without murmur, rub or gallop. ABDOMEN: Soft, nontender, nondistended, normoactive bowel sounds, no guarding, no rebound, no hepatosplenomegaly, no masses. EXTREMITIES: 2+ pulses, warm, well-perfused, no edema. SKIN: Warm, dry, normal turgor, no rashes or lesions noted Laboratory Results - last 24 hr 06/19/20 06/20/20 06/20/20 17:00 06:08 07:32 WBC 5.6 RBC 3.19 L Hgb 10.8 Hct 32.3 L MCV 101.0 H MCH 34.0 H MCHC 33.6 RDW 14.7 Plt Count 145 MPV 8.8 Absolute Neuts (auto) 2.3 Neutrophils % 40.3 L Lymphocytes % 39.5 Monocytes % 17.6 H Eosinophils % 1.7 Basophils % 0.9 Nucleated RBC % 0 Sodium Potassium Chloride Carbon Dioxide Anion Gap BUN Creatinine Est GFR (CKD-EPI)AfAm Est GFR (CKD-EPI)NonAf POC Glucometer 121 Random Glucose Calcium Phosphorus Magnesium Total Bilirubin Direct Bilirubin AST ALT Alkaline Phosphatase Ammonia Total Protein Albumin COVID-19 (JARRETT) Not detected 06/20/20 06/20/20 06/20/20 07:32 10:23 14:20 WBC RBC Hgb Hct MCV MCH MCHC RDW Plt Count MPV Absolute Neuts (auto) Neutrophils % Lymphocytes % Monocytes % Eosinophils % Basophils % Nucleated RBC % Sodium 143 Potassium 3.6 Chloride 108 H Carbon Dioxide 27 Anion Gap 8 BUN 27.5 H Creatinine 1.2 Est GFR (CKD-EPI)AfAm 52.66 Est GFR (CKD-EPI)NonAf 45.43 POC Glucometer 144 Random Glucose 105 Calcium 10.4 H Phosphorus 4.3 Magnesium 2.1 Total Bilirubin 1.8 H Direct Bilirubin 0.6 H AST 25 ALT 23 Alkaline Phosphatase 143 H Ammonia 33.80 H Total Protein 7.9 Albumin 4.2 COVID-19 (JARRETT) Active Medications Generic Name Dose Route Start Last Admin Trade Name Freq PRN Reason Stop Dose Admin Furosemide 40 mg 06/19/20 18:00 06/20/20 13:03 Lasix - PO 40 mg BIDLASIX CHRIS Administration Glimepiride 2 mg 06/20/20 07:00 06/20/20 06:43 Amaryl - PO Not Given BIDAC CHRIS Insulin Aspart 1 vial 06/20/20 07:00 06/20/20 10:28 Novolog Vial Sliding Scale - SQ Not Given TIDAC [facility] Protocol Lactulose 20 gm 06/20/20 14:00 06/20/20 13:27 Cephulac (Oral Use) PO Not Given TID CHRIS Levothyroxine Sodium 50 mcg 06/20/20 07:00 06/20/20 06:16 Synthroid - PO 50 mcg ACBK CHRIS Administration Ondansetron HCl 4 mg 06/20/20 00:22 Zofran Injection IVPUSH ONCE PRN NAUSEA AND/OR VOMITING Pantoprazole Sodium 40 mg 06/20/20 10:00 06/20/20 09:25 Protonix - PO 40 mg DAILY CHRIS Administration Spironolactone 50 mg 06/20/20 10:00 06/20/20 09:25 Aldactone - PO 50 mg DAILY CHRIS Administration ASSESSMENT/PLAN: Patient is a [place] citizen speaking 69F accompanied by her daughter for translation. Patient has a past medical history of recent admission for cirrhosis of unknown etiology 1 month ago, abdominal ascites drainage, malignant ovarian neoplasm, diabetes and hypothyroidism. The patient arrived to the ED for a cc of loss of consciousness and confusion. #Hepatic Encephalopathy - Patient information gathered from Dr. Gloria's nurse (will be away from office until ) - Patient reported to have cirrhosis likely due to HUTCHINSON w decompensation in the setting of SBP. - Meld score at office visit on 06/16 = <15 - Dr. Gloria recommended delay in consideration for patients liver transplant candidacy and should be monitored - ammonia level 33.8 - Lactulose decreased to 20mg TID for goal of 4-5 loose BM per day - Dr. Escalona (GI) following #Hypothyroidism - Levothyroxine 75mcg QD #DM II - Insulin sliding scale #HTN -continue to hold home losartan -hold hctz and d/c upon discharge #Serology - covid negative #FEN: - sodium controlled diet - Monitor electrolytes in AM labs #DVT ppx - SCD, avoid AC in the setting of liver damage and increased INR (1.3) Visit type - Emergency Visit Emergency Visit: Yes ED Registration Date: 06/19/20 Care time: The patient presented to the Emergency Department on the above date and was hospitalized for further evaluation of their emergent condition. - New Patient This patient is new to me today: No - Critical Care Critical Care patient: No - Discharge Referral Referred to [facility] Med P.C.: No - Medication Review Med list reviewed for High Risk Meds patients 65 and older: Yes ATTENDING PHYSICIAN STATEMENT I saw and evaluated the patient. I reviewed the resident's note and discussed the case with the resident. I agree with the resident's findings and plan as documented. SUBJECTIVE: OBJECTIVE: ASSESSMENT AND PLAN:
[2020-06-21] MEDS: INSULIN SLIDING SCALE (NOVOLOG) 1 VIAL SQ SCH ×2 (06:26→12:09)
[2020-06-21] MEDS: FUROSEMIDE 40 MG TABLET (FP) PO SCH ×2 (06:27→15:00)
[2020-06-21] MEDS: LACTULOSE 20 GM/30 ML UDC (FOR ORAL USE ONLY) PO SCH ×2 (06:27→15:00)
[2020-06-21] MEDS: LEVOTHYROXINE NA 50 MCG TABLET (FP) PO SCH (06:27)
[2020-06-21] MEDS: GLIMEPIRIDE 2 MG TABLET PO SCH (06:27)
[2020-06-21 07:40] LABS: HEMATOCRIT 31.9 % (32.4-45.2); HEMOGLOBIN 10.8 GM/dL (10.7-15.3); MCH 33.5 pg (25.7-33.7); MCHC 33.7 g/dl (32.0-36.0); MEAN CELL VOLUME 99.5 fl (80-96); MEAN PLT VOLUME 8.8 fl (7.5-11.1); PLATELET COUNT 129 K/MM3 (134-434); RBC 3.21 M/mm3 (3.60-5.2); RDW 14.6 % (11.6-15.6); WHITE BLOOD COUNT 6.6 K/mm3 (4.0-10.0)
[2020-06-21 07:55] LABS: BLOOD UREA NITROGEN 29.6 mg/dL (7-18); CREATININE 1.4 mg/dL (0.55-1.3); MAGNESIUM 1.9 mg/dL (1.8-2.4); PHOSPHOROUS 3.7 mg/dL (2.5-4.9); POTASSIUM 3.7 mmol/L (3.5-5.1)
[2020-06-21] MEDS: SPIRONOLACTONE 25 MG TABLET PO SCH (10:43)
[2020-06-21] MEDS: PANTOPRAZOLE 40 MG TABLET PO SCH (10:44)
[2020-06-21] MEDS ORDERED: INSULIN (NOVOLOG) ASPART 100 UNITS/ML 10ML VIAL ONE (11:49)
[2020-06-21 14:39] VITALS: BP 115/60; PULSE 80; TEMP 98.2
--- NOTE | 2020-06-21 16:31 | PN ---
Teaching Attending Note Name of Resident: Chad Denton ATTENDING PHYSICIAN STATEMENT I saw and evaluated the patient. I reviewed the resident's note and discussed the case with the resident. I agree with the resident's findings and plan as documented. SUBJECTIVE: Feeling well, no complaints. No abdominal pain/nausea/vomiting. No dysuria/hematuria. No fever/chills. OBJECTIVE: Afebrile, hemodynamcially Stable. AAO x 3. No asterixis. Last Vital Signs Temp Pulse Resp BP Pulse Ox 98.2 F 80 18 115/60 97 06/21/20 14:10 06/21/20 14:10 06/21/20 14:10 06/21/20 14:10 06/21/20 09:54 HEENT - Atraumatic, normocephalic. Heart - S1, S2, RRR Lungs - clear to auscultation Abdomen - Soft, non-tender. Bwoel Sounds normal. Extremities - no edema, no calf tenderness Neuro - AAO x 3. Tone/Power normal all extremities. Laboratory Results - last 24 hr 06/20/20 06/21/20 06/21/20 16:33 05:55 05:55 WBC 6.6 RBC 3.21 L Hgb 10.8 Hct 31.9 L MCV 99.5 H MCH 33.5 MCHC 33.7 RDW 14.6 Plt Count 129 L MPV 8.8 Sodium 140 Potassium 3.7 Chloride 107 Carbon Dioxide 25 Anion Gap 9 BUN 29.6 H Creatinine 1.4 H Est GFR (CKD-EPI)AfAm 43.70 Est GFR (CKD-EPI)NonAf 37.71 POC Glucometer 186 Random Glucose 120 H Calcium 10.0 Phosphorus 3.7 Magnesium 1.9 Ammonia 06/21/20 06/21/20 06/21/20 05:55 06:25 11:47 WBC RBC Hgb Hct MCV MCH MCHC RDW Plt Count MPV Sodium Potassium Chloride Carbon Dioxide Anion Gap BUN Creatinine Est GFR (CKD-EPI)AfAm Est GFR (CKD-EPI)NonAf POC Glucometer 115 232 Random Glucose Calcium Phosphorus Magnesium Ammonia 54.00 H Current Medications Generic Name Dose Route Start Last Admin Trade Name Freq PRN Reason Stop Dose Admin Furosemide 40 mg 06/19/20 18:00 06/21/20 15:00 Lasix - PO 40 mg BIDLASIX CHRIS Administration Glimepiride 2 mg 06/20/20 07:00 06/21/20 06:27 Amaryl - PO 2 mg BIDAC CHRIS Administration Insulin Aspart 1 vial 06/20/20 07:00 06/21/20 12:09 Novolog Vial Sliding Scale - SQ 4 units TIDAC CHRIS Administration Protocol Lactulose 20 gm 06/20/20 14:00 06/21/20 15:00 Cephulac (Oral Use) PO 20 gm TID CHRIS Administration Levothyroxine Sodium 50 mcg 06/20/20 07:00 06/21/20 06:27 Synthroid - PO 50 mcg ACBK CHRIS Administration Ondansetron HCl 4 mg 06/20/20 00:22 Zofran Injection IVPUSH ONCE PRN NAUSEA AND/OR VOMITING Pantoprazole Sodium 40 mg 06/20/20 10:00 06/21/20 10:44 Protonix - PO 40 mg DAILY CHRIS Administration Spironolactone 50 mg 06/20/20 10:00 06/21/20 10:43 Aldactone - PO 50 mg DAILY CHRIS Administration Discharge Medications Medication Instructions Recorded Levothyroxine [Synthroid -] 50 mcg PO DAILY 05/16/20 Furosemide [Lasix -] 20 mg PO 1600 06/19/20 Furosemide [Lasix -] 40 mg PO 0800 06/19/20 Gabapentin [Neurontin] 100 mg PO TID 06/19/20 Glimepiride [Glimepiride -] 2 mg PO BID 06/19/20 Losartan Potassium 50 mg PO DAILY 06/19/20 Pantoprazole Sodium [Protonix -] 40 mg PO DAILY 06/19/20 Propranolol HCl 10 mg PO DAILY 06/19/20 Spironolactone [Aldactone -] 50 mg PO DAILY 06/19/20 Lactulose (Oral Use) [Cephulac -] 20 gm PO TID #90 [facility] [place] 06/21/20 ASSESSMENT AND PLAN: 69 year old female with recent diagnosis of Liver Cirrhosis, Malignant ovarian neoplasm, Dm 2, Hypothyroidism, brought to Ed for lethargy and decreased responsiveness. 1. Acute Hepatic Encephalopathy Improved on Lactulose - to continue TID for a target of 3-4 soft bowel movements daily. continue Lasix and Aldactone Follows with GI/Hepatology Dr. Gloria 2. HTN - continue Aldactone, Propanolol, Losartan. HCTZ held - PCP to reconsider combination of loop and thiazide diuretic. 3. DM 2 - Continue Glimepiride 4. Hypothyroidism - Continue Levothyroxine. 5. CKD - has Nephrology appt 6. Maxillary Sinus Cyst/Polyp, incidental finding on CT - for ENT referral on discharge Medically and Neurologically stable for discharge
--- NOTE | 2020-06-21 16:36 | DS ---
Physical Exam: SUBJECTIVE: Patient seen and examined at bedside. Patient denies acute overnight events. Patient feels better and wants to go home. OBJECTIVE: Vital Signs Period Temp Pulse Resp BP Sys/Ramos Pulse Ox Last 24 Hr 98.0 F-98.3 F 70-80 16-18 113-119/60-70 97-99 PHYSICAL EXAM GENERAL: The patient is awake, alert, and fully oriented, in no acute distress. HEAD: Normal with no signs of trauma. EYES: PERRL, extraocular movements intact, sclera anicteric, conjunctiva clear. ENT: Ears normal, nares patent, oropharynx clear without exudates, moist mucous membranes. NECK: Trachea midline, full range of motion, supple. LUNGS: Breath sounds equal, clear to auscultation bilaterally, no wheezes, no crackles, no accessory muscle use. HEART: Regular rate and rhythm, S1, S2 without murmur, rub or gallop. ABDOMEN: Soft, nontender, nondistended, normoactive bowel sounds, no guarding, no rebound, no hepatosplenomegaly, no masses. EXTREMITIES: 2+ pulses, warm, well-perfused, no edema. NEUROLOGICAL: Cranial nerves II through XII grossly intact. Normal speech, gait not observed. PSYCH: Normal mood, normal affect. SKIN: Warm, dry, normal turgor, no rashes or lesions noted. LABS Laboratory Results - last 24 hr 06/21/20 06/21/20 06/21/20 05:55 05:55 05:55 WBC 6.6 RBC 3.21 L Hgb 10.8 Hct 31.9 L MCV 99.5 H MCH 33.5 MCHC 33.7 RDW 14.6 Plt Count 129 L MPV 8.8 Sodium 140 Potassium 3.7 Chloride 107 Carbon Dioxide 25 Anion Gap 9 BUN 29.6 H Creatinine 1.4 H Est GFR (CKD-EPI)AfAm 43.70 Est GFR (CKD-EPI)NonAf 37.71 POC Glucometer Random Glucose 120 H Calcium 10.0 Phosphorus 3.7 Magnesium 1.9 Ammonia 54.00 H 06/21/20 06/21/20 06:25 11:47 WBC RBC Hgb Hct MCV MCH MCHC RDW Plt Count MPV Sodium Potassium Chloride Carbon Dioxide Anion Gap BUN Creatinine Est GFR (CKD-EPI)AfAm Est GFR (CKD-EPI)NonAf POC Glucometer 115 232 Random Glucose Calcium Phosphorus Magnesium Ammonia HOSPITAL COURSE: Date of Admission:06/19/20 Date of Discharge: 06/21/20 Minutes to complete discharge: 40 Discharge Summary Problems reviewed: Yes Reason For Visit: INCREASED AMMONIA LEVEL; HEPATIC CIRRHOSIS; AMS Current Active Problems Cirrhosis (Chronic) Condition: Stable - Instructions Diet, Activity, Other Instructions: YOUR VISIT: You were evaluated in the hospital for confusion and lethargy. While you were in the hospital we evaluated you with lab work, blood work, imaging including, CT scan of your head and x-ray of your chest. There were not You were evaluated by the Sanitary Inspector during your hospital course. You were found to have elevated ammonia levels in your blood which was the cause of your symptoms. We treated you with blood pressure medication, insulin, and medication for your ammonia called Lactulose. You were able to have bowel movements which means that you responded well to the medication and will need to continue taking the medication while you are at home. You will need to follow up with your liver specialist (Dr. Alton Butt) to follow up on your cirrhosis treatment. MEDICATIONS: Please START taking LACTULOSE 20mg THREE TIMES A DAY. Make sure you are having 3-4 bowel movements each day while on this medication. Please take an extra dose if you are not having 3-4 bowel movements per day. You can take fewer doses if you are having 5 or more bowel movements, daily Please continue taking your home medications as directed. Please follow-up with the physicians below: - Primary Care Physician: follow-up in 2 weeks, please discuss your recent hospitalization. Please recheck your bloodwork to reevaluate your ammonia level, and kidney function. - Sanitary Inspector (Dr. Alton Butt): follow-up within 1 week to discuss your cirrhosis and recent hospitalization for elevated ammonia level Please seek immediate medical evaluation if you experience: - severe shortness of breath, chest pain, palpitations - severe confusion - bloody stools, abdominal pain - abdominal distension with excessive fluid buildup Referrals: Derek Dove MD [Primary Care Provider] - Lakhwinder Harman MD [Staff Physician] - 1 Week (katie on ckd) Alton Butt [Non Staff, Medical] - 1 Week (Follow up for episode of lethargy and acute hepative encephalopathy) Disposition: HOME - Home Medications Comprehensive Discharge Medication List: Ambulatory Orders Levothyroxine [Synthroid -] 50 mcg PO DAILY 05/16/20 Furosemide [Lasix -] 20 mg PO 1600 06/19/20 Furosemide [Lasix -] 40 mg PO 0800 06/19/20 Gabapentin [Neurontin] 100 mg PO TID 06/19/20 Glimepiride [Glimepiride -] 2 mg PO BID 06/19/20 Losartan Potassium 50 mg PO DAILY 06/19/20 Pantoprazole Sodium [Protonix -] 40 mg PO DAILY 06/19/20 Propranolol HCl 10 mg PO DAILY 06/19/20 Spironolactone [Aldactone -] 50 mg PO DAILY 06/19/20 Lactulose (Oral Use) [Cephulac -] 20 gm PO TID #90 c 06/21/20 - Discharge Referral Referred to [facility] Med P.C.: No ATTENDING PHYSICIAN STATEMENT I saw and evaluated the patient. I reviewed the resident's note and discussed the case with the resident. I agree with the resident's findings and plan as documented. SUBJECTIVE: OBJECTIVE: ASSESSMENT AND PLAN:
--- NOTE | 2020-07-18 17:28 | CON.GI ---
Consult Consult Specialty:: GI Referred by:: Hospitalist Service Reason for Consultation:: Confusion - History of Present Illness Chief Complaint: Lethargy, confusion History of Present Illness: 69F admitted for evaluation of weakness / confusion. Vomited x 1 this morning. Daughter in law Presrnt at bedside. Patient has h/o decompensated cirrhosis. Was admitted to [facility] previously, had EGD revealing esophageal and gastirc franky ices (banding of esophageal varices performed by Dr. 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 per her jehaumzw-qj-flw, she may have had paracentesis performed there too. She follows with Dr. Alton Butt, blood donor unit assistant at [facility] and saw him in the office this past Friday. She believes that lactulose was decreased to 1/2 of a cap full per day due to excessive diarrhea. She also has not taken rifaximin for the last 4 days due to insurance issues. No fevers/chills. No rectal beeding or melena reported. No F/U/D. the H&P describes he patient having a TIPS, however this does not appear to have been performed. - History Source History Provided By: Patient, Family Member, Medical Record - Past Medical History Cardio/Vascular: Yes: HTN Hepatobiliary: Yes: Cirrhosis ...LMP: 06/19/20 ...: No Endocrine: Yes: Diabetes Mellitus, Hypothyroidism - Past Surgical History Past Surgical History: Yes: Cataract Removal (right eye along with laser therapy of the right eye) - Smoking History Smoking history: Never smoked Have you smoked in the past 12 months: No - Social History Usual Living Arrangement: With Child ADL: Independent Home Medications - Allergies Allergies/Adverse Reactions: Allergies Allergy/AdvReac Type Severity Reaction Status Date / Time No Known Allergies Allergy Verified 07/18/20 13:07 - Home Medications Home Medications: Ambulatory Orders Levothyroxine [Synthroid -] 50 mcg PO DAILY 05/16/20 Furosemide [Lasix -] 20 mg PO 0800 06/19/20 Glimepiride [Glimepiride -] 2 mg PO BID 06/19/20 Spironolactone [Aldactone -] 25 mg PO DAILY 06/19/20 Ciprofloxacin [Cipro (Restricted To Id)] 250 mg PO DAILY 07/18/20 Lactulose (Oral Use) [Cephulac -] 30 ml PO TID 07/18/20 Omeprazole 40 mg PO DAILY 07/18/20 Family Medical History Other Family History: No family hisory of colorectal cancer or liver disease Review of Systems - Review of Systems Constitutional: denies: Chills, Fever Respiratory: denies: Cough Gastrointestinal: reports: Nausea, Vomiting. denies: Abdominal Pain, Melena, Rectal Bleeding, Vomiting Blood Physical Exam-GI Vital Signs: Vital Signs Temperature 98.2 F 06/21/20 14:10 Pulse Rate 80 06/21/20 14:10 Respiratory Rate 18 06/21/20 14:10 Blood Pressure 115/60 06/21/20 14:10 O2 Sat by Pulse Oximetry (%) 97 06/21/20 09:54 Constitutional: Yes: Calm Eyes: No: Sclera Icterus Cardiovascular: Yes: Bradycardia Respiratory: Yes: CTA Bilaterally Gastrointestinal Inspection: Yes: Distention ...Auscultate: Yes: Normoactive Bowel Sounds ...Palpate: Yes: Soft. No: Tenderness ...Percussion: No: Tympanitic Edema: No (No LE edema) Neurological: Yes: Alert, Oriented (x person, place.), Asterixis Labs: CBC, BMP 06/21/20 05:55 06/21/20 05:55 INR, PTT INR 1.39 (0.83-1.09) H 06/19/20 12:00 Problem List - Problems (1) Altered mental state Assessment/Plan: Currently AAO x 2 with Asterixis and elevated ammonia level. Hepatic encephalopathy secondary to not having rifaximin and intolerant to higher doses of lactulose Advise: Lactulose 20g BID. Titrate for 4-5 loose BM's per day Gentle IV hydration. ? if dehydration may be playing role Resume Rifaximin 500mg PO BID Assure follow-up with Dr. Butt when acute issues are resolved Continue propraolol given history of esophageal varices that were banded along with gastric varices. Confirm her current outpatient dosage as it is usually started at 10mg PO TID for portal HTN. Hold for SBP <90 Pulse <55 or if patient symptomatic. Code(s): R41.82 - ALTERED MENTAL STATUS, UNSPECIFIED
[2020-07-18] MEDS ORDERED: RIFAXIMIN 550 MG TABLET (UD) PO SCH (22:00)
== END 2020-06-21 17:30 | disposition home or self-care (01) | DRG 279 ==
LOC: JER 10:33 → JERBED 15:01 → J6S 23:33 → J7W 06-20 18:40
PROVIDERS: ADMIT Internal Medicine
DX: K72.00 Acute and subacute hepatic failure without coma (principal); R18.8 Other ascites; E11.22 Type 2 diabetes mellitus with diabetic chronic kidney disease; I12.9 Hypertensive chronic kidney disease with stage 1 through stage 4 chronic kidney disease, or unspecified chronic kidney disease; K74.60 Unspecified cirrhosis of liver; E03.9 Hypothyroidism, unspecified; J34.1 Cyst and mucocele of nose and nasal sinus; N18.9 Chronic kidney disease, unspecified; K76.6 Portal hypertension; Z79.4 Long term (current) use of insulin
CPT/HCPCS: 36415; 70450-TC; 71045-TC-FY; 80048; 80053; 80076; 81003; 82140; 82550; 82962; 83605; 83735; 84100; 84132; 84484; 85025; 85027; 85610; 85730; 87040; 87086; 93005; 93010; 97116-GP; 97161-GP; 99285-25; U0003

== ENCOUNTER 2020-07-18 13:06 | Inpatient (IN) | payer OTHER ==
--- NOTE | 2020-07-18 14:05 | PDOC ---
History of Present Illness - General Chief Complaint: Altered Mental Status Stated Complaint: VOMITTING Time Seen by Provider: 07/18/20 13:14 - History of Present Illness Initial Comments: HPI Pt is a 69 yo F with PMH of liver cirrhosis (unknown etiology, dx 10/2019, s/p TIPS @ [facility]), HTN, and DM presenting with increased lethargy and possible increased confusion since the morning. Pt also reports mild epigastric pain with associated nausea and 1 episode of vomiting (non bloody) since the morning. Pt's ajjbdhng-pn-ent takes care of her and is at bedside; contributed to hx. Opoogtpm-og-ewo reports pt seemed confused this morning as she was trying to find the bathroom in the apartment and couldn't find it; pt reports that has poor vision (blurry vision x 2 years) and that she was not confused. Pt and oblkzwaw-bk-wmd both report increased lethargy and somnolence - which is not normal for her during the day. Pt was recently admitted for a similar but worse presentation from 06/19-06/21 and was discharged on lactulose 20 mg tid. Cuftnerg-ot-vke reports that they have been incrementally decreasing the daily dose of lactulose as it causes the pt to move her bowels very often. Lsmddvfc-fy-nae reports that they have been in touch with Dr. Alton Butt (her engineering technical specialist) regarding this for the most part. Pt was taking lactulose 20 mg daily as of two weeks ago and for the past week she has only been taking lactulose 10 mg daily. Pt denies chest pain, SOB, hematemesis, fevers, chills, weakness, and skin changes. PMHX: as in HPI; pt with ?ovarian neoplasm in chart - pt's daughter in law reports that there was concern for cancer but she has not been diagnosed and is not receiving any treatment for this currently. PSHX: see below Meds: Home Medications Medication Instructions Recorded Levothyroxine [Synthroid -] 50 mcg PO DAILY 05/16/20 Furosemide [Lasix -] 20 mg PO 1600 06/19/20 Furosemide [Lasix -] 40 mg PO 0800 06/19/20 Gabapentin [Neurontin] 100 mg PO TID 06/19/20 Glimepiride [Glimepiride -] 2 mg PO BID 06/19/20 Losartan Potassium 50 mg PO DAILY 06/19/20 Pantoprazole Sodium [Protonix -] 40 mg PO DAILY 06/19/20 Propranolol HCl 10 mg PO DAILY 06/19/20 Spironolactone [Aldactone -] 50 mg PO DAILY 06/19/20 Lactulose (Oral Use) [Cephulac -] 20 gm PO TID #90 udc 06/21/20 Social - Bjzgibqh-di-quu takes care of pt and helps her with some of her ADLs. Allergies: nkda Tob: denies Etoh: denies Rec drugs: denies PCP: Dr. Derek NUNO GENERAL/CONSTITUTIONAL: No fever or chills. No weakness. HEAD, EYES, EARS, NOSE AND THROAT: No change in vision. No ear pain or discharge. No sore throat. CARDIOVASCULAR: No chest pain or shortness of breath RESPIRATORY: No cough, wheezing, or hemoptysis. GASTROINTESTINAL: No diarrhea or constipation. +Nausea, vomiting, mild epigastric pain GENITOURINARY: No dysuria, frequency, or change in urination. MUSCULOSKELETAL: No joint or muscle swelling or pain. No neck or back pain. SKIN: No rash NEUROLOGIC: No headache, vertigo, loss of consciousness, or change in strength/sensation. + possible confusion; + lethargy, somnolence ENDOCRINE: No increased thirst. No abnormal weight change HEMATOLOGIC/LYMPHATIC: No anemia, easy bleeding, or history of blood clots. ALLERGIC/IMMUNOLOGIC: No hives or skin allergy. PE GENERAL: Awake, alert, A&Ox2-3, in no acute distress HEAD: No signs of trauma, normocephalic, atraumatic EYES: PERRLA, EOMI, sclera anicteric, conjunctiva clear ENT: Auricles normal inspection, hearing grossly normal, nares patent, oropharynx clear withoutexudates. Moist mucosa NECK: Normal ROM, supple, no lymphadenopathy, masses LUNGS: No distress, speaks full sentences, clear to auscultation bilaterally HEART: Regular rate and rhythm, normal S1 and S2, no murmurs, rubs or gallops, peripheral pulses normal and equal bilaterally. ABDOMEN: Soft distended with mild to moderate ascites (not increased from baseline according to ylewmjae-uh-ekz and with no recent increase), minimal tenderness to palpation of epigastric region, normoactive bowel sounds. No guarding, no rebound. No masses. No spider angiomas. EXTREMITIES : Normal inspection, Normal range of motion, no edema. No clubbing or cyanosis. NEUROLOGICAL: Cranial nerves II through XII grossly intact. Normal speech, no focal sensorimotor deficits. Pt with mild asterixis in LUE. SKIN: Warm, Dry, normal turgor, no rashes or lesions noted. No increased jaundice appreciated 07/18/20 14:07 Past History - Medical History Allergies/Adverse Reactions: Allergies Allergy/AdvReac Type Severity Reaction Status Date / Time No Known Allergies Allergy Verified 07/18/20 13:07 Home Medications: Ambulatory Orders Levothyroxine [Synthroid -] 50 mcg PO DAILY 05/16/20 Furosemide [Lasix -] 20 mg PO 0806/19/20 Glimepiride [Glimepiride -] 2 mg PO BID 06/19/20 Spironolactone [Aldactone -] 25 mg PO DAILY 06/19/20 Ciprofloxacin [Cipro (Restricted To Id)] 250 mg PO DAILY 07/18/20 Lactulose (Oral Use) [Cephulac -] 30 ml PO TID 07/18/20 Omeprazole 40 mg PO DAILY 07/18/20 Anemia: No Asthma: No Cancer: No Cardiac Disorders: No CVA: No COPD: No CHF: No Dementia: No Diabetes: Yes GI Disorders: No Disorders: No HTN: Yes Hypercholesterolemia: No Liver Disease: No Seizures: No Thyroid Disease: No - Surgical History Abdominal Surgery: No Appendectomy: No Cardiac Surgery: No Cholecystectomy: No Lung Surgery: No Neurologic Surgery: No Orthopedic Surgery: No - Immunization History Immunization Up to Date: No - Psycho-Social/Smoking History Smoking History: Never smoked Have you smoked in the past 12 months: No - Substance Abuse Hx (Audit-C & DAST Scrn) How often the patient has a drink containing alcohol: Never Score: In Men: 4 or > Positive; In Women: 3 or > Positive: 0 Screen Result (Pos requires Nsg. Audit-10AR): Negative In the last yr the pt used illegal drug/Rx for NonMed reason: No Score: Yes response is considered Positive: 0 Screen Result (Positive result requires Nsg. DAST-10): Negative *Physical Exam - Vital Signs Last Vital Signs Temp Pulse Resp BP Pulse Ox 98.3 F 60 20 123/53 L 100 07/18/20 13:07 07/18/20 13:07 07/18/20 13:07 07/18/20 13:07 07/18/20 13:07 ED Treatment Course - LABORATORY CBC & Chemistry Diagram: 07/18/20 13:45 07/18/20 13:45 Medical Decision Making - Medical Decision Making MDM Pt is a 69 yo F with PMH of liver cirrhosis (unknown etiology, dx 10/2019, s/p TIPS @ [facility]), HTN, and DM presenting with increased lethargy and possible increased confusion since the morning. Pt also reports mild epigastric pain with associated nausea and 1 episode of vomiting (non bloody) since the morning. DDX including but not limited to: acute hepatic encephalopathy (likely), hypoglycemia/hyperglycemia, electrolyte abnormalities W/U: -CBC, CMP, ammonia, lipase -EKG TX: - IV zofran - IV pepcid - IV protonix - 1 L NS bolus 07/18/20 14:32 EKG with sinus bradycardia (50 bpm), NSR, [place] interval 176, QRS 88, QT/QTc 452/412 Labs significant for ammonia elevated (85.3); elevated LFTs - Will give dose of PO lactulose 20 mg - Will admit 07/18/20 15:04 Discharge - Discharge Information Problems reviewed: Yes Clinical Impression/Diagnosis: Hepatic encephalopathy Condition: Fair - Admission Yes - Follow up/Referral - Patient Discharge Instructions - Post Discharge Activity
[2020-07-18] MEDS ORDERED: ONDANSETRON 4 MG/2 ML VIAL IVPUSH ONE (14:06)
[2020-07-18] MEDS ORDERED: FAMOTIDINE 20 MG/50 ML IVPB 20 MG/50 ML MG IVPB ONE ×2 (14:06→14:10)
[2020-07-18] MEDS ORDERED: SODIUM CHLORIDE 1,000 ML IV STA (14:06)
[2020-07-18 14:37] LABS: BASO % 0.1 % (0-2.0); EOS % 2.4 % (0-4.5); HEMATOCRIT 36.5 % (32.4-45.2); HEMOGLOBIN 12.2 GM/dL (10.7-15.3); MCH 33.1 pg (25.7-33.7); MCHC 33.4 g/dl (32.0-36.0); MEAN CELL VOLUME 99.2 fl (80-96); MEAN PLT VOLUME 8.3 fl (7.5-11.1); MONO % 12.3 % (3.8-10.2); NEUT % 55.2 % (42.8-82.8); PLATELET COUNT 118 K/MM3 (134-434); RBC 3.68 M/mm3 (3.60-5.2); RDW 13.7 % (11.6-15.6); WHITE BLOOD COUNT 6.7 K/mm3 (4.0-10.0)
[2020-07-18 14:57] LABS: ALBUMIN 2.9 g/dl (3.4-5.0); BILIRUBIN,TOTAL 1.2 mg/dL (0.2-1); BLOOD UREA NITROGEN 19.8 mg/dL (7-18); CALCIUM 8.8 mg/dL (8.5-10.1); CREATININE 1.1 mg/dL (0.55-1.3); POTASSIUM 4.8 mmol/L (3.5-5.1)
--- NOTE | 2020-07-18 14:58 | PDOC ---
Attending Attestation - Resident Resident Name: Teresa Kelley - ED Attending Attestation I have performed the following: I have examined & evaluated the patient, The case was reviewed & discussed with the resident, I agree w/resident's findings & plan - HPI HPI: 07/18/20 14:55 Pt is a 69 yo F with PMH of liver cirrhosis (unknown etiology, dx 10/2019, s/p TIPS @ [facility]), HTN, and DM presenting with increased lethargy and possible increased confusion since the morning. Pt also reports mild epigastric pain with associated nausea and 1 episode of vomiting (non bloody) since the morning. Pt's xmgjufzv-mu-ihp takes care of her and is at bedside; contributed to hx. Bpeqhqsr-xn-dtu reports pt seemed confused this morning as she was trying to find the bathroom in the apartment and couldn't find it; pt reports that has poor vision (blurry vision x 2 years) and that she was not confused. Pt and elrsyilz-zg-ext both report increased lethargy and somnolence - which is not normal for her during the day. Pt was recently admitted for a similar but worse presentation from 06/19-06/21 and was discharged on lactulose 20 mg tid. Mfjailih-mw-rzw reports that they have been incrementally decreasing the daily dose of lactulose as it causes the pt to move her bowels very often. Zjjdexbk-yy-mvd reports that they have been in touch with Dr. Alton Butt (her taxicab dispatcher) regarding this for the most part. Pt was taking lactulose 20 mg daily as of two weeks ago and for the past week she has only been taking lactulose 10 mg daily. Pt denies chest pain, SOB, hematemesis, fevers, chills, weakness, and skin changes. - Physicial Exam PE: 07/18/20 14:55 Agree with the resident's HPI and PE as documented in the electronic medical record. NAD, oriented x 2, alert, awake, EOMI, PERRL, pale conjunctiva, anicteric; neck supple. lungs clear, RRR, abdomen soft nontender. obese. No rebound, no guarding. Back nontender. WYATT x4, no focal neuro deficits. No peripheral edema. normal color for ethnicity, WWP. 07/18/20 15:10 - Medical Decision Making 07/18/20 14:55 Vital Signs Temp Pulse Resp BP Pulse Ox 98.3 F 60 20 123/53 L 100 07/18/20 13:07 07/18/20 13:07 07/18/20 13:07 07/18/20 13:07 07/18/20 13:07 vitals reviewed wnl. labs and lytes unremarkable mild elevation in LFTs, also elevated ammonia level guillermo with hepatic encephalopathy as etiology for AMS neg trop, EKG is unremarakble. lactulose admit for hepatic encephalopathy 07/18/20 15:11 07/18/20 15:25 Heart Score/ECG Review #1 ECG reviewed & interpreted by me at: 14:55 General ECG Interpretation: Sinus Rhythm, Normal Rate, Normal Intervals 07/18/20 15:26 EKG sinus bradycardia 50bpm, no interval abnormalities, narrow QRS, ST and T wave segments and morphology normal. Discharge - Discharge Information Problems reviewed: Yes Clinical Impression/Diagnosis: Hepatic encephalopathy Condition: Fair - Admission Yes - Follow up/Referral Referrals: Aida Hebert MD [Primary Care Provider] - - Patient Discharge Instructions - Post Discharge Activity
[2020-07-18] MEDS ORDERED: PANTOPRAZOLE SODIUM 40 MG VIAL IVPUSH ONE (15:01)
[2020-07-18] MEDS ORDERED: LACTULOSE 20 GM/30 ML UDC (FOR ORAL USE ONLY) PO ONE (15:01)
[2020-07-18] MEDS ORDERED: PANTOPRAZOLE SODIUM 40 MG/100 ML BAG IVPB ONE (15:28)
[2020-07-18] MEDS ORDERED: LACTULOSE 20 GM/30 ML UDC (FOR ORAL USE ONLY) ONE (15:28)
--- NOTE | 2020-07-18 16:33 | HP ---
CHIEF COMPLAINT:AMS PCP: dr lam HISTORY OF PRESENT ILLNESS: 69 y.o female with PMH PMH of liver cirrhosis (unknown etiology, dx 10/2019, s/p TIPS @ [facility]), HTN, Hypothyroidism, and DM presenting with increased lethargy and increased confusion since the morning. As per patients qlrkvksx-aa-zat she realized that her mother in law was not acting like herself this AM; she could not remember where the bathroom was her daughter-inlaw states that she the patient had a somewhat blank look in her eyes, like she couldn't remember who she was speaking to. As per the daughter in law, they went to her pump house engineer dr lam last friday and some chanegs were made to her medications (they had been titrating down her lactulose dose to once a dose from three times day because she was using the bathroom too frequently) today she only had around 20ml of lactulose adn vomited right after tkaing it; patient also complains of mild epigastric pain- both patient and family deny any recent travel or sick contacts ER course was notable for: (1)HR 60; normotensive EKG; since virginie at 55 (2)normal cbc; Cr 1.1 T monico 1.2 ammonia 85 AST 49 ALT 77 ALk phos 217 (3)given lactulose; famotidine Recent Travel: denies PAST MEDICAL HISTORY: see above PAST SURGICAL HISTORY: hernia repair; hysterectomy Social History: Smoking:denies Alcohol:denies Drugs: denies Allergies No Known Allergies Allergy (Verified 07/18/20 13:07) HOME MEDICATIONS: Home Medications Medication Instructions Recorded Levothyroxine [Synthroid -] 50 mcg PO DAILY 05/16/20 Furosemide [Lasix -] 20 mg PO 0800 06/19/20 Glimepiride [Glimepiride -] 2 mg PO BID 06/19/20 Spironolactone [Aldactone -] 25 mg PO DAILY 06/19/20 Ciprofloxacin [Cipro (Restricted 250 mg PO DAILY 07/18/20 To Id)] Lactulose (Oral Use) [Cephulac -] 30 ml PO TID 07/18/20 Omeprazole 40 mg PO DAILY 07/18/20 REVIEW OF SYSTEMS CONSTITUTIONAL: Absent: fever, chills, diaphoresis, generalized weakness, malaise, loss of appetite, weight change HEENT: Absent: rhinorrhea, nasal congestion, throat pain, throat swelling, difficulty swallowing, mouth swelling, ear pain, eye pain, visual changes CARDIOVASCULAR: Absent: chest pain, syncope, palpitations, irregular heart rate, lightheadedness, peripheral edema RESPIRATORY: Absent: cough, shortness of breath, dyspnea with exertion, orthopnea, wheezing, stridor, hemoptysis GASTROINTESTINAL: Preset: epigastric pain Absent: abdominal pain, abdominal distension, nausea, vomiting, diarrhea, constipation, melena, hematochezia GENITOURINARY: Absent: dysuria, frequency, urgency, hesitancy, hematuria, flank pain, genital pain MUSCULOSKELETAL: Absent: myalgia, arthralgia, joint swelling, back pain, neck pain SKIN: Absent: rash, itching, pallor HEMATOLOGIC/IMMUNOLOGIC: Absent: easy bleeding, easy bruising, lymphadenopathy, frequent infections ENDOCRINE: Absent: unexplained weight gain, unexplained weight loss, heat intolerance, cold intolerance NEUROLOGIC: Absent: headache, focal weakness or paresthesias, dizziness, unsteady gait, seizure, mental status changes, bladder or bowel incontinence PSYCHIATRIC: Absent: anxiety, depression, suicidal or homicidal ideation, hallucinations. PHYSICAL EXAMINATION Vital Signs - 24 hr 07/18/20 13:07 Temperature 98.3 F Pulse Rate 60 Respiratory 20 Rate Blood Pressure 123/53 L O2 Sat by Pulse 100 Oximetry (%) GENERAL: Awake, alert, oriented to self and place not time EYES: PEERLA: EOMI: no scleral icterus NECK:no JVD; no lymphadenopathy LUNGS: CTA B/L no rales, rhoncihi or wheezing HEART: RRR, normal S1 and S2 without murmur, rub or gallop. ABDOMEN: Soft, NT ND +BBS in all 4 quadrants MUSCULOSKELETAL: Normal range of motion at all joints. No bony deformities or tenderness. No CVA tenderness. EXTREMITIES: warn; well-perfused no clubbing/cyanosis or edema PSYCHIATRIC: Cooperative. Good eye contact. Appropriate mood and affect. SKIN: Warm, dry, normal turgor, no rashes or lesions noted, normal capillary refill. Laboratory Results - last 24 hr 07/18/20 07/18/20 07/18/20 13:45 13:45 13:45 WBC 6.7 RBC 3.68 Hgb 12.2 Hct 36.5 MCV 99.2 H MCH 33.1 MCHC 33.4 RDW 13.7 Plt Count 118 L MPV 8.3 Absolute Neuts (auto) 3.7 Neutrophils % 55.2 D Lymphocytes % 30.0 D Monocytes % 12.3 H Eosinophils % 2.4 Basophils % 0.1 Nucleated RBC % 0 Sodium 139 Potassium 4.8 Chloride 109 H Carbon Dioxide 26 Anion Gap 4 L BUN 19.8 H Creatinine 1.1 Est GFR (CKD-EPI)AfAm 58.50 Est GFR (CKD-EPI)NonAf 50.47 Random Glucose 134 H Calcium 8.8 Total Bilirubin 1.2 H AST 49 H ALT 77 H Alkaline Phosphatase 217 H Ammonia 85.30 H Creatine Kinase Troponin I Total Protein 7.0 Albumin 2.9 L Lipase 121 07/18/20 13:45 WBC RBC Hgb Hct MCV MCH MCHC RDW Plt Count MPV Absolute Neuts (auto) Neutrophils % Lymphocytes % Monocytes % Eosinophils % Basophils % Nucleated RBC % Sodium Potassium Chloride Carbon Dioxide Anion Gap BUN Creatinine Est GFR (CKD-EPI)AfAm Est GFR (CKD-EPI)NonAf Random Glucose Calcium Total Bilirubin AST ALT Alkaline Phosphatase Ammonia Creatine Kinase 28 Troponin I < 0.02 Total Protein Albumin Lipase ASSESSMENT/PLAN: 69 y.o female with PMH PMH of liver cirrhosis (unknown etiology, dx 10/2019, s/p TIPS @ [facility]), HTN, Hypothyroidism, and DM presenting with increased lethargy and increased confusion since the morning. #AMS 2/2 hepatic ecephalopathy Ammonia 85 on arrival -GI consult -will uptitrate lactulsoe to 20 BID; goal is 3-4 BMs per day -spironolactone 25 daily -SBP prophylxis -RUQ US given elevation in LFTS from previous visit -lasix #DM holding home meds -ISS ACHS -BGMS ACHS #Hypothyrodisim c/w synthroid #HTN -c/w home meds f/e/n not on standing fluids monitor electrolytes soidum diet dvt ppx: scds Family Medical History Family History: Denies Problem List - Problem (1) Hepatic encephalopathy Code(s): K72.90 - HEPATIC FAILURE, UNSPECIFIED WITHOUT COMA (2) Cirrhosis Code(s): K74.60 - UNSPECIFIED CIRRHOSIS OF LIVER Qualifiers: Hepatic cirrhosis type: unspecified hepatic cirrhosis Ascites presence: unspecified Qualified Code(s): K74.60 - Unspecified cirrhosis of liver (3) Diabetes mellitus Code(s): E11.9 - TYPE 2 DIABETES MELLITUS WITHOUT COMPLICATIONS (4) HTN (hypertension) Code(s): I10 - ESSENTIAL (PRIMARY) HYPERTENSION Visit type - Medication Review Med list reviewed for High Risk Meds patients 65 and older: Yes - Emergency Visit Emergency Visit: Yes ED Registration Date: 07/18/20 Care time: The patient presented to the Emergency Department on the above date and was hospitalized for further evaluation of their emergent condition. - New Patient This patient is new to me today: Yes Date on this admission: 07/18/20 - Critical Care Critical Care patient: No ATTENDING PHYSICIAN STATEMENT I saw and evaluated the patient. I reviewed the resident's note and discussed the case with the resident. I agree with the resident's findings and plan as documented. SUBJECTIVE: OBJECTIVE: ASSESSMENT AND PLAN:
[2020-07-18 17:00] LABS: PH,URINE 7.5 (5.0-8.0); URINE APPEARANCE CLEAR; URINE BILIRUBIN NEGATIVE (NEGATIVE); URINE COLOR YELLOW; URINE GLUCOSE (UA) NEGATIVE (NEGATIVE); URINE KETONE NEGATIVE (NEGATIVE); URINE LEUK ESTERASE NEGATIVE (NEGATIVE); URINE NITRITE NEGATIVE (NEGATIVE); URINE PROTEIN NEGATIVE (NEGATIVE); URINE UROBILINOGEN 0.2 mg/dL (0.2-1.0)
--- NOTE | 2020-07-18 18:29 | PN ---
Teaching Attending Note Name of Resident: Cristina Foreman ATTENDING PHYSICIAN STATEMENT I saw and evaluated the patient. I reviewed the resident's note and discussed the case with the resident. I agree with the resident's findings and plan as documented. SUBJECTIVE: PAtient seen and examined at bedside, admitted for AMS attributed to hepatic encephalopathy v.s. hypoglycemia from glimepiride. Improved after fluids, BM. VSS. OBJECTIVE: GA comfortable, AAox3, speaking in full sentences, slightly tired appearing, daughter at bedside HEENT NC/AT, no scleral icterus, neck supple, dry MM, EOMI Chest CTAB, no crackles, faint end-expiratory wheezing CVS S1, S2+, soft SUMIT+ Abd obese, soft, no fluid wave, no shifting dullness, NTTP Ext no LE edema, no calf tenderness, moves all 4 ext. Vital Signs - 24 hr 07/18/20 07/18/20 13:07 20:03 Temperature 98.3 F Pulse Rate 60 Pulse Rate [ 52 L Radial] Respiratory 20 22 H Rate Blood Pressure 123/53 L Blood Pressure 115/63 [Left Arm] O2 Sat by Pulse 100 100 Oximetry (%) Laboratory Results - last 24 hr 07/18/20 07/18/20 07/18/20 13:45 13:45 13:45 WBC 6.7 RBC 3.68 Hgb 12.2 Hct 36.5 MCV 99.2 H MCH 33.1 MCHC 33.4 RDW 13.7 Plt Count 118 L MPV 8.3 Absolute Neuts (auto) 3.7 Neutrophils % 55.2 D Lymphocytes % 30.0 D Monocytes % 12.3 H Eosinophils % 2.4 Basophils % 0.1 Nucleated RBC % 0 PT with INR INR PTT (Actin FS) Sodium 139 Potassium 4.8 Chloride 109 H Carbon Dioxide 26 Anion Gap 4 L BUN 19.8 H Creatinine 1.1 Est GFR (CKD-EPI)AfAm 58.50 Est GFR (CKD-EPI)NonAf 50.47 Random Glucose 134 H Calcium 8.8 Total Bilirubin 1.2 H AST 49 H ALT 77 H Alkaline Phosphatase 217 H Ammonia 85.30 H Creatine Kinase Troponin I Total Protein 7.0 Albumin 2.9 L Lipase 121 Urine Color Urine Appearance Urine pH Ur Specific [place] Urine Protein Urine Glucose (UA) Urine Ketones Urine Blood Urine Nitrite Urine Bilirubin Urine Urobilinogen Ur Leukocyte Esterase 0907/18/20 07/18/20 13:45 14:25 20:40 WBC RBC Hgb Hct MCV MCH MCHC RDW Plt Count MPV Absolute Neuts (auto) Neutrophils % Lymphocytes % Monocytes % Eosinophils % Basophils % Nucleated RBC % PT with INR 15.10 H INR 1.28 H PTT (Actin FS) 30.7 Sodium Potassium Chloride Carbon Dioxide Anion Gap BUN Creatinine Est GFR (CKD-EPI)AfAm Est GFR (CKD-EPI)NonAf Random Glucose Calcium Total Bilirubin AST ALT Alkaline Phosphatase Ammonia Creatine Kinase 28 Troponin I < 0.02 Total Protein Albumin Lipase Urine Color Yellow Urine Appearance Clear Urine pH 7.5 Ur Specific [place] 1.008 L Urine Protein Negative Urine Glucose (UA) Negative Urine Ketones Negative Urine Blood Negative Urine Nitrite Negative Urine Bilirubin Negative Urine Urobilinogen 0.2 Ur Leukocyte Esterase Negative Home Medications Medication Instructions Recorded Levothyroxine [Synthroid -] 50 mcg PO DAILY 05/16/20 Furosemide [Lasix -] 20 mg PO 0800 06/19/20 Glimepiride [Glimepiride -] 2 mg PO BID 06/19/20 Spironolactone [Aldactone -] 25 mg PO DAILY 06/19/20 Ciprofloxacin [Cipro (Restricted 250 mg PO DAILY 07/18/20 To Id)] Lactulose (Oral Use) [Cephulac -] 30 ml PO TID 07/18/20 Omeprazole 40 mg PO DAILY 07/18/20 Current Medications Generic Name Dose Route Start Last Admin Trade Name Freq PRN Reason Stop Dose Admin Furosemide 20 mg 07/19/20 08:00 Lasix - PO 0800 [facility] Insulin Aspart 1 vial 07/18/20 16:30 Novolog Vial Sliding Scale - SQ ACHS [facility] Protocol Lactulose 20 gm 07/18/20 22:00 Cephulac (Oral Use) PO BID [facility] Levothyroxine Sodium 50 mcg 07/19/20 07:00 Synthroid - PO DAILY@0700 [facility] Pantoprazole Sodium 40 mg 07/19/20 10:00 Protonix - PO DAILY [facility] Spironolactone 25 mg 07/19/20 10:00 Aldactone - PO DAILY [facility] ASSESSMENT AND PLAN: 69 F Hepatic encephalopathy r/o hypoglycemic episodes d/t polypharmacy HTN HLD Hypothyroidism 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 Lasix/Aldactone No appreciated abd. pain, low suspicion for SBP, Ceftriaxone for SBP ppx GI evaluation Obtain CT head if MS worsens DVt ppx: SCD
[2020-07-18 21:14] LABS: INR 1.28 (0.83-1.09); PROTHROMBIN TIME (PATIENT) 15.1 SEC (9.7-13.0)
[2020-07-18 21:17] LABS: ACTIVATED PTT 30.7 SECONDS (25.2-36.5)
[2020-07-18] MEDS ORDERED: LACTULOSE 20 GM/30 ML UDC (FOR ORAL USE ONLY) PO SCH (22:00)
[2020-07-18] MEDS: LACTULOSE 20 GM/30 ML UDC (FOR ORAL USE ONLY) PO SCH (23:30)
[2020-07-19] MEDS: INSULIN SLIDING SCALE (NOVOLOG) 1 VIAL SQ SCH ×6 (02:55→22:03)
[2020-07-19] MEDS ORDERED: LACTULOSE 20 GM/30 ML UDC (FOR ORAL USE ONLY) ONE ×2 (04:06→09:11)
--- NOTE | 2020-07-19 05:59 | PN.GI ---
GI Progress Note Subjective: NO NEW COMPLAINTS FEELING BETTER - DAUGHTER AT THE BEDSIDE - Objective Vital Signs: Vital Signs Temperature 98.2 F 07/19/20 04:23 Pulse Rate 55 L 07/19/20 04:23 Respiratory Rate 13 07/19/20 04:23 Blood Pressure 99/54 L 07/19/20 04:23 O2 Sat by Pulse Oximetry (%) 97 07/19/20 04:23 Constitutional: Well Nourished, No Distress Eyes: Yes: WNL HENT: Yes: WNL Neck: Yes: WNL Gastrointestinal Inspection: Yes: WNL ...Auscultate: Yes: Other (NOT TENDER) Edema: No Labs: CBC, BMP 07/18/20 13:45 07/18/20 13:45 INR, PTT INR 1.28 (0.83-1.09) H 07/18/20 20:40 Problem List - Problems (1) Hepatic encephalopathy Assessment/Plan: C/W RIFAXIMIN 550 MG PO BID AND LACTULOSE TITRATE TO 3 - 4 BM'S DAILY PANCULTURE R/O INFECTIOUS PROCESS CONTRIBUTING TO HER PRESENT ENCEPHELOPATHY AVOID SEDATIVES / NSAID 2GM SODIUM DIET Code(s): K72.90 - HEPATIC FAILURE, UNSPECIFIED WITHOUT COMA (2) Cirrhosis Code(s): K74.60 - UNSPECIFIED CIRRHOSIS OF LIVER Qualifiers: Hepatic cirrhosis type: unspecified hepatic cirrhosis Ascites presence: unspecified Qualified Code(s): K74.60 - Unspecified cirrhosis of liver (3) Altered mental state Code(s): R41.82 - ALTERED MENTAL STATUS, UNSPECIFIED (4) Ascites Code(s): R18.8 - OTHER ASCITES Qualifiers: Ascites type: other type Qualified Code(s): R18.8 - Other ascites
[2020-07-19] MEDS ORDERED: LEVOTHYROXINE NA 25 MCG TABLET (FP) ONE (06:24)
[2020-07-19] MEDS: LEVOTHYROXINE NA 50 MCG TABLET (FP) PO SCH (06:40)
[2020-07-19 07:24] LABS: BASO % 0.6 % (0-2.0); EOS % 3.2 % (0-4.5); HEMATOCRIT 34.3 % (32.4-45.2); HEMOGLOBIN 11.4 GM/dL (10.7-15.3); LYMPH % 42.1 % (8-40); MCH 33.2 pg (25.7-33.7); MCHC 33.4 g/dl (32.0-36.0); MEAN CELL VOLUME 99.6 fl (80-96); MEAN PLT VOLUME 8.3 fl (7.5-11.1); MONO % 16.8 % (3.8-10.2); NEUT % 37.3 % (42.8-82.8); PLATELET COUNT 104 K/MM3 (134-434); RBC 3.44 M/mm3 (3.60-5.2); RDW 13.7 % (11.6-15.6); WHITE BLOOD COUNT 6.3 K/mm3 (4.0-10.0)
[2020-07-19 07:37] LABS: INR 1.28 (0.83-1.09); PROTHROMBIN TIME (PATIENT) 15.1 SEC (9.7-13.0)
[2020-07-19 07:54] LABS: ALBUMIN 2.7 g/dl (3.4-5.0); BILIRUBIN,TOTAL 1.2 mg/dL (0.2-1); BLOOD UREA NITROGEN 16.1 mg/dL (7-18); CALCIUM 8.7 mg/dL (8.5-10.1); MAGNESIUM 2.1 mg/dL (1.8-2.4); PHOSPHOROUS 3.3 mg/dL (2.5-4.9); POTASSIUM 4.2 mmol/L (3.5-5.1); TOT PROT 6.4 g/dl (6.4-8.2)
[2020-07-19] MEDS ORDERED: FUROSEMIDE 40 MG TABLET (FP) ONE (08:02)
[2020-07-19] MEDS: FUROSEMIDE 20 MG TABLET (FP) PO SCH (08:06)
[2020-07-19] MEDS ORDERED: SPIRONOLACTONE 25 MG TABLET ONE (09:11)
[2020-07-19] MEDS ORDERED: PANTOPRAZOLE 40 MG TABLET ONE (09:11)
[2020-07-19] MEDS: SPIRONOLACTONE 25 MG TABLET PO SCH (09:20)
[2020-07-19] MEDS: PANTOPRAZOLE 40 MG TABLET PO SCH (09:21)
[2020-07-19] MEDS: LACTULOSE 20 GM/30 ML UDC (FOR ORAL USE ONLY) PO SCH ×2 (09:21→21:56)
[2020-07-19] MEDS ORDERED: ENOXAPARIN NA (PORCINE) 40 MG/0.4 ML DISP.SYRIN SQ SCH (10:00)
--- NOTE | 2020-07-19 11:35 | PN ---
Teaching Attending Note Name of Resident: Manjinder Prieto ATTENDING PHYSICIAN STATEMENT I saw and evaluated the patient. I reviewed the resident's note and discussed the case with the resident. I agree with the resident's findings and plan as documented. SUBJECTIVE: Seen and examined at bedside. Patient is alert and oriented x3 and interactive. Denies abdominal pain. States nausea and vomiting has resolved. Ammonia level decreased to mid 50s from mid 80s since admission. OBJECTIVE Last Vital Signs Temp Pulse Resp BP Pulse Ox 98.1 F 60 18 111/69 99 07/19/20 06:00 07/19/20 11:15 07/19/20 11:15 07/19/20 11:15 07/19/20 11:15 PE: Per resident note Labs/Imaging: reviewed ASSESSMENT/PLAN 69-year-old female past medical history of hepatic cirrhosis status post TIPS, hypertension, hypothyroidism, diabetes presents with increased lethargy and confusion #Hepatic encephalopathy: Now at baseline mental status Ammonia 85 on arrival, in setting of decreasing lactulose dosing due to too many bowel movements Currently on lactulose 20 mg twice daily, titrate to 3-4 bowel movements daily We will discuss with sharepoint web developer about potentially switching to rifaximin given difficulty in dosing lactulose No concern for SBP at this time given resolved mental status, lack of white count or fever #Diabetes mellitus with hypoglycemia Recommend discontinuing sulfonylurea given age Sliding scale #Cirrhosis Restart ciprofloxacin prophylaxis Confirm dosing of 25 mg spironolactone and 40 mg Lasix, as this is not usual cirrhosis dosing We will discuss dosing with patient's sharepoint web developer #Hypothyroidism Continue levothyroxine
[2020-07-19] MEDS: RIFAXIMIN 550 MG TABLET (UD) PO SCH ×2 (12:37→21:56)
--- NOTE | 2020-07-19 13:13 | PN ---
Physical Exam: SUBJECTIVE: Patient seen and examined at bedside. Denies any abdominal pain, and tolerating oral intake without nausea, or vomiting. Deneis subjective fevers, chills. Endorses that she feels significantly more awake, alert today. OBJECTIVE: Vital Signs Period Temp Pulse Resp BP Sys/Ramos Pulse Ox Last 24 Hr 98.1 F-98.3 F 52-60 13-22 99-123/53-69 97-100 GENERAL: The patient is awake, alert, and fully oriented, in no acute distress. HEAD: Normocephalic, atraumatic. EYES: PERRL, extraocular movements intact, sclera anicteric, conjunctiva clear. ENT: Oropharynx clear, without erythema or exudates. Moist mucous membranes. NECK: Trachea midline, full range of motion. Supple without lymphadenopathy. LUNGS: Breath sounds equal, clear to auscultation bilaterally. No wheezes, no crackles. No accessory muscle use. HEART: Regular rate and rhythm. S1, S2 without murmur, rub or gallop. ABDOMEN: Obese abdomen. Soft, nondistended, nontender to light and deep palpation x4 quadrants. No rebound tenderness, no guarding. Normoactive bowel sounds x4 quadrants. Hepatomegaly palpated 2cm below right costal margin. Slight ascitic fluid wave appreciated. EXTREMITIES: 2+ radial, dorsalis pedis pulses bilaterally. Warm, well-perfused. No lower extremity edema bilaterally. NEUROLOGICAL: Cranial nerves II through XII grossly intact. Normal speech. No gross focal deficits. PSYCH: Normal mood, normal affect upon my encounter. SKIN: Warm, dry. Abdominal scar noted well healed. Laboratory Results - last 24 hr 07/18/20 07/18/20 07/18/20 13:45 13:45 13:45 WBC 6.7 RBC 3.68 Hgb 12.2 Hct 36.5 MCV 99.2 H MCH 33.1 MCHC 33.4 RDW 13.7 Plt Count 118 L MPV 8.3 Absolute Neuts (auto) 3.7 Neutrophils % 55.2 D Lymphocytes % 30.0 D Monocytes % 12.3 H Eosinophils % 2.4 Basophils % 0.1 Nucleated RBC % 0 PT with INR INR PTT (Actin FS) Sodium 139 Potassium 4.8 Chloride 109 H Carbon Dioxide 26 Anion Gap 4 L BUN 19.8 H Creatinine 1.1 Est GFR (CKD-EPI)AfAm 58.50 Est GFR (CKD-EPI)NonAf 50.47 POC Glucometer Random Glucose 134 H Hemoglobin A1c % Calcium 8.8 Phosphorus Magnesium Total Bilirubin 1.2 H AST 49 H ALT 77 H Alkaline Phosphatase 217 H Ammonia 85.30 H Creatine Kinase Troponin I Total Protein 7.0 Albumin 2.9 L Lipase 121 TSH Urine Color Urine Appearance Urine pH Ur Specific [place] Urine Protein Urine Glucose (UA) Urine Ketones Urine Blood Urine Nitrite Urine Bilirubin Urine Urobilinogen Ur Leukocyte Esterase 07/18/20 07/18/20 07/18/20 13:45 14:25 20:40 WBC RBC Hgb Hct MCV MCH MCHC RDW Plt Count MPV Absolute Neuts (auto) Neutrophils % Lymphocytes % Monocytes % Eosinophils % Basophils % Nucleated RBC % PT with INR 15.10 H INR 1.28 H PTT (Actin FS) 30.7 Sodium Potassium Chloride Carbon Dioxide Anion Gap BUN Creatinine Est GFR (CKD-EPI)AfAm Est GFR (CKD-EPI)NonAf POC Glucometer Random Glucose Hemoglobin A1c % Calcium Phosphorus Magnesium Total Bilirubin AST ALT Alkaline Phosphatase Ammonia Creatine Kinase 28 Troponin I < 0.02 Total Protein Albumin Lipase TSH Urine Color Yellow Urine Appearance Clear Urine pH 7.5 Ur Specific [place] 1.008 L Urine Protein Negative Urine Glucose (UA) Negative Urine Ketones Negative Urine Blood Negative Urine Nitrite Negative Urine Bilirubin Negative Urine Urobilinogen 0.2 Ur Leukocyte Esterase Negative 07/19/20 07/19/20 07/19/20 00:16 02:16 06:28 WBC RBC Hgb Hct MCV MCH MCHC RDW Plt Count MPV Absolute Neuts (auto) Neutrophils % Lymphocytes % Monocytes % Eosinophils % Basophils % Nucleated RBC % PT with INR INR PTT (Actin FS) Sodium Potassium Chloride Carbon Dioxide Anion Gap BUN Creatinine Est GFR (CKD-EPI)AfAm Est GFR (CKD-EPI)NonAf POC Glucometer 54 102 72 Random Glucose Hemoglobin A1c % Calcium Phosphorus Magnesium Total Bilirubin AST ALT Alkaline Phosphatase Ammonia Creatine Kinase Troponin I Total Protein Albumin Lipase TSH Urine Color Urine Appearance Urine pH Ur Specific [place] Urine Protein Urine Glucose (UA) Urine Ketones Urine Blood Urine Nitrite Urine Bilirubin Urine Urobilinogen Ur Leukocyte Esterase 07/19/20 07/19/20 07/19/20 06:43 06:43 06:43 WBC 6.3 RBC 3.44 L Hgb 11.4 Hct 34.3 MCV 99.6 H MCH 33.2 MCHC 33.4 RDW 13.7 Plt Count 104 L MPV 8.3 Absolute Neuts (auto) 2.3 Neutrophils % 37.3 L D Lymphocytes % 42.1 H D Monocytes % 16.8 H Eosinophils % 3.2 Basophils % 0.6 D Nucleated RBC % 0 PT with INR 15.10 H INR 1.28 H PTT (Actin FS) 32.0 Sodium 143 Potassium 4.2 Chloride 113 H Carbon Dioxide 22 Anion Gap 8 BUN 16.1 Creatinine 1.0 Est GFR (CKD-EPI)AfAm 65.64 Est GFR (CKD-EPI)NonAf 56.64 POC Glucometer Random Glucose 83 Hemoglobin A1c % Calcium 8.7 Phosphorus 3.3 Magnesium 2.1 Total Bilirubin 1.2 H AST 44 H ALT 70 H Alkaline Phosphatase 171 H Ammonia Creatine Kinase Troponin I Total Protein 6.4 Albumin 2.7 L Lipase TSH 3.08 Urine Color Urine Appearance Urine pH Ur Specific [place] Urine Protein Urine Glucose (UA) Urine Ketones Urine Blood Urine Nitrite Urine Bilirubin Urine Urobilinogen Ur Leukocyte Esterase 07/19/20 07/19/20 07/19/20 06:43 07:34 10:12 WBC RBC Hgb Hct MCV MCH MCHC RDW Plt Count MPV Absolute Neuts (auto) Neutrophils % Lymphocytes % Monocytes % Eosinophils % Basophils % Nucleated RBC % PT with INR INR PTT (Actin FS) Sodium Potassium Chloride Carbon Dioxide Anion Gap BUN Creatinine Est GFR (CKD-EPI)AfAm Est GFR (CKD-EPI)NonAf POC Glucometer 85 Random Glucose Hemoglobin A1c % 5.9 Calcium Phosphorus Magnesium Total Bilirubin AST ALT Alkaline Phosphatase Ammonia 53.10 H Creatine Kinase Troponin I Total Protein Albumin Lipase TSH Urine Color Urine Appearance Urine pH Ur Specific [place] Urine Protein Urine Glucose (UA) Urine Ketones Urine Blood Urine Nitrite Urine Bilirubin Urine Urobilinogen Ur Leukocyte Esterase 07/19/20 12:37 WBC RBC Hgb Hct MCV MCH MCHC RDW Plt Count MPV Absolute Neuts (auto) Neutrophils % Lymphocytes % Monocytes % Eosinophils % Basophils % Nucleated RBC % PT with INR INR PTT (Actin FS) Sodium Potassium Chloride Carbon Dioxide Anion Gap BUN Creatinine Est GFR (CKD-EPI)AfAm Est GFR (CKD-EPI)NonAf POC Glucometer 145 Random Glucose Hemoglobin A1c % Calcium Phosphorus Magnesium Total Bilirubin AST ALT Alkaline Phosphatase Ammonia Creatine Kinase Troponin I Total Protein Albumin Lipase TSH Urine Color Urine Appearance Urine pH Ur Specific [place] Urine Protein Urine Glucose (UA) Urine Ketones Urine Blood Urine Nitrite Urine Bilirubin Urine Urobilinogen Ur Leukocyte Esterase Active Medications Generic Name Dose Route Start Last Admin Trade Name Haseeb PRN Reason Stop Dose Admin Furosemide 20 mg 07/19/20 08:00 07/19/20 08:06 Lasix - PO 20 mg 0800 [facility] Administration Insulin Aspart 1 vial 07/18/20 16:30 07/19/20 12:38 Novolog Vial Sliding Scale - SQ Not Given ACHS [facility] Protocol Lactulose 20 gm 07/18/20 22:00 07/19/20 09:21 Cephulac (Oral Use) PO 20 gm BID [facility] Administration Levothyroxine Sodium 50 mcg 07/19/20 07:00 07/19/20 06:40 Synthroid - PO 50 mcg DAILY@0700 [facility] Administration Pantoprazole Sodium 40 mg 07/19/20 10:00 07/19/20 09:21 Protonix - PO 40 mg DAILY [facility] Administration Rifaximin 550 mg 07/19/20 12:00 07/19/20 12:37 Xifaxan - PO 550 mg BID [facility] Administration Spironolactone 25 mg 07/19/20 10:00 07/19/20 09:20 Aldactone - PO 25 mg DAILY [facility] Administration ASSESSMENT/PLAN: Patient is a 69 year old female with history of cirrhosis (secondary to HUTCHINSON), hypertension, hyperlipidemia, diabetes mellitus, hypothyroidism, presents with complaint of altered mental status Acute metabolic encephalopathy -Secondary to hepatic encephalopathy. Significantly improved. Ammonia downtrending. -Lactulose 20grams PO BID -Rifaximin 550mg PO BID -Lasix 20mg PO BID -Spironolocatone- 25mg PO daily -Call placed to patient's implementation director Dr. Butt to discuss her outpatient regimen Hypothyroidism -Continue Synthroid Diabetes mellitus -Insulin sliding scale ACHS. Holding home sulfanylurea. -Fingerstick blood glucose ACHS FEN -No IV fluids indicated. Tolerating oral intake -Follow BMP -Sodium controlled diet Prophylaxis -Early ambulation, SCDs bilateral lower extremities Disposition -Continue care in medical- surgical floor. Visit type - Emergency Visit Emergency Visit: Yes ED Registration Date: 07/18/20 Care time: The patient presented to the Emergency Department on the above date and was hospitalized for further evaluation of their emergent condition. - New Patient This patient is new to me today: Yes Date on this admission: 07/19/20 - Critical Care Critical Care patient: No - Discharge Referral Referred to [facility] No - Medication Review Med list reviewed for High Risk Meds patients 65 and older: Yes ATTENDING PHYSICIAN STATEMENT I saw and evaluated the patient. I reviewed the resident's note and discussed the case with the resident. I agree with the resident's findings and plan as documented. SUBJECTIVE: OBJECTIVE: ASSESSMENT AND PLAN:
[2020-07-19 13:22] VITALS: BMI 27.6
--- NOTE | 2020-07-19 13:30 | EKG ---
Test Reason : Blood Pressure : / mmHG Vent. Rate : 050 BPM Atrial Rate : 050 BPM P-R Int : 176 ms QRS Dur : 088 ms QT Int : 452 ms P-R-T Axes : 068 022 065 degrees QTc Int : 412 ms SINUS BRADYCARDIA OTHERWISE NORMAL ECG Confirmed by MD ADRIANA, MERLINE ([id number]) on 07/19/2020 1:29:56 PM Referred By: Confirmed By:MERLINE WRIGHT MD
[2020-07-20] MEDS: LEVOTHYROXINE NA 50 MCG TABLET (FP) PO SCH (06:24)
[2020-07-20] MEDS: INSULIN SLIDING SCALE (NOVOLOG) 1 VIAL SQ SCH ×3 (06:24→16:33)
[2020-07-20 08:11] LABS: HEMATOCRIT 33.4 % (32.4-45.2); HEMOGLOBIN 11.6 GM/dL (10.7-15.3); MCH 34.1 pg (25.7-33.7); MCHC 34.6 g/dl (32.0-36.0); MEAN CELL VOLUME 98.5 fl (80-96); MEAN PLT VOLUME 8.3 fl (7.5-11.1); PLATELET COUNT 99 K/MM3 (134-434); RBC 3.39 M/mm3 (3.60-5.2); RDW 13.5 % (11.6-15.6); WHITE BLOOD COUNT 7.4 K/mm3 (4.0-10.0)
[2020-07-20 08:20] LABS: INR 1.33 (0.83-1.09); PROTHROMBIN TIME (PATIENT) 15.7 SEC (9.7-13.0)
[2020-07-20 08:32] LABS: ALBUMIN 2.7 g/dl (3.4-5.0); BILIRUBIN,TOTAL 0.9 mg/dL (0.2-1); BLOOD UREA NITROGEN 20.2 mg/dL (7-18); CALCIUM 8.8 mg/dL (8.5-10.1); CREATININE 1.2 mg/dL (0.55-1.3); POTASSIUM 4.5 mmol/L (3.5-5.1); TOT PROT 6.4 g/dl (6.4-8.2)
[2020-07-20] MEDS: FUROSEMIDE 20 MG TABLET (FP) PO SCH (09:08)
[2020-07-20] MEDS ORDERED: PT OWN MED DRAWER 7, Y5N ONE (10:40)
[2020-07-20] MEDS: LACTULOSE 20 GM/30 ML UDC (FOR ORAL USE ONLY) PO SCH (10:48)
[2020-07-20] MEDS: RIFAXIMIN 550 MG TABLET (UD) PO SCH (10:48)
[2020-07-20] MEDS: SPIRONOLACTONE 25 MG TABLET PO SCH (10:48)
[2020-07-20] MEDS: PANTOPRAZOLE 40 MG TABLET PO SCH (10:48)
--- NOTE | 2020-07-20 13:13 | PN ---
Teaching Attending Note Name of Resident: Manjinder Prieto ATTENDING PHYSICIAN STATEMENT I saw and evaluated the patient. I reviewed the resident's note and discussed the case with the resident. I agree with the resident's findings and plan as documented. SUBJECTIVE: Seen and examined at bedside. Patient is alert and oriented x3 and interactive. Denies abdominal pain. Patient will be discharged on rifaximin due to difficulties with lactulose including abdominal pain and heavy diarrhea. This was communicated to patient's outpatient automotive electrical fitter and the patient's pharmacy. OBJECTIVE Last Vital Signs Temp Pulse Resp BP Pulse Ox 98.6 F 73 20 100/58 L 96 07/20/20 06:28 07/20/20 06:28 07/20/20 06:28 07/20/20 06:28 07/20/20 06:28 PE: Per resident note Labs/Imaging: reviewed ASSESSMENT/PLAN 69-year-old female past medical history of hepatic cirrhosis status post TIPS, hypertension, hypothyroidism, diabetes presents with increased lethargy and confusion. Patient found to have hepatic encephalopathy in setting of recently decreased dose of lactulose. Given recurrent issues with lactulose patient will be discharged on rifaximin and will follow-up with her blending coordinator.
--- NOTE | 2020-07-20 13:40 | DS ---
Physical Exam: SUBJECTIVE: Patient seen and examined at bedside. Mental status is at baseline per family at bedside. Patient eager to go home. Denies acute complaints. Denies subjective fevers, chills, shortness of breath, casey pain, palpitations, abdominal pain, nausea, vomiting. OBJECTIVE: Vital Signs Period Temp Pulse Resp BP Sys/Ramos Pulse Ox Last 24 Hr 98.4 F-98.6 F 68-73 20-20 100-118/58-74 96-98 PHYSICAL EXAM GENERAL: The patient is awake, alert, and fully oriented, in no acute distress. HEAD: Normocephalic, atraumatic. EYES: PERRL, extraocular movements intact, sclera anicteric, conjunctiva clear. ENT: Oropharynx clear, without erythema or exudates. Moist mucous membranes. NECK: Trachea midline, full range of motion. Supple without lymphadenopathy. LUNGS: Breath sounds equal, clear to auscultation bilaterally. No wheezes, no crackles. No accessory muscle use. HEART: Regular rate and rhythm. S1, S2 without murmur, rub or gallop. ABDOMEN: Obese abdomen. Soft, nondistended, nontender to light and deep palpation x4 quadrants. No rebound tenderness, no guarding. Normoactive bowel sounds x4 quadrants. Hepatomegaly palpated 2cm below right costal margin. Slight ascitic fluid wave appreciated. EXTREMITIES: 2+ radial, dorsalis pedis pulses bilaterally. Warm, well-perfused. No lower extremity edema bilaterally. NEUROLOGICAL: Cranial nerves II through XII grossly intact. Normal speech. No gross focal deficits. PSYCH: Normal mood, normal affect upon my encounter. SKIN: Warm, dry. Abdominal scar noted well healed. LABS Laboratory Results - last 24 hr 07/19/20 07/19/20 07/19/20 11:15 16:58 22:02 WBC RBC Hgb Hct MCV MCH MCHC RDW Plt Count MPV PT with INR INR Sodium Potassium Chloride Carbon Dioxide Anion Gap BUN Creatinine Est GFR (CKD-EPI)AfAm Est GFR (CKD-EPI)NonAf POC Glucometer 222 159 Random Glucose Calcium Total Bilirubin AST ALT Alkaline Phosphatase Total Protein Albumin COVID-19 ([facility]RETT) Not detected 07/20/20 07/20/20 07/20/20 06:01 07:32 07:32 WBC 7.4 RBC 3.39 L Hgb 11.6 Hct 33.4 MCV 98.5 H MCH 34.1 H MCHC 34.6 RDW 13.5 Plt Count 99 L MPV 8.3 PT with INR INR Sodium 141 Potassium 4.5 Chloride 110 H Carbon Dioxide 22 Anion Gap 10 BUN 20.2 H Creatinine 1.2 Est GFR (CKD-EPI)AfAm 52.66 Est GFR (CKD-EPI)NonAf 45.43 POC Glucometer 137 Random Glucose 121 H Calcium 8.8 Total Bilirubin 0.9 AST 42 H ALT 71 H Alkaline Phosphatase 215 H Total Protein 6.4 Albumin 2.7 L COVID-19 ([facility]) 07/20/20 07/20/20 07:32 11:28 WBC RBC Hgb Hct MCV MCH MCHC RDW Plt Count MPV PT with INR 15.70 H INR 1.33 H Sodium Potassium Chloride Carbon Dioxide Anion Gap BUN Creatinine Est GFR (CKD-EPI)AfAm Est GFR (CKD-EPI)NonAf POC Glucometer 205 Random Glucose Calcium Total Bilirubin AST ALT Alkaline Phosphatase Total Protein Albumin COVID-19 ([facility]) HOSPITAL COURSE: Date of Admission:07/18/20 Date of Discharge: 07/20/20 Patient is a 69 year old female with history of cirrhosis (secondary to HUTCHINSON), hypertension, hyperlipidemia, diabetes mellitus, hypothyroidism, presents with complaint of altered mental status. Ammonia was elevated to 85 and downtrended with Lactulose, Rifaximin. Discussed with patient's tax staff accountant and reconciled medications. her mental status significantly improved with reinstation of her home regimen. Patient was discharged home with Lactulose, Rifaximin, Spironolactone, Lasix. Appointment was scheduled with Dr. Butt (tax staff accountant) for follow up. Discharged home with follow up with primary care physician, gastroenterology. Minutes to complete discharge: 36 Discharge Summary Problems reviewed: Yes Reason For Visit: HEPATIC ENCEPHALOPATHY Current Active Problems Hepatic encephalopathy (Acute) Condition: Stable - Instructions Diet, Activity, Other Instructions: You were admitted to the hospital for change in mental status. You were eval uated by the refrigerator repair technician, and reinstated on Rifaximin and Lactulose. Your mental status has significantly improved and you are stable for discharge home. Continue taking your home medications as directed You will take Rifaximin 550mg twice a day (once in the morning, once in the evening) You will take Lactulose 20mg twice a day (or more frquently- to ensure at least three soft bowel movements a day). Follow up with your primary care physician within one -two days after discharge. A referral has been provided. Follow up with refrigerator repair technician Dr. Alton Aparicio. A referral has been provided. YOU HAVE AN APPOINTMENT SCHEDULED FOR AT 2PM. MAKE SURE YOU KEEP THIS APPOINTMENT. Return to the nearest emergency department if you experience worsening symptoms, subjective fevers, chills, shortness of breath, chest pain, palpitations, abdominal pain, nausea, vomiting, any trauma or loss of consciousness. Referrals: Aida Hebert MD [Primary Care Provider] - Alton Butt [Non Staff, Medical] - 07/25/20 2:00 pm ( [address] [place] [address]) Disposition: HOME - Home Medications Comprehensive Discharge Medication List: Ambulatory Orders Levothyroxine [Synthroid -] 50 mcg PO DAILY 05/16/20 Furosemide [Lasix -] 20 mg PO 0800 06/19/20 Glimepiride [Glimepiride -] 2 mg PO BID 06/19/20 Spironolactone [Aldactone -] 50 mg PO DAILY 06/19/20 Lactulose (Oral Use) [Cephulac -] 30 ml PO TID 07/18/20 Omeprazole 40 mg PO DAILY 07/18/20 Rifaximin [Xifaxan] 550 mg PO BID 07/19/20 Rifaximin [Xifaxan -] 550 mg PO BID tablet 07/20/20 This patient is new to me today: No Emergency Visit: Yes ED Registration Date: 07/18/20 Care time: The patient presented to the Emergency Department on the above date and was hospitalized for further evaluation of their emergent condition. Critical Care patient: No - Discharge Referral Referred to [facility] No ATTENDING PHYSICIAN STATEMENT I saw and evaluated the patient. I reviewed the resident's note and discussed the case with the resident. I agree with the resident's findings and plan as documented. SUBJECTIVE: OBJECTIVE: ASSESSMENT AND PLAN:
[2020-07-20 15:28] VITALS: BP 105/70; PULSE 88; TEMP 98.4
== END 2020-07-20 19:33 | disposition home or self-care (01) | DRG 279 ==
LOC: JER 13:06 → JERBED 15:09 → J8W 07-19 11:54
PROVIDERS: ATTEND Internal Medicine
DX: K72.90 Hepatic failure, unspecified without coma (principal); E11.649 Type 2 diabetes mellitus with hypoglycemia without coma; I10 Essential (primary) hypertension; E03.9 Hypothyroidism, unspecified; R00.1 Bradycardia, unspecified; R41.82 Altered mental status, unspecified; K75.81 Nonalcoholic steatohepatitis (NASH); K74.60 Unspecified cirrhosis of liver; R18.8 Other ascites
CPT/HCPCS: 36415; 71045-TC-FY; 76700-TC; 80053; 81003; 82140; 82550; 82962; 83036; 83690; 83735; 84100; 84443; 84484; 85025; 85027; 85610; 85730; 87040; 87086; 93005; 93010; 99285-25; U0003